=== PATIENT | male | born 1940 | race Caucasian/White ===

== ENCOUNTER → 2016-09-01 | Day surgery (SDC) | payer MEDICARE, BC ==
[2016-09-01 12:29] VITALS: BP 153/73; PULSE 62; RESP 20; TEMP 97.6
--- NOTE | 2016-09-01 12:51 | P.PN ---
Progress Note - Text PROCEDURE: Intrathecal pain pump analysis, programming and reprogramming, and intrathecal pain pump refill. PREOPERATIVE DIAGNOSES: 1. near empty intrathecal pain pump time for refill. 2. opioid tolerance 3. postlaminectomy syndrome POSTOPERATIVE DIAGNOSES: 1. near empty intrathecal pain pump time for refill. 2. opioid tolerance 3. postlaminectomy syndrome ANESTHESIA: None. CONDITION: Stable. INDICATION: This is a 75-year-old patient with a long history of chronic pain secondary to postlaminectomy syndrome. Patient previously had an intrathecal pump placed, which is now close to empty, and patient presents for refill today. Patient denies any side effects of the intrathecal medication, including new weakness, new numbness, excessive drowsiness or sleepiness, nausea/vomiting , weight gain, or night sweats. Patient also denies suicidal ideation, and reports that the current pain medication is helping control the chronic pain and improve the patient's activities of daily living. DESCRIPTION: The intrathecal pain pump was analyzed and showed that the patient currently has reservoir volume of [3.6] mL. The patient is receiving intrathecal Morphine sulfate PF at concentration [5] mg / ml, and bupivacaine PF at concentration [5] mg/ml. Patient receiving daily dose of Morphine Sulfate [0.9] mg/day and bupivacaine [0.9] mg/day. The location of the pump (left buttock) was prepped with chlorhexidine x3. Then , the 22-gauge needle from the [employer] kit was advanced through the pump port. Total of [3.8] ml was removed from the pump, and it was refilled with the new medication total volume of [20] ml of a solution containing morphine sulfate at concentration [5] mg /ml and bupivacaine at concentration [5] mg/ml. The patient will continue with the same daily dose morphine [0.9] mg/day and bupivacaine [0.9] mg/day. The patient is using some oral medications as well, specifically oxyIR 5 mg q6h #90 prn pain orally for breakthrough pain. The patient was given three months' worth of these medications and patient will follow up with the pain clinic in 3 months for refill and further evaluation. We will also obtain a urine drug screen today.
== END ==
LOC: PNWHC3 11:57
PROVIDERS: ATTEND Anesthesiology
DX: Z45.1 Encounter for adjustment and management of infusion pump (principal); M96.1 Postlaminectomy syndrome, not elsewhere classified; Z79.891 Long term (current) use of opiate analgesic
CPT/HCPCS: 62370; 80307; 80364

== ENCOUNTER → 2016-11-24 | Day surgery (SDC) | payer MEDICARE, BC ==
[2016-11-24 12:43] VITALS: BP 129/61; PULSE 49; RESP 18; TEMP 98.3
--- NOTE | 2016-11-24 13:50 | P.PCN ---
Date of Procedure: 11/24/16 Procedure(s) Performed: OPERATION: Intrathecal pain pump analysis, programming and reprogramming, and intrathecal pain pump refill. PREOPERATIVE DIAGNOSES: 1. near empty intrathecal pain pump time for refill. 2. 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 near empty intrathecal pain pump time for refill. 2. 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 CONDITION: Stable. Description of the procedure; Intrathecal pain pump analysed ,it showed patient currently had reservoir volume[ ] mL. The patient is receiving medication morphine sulfate 5 mg/ ml, and bupivacaine concentration 5 mg/ml. Patient receiving daily dose of of morphine 0.90 mg/day and bupivacaine 0.90 mg /day. Pain is well controlled , patient using medication for breakthrough pain Percocet 5/325 every 6-8 hours orally . The location of the pump ( Left Buttuck ) Prepped with chlorhexidine x3 , then using 22-gauge needle [employer] kit advanced through the pump port, Total of [ 5 ] ml removed from the pump, the pump refills with the new medication total volume [ 20 ] ml . The concentration morphine sulfate 5 mg /ml , and the bupivacaine concentration 5 mg/ml. The patient will continue to see the daily dose morphine sulfate 0.90 mg/day and bupivacaine 0.90 mg/day and patient will follow up with the pain clinic in 3 months. [facility] refill for Percocet 5/325 every 6 hours dispense 90 with 2 refills, baclofen 10 mg daily at bedtime dispense 30 with 2 refills
== END ==
LOC: PNWHC3 12:10
PROVIDERS: ATTEND Specialist
DX: Z45.49 Encounter for adjustment and management of other implanted nervous system device (principal); M96.1 Postlaminectomy syndrome, not elsewhere classified; Z79.891 Long term (current) use of opiate analgesic; Z79.899 Other long term (current) drug therapy
CPT/HCPCS: 62370

== ENCOUNTER → 2017-02-17 | Day surgery (SDC) | payer MEDICARE, BC ==
[2017-02-17 13:31] VITALS: BP 118/65; RESP 18
--- NOTE | 2017-02-17 13:31 | P.PN ---
Progress Note - Text PROCEDURE: Intrathecal pain pump analysis, programming and reprogramming, and intrathecal pain pump refill. PREOPERATIVE DIAGNOSES: 1. near empty intrathecal pain pump time for refill. 2. opioid tolerance 3. postlaminectomy syndrome POSTOPERATIVE DIAGNOSES: 1. near empty intrathecal pain pump time for refill. 2. opioid tolerance 3. postlaminectomy syndrome ANESTHESIA: None. CONDITION: Stable. INDICATION: This is a 76-year-old patient with a long history of chronic pain secondary to postlaminectomy syndrome. Patient previously had an intrathecal pump placed, which is now close to empty, and patient presents for refill today. Patient denies any side effects of the intrathecal medication, including new weakness, new numbness, excessive drowsiness or sleepiness, nausea/vomiting , weight gain, or night sweats. Patient also denies suicidal ideation, and reports that the current pain medication is helping control the chronic pain and improve the patient's activities of daily living. DESCRIPTION: The intrathecal pain pump was analyzed and showed that the patient currently has reservoir volume of [4.7] mL. The patient is receiving intrathecal Morphine sulfate PF at concentration [5] mg / ml, and bupivacaine PF at concentration [5] mg/ml. Patient receiving daily dose of Morphine Sulfate [0.9] mg/day and bupivacaine [0.9] mg/day. The location of the pump (left buttock) was prepped with chlorhexidine x3. Then , the 22-gauge needle from the [employer] kit was advanced through the pump port. Total of [3.0] ml was removed from the pump, and it was refilled with the new medication total volume of [20] ml of a solution containing morphine sulfate at concentration [5] mg /ml and bupivacaine at concentration [5] mg/ml. The patient will continue with the same daily dose morphine [0.9] mg/day and bupivacaine [0.9] mg/day. The patient is using some oral medications as well, specifically oxyIR 5 mg q6h #90 prn pain orally for breakthrough pain and baclofen 10 mg qhs for spasm. The patient was given three months' worth of these medications and patient will follow up with the pain clinic in 3 months for refill and further evaluation. UDS appropriate from August 2016.
== END ==
LOC: PNWHC3 12:57
PROVIDERS: ATTEND Anesthesiology
DX: G89.29 Other chronic pain (principal); M96.1 Postlaminectomy syndrome, not elsewhere classified; Z45.1 Encounter for adjustment and management of infusion pump; Z79.891 Long term (current) use of opiate analgesic
CPT/HCPCS: 62370

== ENCOUNTER 2017-04-09 22:02 | Inpatient (IN) | payer MEDICARE, BC ==
[2017-04-09] MEDS ORDERED: SODIUM CHLORIDE 0.9% 1,000 ML IV STA (22:20)
[2017-04-09] MEDS ORDERED: PANTOPRAZOLE 40 MG/10 ML VIAL IVP STA (22:20)
[2017-04-09] MEDS ORDERED: SODIUM CHLORIDE 0.9% 500 ML IV STA (22:20)
--- NOTE | 2017-04-09 22:28 | ED ---
General Adult HPI - General Chief complaint: GI Bleed Stated complaint: Blood Stool Time Seen by Provider: 04/09/17 22:18 Source: patient, RN notes reviewed, old records reviewed Mode of arrival: wheelchair Limitations: no limitations - History of Present Illness Initial comments: THis is a 76 male to the ED with one day of dark tarry stools and weakness. Symptoms with blood last night which are now tarry stools, patient has mild diffuse abdominal pain. Patient has no history of similar GIB, does take motrin but no blood thinners on a regular basis. Patitne has had a history of colonoscopy. - Related Data Home Medications Medication Instructions Recorded Confirmed Aspirin 325 mg PO DAILY 11/22/13 04/09/17 Hydrochlorothiazide [Hydrodiuril] 50 mg PO DAILY 11/22/13 04/09/17 Intrathecal Pain Pump 5 mg INTRATHECA DIRECTED 11/22/13 04/09/17 buPROPion XL [Wellbutrin XL] 300 mg PO DAILY 11/22/13 04/09/17 Ibuprofen [Motrin] 200 mg PO BID 11/25/14 04/09/17 Levothyroxine Sodium [Synthroid] 200 mcg PO DAILY 11/25/14 04/09/17 Metoprolol Tartrate [Lopressor] 50 mg PO DAILY 11/25/14 04/09/17 Docusate [Colace] 100 mg PO DAILY PRN 08/12/15 04/09/17 Atorvastatin [Lipitor] 1 tab PO DAILY 02/17/17 04/09/17 Baclofen [Lioresal] 1 tab PO HS 02/17/17 04/09/17 Citalopram Hydrobromide [CeleXA] 50 mg PO DAILY 02/17/17 04/09/17 Citalopram Hydrobromide [CeleXA] 40 mg PO DAILY 04/09/17 04/09/17 Levothyroxine Sodium [Synthroid] 50 mcg PO DAILY 04/09/17 04/09/17 Previous Rx's Medication Instructions Recorded Baclofen [Lioresal] 10 mg PO HS PRN #30 tab 02/17/17 oxyCODONE HCL [OxyIR] 5 mg PO Q6HR PRN #90 tab 02/17/17 Allergies Allergy/AdvReac Type Severity Reaction Status Date / Time No Known Allergies Allergy Verified 08/03/17 13:10 Review of Systems ROS Statement: Those systems with pertinent positive or pertinent negative responses have been documented in the HPI. ROS Other: All systems not noted in ROS Statement are negative. Past Medical History Past Medical History: Cancer, COPD, GERD/Reflux, Hypertension, Musculoskeletal Disorder, Rheumatoid Arthritis (RA), Thyroid Disorder Additional Past Medical History / Comment(s): HX MIGRAINES. HX OF SKIN CANCER . , CHRONIC BACK PAIN,D.I.S.H.-DEGENERATIVEARTHRITIS, ANKYLOSING SPONDYLITIS. , GETS LIGHTHEADED EASILY-MOVES SLOWLY TO PREVENT LOSS OF BALANCE. History of Any Multi-Drug Resistant Organisms: None Reported Past Surgical History: Appendectomy, Bowel Resection, Joint Replacement, Orthopedic Surgery, Tonsillectomy Additional Past Surgical History / Comment(s): LT KNEE REPL. BACK SURG. X2. INTRATHECAL OPIOID PAIN PUMP TO MANAGE CHRONIC PAIN. Past Anesthesia/Blood Transfusion Reactions: No Reported Reaction Past Psychological History: Anxiety, Depression Smoking Status: Never smoker - Past Family History Father Family Medical History: Cancer, Deep Vein Thrombosis (DVT) Additional Family Medical History / Comment(s): Lung & BONE CA General Exam Limitations: no limitations General appearance: alert, in no apparent distress Head exam: Present: atraumatic, normocephalic, normal inspection Eye exam: Present: normal appearance, PERRL, EOMI. Absent: scleral icterus, conjunctival injection, periorbital swelling ENT exam: Present: normal exam, mucous membranes moist Neck exam: Present: normal inspection. Absent: tenderness, meningismus, lymphadenopathy Respiratory exam: Present: normal lung sounds bilaterally. Absent: respiratory distress, wheezes, rales, rhonchi, stridor Cardiovascular Exam: Present: regular rate, normal rhythm, normal heart sounds. Absent: systolic murmur, diastolic murmur, rubs, gallop, clicks GI/Abdominal exam: Present: soft, normal bowel sounds. Absent: distended, tenderness, guarding, rebound, rigid Extremities exam: Present: normal inspection, full ROM, normal capillary refill. Absent: tenderness, pedal edema, joint swelling, calf tenderness Back exam: Present: normal inspection Neurological exam: Present: alert, oriented X3, CN II-XII intact Psychiatric exam: Present: normal affect, normal mood Skin exam: Present: warm, dry, intact, normal color. Absent: rash Course Vital Signs 04/09/17 04/09/17 22:10 23:17 Temperature 97.5 F L Pulse Rate 77 74 Respiratory 20 18 Rate Blood Pressure 128/75 138/65 O2 Sat by Pulse 98 Oximetry - Reevaluation(s) Reevaluation #1: 04/09/17 23:21 patient with no bloody BM in ED Medical Decision Making - Medical Decision Making 76 male to ED with dark tarry stools, patient not on blood thinners, will admit for GI consult and evaluation - Lab Data Result diagrams: 04/09/17 22:45 Lab Results 04/09/17 04/09/17 04/09/17 Range/Units 22:45 22:45 22:45 WBC 8.6 (3.8-10.6) k/uL RBC 5.26 (4.30-5.90) m/uL Hgb 15.8 (13.0-17.5) gm/dL Hct 47.6 (39.0-53.0) % MCV 90.5 (80.0-100.0) fL MCH 30.0 (25.0-35.0) pg MCHC 33.1 (31.0-37.0) g/dL RDW 15.8 H (11.5-15.5) % Plt Count 191 (150-450) k/uL Neutrophils % 67 % Lymphocytes % 22 % Monocytes % 7 % Eosinophils % 2 % Basophils % 1 % Neutrophils # 5.8 (1.3-7.7) k/uL Lymphocytes # 1.9 (1.0-4.8) k/uL Monocytes # 0.6 (0-1.0) k/uL Eosinophils # 0.1 (0-0.7) k/uL Basophils # 0.0 (0-0.2) k/uL PT 10.8 (9.0-12.0) sec INR 1.1 (<1.2) APTT 22.1 (22.0-30.0) sec Plasma Lactic Acid Js 2.5 H* (0.7-2.0) mmol/L Disposition Clinical Impression: Melena, Gastrointestinal hemorrhage Disposition: ADMITTED IP TO THIS [facility] Condition: Fair Referrals: Remington Mayfield DO [Primary Care Provider] - 1-2 days
[2017-04-09 23:01] LABS: Basophils % (A) 1 %; CH 31.1; CHCM 34.6; Eosinophils # (A) 0.1 k/uL (0-0.7); Eosinophils % (A) 2 %; HCT 47.6 % (39.0-53.0); HDW 3.05; HGB 15.8 gm/dL (13.0-17.5); Luc # (Auto) 0.16; Luc % (Auto) 2; Lymphocytes # (A) 1.9 k/uL (1.0-4.8); Lymphocytes % (A) 22 %; MCHC 33.1 g/dL (31.0-37.0); MCV 90.5 fL (80.0-100.0); Mean Platelet Volume 7.4; Monocytes # (A) 0.6 k/uL (0-1.0); Monocytes % (A) 7 %; Neutrophils # (A) 5.8 k/uL (1.3-7.7); Neutrophils % (A) 67 %; RBC 5.26 m/uL (4.30-5.90); RDW 15.8 % (11.5-15.5); WBC 8.6 k/uL (3.8-10.6); WBC (Perox) 8.47
[2017-04-09 23:11] LABS: INR 1.1 (<1.2); Partial Thromboplastin Time 22.1 sec (22.0-30.0); Prothrombin Time 10.8 sec (9.0-12.0)
[2017-04-09 23:14] LABS: ALT 56 U/L (21-72); AST 52 U/L (17-59); Alkaline Phosphatase 96 U/L (38-126); Anion Gap 14 mmol/L; Blood Urea Nitrogen 20 mg/dL (9-20); Carbon Dioxide 24 mmol/L (22-30); Chloride 98 mmol/L (98-107); Glucose 249 mg/dL (74-99); Magnesium 1.4 mg/dL (1.6-2.3); Non-African American GFR(MDRD) >60 (>60 ml/min/1.73 sqM); Potassium 3.7 mmol/L (3.5-5.1); Sodium 136 mmol/L (137-145); Total Bilirubin 0.5 mg/dL (0.2-1.3); Total Protein 6.9 g/dL (6.3-8.2)
[2017-04-09] MEDS ORDERED: RX INFO: IV CONTRAST WAS GIVEN 1 EACH MISC MISCELLANE PRN (23:22)
[2017-04-09 23:27] LABS: Creatine Kinase 86 U/L (55-170)
[2017-04-09 23:39] LABS: Creatine Kinase MB 1.2 ng/mL (0.0-2.4); Troponin I <0.012 ng/mL (0.000-0.034)
--- NOTE | 2017-04-10 00:44 | CT ---
EXAM: CT Abdomen and Pelvis With Intravenous Contrast CLINICAL HISTORY: Abdominal pain. TECHNIQUE: Axial computed tomography images of the abdomen and pelvis with intravenous contrast. Coronal and sagittal reformatted images were created and reviewed. CTDI is 87.50 mGy and DLP is 3345 mGy-cm. This CT exam was performed using one or more of the following dose reduction techniques: automated exposure control, adjustment of the mA and/or kV according to patient size, and/or use of iterative reconstruction technique. COMPARISON: No prior exams available for comparison. FINDINGS: Limitations: CT scan degraded by motion artifact. Lower thorax: No acute findings. ABDOMEN: Liver: Diffuse fatty infiltration of the liver. Gallbladder and bile ducts: Unremarkable. No calcified stones. No ductal dilation. Pancreas: Unremarkable. Spleen: Unremarkable. No splenomegaly. Adrenals: Unremarkable. No mass. Kidneys and ureters: Small renal hypodensities, some too small to characterize and others most likely cysts. No hydronephrosis. Stomach and bowel: No obstruction. Status post sigmoid colectomy. Appendix: Appendix is not visualized. No secondary findings to suggest appendicitis. PELVIS: Bladder: Unremarkable. Reproductive: Unremarkable as visualized. ABDOMEN and PELVIS: Intraperitoneal space: No free air. No significant fluid collection. Bones/joints: No acute fracture. There is ankylosis of the thoracolumbar spine and SI joints. Soft tissues: Tiny fat-containing umbilical hernia. Gynecomastia. Vasculature: Unremarkable. No abdominal aortic aneurysm. Lymph nodes: Unremarkable. No enlarged lymph nodes. Tubes, lines and devices: Left posterior flank pump device with intrathecal catheter entering the spinal canal at the L1-L2 level. The catheter tip is located at the T9-T10 level. IMPRESSION: 1. No acute findings. 2. Status post sigmoid colectomy. 3. Diffuse fatty infiltration of the liver. 4. Tiny fat-containing umbilical hernia. 5. 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
[2017-04-10] MEDS ORDERED: SODIUM CHLORIDE 0.65% NASAL SPRAY 44 ML BTL NASAL PRN (03:48)
[2017-04-10] MEDS: ONDANSETRON 4 MG/2 ML VIAL IVP PRN ×2 (04:03→09:33)
[2017-04-10 07:18] LABS: Glucose,Whole Blood 205 mg/dL (75-99)
[2017-04-10] MEDS: PANTOPRAZOLE 40 MG/10 ML VIAL IVP SCH ×2 (08:07→20:38)
[2017-04-10] MEDS: INSULIN LISPRO (humaLOG) 300 UNIT/3 ML VIAL SQ SCH ×5 (08:12→20:59)
[2017-04-10 08:29] LABS: Basophils % (A) 1 %; CHCM 33.9; Eosinophils # (A) 0.1 k/uL (0-0.7); Eosinophils % (A) 1 %; HCT 46.4 % (39.0-53.0); HDW 3.01; HGB 14.9 gm/dL (13.0-17.5); Luc # (Auto) 0.26; Luc % (Auto) 3; Lymphocytes # (A) 1.9 k/uL (1.0-4.8); Lymphocytes % (A) 23 %; MCH 29.6 pg (25.0-35.0); MCHC 32.1 g/dL (31.0-37.0); Mean Platelet Volume 7.4; Monocytes # (A) 0.7 k/uL (0-1.0); Monocytes % (A) 9 %; Neutrophils # (A) 5.2 k/uL (1.3-7.7); Neutrophils % (A) 63 %; RBC 5.04 m/uL (4.30-5.90); RDW 15.9 % (11.5-15.5); WBC 8.3 k/uL (3.8-10.6); WBC (Perox) 7.58
[2017-04-10 08:43] LABS: Anion Gap 13 mmol/L; Blood Urea Nitrogen 15 mg/dL (9-20); Calcium 9.6 mg/dL (8.4-10.2); Carbon Dioxide 23 mmol/L (22-30); Chloride 102 mmol/L (98-107); Glucose 203 mg/dL (74-99); Non-African American GFR(MDRD) >60 (>60 ml/min/1.73 sqM); Potassium 3.3 mmol/L (3.5-5.1); Sodium 138 mmol/L (137-145)
[2017-04-10] MEDS: SODIUM CHLORIDE 0.9% 1,000 ML IV SCH ×2 (10:36→17:33)
--- NOTE | 2017-04-10 10:39 | CONS ---
CONSULTATION REQUESTING PHYSICIANS: Dr. Mayfield. REASON FOR CONSULTATION: Acute GI bleed. HISTORY OF PRESENT ILLNESS: The patient is a 76-year-old pleasant white male admitted to the hospital with acute GI bleed. On Tuesday night he had 2 episodes of black tarry stools followed by 2 more episodes of dark-colored stools. He at the same time started having abdominal pain mostly in the left lower quadrant area as well as in the epigastric area that lasted for a few hours. Yesterday morning he had 2 more episodes of dark colored stools, became somewhat dizzy, came to the emergency room and subsequently admitted to the hospital for acute GI bleed. Since being in the hospital since last night he did not have any further episodes of bleeding. He had an episode of nausea, vomiting, but no coffee-grounds emesis. He has been taking NSAIDs recently for chronic back pain. He denies any prior history of peptic ulcer disease. He recalls having a colonoscopy several years ago and according to him was noted to have a large polyp in the sigmoid colon, which was resected and this was more than 10 years ago. He denies any recent colonoscopy since then. In the ER CBC was 15.8 and this morning is 14.9 g/dL. PAST MEDICAL HISTORY: Significant for hypertension, chronic back pain, migraine, GERD, COPD, hypothyroidism, rheumatoid arthritis. PAST SURGICAL HISTORY: Sigmoid resection 12 years ago, appendectomy, tonsillectomy, back surgery, left knee replacement. MEDICATIONS: Medications at home: 1. Aspirin. 2. HydroDIURIL. 3. Intrathecal pain pump. 4. Wellbutrin. 5. Motrin. 6. Synthroid. 7. Lopressor. 8. Colace. 9. Lipitor. 10.Lioresal. 11.Celexa. 12.Synthroid. ALLERGIES: None. SOCIAL HISTORY: No smoking or alcohol use. FAMILY HISTORY: Father has DVT and bone cancer. REVIEW OF SYSTEMS: CARDIOPULMONARY: Denies any chest pain, shortness of breath. GENITOURINARY: Denies any dysuria or hematuria. MUSCULOSKELETAL: Unremarkable. SKIN: Unremarkable. PSYCHIATRIC: Unremarkable. ENT/VISION: Unremarkable. CONSTITUTIONAL: No recent weight loss. No fever, chills or night sweats. EXAM: On physical examination he appears comfortable in no apparent distress. VITAL SIGNS: Stable. Blood pressure is 149/78, pulse rate 94, temperature 98.8. HEENT examination unremarkable. Conjunctivae pink. Sclerae anicteric. Oral cavity no lesions. NECK: No JVD or lymph node enlargement. Chest was clear to auscultation. HEART: Regular rate and rhythm. Abdomen is soft. Bowel sounds are positive. No organomegaly. There was mild tenderness in the left lower quadrant area as well as the epigastric area. EXTREMITIES: No pedal edema. SKIN: No rashes. NEUROLOGIC: Alert and oriented x3. No focal deficits. LABS: Labs done at the time of admission hospital: WBC 8.6, hemoglobin 15.8. Today hemoglobin is 14.9, platelets are normal. Basic metabolic panel is within normal limits. Lactic acid was 2.5. IMPRESSION: The patient presents to the hospital with abdominal pain mostly in the left lower quadrant as well as epigastric area associated with some nausea, vomiting and multiple episodes of black tarry stools for the last 2 days duration. Hemoglobin surprisingly is stable at 14.8 g/dL. He has been taking NSAIDs for chronic back pain in addition to narcotic pain medications. At this time it appears that we are dealing with an upper GI source of bleeding, but possibility of a right colonic lesion cannot be excluded. His last colonoscopy was more than 12 years ago at which time he was diagnosed with a large colon polyp and hence then underwent segmental sigmoid resection. RECOMMENDATIONS: 1. Start him on clear liquid diet. 2. Continue with proton pump inhibitor. 3. We will proceed with an EGD and colonoscopy tomorrow. 4. Discussed with the patient the risks, benefits, and complications and he is agreeable to it. Thank you for this consultation. MMODL / IJN: [id number] /
[2017-04-10] MEDS: ACETAMINOPHEN IV (For NPO) 1,000 MG in EMPTY BAG 1 BAG IVPB SCH ×3 (11:08→23:27)
[2017-04-10 12:19] LABS: Glucose,Whole Blood 271 mg/dL (75-99)
[2017-04-10] MEDS ORDERED: BACLOFEN 10 MG TAB PO PRN (14:32)
[2017-04-10] MEDS ORDERED: ALPRAZolam 0.25 MG TAB PO PRN (14:34)
[2017-04-10] MEDS ORDERED: TEMAZEPAM 15 MG CAP PO PRN (14:34)
[2017-04-10] MEDS ORDERED: INTRATHECAL PAIN PUMP INTRATHECA SCH (14:45)
[2017-04-10] MEDS ORDERED: PEG 3350-NA SULF,BICARB,CL/KCL 4,000 ML BOTTLE PO ONE (16:00)
--- NOTE | 2017-04-10 16:02 | XR ---
EXAMINATION TYPE: XR chest 1V portable DATE OF EXAM: 04/10/2017 COMPARISON: NONE HISTORY: Heart failure. Chest pain. TECHNIQUE: Single frontal view of the chest is obtained. FINDINGS: A single view of the chest shows no heart failure nor confluent pneumonic infiltrate. Ther e is curvilinear density at the right lung base that is probably due to atelectasis. There are chest leads. There is no sign of pleural effusion. There is severe subacromial joint space narrowing at the right shoulder joint. IMPRESSION: No heart failure. There is probably focal atelectasis in the right lower lobe.
[2017-04-10 16:03] LABS: Appearance,Urine Clear (Clear); Bilirubin,Urine Negative (Negative); Glucose,Urine (UA) 1+ (Negative); Ketones,Urine 1+ (Negative); Leukocyte Esterase,Urine Negative (Negative); Nitrite,Urine Negative (Negative); Protein,Urine Negative (Negative); Specific Gravity,Urine 1.019 (1.001-1.035); UA Billing (MACRO vs. MICRO) CHEM; Urobilinogen,Urine <2.0 mg/dL (<2.0)
[2017-04-10 17:31] LABS: Glucose,Whole Blood 202 mg/dL (75-99)
--- NOTE | 2017-04-10 19:03 | HP ---
HISTORY AND PHYSICAL DATE OF SERVICE: 04/10/2017 I am covering for Dr. Mayfield. CHIEF COMPLAINT: GI bleed. HISTORY OF PRESENT ILLNESS: This 76-year-old gentleman with a past medical history of multiple medical problems including COPD, GERD, hypertension, history of rheumatoid arthritis being followed by Dr. Mayfield in the outpatient setting was recently diagnosed to have diabetes. The patient was started on metformin. Subsequently the patient apparently developed multiple episodes of gastrointestinal bleed with fresh maroon-colored blood and subsequently black-colored stools and patient came to [facility] admitted for evaluation and treatment. The lactic acid level was found to be high at 2.7, 3.7. Otherwise an abdominal pelvis CAT scan was also done in the ER which showed no acute findings. There is no history of fever, rigors. No history of headache, loss of consciousness, seizures at this time. PAST MEDICAL HISTORY: History of COPD, GERD, hypertension, rheumatoid arthritis, appendectomy. MEDICATIONS: Medications prior to admission include: 1. Dorzolamide timolol 1 drop b.i.d. 2. Xalatan 1 drop q.h.s. 3. Oxy IR 5 mg b.i.d. 4. Glucophage 500 mg p.o. b.i.d. 6. Multivitamins 1 p.o. daily. 7. Lopressor 50 mg b.i.d. 8. Synthroid 50 mcg p.o. daily and 200 mcg p.o. daily. 9. Intrathecal pain pump 5 mg. 10.Motrin 200 mg p.o. b.i.d. 11.HydroDIURIL 60 mg. 12.Colace 100 mg p.o. daily. 13.Celexa 60 mg daily p.r.n. 14.Lioresal 10 mg q.h.s. p.r.n. 15.Lipitor 10 mg q.h.s. 16.Aspirin 325 mg daily. ALLERGIES: None. FAMILY HISTORY: History of lung cancer, bone cancer and DVT. SOCIAL HISTORY: No history of smoking. No history alcohol intake. REVIEW OF SYSTEMS: ENT: No diminished hearing. No diminished vision. CARDIOVASCULAR: No angina or palpitations. RESPIRATORY: No cough or hemoptysis. : As mentioned earlier. : No dysuria. NERVOUS SYSTEM: No numbness, weakness. ALLERGY/IMMUNOLOGY: No asthma or hayfever. MUSCULOSKELETAL: As mentioned. HEMATOLOGY: No anemia. ENDOCRINE: As mentioned earlier. CONSTITUTIONAL: As mentioned earlier. DERMATOLOGY: Negative RHEUMATOLOGY: Negative. PSYCHOLOGY: As mentioned earlier. EXAMINATION: Alert and oriented x3. Pulse is 82, blood pressure 156/67, respirations 20, temperature 97.7, pulse ox 97% room air. HEENT: Conjunctivae normal. Oral mucosa moist. NECK: No jugular venous distention. No carotid bruit. No thyroid enlargement. CARDIOVASCULAR: S1, S2 muffled. No S3, no S4. RESPIRATORY: Breath sounds diminished in bases. No rhonchi, no crackles. ABDOMEN: Soft. Nontender. No mass palpable. LEGS: No edema. No swelling. NERVOUS SYSTEM: Higher functions as mentioned earlier. Moves all four limbs. No focal motor or sensory deficits. LYMPHATICS: No lymph node of the neck, axillae, or groin. SKIN: No ulcer, rash or bleeding. LABS: Labs at this time shows WBC 8.6, hemoglobin 15.2, sodium 133. Lactic acid noted. ASSESSMENT: 1. GI bleed. Rule out peptic ulcer disease or diverticulosis. 2. Lactic acidosis of undetermined etiology. 3. Newly diagnosed diabetes type 2. 4. Hypokalemia. 5. History of chronic obstructive pulmonary disease. 6. History of gastroesophageal reflux disease. 7. Hypertension. 8. Rheumatoid arthritis. 9. History of chronic back pain and DISH. 10.History of anxiety. RECOMMENDATIONS AND DISCUSSION: In this 76-year-old gentleman who presented with multiple complex medical issues , we will monitor the patient closely. Continue the current medications and symptomatic treatment. Otherwise at this time I recommend to monitor hemoglobin closely. Dr. Bhatti has been consulted for possible endoscopy. Other than that, I would also recommend to hold metformin which could be causing the lactic acidosis but however also recommend UA with micro and as well as chest x-ray also. Clinically there is no evidence of infection or intraabdominal acute pathology at this time. We will continue to monitor. Continue IV fluids. Overall prognosis guarded because of multiple complex medical issues. further recommendations to follow. Discussed with patient who understands and agrees. Dr. Mayfield will follow. MMODL / IJN: [id number] / [facility]
[2017-04-10] MEDS: LATANOPROST 0.005% OPHTH DROPS 2.5 ML BTL BOTH EYES SCH (20:37)
[2017-04-10] MEDS: ATORVASTATIN 10 MG TAB PO SCH (20:38)
[2017-04-10] MEDS: DORZOLAMIDE-TIMOLOL 2-0.5% DROPS 10 ML BTL BOTH EYES SCH (20:38)
[2017-04-10 20:58] LABS: Glucose,Whole Blood 174 mg/dL (75-99)
[2017-04-10 23:57] LABS: Glucose,Whole Blood 114 mg/dL (75-99)
[2017-04-11] MEDS: SODIUM CHLORIDE 0.9% 1,000 ML IV SCH ×3 (02:34→17:34)
[2017-04-11 03:46] LABS: Glucose,Whole Blood 150 mg/dL (75-99)
[2017-04-11] MEDS: ACETAMINOPHEN IV (For NPO) 1,000 MG in EMPTY BAG 1 BAG IVPB SCH (06:37)
[2017-04-11 07:23] LABS: Glucose,Whole Blood 170 mg/dL (75-99)
[2017-04-11] MEDS: INSULIN LISPRO (humaLOG) 300 UNIT/3 ML VIAL SQ SCH ×7 (07:35→22:24)
[2017-04-11] MEDS: DORZOLAMIDE-TIMOLOL 2-0.5% DROPS 10 ML BTL BOTH EYES SCH ×2 (07:36→22:23)
[2017-04-11] MEDS: LEVOTHYROXINE 50 MCG TAB PO SCH (07:36)
[2017-04-11] MEDS: PANTOPRAZOLE 40 MG/10 ML VIAL IVP SCH ×2 (07:36→23:18)
[2017-04-11] MEDS: LEVOTHYROXINE 100 MCG TAB PO SCH (07:36)
[2017-04-11] MEDS: HYDROCHLOROTHIAZIDE 50 MG TAB PO SCH (07:39)
[2017-04-11] MEDS: buPROPion XL 300 MG TAB.ER.24H PO SCH (07:39)
[2017-04-11] MEDS: CITALOPRAM HYDROBROMIDE 20 MG TAB PO SCH (07:39)
[2017-04-11] MEDS: METOPROLOL TARTRATE 50 MG TAB PO SCH (07:39)
[2017-04-11 08:53] LABS: Basophils # (A) 0.1 k/uL (0-0.2); Basophils % (A) 1 %; CHCM 33.8; Eosinophils # (A) 0.3 k/uL (0-0.7); Eosinophils % (A) 4 %; HCT 40.4 % (39.0-53.0); HDW 3.09; HGB 13.1 gm/dL (13.0-17.5); Luc # (Auto) 0.17; Luc % (Auto) 2; Lymphocytes # (A) 1.3 k/uL (1.0-4.8); Lymphocytes % (A) 18 %; MCH 29.9 pg (25.0-35.0); MCHC 32.4 g/dL (31.0-37.0); MCV 92.1 fL (80.0-100.0); Mean Platelet Volume 7.2; Monocytes # (A) 0.6 k/uL (0-1.0); Monocytes % (A) 9 %; Neutrophils # (A) 4.7 k/uL (1.3-7.7); Neutrophils % (A) 66 %; RBC 4.38 m/uL (4.30-5.90); RDW 15.9 % (11.5-15.5); WBC 7.1 k/uL (3.8-10.6); WBC (Perox) 6.73
[2017-04-11 09:16] LABS: Anion Gap 9 mmol/L; Blood Urea Nitrogen 7 mg/dL (9-20); Calcium 8.8 mg/dL (8.4-10.2); Carbon Dioxide 26 mmol/L (22-30); Chloride 105 mmol/L (98-107); Non-African American GFR(MDRD) >60 (>60 ml/min/1.73 sqM); Potassium 3.3 mmol/L (3.5-5.1); Sodium 140 mmol/L (137-145)
[2017-04-11 09:17] LABS: Glucose 165 mg/dL (74-99)
--- NOTE | 2017-04-11 09:34 | P.PN ---
Subjective Principal diagnosis: 76-year-old male who presented to the emergency room on 04/09/2017 with a chief complaint of abdominal pain, weakness, and dark tarry stools. The patient is not on anticoagulation, however the patient has been taking Motrin on a regular basis due to back pain. He also has a history of COPD, GERD, rheumatoid arthritis, and hypertension. He was recently diagnosed with diabetes mellitus and started on metformin per Dr. Mayfield. A computed tomography scan of the abdomen was completed which was negative for any acute findings. It did show diffuse fatty infiltrates of the liver, tiny fat-containing umbilical hernia, and evidence of sigmoid colectomy. A chest x- ray was completed in the emergency room which showed atelectasis of the right lower lobe. His lactic acid was elevated upon admission at 2.5. His metformin was held per Dr. Cohen because of this. The patient is scheduled for EGD and colonoscopy today. He remains nothing by mouth. He completed his prep last night. Lab work from this morning was reviewed. Potassium 3.3 and magnesium 1.4. Will supplement. His lactic acid was 3.6 at midnight. Repeat lactic acid this morning is 1.0. The patient's vital signs remained stable. His temperature this Tuesday was 99.8. His oxygen saturation remains greater than 92% on 2 liters nasal cannula. He denies shortness of breath or chest pain. He denies nausea or vomiting. Objective - Vital Signs Vital signs: Vital Signs Temp 97.5 F L 04/11/17 07:00 Pulse 72 04/11/17 07:00 Resp 16 04/11/17 07:00 BP 126/59 04/11/17 07:00 Pulse Ox 92 L 04/11/17 07:00 Intake & Output 04/10/17 04/11/17 04/11/17 18:59 06:59 18:59 Intake Total 500 Balance 500 Weight 122.47 kg Intake: Oral 500 Other: Voiding Method Bedside Commode Bedside Commode Bedside Commode Urinal Urinal Urinal # Voids 2 1 # Bowel Movements 1 4 - Exam GENERAL: Alert and oriented. Appears in no acute distress. Pleasant and cooperative. RESPIRATORY: Lungs clear bilaterally. No use of accessory muscles. Patient maintaining oxygen saturation greater than 92% on 2L nasal cannula. CARDIOVASCULAR: S1 and S2 noted. No murmurs auscultated. No JVD noted. EXTREMITIES: No edema noted. Palpable pedal pulses +2. ABDOMEN: Obese. Abdomen soft and round. Normal active bowel sounds auscultated 4 quadrants. No pain or tenderness noted upon palpation. - Labs CBC & Chem 7: 04/11/17 08:15 04/11/17 08:15 Labs: Abnormal Lab Results - Last 24 Hours (Table) 04/10/17 04/10/17 04/10/17 Range/Units 12:12 12:17 15:38 RDW (11.5-15.5) % POC Glucose (mg/dL) 271 H (75-99) mg/dL Plasma Lactic Acid Js 3.7 H* (0.7-2.0) mmol/L Urine Glucose (UA) 1+ H (Negative) Urine Ketones 1+ H (Negative) 04/10/17 04/10/17 04/10/17 Range/Units 17:18 20:10 20:41 RDW (11.5-15.5) % POC Glucose (mg/dL) 202 H 174 H (75-99) mg/dL Plasma Lactic Acid Js 3.3 H* (0.7-2.0) mmol/L Urine Glucose (UA) (Negative) Urine Ketones (Negative) 04/10/17 04/11/17 04/11/17 Range/Units 23:54 00:08 03:43 RDW (11.5-15.5) % POC Glucose (mg/dL) 114 H 150 H (75-99) mg/dL Plasma Lactic Acid Js 3.6 H* (0.7-2.0) mmol/L Urine Glucose (UA) (Negative) Urine Ketones (Negative) 04/11/17 04/11/17 Range/Units 07:14 08:15 RDW 15.9 H (11.5-15.5) % POC Glucose (mg/dL) 170 H (75-99) mg/dL Plasma Lactic Acid Js (0.7-2.0) mmol/L Urine Glucose (UA) (Negative) Urine Ketones (Negative) Assessment and Plan Plan: ASSESSMENT: GI bleed, present on admission, possibly due to daily Motrin use. Elevated lactic acid, present on admission, no evidence of sepsis, resolved, 1.0 this morning Diabetes mellitus, type II, recent hemoglobin A1C 10.7% COPD, no evidence of acute exacerbation History of GERD Essential hypertension Hypokalemia Hypomagnesemia, present on admission PLAN: -Patient is scheduled for EGD and colonoscopy today -Maintain NPO until after procedure today, then may start clear liquids -Await further recommendations from GI. Appreciate input. -40meq of potassium chloride IVPB with lidocaine -3 grams of magnesium sulfate -Continue IVF -Monitor labs -GI prophylaxis: Protonix 40mg IV BID -DVT prophylaxis: On hold due to GI bleed -Monitor vital signs and address as appropriate -Continue to monitor capillary blood glucose -Continue humalog sliding scale. -Restart Metformin tomorrow morning The above impression and plan of care have been discussed and directed by signing physician. Rachel Todd, nurse practitioner, acting as scribe for signing physician.
[2017-04-11] MEDS ORDERED: POTASSIUM CHLORIDE 20 MEQ, LIDOCAINE 2% INJ 20 MG in SODIUM CHLORIDE 0.9% 100 ML IVPB SCH (10:00)
[2017-04-11] MEDS: POTASSIUM CHLORIDE 20 MEQ, LIDOCAINE 2% INJ 20 MG in SODIUM CHLORIDE 0.9% 100 ML IVPB SCH ×2 (10:08→12:20)
[2017-04-11] MEDS: MAGNESIUM SULFATE-D5W PMX 1 GM in DEXTROSE/WATER 1 100ML.BAG IVPB SCH ×3 (10:54→13:41)
[2017-04-11 11:02] LABS: Hemoglobin A1C 10.8 % (4.2-6.1)
[2017-04-11 11:22] LABS: Hemoglobin A1C 10.7 % (4.2-6.1)
[2017-04-11 12:22] LABS: Glucose,Whole Blood 204 mg/dL (75-99)
[2017-04-11] MEDS ORDERED: IV FLUID CONTINUATION 200 ML IV ONE (12:48)
[2017-04-11] MEDS ORDERED: MIDAZOLAM 2 MG/2 ML VIAL ONE (12:54)
[2017-04-11] MEDS ORDERED: LIDOCAINE 1% INJ 10MG/ML (20 ML MDV) ONE (12:54)
[2017-04-11] MEDS ORDERED: PROPOFOL 10 MG/ML 20 ML VIAL IV ONE (12:54)
--- NOTE | 2017-04-11 13:24 | P.PCN ---
Date of Procedure: 04/11/17 Procedure(s) Performed: Brief history: Patient is a pleasant 76-year-old white male, was admitted to hospital with acute GI bleed. He had multiple episodes of black tarry stools as well as dark colored stools for the last 2 days' duration. He is hence scheduled for an upper endoscopy as well as colonoscopy as a part of evaluation of Procedure performed: Esophagogastroduodenoscopy with biopsy Colonoscopy with biopsy Preoperative diagnosis: Acute GI bleeding Anesthesia: MAC Procedure: After informed consent was obtained from the patient was brought into the endoscopy unit and IV sedation was administered by anesthesia under continuous monitoring. Initially upper endoscopy was done. The Olympus GF 160 video endoscope was inserted inserted into the mouth and esophagus intubated without any difficulty and was gradually advanced into the stomach and duodenum and carefully examined. The bulb of the duodenum appeared normal. Along the duodenal sweep there was a duodenal structure identified but this did not impede the passage of the scope. No active ulcerations identified. The mucosa in the duodenum appeared friable. The scope was then withdrawn into the stomach adequately insufflated with air and upon careful examination the antrum had gastritis and biopsies were done from this area. The body, cardia and fundus appeared normal. The scope was then withdrawn into the esophagus. The GE junction was located at 40 cm to the incisors. It appeared regular with no erythema erosions or ulcerations. Rest of the esophagus appeared normal. Patient tolerated the procedure well. At this time the patient continued to remain sedation. Initial digital rectal examination was normal. Olympus CF 160 video colonoscope was then inserted into the rectum and gradually advanced to the cecum without any difficulty. Careful examination was performed as the scope was gradually being withdrawn. The prep was fair.. The cecum, ascending colon, appeared normal. There was a 5 mL polyp noted in the transverse colon that was removed by biopsy. The rest of the transverse colon, descending colon, sigmoid colon and rectum appeared normal. Retroflexion was performed in the rectum and no lesions were noted. Patient tolerated the procedure well. Impression: 1. 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 Colonoscopy revealed 5 mm ascending colon polyp status post biopsy and the rest of the colon appeared normal. Recommendations: Findings of this examination were discussed with the patient as well as his family. He was advised to follow with the biopsy results. He will continue with Protonix 40 mg daily and diet will be advanced as tolerated.
[2017-04-11 17:11] LABS: Glucose,Whole Blood 221 mg/dL (75-99)
[2017-04-11 20:58] LABS: Glucose,Whole Blood 138 mg/dL (75-99)
[2017-04-11] MEDS: LATANOPROST 0.005% OPHTH DROPS 2.5 ML BTL BOTH EYES SCH (22:23)
[2017-04-11] MEDS ORDERED: ACETAMINOPHEN TAB 325 MG TAB PO PRN (22:35)
[2017-04-11] MEDS: ATORVASTATIN 10 MG TAB PO SCH (23:17)
[2017-04-12] MEDS: LEVOTHYROXINE 100 MCG TAB PO SCH (06:42)
[2017-04-12] MEDS: LEVOTHYROXINE 50 MCG TAB PO SCH (06:42)
[2017-04-12] MEDS: SODIUM CHLORIDE 0.9% 1,000 ML IV SCH ×2 (06:42→08:12)
[2017-04-12 07:32] LABS: Glucose,Whole Blood 224 mg/dL (75-99)
[2017-04-12] MEDS: INSULIN LISPRO (humaLOG) 300 UNIT/3 ML VIAL SQ SCH ×4 (07:58→13:17)
[2017-04-12] MEDS: buPROPion XL 300 MG TAB.ER.24H PO SCH (07:59)
[2017-04-12] MEDS: CITALOPRAM HYDROBROMIDE 20 MG TAB PO SCH (07:59)
[2017-04-12] MEDS: METOPROLOL TARTRATE 50 MG TAB PO SCH (08:00)
[2017-04-12] MEDS: HYDROCHLOROTHIAZIDE 50 MG TAB PO SCH (08:00)
[2017-04-12] MEDS: PANTOPRAZOLE 40 MG/10 ML VIAL IVP SCH (08:00)
[2017-04-12 08:19] VITALS: RESP 18
[2017-04-12] MEDS: DORZOLAMIDE-TIMOLOL 2-0.5% DROPS 10 ML BTL BOTH EYES SCH (08:28)
--- NOTE | 2017-04-12 08:53 | P.DS ---
Providers Date of admission: 04/10/17 16:12 Expected date of discharge: 04/12/17 Attending physician: Remington Mayfield Consults: 04/09/17 23:19 Consult Physician Routine Consulting Provider: Adam Farfan Consult Reason/Comments: gib Do you want consulting provider notified?: Yes 04/11/17 16:17 Consult Physician Routine Consulting Provider: John Lucero Consult Reason/Comments: change in cardiac rhythm Do you want consulting provider notified?: Yes Primary care physician: Remington Mayfield Hospital Course: 76-year-old male who presented to the emergency room on 04/09/2017 with a chief complaint of abdominal pain, weakness, and dark tarry stools. The patient is not on anticoagulation, however the patient has been taking Motrin on a regular basis due to back pain. He also has a history of COPD, GERD, rheumatoid arthritis, and hypertension. He was recently diagnosed with diabetes mellitus and started on metformin per Dr. Mayfield. A computed tomography scan of the abdomen was completed which was negative for any acute findings. It did show diffuse fatty infiltrates of the liver, tiny fat-containing umbilical hernia, and evidence of sigmoid colectomy. A chest x- ray was completed in the emergency room which showed atelectasis of the right lower lobe. His lactic acid was elevated upon admission at 2.5. His metformin was held per Dr. Cohen because of this, but has since been restarted. The patient underwent EGD and colonoscopy yesterday. 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 Colonoscopy revealed 5mm ascending colon polyp status post biopsy. The rest of the colon appeared normal. His lactic acid was elevated on admission but has since resolved. No signs of infection or sepsis. The patient's vital signs remained stable. He is afebrile. He denies shortness of breath or chest pain. He denies nausea or vomiting. The patients oxygen saturation is 90% this morning on room air. Per the patient, he has oxygen at home that he wears about 75% of the day and he believes it is 3L. The patient is discharged with scripts for 81mg asa coated daily, 40mg protonix daily, and xanax TID PRN for anxiety. The patient was also given a script for a glucometer, testing strips, and lancets to monitor his blood glucose at home. GI bleed, present on admission, possibly due to daily Motrin use, EGD shows stricture of duodenum and gastritis. Elevated lactic acid, present on admission, no evidence of sepsis, resolved Diabetes mellitus, type II, recent hemoglobin A1C 10.7% COPD, no evidence of acute exacerbation History of GERD Essential hypertension Hypokalemia, resolved Hypomagnesemia, present on admission, resolved Patient Condition at Discharge: Stable Plan - Discharge Summary New Discharge Prescriptions: New Acetaminophen Tab [Tylenol] 650 mg PO Q6HR PRN tab PRN Reason: Fever And/ Or Pain ALPRAZolam [Xanax] 0.25 mg PO TID PRN #30 tab PRN Reason: Anxiety Pantoprazole [Protonix] 0 mg PO DAILY #30 tablet. Aspirin [Adult Low Dose Aspirin EC] 81 mg PO DAILY #30 tablet. Continue Hydrochlorothiazide [Hydrodiuril] 50 mg PO DAILY Intrathecal Pain Pump 5 mg INTRATHECA DIRECTED buPROPion XL [Wellbutrin XL] 300 mg PO DAILY Levothyroxine Sodium [Synthroid] 200 mcg PO DAILY Metoprolol Tartrate [Lopressor] 50 mg PO DAILY Docusate [Colace] 100 mg PO DAILY PRN PRN Reason: Constipation Baclofen [Lioresal] 10 mg PO HS PRN #30 tab PRN Reason: Spasms Atorvastatin [Lipitor] 10 mg PO HS Levothyroxine Sodium [Synthroid] 50 mcg PO DAILY Citalopram Hydrobromide [CeleXA] 60 mg PO DAILY metFORMIN HCL [Glucophage] 500 mg PO BID Multivitamins, Thera [Multivitamin (formulary)] 1 tab PO DAILY oxyCODONE HCL [OxyIR] 5 mg PO BID PRN PRN Reason: Pain Latanoprost Ophth [Xalatan 0.005%] 1 drops BOTH EYES HS Dorzolamide-Timolol 2%/0.5% [dorzolamide-Timolol 2%/0.5%] 1 drop BOTH EYES BID Discontinued Aspirin 325 mg PO DAILY Ibuprofen [Motrin] 200 mg PO BID Discharge Medication List Hydrochlorothiazide [Hydrodiuril] 50 mg PO DAILY 11/22/13 [History] Intrathecal Pain Pump 5 mg INTRATHECA DIRECTED 11/22/13 [History] buPROPion XL [Wellbutrin XL] 300 mg PO DAILY 05/08/14 [History] Levothyroxine Sodium [Synthroid] 200 mcg PO DAILY 11/25/14 [History] Metoprolol Tartrate [Lopressor] 50 mg PO DAILY 11/25/14 [History] Docusate [Colace] 100 mg PO DAILY PRN 08/12/15 [History] Atorvastatin [Lipitor] 10 mg PO HS 02/17/17 [History] Baclofen [Lioresal] 10 mg PO HS PRN #30 tab 02/17/17 [Rx] Citalopram Hydrobromide [CeleXA] 60 mg PO DAILY 04/09/17 [History] Levothyroxine Sodium [Synthroid] 50 mcg PO DAILY 04/09/17 [History] Dorzolamide-Timolol 2%/0.5% [dorzolamide-Timolol 2%/0.5%] 1 drop BOTH EYES BID 04/10/17 [History] Latanoprost Ophth [Xalatan 0.005%] 1 drops BOTH EYES HS 04/10/17 [History] Multivitamins, Thera [Multivitamin (formulary)] 1 tab PO DAILY 04/10/17 [History ] metFORMIN HCL [Glucophage] 500 mg PO BID 04/10/17 [History] oxyCODONE HCL [OxyIR] 5 mg PO BID PRN 04/10/17 [History] ALPRAZolam [Xanax] 0.25 mg PO TID PRN #30 tab 04/12/17 [Rx] Acetaminophen Tab [Tylenol] 650 mg PO Q6HR PRN tab 04/12/17 [Rx] Aspirin [Adult Low Dose Aspirin EC] 81 mg PO DAILY #30 tablet. 04/12/17 [Rx] Pantoprazole [Protonix] 0 mg PO DAILY #30 tablet. 04/12/17 [Rx] Follow up Appointment(s)/Referral(s): Remington Mayfield DO [Primary Care Provider] - 1-2 days [facility], [NON-STAFF] - Makayla Bhatti MD [STAFF PHYSICIAN] - 1 Week Patient Instructions/Handouts: Type 2 Diabetes in Adults (DC) Discharge Disposition: HOME SELF-CARE
[2017-04-12] MEDS ORDERED: metFORMIN 500 MG TAB PO SCH (09:00)
--- NOTE | 2017-04-12 10:23 | P.PN ---
Subjective Principal diagnosis: GI bleed Status post EGD colonoscopy yesterday for evaluation of black tarry stools with findings of early duodenal stricture along the sweep with no active ulcerations with mild antral gastritis. Ascending colon polypectomy rest of colon appeared normal. No bleeding. Tolerating advance diet. Denies abdominal pain. Hemoglobin yesterday 13.1. Objective - Vital Signs Vital signs: Vital Signs Temp 98.4 F 04/12/17 07:00 Pulse 62 04/12/17 07:00 Resp 18 04/12/17 07:00 BP 118/60 04/12/17 07:00 Pulse Ox 90 L 04/12/17 07:00 Intake & Output 04/11/17 04/12/17 04/12/17 18:59 06:59 18:59 Intake Total 100 Balance 100 Intake: IV 100 Other: Voiding Method Bedside Commode Bedside Commode Urinal Urinal # Voids 3 2 # Bowel Movements 1 1 - Exam General appearance: The patient is alert, oriented, in no acute distress. HET: Head is normocephalic and atraumatic. Pupils are equal and reactive. Oropharynx is clear without lesions. Neck: Supple without lymphadenopathy. Trachea midline. Heart: S1 S2. Regular rate and rhythm. Lungs: No crackles or wheezes are heard. Abdomen: Soft, nontender, nondistended with bowel sounds. No peritoneal signs. No palpable organomegaly or masses. Extremities: Normal skin color and turgor. No cyanosis, rash, ulceration, clubbing, or edema. Radial and pedal pulses are 2/4 bilaterally. Neurological: No focal deficits. Strength and sensation are grossly intact. - Labs CBC & Chem 7: 04/11/17 08:15 04/11/17 08:15 Labs: Abnormal Lab Results - Last 24 Hours (Table) 04/10/17 04/11/17 04/11/17 Range/Units 02:29 09:07 12:19 POC Glucose (mg/dL) 204 H (75-99) mg/dL Hemoglobin A1c 10.8 H 10.7 H (4.2-6.1) % 04/11/17 04/11/17 04/12/17 Range/Units 17:09 20:43 07:30 POC Glucose (mg/dL) 221 H 138 H 224 H (75-99) mg/dL Hemoglobin A1c (4.2-6.1) % Assessment and Plan (1) GI bleed Status: Acute (2) Stricture of duodenum Status: Acute (3) Melena Status: Acute Plan: 1. Return to office 7-10 days for reevaluation and discussion of biopsies. Continue with Protonix 40 mg on discharge. Assessment and plan a care discussed with Dr. Bhatti
[2017-04-12 10:39] LABS: Basophils % (A) 0 %; CHCM 33.7; Eosinophils # (A) 0.3 k/uL (0-0.7); Eosinophils % (A) 4 %; HCT 38.9 % (39.0-53.0); HDW 3.08; HGB 12.4 gm/dL (13.0-17.5); Luc % (Auto) 3; Lymphocytes % (A) 29 %; MCH 29.5 pg (25.0-35.0); MCHC 31.9 g/dL (31.0-37.0); MCV 92.6 fL (80.0-100.0); Mean Platelet Volume 7.6; Monocytes # (A) 0.6 k/uL (0-1.0); Monocytes % (A) 9 %; Neutrophils # (A) 3.7 k/uL (1.3-7.7); Neutrophils % (A) 54 %; RDW 15.6 % (11.5-15.5); WBC 6.8 k/uL (3.8-10.6); WBC (Perox) 6.85
[2017-04-12 10:51] LABS: Anion Gap 10 mmol/L; Blood Urea Nitrogen 7 mg/dL (9-20); Calcium 8.4 mg/dL (8.4-10.2); Carbon Dioxide 22 mmol/L (22-30); Chloride 104 mmol/L (98-107); Glucose 158 mg/dL (74-99); Magnesium 1.5 mg/dL (1.6-2.3); Non-African American GFR(MDRD) >60 (>60 ml/min/1.73 sqM); Potassium 3.5 mmol/L (3.5-5.1); Sodium 136 mmol/L (137-145)
--- NOTE | 2017-04-12 11:53 | ECHOF ---
Referral Reason:change in cardiac rhythm MEASUREMENTS -------- HEIGHT: 180.3 cm WEIGHT: 122.5 kg BP: 106/65 IVSd: 1.2 cm (0.6 - 1.1) LVIDd: 5.1 cm (3.9 - 5.3) LVPWd: 1.4 cm (0.6 - 1.1) IVSs: 2.3 cm LVIDs: 3.0 cm LVPWs: 2.4 cm Ao Diam: 4.1 cm (2.0 - 3.7) AV Cusp: 2.5 cm (1.5 - 2.6) LA Diam: 4.1 cm (2.7 - 3.8) MV EXCURSION: 37.505 mm (> 18.000) MV EF SLOPE: 179 mm/s (70 - 150) EPSS: 2.1 cm MV E Chava: 1.03 m/s MV DecT: 252 ms MV A Chava: 0.98 m/s MV E/A Ratio: 1.06 AV maxP.40 mmHg AV meanP.85 mmHg AR PHT: 451 ms RAP: 5.00 mmHg RVSP: 15.86 mmHg FINDINGS -------- Sinus rhythm. This was a technically difficult study with suboptimal views. The left ventricular size is normal. There is mild concentric left ventricular hypertrophy. Overall left ventricular systolic function is normal with, an EF between 55 - 60 %. The right ventricle is normal in size and function. The left atrium is normal in size. The right atrium is normal in size. 1.5mg of Definity was utilized for enhancement of images Aortic valve is trileaflet and is mildly thickened. There is mild aortic regurgitation. There is mild aortic stenosis present. Peak/mean gradient across the Aortic Valve is 17.40mmHg / 10.85mmHg. The mitral valve leaflets are mildly thickened. Mild mitral regurgitation is present. Mild tricuspid regurgitation present. The right ventricular systolic pressure, as measured by Doppler, is 15.86mmHg. Pulmonic valve appears structurally normal. The aortic root size is normal. The pericardium is normal. CONCLUSIONS -------- 1. Sinus rhythm. 2. Aortic valve is trileaflet and is mildly thickened. 3. There is mild aortic regurgitation. 4. There is mild aortic stenosis present. 5. Peak/mean gradient across the Aortic Valve is 17.40mmHg / 10.85mmHg. 6. The mitral valve leaflets are mildly thickened. 7. Mild mitral regurgitation is present. 8. Mild tricuspid regurgitation present. 9. The right ventricular systolic pressure, as measured by Doppler, is 15.86mmHg. 10. Pulmonic valve appears structurally normal. 11. The aortic root size is normal. 12. This was a technically difficult study with suboptimal views. 13. The pericardium is normal. 14. The left ventricular size is normal. 15. There is mild concentric left ventricular hypertrophy. 16. Overall left ventricular systolic function is normal with, an EF between 55 - 60 %. 17. The right ventricle is normal in size and function. 18. The left atrium is normal in size. 19. The right atrium is normal in size. 20. 1.5mg of Definity was utilized for enhancement of images BLASTING MACHINE OPERATOR: Kristy Ruvalcaba RDCS
[2017-04-12] MEDS ORDERED: Magnesium Replacement Protocol 1 EACH MISC MISCELLANE PRN ×2 (11:55→11:59)
[2017-04-12] MEDS ORDERED: MULTIVITAMINS, THERA 1 EACH TAB PO SCH (12:00)
[2017-04-12] MEDS ORDERED: MAGNESIUM SULFATE-D5W PMX 1 GM in DEXTROSE/WATER 1 100ML.BAG IVPB SCH (12:00)
[2017-04-12] MEDS: MAGNESIUM SULFATE-D5W PMX 1 GM in DEXTROSE/WATER 1 100ML.BAG IVPB SCH ×2 (12:16→13:17)
[2017-04-12 12:32] LABS: Glucose,Whole Blood 156 mg/dL (75-99)
--- NOTE | 2017-04-12 13:14 | P.CRDCN ---
History of Present Illness History of present illness: Patient interviewed and examined on April 11. Apparently a code was called by the heat treat technician. Apparently the patient was in ventricular fibrillation. When the nurse went to check on him he was lying comfortably in bed watching television. He had no symptoms at that time no dizziness no chest pain no shortness of breath. When I interviewed him he stated that he was completely asymptomatic at that time and subsequently. He was scratching his chest close to the leads just prior to all the excitement Review of the full disclosure on telemetry shows clear artifact that resembles ventricular fibrillation with QRSs marching through. All the leads clearly shows sinus mechanism while the other lesions show artifact that resembles ventricular fibrillation On examination patient had normal heart sounds. Normal breath sounds, normal blood pressure normal heart rates no JVD Impression Patient admitted with GI bleeding On telemetry artifact was misdiagnosed as ventricular fibrillation Suggest Reassurance Past Medical History Past Medical History: Cancer, COPD, GERD/Reflux, Hypertension, Musculoskeletal Disorder, Rheumatoid Arthritis (RA), Thyroid Disorder Additional Past Medical History / Comment(s): HX MIGRAINES. HX OF SKIN CANCER . , CHRONIC BACK PAIN, D.I.S.H.-DEGENERATIVE ARTHRITIS, ANKYLOSING SPONDYLITIS. , GETS LIGHTHEADED EASILY-MOVES SLOWLY TO PREVENT LOSS OF BALANCE. History of Any Multi-Drug Resistant Organisms: None Reported Past Surgical History: Appendectomy, Bowel Resection, Joint Replacement, Orthopedic Surgery, Tonsillectomy Additional Past Surgical History / Comment(s): LT KNEE REPL. BACK SURG. X2. INTRATHECAL OPIOID PAIN PUMP TO MANAGE CHRONIC PAIN. Past Anesthesia/Blood Transfusion Reactions: No Reported Reaction Past Psychological History: Anxiety, Depression Smoking Status: Never smoker Past Alcohol Use History: None Reported Past Drug Use History: None Reported - Past Family History Father Family Medical History: Cancer, Deep Vein Thrombosis (DVT) Additional Family Medical History / Comment(s): Lung & BONE CA Medications and Allergies Home Medications Medication Instructions Recorded Confirmed Type Hydrochlorothiazide [Hydrodiuril] 50 mg PO DAILY 11/22/13 04/10/17 History Intrathecal Pain Pump 5 mg INTRATHECA DIRECTED 11/22/13 04/10/17 History buPROPion XL [Wellbutrin XL] 300 mg PO DAILY 11/22/13 04/10/17 History Levothyroxine Sodium [Synthroid] 200 mcg PO DAILY 11/25/14 04/10/17 History Metoprolol Tartrate [Lopressor] 50 mg PO DAILY 11/25/14 04/10/17 History Docusate [Colace] 100 mg PO DAILY PRN 08/12/15 04/10/17 History Atorvastatin [Lipitor] 10 mg PO HS 02/17/17 04/10/17 History Baclofen [Lioresal] 10 mg PO HS PRN #30 tab 02/17/17 04/10/17 Rx Citalopram Hydrobromide [CeleXA] 60 mg PO DAILY 04/09/17 04/10/17 History Levothyroxine Sodium [Synthroid] 50 mcg PO DAILY 04/09/17 04/10/17 History Dorzolamide-Timolol 2%/0.5% 1 drop BOTH EYES BID 04/10/17 04/10/17 History [dorzolamide-Timolol 2%/0.5%] Latanoprost Ophth [Xalatan 0.005%] 1 drops BOTH EYES HS 04/10/17 04/10/17 History Multivitamins, Thera [Multivitamin 1 tab PO DAILY 04/10/17 04/10/17 History (formulary)] metFORMIN HCL [Glucophage] 500 mg PO BID 04/10/17 04/10/17 History oxyCODONE HCL [OxyIR] 5 mg PO BID PRN 04/10/17 04/10/17 History ALPRAZolam [Xanax] 0.25 mg PO TID PRN #30 tab 04/12/17 Rx Acetaminophen Tab [Tylenol] 650 mg PO Q6HR PRN tab 04/12/17 Rx Aspirin [Adult Low Dose Aspirin EC] 81 mg PO DAILY #30 tablet. 04/12/17 Rx Pantoprazole [Protonix] 0 mg PO DAILY #30 tablet. 04/12/17 Rx Allergies Allergy/AdvReac Type Severity Reaction Status Date / Time No Known Allergies Allergy Verified 04/10/17 07:58 Physical Exam Vitals: Vital Signs Temp Pulse Resp BP Pulse Ox 04/12/17 07:00 98.4 F 62 18 118/60 90 L 04/11/17 23:00 98.7 F 61 14 106/65 92 L 04/11/17 15:50 56 L 18 115/59 04/11/17 14:10 97.1 F L 51 L 18 114/53 91 L Intake and Output 04/11/17 04/12/17 04/12/17 22:59 06:59 14:59 Other: Voiding Method Bedside Commode Urinal # Voids 1 2 # Bowel Movements 1 Results 04/12/17 10:16 04/12/17 10:16 CBC 04/12/17 Range/Units 10:16 WBC 6.8 (3.8-10.6) k/uL RBC 4.20 L (4.30-5.90) m/uL Hgb 12.4 L (13.0-17.5) gm/dL Hct 38.9 L (39.0-53.0) % Plt Count 156 (150-450) k/uL Comprehensive Metabolic Panel 04/12/17 Range/Units 10:16 Sodium 136 L (137-145) mmol/L Potassium 3.5 (3.5-5.1) mmol/L Chloride 104 (98-107) mmol/L Carbon Dioxide 22 (22-30) mmol/L BUN 7 L (9-20) mg/dL Creatinine 0.72 (0.66-1.25) mg/dL Glucose 158 H (74-99) mg/dL Calcium 8.4 (8.4-10.2) mg/dL Current Medications Generic Name Dose Route Start Last Admin Trade Name Freq PRN Reason Stop Dose Admin Acetaminophen 650 mg 04/11/17 22:35 04/11/17 23:17 Tylenol Tab PO 650 mg Q6HR PRN Administration Fever and/ or Pain Alprazolam 0.25 mg 04/10/17 14:34 Xanax PO TID PRN Anxiety Atorvastatin Calcium 10 mg 04/10/17 21:00 04/11/17 23:17 Lipitor PO 10 mg HS DERRELL Administration Baclofen 10 mg 04/10/17 14:32 Lioresal PO HS PRN Spasms Bupropion HCl 300 mg 04/11/17 09:00 04/12/17 07:59 Wellbutrin Xl PO 300 mg DAILY DERRELL Administration Citalopram Hydrobromide 60 mg 04/11/17 09:00 04/12/17 07:59 Celexa PO 60 mg DAILY DERRELL Administration Dorzolamide/Timolol 1 drops 04/10/17 21:00 04/12/17 08:28 Cosopt BOTH EYES 1 drops BID DERRELL Administration Hydrochlorothiazide 50 mg 04/11/17 09:00 04/12/17 08:00 Hydrodiuril PO 50 mg DAILY DERRELL Administration Sodium Chloride 1,000 mls @ 125 mls/hr 04/10/17 09:30 04/12/17 08:12 Saline 0.9% IV 125 mls/hr .Q8H DERRELL Administration Magnesium Sulfate/Dextrose 1 100 mls @ 100 mls/hr 04/12/17 12:00 04/12/17 12: 16 gm/ IV Solution IVPB 04/12/17 13:59 100 mls/hr Q1H DERRELL Administration Insulin Human Lispro 0 unit 04/10/17 07:30 04/12/17 07:58 Humalog SQ 4 unit AC-TID DERRELL Administration Protocol Insulin Human Lispro 5 unit 04/10/17 17:30 04/12/17 07:58 Humalog SQ 5 unit ACHS DERRELL Administration Latanoprost 1 drops 04/10/17 21:00 04/11/17 22:23 Xalatan 0.005% BOTH EYES 1 drops HS DERRELL Administration Levothyroxine Sodium 200 mcg 04/11/17 06:30 04/12/17 06:42 Synthroid PO 200 mcg DAILY@0630 DERRELL Administration Levothyroxine Sodium 50 mcg 04/11/17 06:30 04/12/17 06:42 Synthroid PO 50 mcg DAILY@0630 DERRELL Administration Metformin HCl 500 mg 04/12/17 09:00 04/12/17 08:00 Glucophage PO 500 mg BID DERRELL Administration Metoprolol Tartrate 50 mg 04/11/17 09:00 04/12/17 08:00 Lopressor PO Not Given DAILY [facility] Miscellaneous Information 1 each 04/12/17 11:55 Magnesium Per Protocol MISCELLANE DAILY PRN Per Protocol Protocol Multivitamins 1 each 04/12/17 12:00 04/12/17 12:16 Theragran PO 1 each DAILY@1200 DERRELL Administration Ondansetron HCl 4 mg 04/10/17 03:46 04/10/17 09:33 Zofran IVP 4 mg Q6HR PRN Administration Nausea And Vomiting Oxycodone HCl 5 mg 04/10/17 14:32 Oxyir PO BID PRN Pain Pantoprazole Sodium 40 mg 04/10/17 09:00 04/12/17 08:00 Protonix IVP 40 mg BID DERRELL Administration Sodium Chloride 2 spray 04/10/17 03:48 04/10/17 04:08 Deep Sea NASAL 2 spray QID PRN Administration Dry Nasal Passages Temazepam 15 mg 04/10/17 14:34 Restoril PO HS PRN Insomnia Intake and Output 04/11/17 04/12/17 04/12/17 22:59 06:59 14:59 Other: Voiding Method Bedside Commode Urinal # Voids 1 2 # Bowel Movements 1 04/12/17 10:16 04/12/17 10:16
[2017-04-12 13:55] VITALS: BMI 36.6
[2017-04-12 16:13] VITALS: BP 115/64; PULSE 61; TEMP 98.7
== END 2017-04-12 16:53 | disposition home health service (06) | DRG 378 ==
LOC: EC 22:02 → 4MS4W 23:19 → OBSVTOIN 04-10 16:12 → 4MS4W 04-11 18:14
PROVIDERS: ADMIT Family Medicine; ATTEND Family Medicine
PROC: 0DBK8ZX Excision of Ascending Colon, Via Natural or Artificial Opening Endoscopic, Diagnostic (ICD-10-PCS; 2017-04-11)
PROC: 0DB68ZX Excision of Stomach, Via Natural or Artificial Opening Endoscopic, Diagnostic (ICD-10-PCS; principal; 2017-04-11 07:30)
DX: K29.71 Gastritis, unspecified, with bleeding (principal); E87.2 Acidosis; Z99.81 Dependence on supplemental oxygen; K76.0 Fatty (change of) liver, not elsewhere classified; K31.5 Obstruction of duodenum; J98.11 Atelectasis; J44.9 Chronic obstructive pulmonary disease, unspecified; M06.9 Rheumatoid arthritis, unspecified; E11.9 Type 2 diabetes mellitus without complications; I10 Essential (primary) hypertension; K21.9 Gastro-esophageal reflux disease without esophagitis; E87.6 Hypokalemia; M48.10 Ankylosing hyperostosis [Forestier], site unspecified; F41.9 Anxiety disorder, unspecified; K42.9 Umbilical hernia without obstruction or gangrene; K63.5 Polyp of colon; E83.42 Hypomagnesemia; Z96.652 Presence of left artificial knee joint; M54.9 Dorsalgia, unspecified; M45.9 Ankylosing spondylitis of unspecified sites in spine; F32.9 Major depressive disorder, single episode, unspecified; Z79.84 Long term (current) use of oral hypoglycemic drugs; Z90.89 Acquired absence of other organs; Z79.899 Other long term (current) drug therapy; Z79.82 Long term (current) use of aspirin; Z79.1 Long term (current) use of non-steroidal anti-inflammatories (NSAID); Z80.1 Family history of malignant neoplasm of trachea, bronchus and lung; Z80.8 Family history of malignant neoplasm of other organs or systems; Z83.2 Family history of diseases of the blood and blood-forming organs and certain disorders involving the immune mechanism; Z85.828 Personal history of other malignant neoplasm of skin; Z90.49 Acquired absence of other specified parts of digestive tract; Z79.891 Long term (current) use of opiate analgesic; Z97.8 Presence of other specified devices
CPT/HCPCS: 36415; 43239; 71010; 74177; 80048; 80053; 81003; 82550; 82553; 83036; 83605; 83690; 83735; 84484; 85025; 85610; 85730; 86850; 86900; 86901; 88305; 88342; 93005; 93306; 96361; 96365; 96366; 96374; 96375; 96376; 99285

== ENCOUNTER → 2017-08-17 | Day surgery (SDC) | payer MEDICARE, BC ==
[2017-08-17 12:12] VITALS: PULSE 55; RESP 16; TEMP 98
--- NOTE | 2017-08-17 12:44 | P.PN ---
Progress Note - Text Progress Note Date: 08/17/17 PROCEDURE: Intrathecal pain pump analysis, programming and reprogramming, and intrathecal pain pump refill. PREOPERATIVE DIAGNOSES: 1. near empty intrathecal pain pump time for refill. 2. opioid tolerance 3. postlaminectomy syndrome POSTOPERATIVE DIAGNOSES: 1. near empty intrathecal pain pump time for refill. 2. opioid tolerance 3. postlaminectomy syndrome ANESTHESIA: None. CONDITION: Stable. INDICATION: This is a 76-year-old patient with a long history of chronic pain secondary to postlaminectomy syndrome. Patient previously had an intrathecal pump placed, which is now close to empty, and patient presents for refill today. Patient denies any side effects of the intrathecal medication, including new weakness, new numbness, excessive drowsiness or sleepiness, nausea/vomiting , weight gain, or night sweats. Patient also denies suicidal ideation, and reports that the current pain medication is helping control the chronic pain and improve the patient's activities of daily living. DESCRIPTION: The intrathecal pain pump was analyzed and showed that the patient currently has reservoir volume of [3.6] mL. The patient is receiving intrathecal Morphine sulfate PF at concentration [5] mg / ml and bupivacaine PF at concentration [5] mg/ml. Patient receiving daily dose of Morphine Sulfate [0.9] mg/day and bupivacaine [0.9] mg/day. The location of the pump (left buttock) was prepped with chlorhexidine x3. Then , the 22-gauge needle from the [employer] kit was advanced through the pump port. Total of [3.2] ml was removed from the pump, and it was refilled with the new medication total volume of [20] ml of a solution containing morphine sulfate at concentration [5] mg /ml and bupivacaine at concentration [5] mg/ml. The patient will continue with the same daily dose morphine [0.9] mg/day and bupivacaine [0.9] mg/day, no changes today. The patient is using some oral medications as well, specifically oxyIR 5 mg q6h #90 prn pain orally for breakthrough pain and baclofen 10 mg qhs for spasm. The patient was given three months' worth of these medications and patient will follow up with the pain clinic in 3 months for refill and further evaluation. UDS appropriate from August 2016.
== END ==
LOC: PNWHC3 11:50
PROVIDERS: ATTEND Anesthesiology
DX: G89.29 Other chronic pain (principal); M96.1 Postlaminectomy syndrome, not elsewhere classified; Z79.891 Long term (current) use of opiate analgesic
CPT/HCPCS: 62370

== ENCOUNTER → 2017-11-09 | Day surgery (SDC) | payer MEDICARE, BC ==
[2017-11-09 12:21] VITALS: BP 130/58; PULSE 46; RESP 18
--- NOTE | 2017-11-09 12:37 | P.PN ---
Progress Note - Text Progress Note Date: 11/09/17 PROCEDURE: Intrathecal pain pump analysis, programming and reprogramming, and intrathecal pain pump refill. PREOPERATIVE DIAGNOSES: 1. near empty intrathecal pain pump time for refill. 2. opioid tolerance 3. postlaminectomy syndrome POSTOPERATIVE DIAGNOSES: 1. near empty intrathecal pain pump time for refill. 2. opioid tolerance 3. postlaminectomy syndrome ANESTHESIA: None. CONDITION: Stable. INDICATION: This is a 77-year-old patient with a long history of chronic pain secondary to postlaminectomy syndrome. Patient previously had an intrathecal pump placed, which is now close to empty, and patient presents for refill today. Patient denies any side effects of the intrathecal medication, including new weakness, new numbness, excessive drowsiness or sleepiness, nausea/vomiting , weight gain, or night sweats. Patient also denies suicidal ideation, and reports that the current pain medication is helping control the chronic pain and improve the patient's activities of daily living. DESCRIPTION: The intrathecal pain pump was analyzed and showed that the patient currently has reservoir volume of [4.9] mL. The patient is receiving intrathecal Morphine sulfate PF at concentration [5] mg / ml and bupivacaine PF at concentration [5] mg/ml. Patient receiving daily dose of Morphine Sulfate [0.9] mg/day and bupivacaine [0.9] mg/day. The location of the pump (left buttock) was prepped with chlorhexidine x3. Then , the 22-gauge needle from the [employer] kit was advanced through the pump port. Total of [4.2] ml was removed from the pump, and it was refilled with the new medication total volume of [20] ml of a solution containing morphine sulfate at concentration [5] mg /ml and bupivacaine at concentration [5] mg/ml. The patient will continue with the same daily dose morphine [0.9] mg/day and bupivacaine [0.9] mg/day, no changes today. The patient is using some oral medications as well, specifically oxyIR 5 mg q6h #90 prn pain orally for breakthrough pain and baclofen 10 mg qhs for spasm. The patient was given three months' worth of these medications and patient will follow up with the pain clinic in 3 months for refill and further evaluation. UDS today. Alarm date is 02/16/18. MME/day prescribed: 22.5 (unchanged).
== END | disposition home or self-care (01) ==
LOC: PNWHC3 12:03
PROVIDERS: ATTEND Anesthesiology
DX: Z45.1 Encounter for adjustment and management of infusion pump (principal); M96.1 Postlaminectomy syndrome, not elsewhere classified; G89.29 Other chronic pain
CPT/HCPCS: 62370; 80356

== ENCOUNTER → 2018-02-01 | Day surgery (SDC) | payer MEDICARE, BC ==
[2018-02-01 14:11] VITALS: BP 111/55; PULSE 49; RESP 18
--- NOTE | 2018-02-01 14:40 | P.PCN ---
Date of Procedure: 02/01/18 Procedure(s) Performed: PROCEDURE: Intrathecal pain pump analysis, programming and reprogramming, and intrathecal pain pump refill. PREOPERATIVE DIAGNOSES: 1. near empty intrathecal pain pump time for refill. 2. opioid tolerance 3. postlaminectomy syndrome POSTOPERATIVE DIAGNOSES: 1. near empty intrathecal pain pump time for refill. 2. opioid tolerance 3. postlaminectomy syndrome ANESTHESIA: None. CONDITION: Stable. INDICATION: This is a 77-year-old patient with a long history of chronic pain secondary to postlaminectomy syndrome. Patient previously had an intrathecal pump placed, which is now close to empty, and patient presents for refill today. Patient denies any side effects of the intrathecal medication, including new weakness, new numbness, excessive drowsiness or sleepiness, nausea/vomiting , weight gain, or night sweats. Patient also denies suicidal ideation, and reports that the current pain medication is helping control the chronic pain and improve the patient's activities of daily living. DESCRIPTION: The intrathecal pain pump was analyzed and showed that the patient currently has reservoir volume of [4.9] mL. The patient is receiving intrathecal Morphine sulfate PF at concentration [5] mg / ml and bupivacaine PF at concentration [5] mg/ml. Patient receiving daily dose of Morphine Sulfate [0.9] mg/day and bupivacaine [0.9] mg/day. The location of the pump (left buttock) was prepped with chlorhexidine x3. Then , the 22-gauge needle from the [employer] kit was advanced through the pump port. Total of [4.9] ml was removed from the pump, and it was refilled with the new medication total volume of [20] ml of a solution containing morphine sulfate at concentration [5] mg /ml and bupivacaine at concentration [5] mg/ml. The patient will continue with the same daily dose morphine [0.9] mg/day and bupivacaine [0.9] mg/day, no changes today. The patient is using some oral medications as well, specifically oxyIR 5 mg q6h #90 prn pain orally for breakthrough pain and baclofen 10 mg qhs for spasm. The patient was given three months' worth of these medications and patient will follow up with the pain clinic in 3 months for refill and further evaluation. UDS reviewed and it was appropriate MAPS revied, and it was appropriate .
== END ==
LOC: PNWHC3 12:35
PROVIDERS: ATTEND Specialist
DX: G89.29 Other chronic pain (principal); M96.1 Postlaminectomy syndrome, not elsewhere classified; Z45.1 Encounter for adjustment and management of infusion pump; Z79.891 Long term (current) use of opiate analgesic
CPT/HCPCS: 62370

== ENCOUNTER → 2018-05-03 | Day surgery (SDC) | payer MEDICARE, BC ==
[2018-05-03 12:24] VITALS: BP 109/53; PULSE 47; RESP 18
--- NOTE | 2018-05-03 13:03 | P.PCN ---
Date of Procedure: 05/03/18 Procedure(s) Performed: PROCEDURE: Intrathecal pain pump analysis, programming and reprogramming, and intrathecal pain pump refill. PREOPERATIVE DIAGNOSES: 1. near empty intrathecal pain pump time for refill. 2. opioid tolerance 3. postlaminectomy syndrome POSTOPERATIVE DIAGNOSES: 1. near empty intrathecal pain pump time for refill. 2. opioid tolerance 3. postlaminectomy syndrome ANESTHESIA: None. CONDITION: Stable. INDICATION: This is a 77-year-old patient with a long history of chronic pain secondary to postlaminectomy syndrome. Patient previously had an intrathecal pump placed, which is now close to empty, and patient presents for refill today. Patient denies any side effects of the intrathecal medication, including new weakness, new numbness, excessive drowsiness or sleepiness, nausea/vomiting , weight gain, or night sweats. Patient also denies suicidal ideation, and reports that the current pain medication is helping control the chronic pain and improve the patient's activities of daily living. DESCRIPTION: The intrathecal pain pump was analyzed and showed that the patient currently has reservoir volume of [ 3.6] mL. The patient is receiving intrathecal Morphine sulfate PF at concentration [5] mg / ml and bupivacaine PF at concentration [5] mg/ml. Patient receiving daily dose of Morphine Sulfate [0.9] mg/day and bupivacaine [0.9] mg/day. The location of the pump (left buttock) was prepped with chlorhexidine x3. Then , the 22-gauge needle from the [employer] kit was advanced through the pump port. Total of 3ml was removed from the pump, and it was refilled with the new medication total volume of [20] ml of a solution containing morphine sulfate at concentration [5] mg /ml and bupivacaine at concentration [5] mg/ml. The patient will continue with the same daily dose morphine [0.9] mg/day and bupivacaine [0.9] mg/day, no changes today. The patient is using some oral medications as well, specifically oxyIR 5 mg q6h #90 prn pain orally for breakthrough pain and baclofen 10 mg qhs for spasm. The patient was given three months' worth of these medications and patient will follow up with the pain clinic in 3 months for refill and further evaluation. UDS reviewed and it was appropriate MAPS revied, and it was appropriate .
== END ==
LOC: PNWHC3 11:44
PROVIDERS: ATTEND Specialist
DX: M96.1 Postlaminectomy syndrome, not elsewhere classified (principal); Z45.1 Encounter for adjustment and management of infusion pump; Z79.891 Long term (current) use of opiate analgesic
CPT/HCPCS: 62370

== ENCOUNTER → 2018-08-02 | Day surgery (SDC) | payer MEDICARE, BC ==
[2018-08-02 12:45] VITALS: RESP 16
[2018-08-02 12:46] VITALS: BP 137/70; PULSE 54
--- NOTE | 2018-08-02 13:33 | P.PCN ---
Date of Procedure: 08/02/18 Description of Procedure: Date of Procedure: 08/02/2018 Procedure(s) Performed: PROCEDURE: Intrathecal pain pump analysis, programming and reprogramming, and intrathecal pain pump refill. PREOPERATIVE DIAGNOSES: 1. near empty intrathecal pain pump time for refill. 2. opioid tolerance 3. postlaminectomy syndrome POSTOPERATIVE DIAGNOSES: 1. near empty intrathecal pain pump time for refill. 2. opioid tolerance 3. postlaminectomy syndrome ANESTHESIA: None. CONDITION: Stable. INDICATION: This is a 77-year-old patient with a long history of chronic pain secondary to postlaminectomy syndrome. Patient previously had an intrathecal pump placed, which is now close to empty, and patient presents for refill today. Patient denies any side effects of the intrathecal medication, including new weakness, new numbness, excessive drowsiness or sleepiness, nausea/vomiting , weight gain, or night sweats. Patient also denies suicidal ideation, and reports that the current pain medication is helping control the chronic pain and improve the patient's activities of daily living. DESCRIPTION: The intrathecal pain pump was analyzed and showed that the patient currently has reservoir volume of [ 3.6] mL. The patient is receiving intrathecal Morphine sulfate PF at concentration [5] mg / ml and bupivacaine PF at concentration [5] mg/ml. Patient receiving daily dose of Morphine Sulfate [0.9] mg/day and bupivacaine [0.9] mg/day. The location of the pump (left buttock) was prepped with chlorhexidine x3. Then , the 22-gauge needle from the [employer] kit was advanced through the pump port. Total of 2.5 ml was removed from the pump, and it was refilled with the new medication total volume of [20] ml of a solution containing morphine sulfate at concentration [5] mg /ml and bupivacaine at concentration [5] mg/ml. refill was done by injection of 5 ML's followed by aspiration of 2 ML's. Sit needle was removed no fluid collection was noted around pump. Patient tolerated procedure well The patient will continue with the same daily dose morphine [0.9] mg/day and bupivacaine [0.9] mg/day, no changes today. The patient is using some oral medications as well, specifically oxyIR 5 mg q6h #90 prn pain orally for breakthrough pain and baclofen 10 mg qhs for spasm. The patient was given three months' worth of these medications and patient will follow up with the pain clinic in 3 months for refill and further evaluation. UDS reviewed and it was appropriate MAPS revied, and it was appropriate
== END | disposition home or self-care (01) ==
LOC: PNWHC3 11:56
PROVIDERS: ATTEND Anesthesiology
DX: Z45.1 Encounter for adjustment and management of infusion pump (principal); G89.29 Other chronic pain; M96.1 Postlaminectomy syndrome, not elsewhere classified
CPT/HCPCS: 62370; G0463; 99211

== ENCOUNTER → 2018-11-01 | Day surgery (SDC) | payer MEDICARE, BC ==
[2018-11-01 12:14] VITALS: BP 136/67; PULSE 53; RESP 16; TEMP 98.1
--- NOTE | 2018-11-01 12:40 | P.PCN ---
Date of Procedure: 11/01/18 Description of Procedure: PROCEDURE: Intrathecal pain pump analysis, programming and reprogramming, and intrathecal pain pump refill. PREOPERATIVE DIAGNOSES: 1. near empty intrathecal pain pump 2. opioid tolerance POSTOPERATIVE DIAGNOSES: 1. 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 CONDITION: Stable. DESCRIPTION OF PROCEDURE: Intrathecal pain pump analysed, it showed patient currently had reservoir volume3.7 mL. The patient is receiving medication morphine 5mg/ ml, and bupivacaine concentration 5 mg/ml. Patient receiving daily dose of 0.9005 mg/day and bupivacaine 0.9005 mg/day. Pain is well controlled , patient using medication for breakthrough pain oxycodone 5 mg every 6 when necessary orally . The location of the pump ( Left Buttuck ) Prepped with chlorhexidine x3 , then using 22-gauge needle [employer] kit advanced through the pump port, Total of [ 3.5] ml removed from the pump, the pump refills with the new medication total volume 20 ml . The concentration [5 ] mg /ml, and the bupivacaine concentration 5 mg/ml. The patient will continue to see the same daily dose and no changes were made today. The patient will follow up with the pain clinic in 3 months.
== END ==
LOC: PNWHC3 12:03
PROVIDERS: ATTEND Hospitalist
DX: M96.1 Postlaminectomy syndrome, not elsewhere classified (principal); Z45.1 Encounter for adjustment and management of infusion pump; Z79.891 Long term (current) use of opiate analgesic
CPT/HCPCS: 80307; 62370; G0482

== ENCOUNTER → 2019-01-24 | Day surgery (SDC) | payer MEDICARE, BC ==
[2019-01-24 12:32] VITALS: BP 129/63; PULSE 52; RESP 18; TEMP 98.3
--- NOTE | 2019-01-24 13:04 | P.PCN ---
Date of Procedure: 01/24/19 Procedure(s) Performed: PROCEDURE: Intrathecal pain pump analysis, programming and reprogramming, and intrathecal pain pump refill. PREOPERATIVE DIAGNOSES: 1. near empty intrathecal pain pump 2. opioid tolerance POSTOPERATIVE DIAGNOSES: 1. 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 CONDITION: Stable. DESCRIPTION OF PROCEDURE: Intrathecal pain pump analysed, it showed patient currently had reservoir volume 4.9 mL. The patient is receiving medication morphine 5mg/ ml, and bupivacaine concentration 5 mg/ml. Patient receiving daily dose of 0.9005 mg/day and bupivacaine 0.9005 mg/day. Pain is well controlled , patient using medication for breakthrough pain oxycodone 5 mg every 6 when necessary orally . The location of the pump ( Left Buttock ) Prepped with chlorhexidine x2 , then using 22-gauge needle [employer] kit advanced through the pump port, Total of [ 4.9] ml removed from the pump, the pump refills with the new medication total volume 20 ml . Morphine concentration 5 mg /ml, and the bupivacaine concentration 5 mg/ml. The patient will continue to see the same daily dose and no changes were made today. Patient's IT pump needs to be replaced. This was communicated to Dr. Huff and we will call the patient to schedule.
== END ==
LOC: PNWHC3 11:58
PROVIDERS: ATTEND Anesthesiology
DX: Z45.1 Encounter for adjustment and management of infusion pump (principal)
CPT/HCPCS: 62370

== ENCOUNTER → 2019-02-05 | Outpatient (CLI) | payer MEDICARE, BC ==
[2019-02-05 14:27] VITALS: BP 125/66; PULSE 57; RESP 18; TEMP 97.8
--- NOTE | 2019-02-05 16:10 | P.PCN ---
Date of Procedure: 02/05/19 Procedure(s) Performed: PROCEDURE: Intrathecal pain pump analysis, programming and reprogramming, and intrathecal pain pump refill. PREOPERATIVE DIAGNOSES: 1. near end-of-life intrathecal pain pump 2. opioid tolerance POSTOPERATIVE DIAGNOSES: 1. 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 CONDITION: Stable. DESCRIPTION OF PROCEDURE: Intrathecal pain pump analysed, it showed patient currently had reservoir volume 17 mL. The patient is receiving medication morphine 5mg/ ml, and bupivacaine concentration 5 mg/ml. Patient receiving daily dose of 0.9005 mg/day and bupivacaine 0.9005 mg/day. The pump will reach end-of-life on 02/14/2019. The patient is unable to have the pump replaced before that. Hence we will remove the intrathecal medication, replace it with saline, and turn off the device today. I also provided the patient with prescriptions for fentanyl patch 50 mcg/h #10 with one refill. The location of the pump ( Left Buttock ) Prepped with chlorhexidine x2 , then using 22-gauge needle [employer] kit advanced through the pump port, Total of 17 ml removed from the pump, the pump refills with normal saline total volume 20 ml . The pump was turned off. The patient would like Dr. Huff to do his pump exchange. Patient understands that Dr. Huff will not be able to perform this till mid February, so elected to shut down the pump and switch to a fentanyl patch until pump can be replaced. We will contact the patient to schedule pump exchange.
== END | disposition home or self-care (01) ==
LOC: PNWHC3 13:06
PROVIDERS: ATTEND Anesthesiology
DX: M96.1 Postlaminectomy syndrome, not elsewhere classified (principal); Z97.8 Presence of other specified devices
CPT/HCPCS: 62368

== ENCOUNTER 2019-02-06 22:29 | Observation (INO) | payer MEDICARE, BC ==
--- NOTE | 2019-02-06 22:31 | ED ---
General Adult HPI - General Stated complaint: Nausea Time Seen by Provider: 02/06/19 22:31 - History of Present Illness Initial comments: Sergio is a 78-year-old gentleman with past medical history most significant for chronic pain for which he was previously on very high doses of oral morphine and for the past 7 years has had a morphine pump. Patient presents the emergency department today with concern for acute narcotic withdrawal. Per the patient and son at bedside the patient is scheduled to undergo pump replacement or battery replacement by Dr. Patricia Salazar, because the battery was going to run out of his pump they decided to stop the pump yesterday and the patient was given a fentanyl patch and by mouth oxycodone. Patient reports that since that time he has felt nauseated, decreased appetite, generalized unwell, he reports that he has pain all over his entire body. Son was concerned the patient may be withdrawing, patient reported that the symptoms were intolerable which prompted him to call 911. Patient reports he's not been able to get out of bed due to the pain. - Related Data Home Medications Medication Instructions Recorded Confirmed Hydrochlorothiazide [Hydrodiuril] 50 mg PO DAILY 11/22/13 02/06/19 buPROPion XL [Wellbutrin XL] 300 mg PO DAILY 11/22/13 02/06/19 Metoprolol Tartrate [Lopressor] 50 mg PO DAILY 11/25/14 02/06/19 Docusate [Colace] 100 mg PO DAILY PRN 08/12/15 02/06/19 Atorvastatin [Lipitor] 10 mg PO HS 02/17/17 02/06/19 Citalopram Hydrobromide [CeleXA] 40 mg PO DAILY 04/09/17 02/06/19 Dorzolamide-Timol 2.23%/0.68% 1 drop BOTH EYES BID 04/10/17 02/06/19 [Cosopt] Latanoprost Ophth [Xalatan 0.005%] 1 drops BOTH EYES HS 04/10/17 02/06/19 metFORMIN HCL [Glucophage] 500 mg PO BID 04/10/17 02/06/19 Pantoprazole [Protonix] 40 mg PO HS 05/18/17 02/06/19 Lutein 20 mg PO DAILY 02/06/19 02/06/19 fentaNYL 50MCG/HR PATCH [Duragesic 1 patch TRANSDERM Q72H 02/06/19 02/06/19 50MCG/HR] oxyCODONE HCL [OxyIR] 5 mg PO Q8HR 02/06/19 02/06/19 Previous Rx's Medication Instructions Recorded Acetaminophen Tab [Tylenol] 650 mg PO Q6HR PRN tab 04/12/17 Aspirin [Adult Low Dose Aspirin EC] 81 mg PO DAILY #30 tablet. 04/12/17 Baclofen [Lioresal] 10 mg PO HS PRN 30 Days #30 tab 02/01/18 Allergies Allergy/AdvReac Type Severity Reaction Status Date / Time No Known Allergies Allergy Verified 02/06/19 23:04 Review of Systems ROS Statement: Those systems with pertinent positive or pertinent negative responses have been documented in the HPI. ROS Other: All systems not noted in ROS Statement are negative. Past Medical History Past Medical History: Cancer, COPD, Diabetes Mellitus, GERD/Reflux, Hypertension, Musculoskeletal Disorder, Rheumatoid Arthritis (RA), Thyroid Disorder Additional Past Medical History / Comment(s): HX MIGRAINES. HX OF SKIN CANCER ., CHRONIC BACK PAIN, D.I.S.H.-DEGENERATIVE ARTHRITIS, ANKYLOSING SPONDYLITIS. , GETS LIGHTHEADED EASILY-MOVES SLOWLY TO PREVENT LOSS OF BALANCE. History of Any Multi-Drug Resistant Organisms: None Reported Past Surgical History: Appendectomy, Bowel Resection, Joint Replacement, Orthopedic Surgery, Tonsillectomy Additional Past Surgical History / Comment(s): LT KNEE REPL. BACK SURG. X2. INTRATHECAL OPIOID PAIN PUMP TO MANAGE CHRONIC PAIN. upper teeth pulled Past Anesthesia/Blood Transfusion Reactions: No Reported Reaction Past Psychological History: Anxiety, Depression Smoking Status: Never smoker Past Alcohol Use History: None Reported Past Drug Use History: None Reported - Past Family History Father Family Medical History: Cancer, Deep Vein Thrombosis (DVT) Additional Family Medical History / Comment(s): Lung & BONE CA General Exam - General Exam Comments Initial Comments: Physical Exam GENERAL: Patient is well-developed and well-nourished. Dehydrated HENT: Normocephalic, Atraumatic. EYES: PERRL, EOMI PULMONARY: Unlabored respirations CARDIOVASCULAR: RRR Warm and well perfused extremities ABDOMEN: Soft and nontender with normal bowel sounds. SKIN: Skin is clear with no lesions or rashes and otherwise unremarkable. : Deferred NEUROLOGIC: Patient is alert and oriented x3 MUSCULOSKELETAL: Decreased range of motion secondary to pain, patient is able to move and roll himself into a position of comfort in the bed, there is no obvious injuries or deformities PSYCHIATRIC: Depressed Course Vital Signs 02/06/19 02/07/19 22:38 01:27 Temperature 98.2 F Pulse Rate 78 93 Respiratory 22 20 Rate Blood Pressure 141/81 143/82 O2 Sat by Pulse 97 98 Oximetry Medical Decision Making - Medical Decision Making The patient was seen and evaluated, history is obtained from patient and son at bedside Patient with pain not controlled by Fentanyl patch and PO medications Concern for withdraw but has no objective symptoms of withdraw - no tachycardia, no HTN, no diarrhea, no piloerection Patient received dilaudid and pain was managed for 2h Patient care discussed with his PCP Dr Mayfield who agrees with plan for admission for pain management - Lab Data Result diagrams: 02/06/19 23:15 02/06/19 23:15 Lab Results 02/06/19 02/06/19 02/06/19 Range/Units 23:15 23:15 23:33 WBC 9.8 (3.8-10.6) k/uL RBC 4.92 (4.30-5.90) m/uL Hgb 14.6 (13.0-17.5) gm/dL Hct 42.5 (39.0-53.0) % MCV 86.5 (80.0-100.0) fL MCH 29.7 (25.0-35.0) pg MCHC 34.4 (31.0-37.0) g/dL RDW 15.2 (11.5-15.5) % Plt Count 216 (150-450) k/uL Neutrophils % 85 % Lymphocytes % 8 % Monocytes % 5 % Eosinophils % 0 % Basophils % 0 % Neutrophils # 8.4 H (1.3-7.7) k/uL Lymphocytes # 0.8 L (1.0-4.8) k/uL Monocytes # 0.5 (0-1.0) k/uL Eosinophils # 0.0 (0-0.7) k/uL Basophils # 0.0 (0-0.2) k/uL Sodium 134 L (137-145) mmol/L Potassium 3.2 L (3.5-5.1) mmol/L Chloride 97 L (98-107) mmol/L Carbon Dioxide 22 (22-30) mmol/L Anion Gap 15 mmol/L BUN 14 (9-20) mg/dL Creatinine 0.61 L (0.66-1.25) mg/dL Est GFR (CKD-EPI)AfAm >90 (>60 ml/min/1.73 sqM) Est GFR (CKD-EPI)NonAf >90 (>60 ml/min/1.73 sqM) Glucose 140 H (74-99) mg/dL POC Glucose (mg/dL) 140 H (75-99) mg/dL POC Glu Director Of Assessment ID Law, Edwina, A Calcium 9.7 (8.4-10.2) mg/dL Total Bilirubin 0.5 (0.2-1.3) mg/dL AST 28 (17-59) U/L ALT 15 L (21-72) U/L Alkaline Phosphatase 85 (38-126) U/L Total Protein 7.0 (6.3-8.2) g/dL Albumin 4.4 (3.5-5.0) g/dL Disposition Clinical Impression: Hypokalemia, Chronic pain, Acute narcotic withdrawal Disposition: ADMITTED IP TO THIS [facility] Condition: Stable
[2019-02-06] MEDS ORDERED: HYDROmorphone 1 MG/ML 1 ML SYRINGE IVP STA (23:23)
[2019-02-06 23:36] LABS: Glucose,Whole Blood 140 mg/dL (75-99)
[2019-02-06 23:43] LABS: Basophils % (A) 0 %; Eosinophils % (A) 0 %; HCT 42.5 % (39.0-53.0); HGB 14.6 gm/dL (13.0-17.5); Lymphocytes # (A) 0.8 k/uL (1.0-4.8); Lymphocytes % (A) 8 %; MCH 29.7 pg (25.0-35.0); MCHC 34.4 g/dL (31.0-37.0); MCV 86.5 fL (80.0-100.0); Mean Platelet Volume 6.6; Monocytes # (A) 0.5 k/uL (0-1.0); Monocytes % (A) 5 %; Neutrophils # (A) 8.4 k/uL (1.3-7.7); Neutrophils % (A) 85 %; Platelet Count 216 k/uL (150-450); RBC 4.92 m/uL (4.30-5.90); RDW 15.2 % (11.5-15.5); WBC 9.8 k/uL (3.8-10.6)
[2019-02-06 23:45] LABS: ALT 15 U/L (21-72); AST 28 U/L (17-59); African American GFR (CKD) >90 (>60 ml/min/1.73 sqM); Albumin 4.4 g/dL (3.5-5.0); Alkaline Phosphatase 85 U/L (38-126); Anion Gap 15 mmol/L; Blood Urea Nitrogen 14 mg/dL (9-20); Calcium 9.7 mg/dL (8.4-10.2); Carbon Dioxide 22 mmol/L (22-30); Chloride 97 mmol/L (98-107); Glucose 140 mg/dL (74-99); Potassium 3.2 mmol/L (3.5-5.1); Sodium 134 mmol/L (137-145); Total Bilirubin 0.5 mg/dL (0.2-1.3)
[2019-02-07] MEDS ORDERED: NALOXONE 0.4 MG/ML 1 ML VIAL IV PRN (01:10)
[2019-02-07] MEDS: MORPHINE SULFATE 4 MG/ML SYRINGE IV PRN ×4 (01:26→22:12)
[2019-02-07] MEDS ORDERED: Potassium Replacement Protocol 1 EACH MISC MISCELLANE PRN ×2 (02:12→13:31)
[2019-02-07] MEDS: HYDROmorphone 1 MG/ML 1 ML SYRINGE IVP PRN ×7 (02:38→20:18)
[2019-02-07] MEDS ORDERED: DOCUSATE 100 MG CAP PO PRN (06:00)
[2019-02-07] MEDS ORDERED: BACLOFEN 10 MG TAB PO PRN (06:00)
[2019-02-07] MEDS: POTASSIUM CHLORIDE ER 20 MEQ TAB.ER PO SCH ×4 (06:11→15:09)
[2019-02-07 06:53] LABS: Glucose,Whole Blood 112 mg/dL (75-99)
[2019-02-07] MEDS: CITALOPRAM HYDROBROMIDE 20 MG TAB PO SCH (08:31)
[2019-02-07] MEDS: METOPROLOL TARTRATE 50 MG TAB PO SCH (08:31)
[2019-02-07] MEDS: ASPIRIN 81 MG PO SCH (08:31)
[2019-02-07] MEDS: buPROPion XL 300 MG TAB.ER.24H PO SCH (08:31)
[2019-02-07] MEDS: HYDROCHLOROTHIAZIDE 25 MG TAB PO SCH (09:34)
[2019-02-07 11:49] LABS: Glucose,Whole Blood 106 mg/dL (75-99)
[2019-02-07] MEDS: ONDANSETRON 4 MG/2 ML VIAL IVP PRN (13:46)
--- NOTE | 2019-02-07 13:56 | P.CON ---
Consult Note - . Consult date: 02/07/19 Assessment/Plan:: This is a 78-year-old gentleman who is well known to our pain clinic. 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 The patient's pain has been well controlled with an intrathecal morphine pump which reached its end life and stopped working. The patient came into the ER with increasing lower back pain and withdrawal symptoms from opioids. The patient denies any bowel or bladder dysfunction or any weakness in the lower extremities. By physical exam he is alert oriented 3, he has normal muscle strength in the lower extremities bilaterally.. At this point the patient may need to be treated for his opioid withdrawal by giving IV Dilaudid 1 mg every 2 hours when necessary pain we will also put him back on fentanyl patch 50 mics an hour every 72 hours. He might also benefit from getting clonidine 0.1 mg by mouth twice a day. The patient needs to have his intrathecal morphine pump replaced without changing the tubing connecting the pump to the intrathecal space. Neurosurgery should be consulted to have this procedure done as soon as possible. Due to the patient's lack of social support and into his older age I think he should be admitted overnight until his withdrawal symptoms are treated and hopefully we can have his pump replaced by neurosurgery as soon as possible. I thank you for the consultation
[2019-02-07 16:36] LABS: Glucose,Whole Blood 110 mg/dL (75-99)
[2019-02-07] MEDS: cloNIDine HCL 0.1 MG TAB PO SCH (20:18)
[2019-02-07 20:52] LABS: Glucose,Whole Blood 110 mg/dL (75-99)
[2019-02-07] MEDS ORDERED: PANTOPRAZOLE 40 MG TABLET PO SCH (21:00)
--- NOTE | 2019-02-07 21:37 | P.HPIM ---
History of Present Illness H&P Date: 02/07/19 Sergio is a 78-year-old gentleman with past medical history most significant for chronic pain for which he was previously on very high doses of oral morphine and for the past 7 years has had a morphine pump. Patient presents the emergency department today with concern for acute narcotic withdrawal. Per the patient and son at bedside the patient is scheduled to undergo pump replacement or battery replacement by Dr. Gomez, because the battery was going to run out of his pump they decided to stop the pump yesterday and the patient was given a fentanyl patch and by mouth oxycodone. Patient reports that since that time he has felt nauseated, decreased appetite, generalized unwell, he reports that he has pain all over his entire body. Son was concerned the patient may be withdrawing, patient reported that the symptoms were intolerable which prompted him to call 911. Patient reports he's not been able to get out of bed due to the pain. Review of Systems GENERAL: Patient denies fever. Denies chills. EYES: Denies blurred vision. Denies vision changes. Denies eye pain. EARS, NOSE, MOUTH, & THROAT: Denies headache. Denies sore throat. Denies ear pain. RESPIRATORY: Denies cough. Denies shortness of breath. Denies sputum production. Denies hemoptysis. CARDIOVASCULAR: Denies chest pain or pressure. Denies palpitations. Denies arrhythmias. GASTROINTESTINAL: Denies abdominal pain. Denies diarrhea. Denies constipation. Denies nausea. Denies vomiting. Denies heartburn. Denies blood in the stool. GENITOURINARY: Denies urinary frequency. Denies burning. Denies dysuria. Denies cloudy urine. Denies blood in the urine. 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 INTEGUMENTARY: Denies pruitis. Denies rash. PSYCHIATRIC: Denies suicidal or homicial ideations. ENDOCRINE: Denies weight change. Denies polydipsia. Denies polyuria. HEMATOLOGIC: Denies bleeding disorders. Past Medical History Past Medical History: Cancer, COPD, Diabetes Mellitus, GERD/Reflux, Hypertension, Musculoskeletal Disorder, Rheumatoid Arthritis (RA), Thyroid Disorder Additional Past Medical History / Comment(s): HX MIGRAINES. HX OF SKIN CANCER ., CHRONIC BACK PAIN, D.I.S.H.-DEGENERATIVE ARTHRITIS, ANKYLOSING SPONDYLITIS. , G ETS LIGHTHEADED EASILY-MOVES SLOWLY TO PREVENT LOSS OF BALANCE. History of Any Multi-Drug Resistant Organisms: None Reported Past Surgical History: Appendectomy, Bowel Resection, Joint Replacement, Orthopedic Surgery, Tonsillectomy Additional Past Surgical History / Comment(s): LT KNEE REPL. BACK SURG. X2. INTRATHECAL OPIOID PAIN PUMP TO MANAGE CHRONIC PAIN. upper teeth pulled Past Anesthesia/Blood Transfusion Reactions: No Reported Reaction Past Psychological History: Anxiety, Depression Smoking Status: Never smoker Past Alcohol Use History: None Reported Past Drug Use History: None Reported - Past Family History Father Family Medical History: Cancer, Deep Vein Thrombosis (DVT) Additional Family Medical History / Comment(s): Lung & BONE CA Medications and Allergies Home Medications Medication Instructions Recorded Confirmed Type Hydrochlorothiazide [Hydrodiuril] 50 mg PO DAILY 11/22/13 02/06/19 History buPROPion XL [Wellbutrin XL] 300 mg PO DAILY 11/22/13 02/06/19 History Metoprolol Tartrate [Lopressor] 50 mg PO DAILY 11/25/14 02/06/19 History Docusate [Colace] 100 mg PO DAILY PRN 08/12/15 02/06/19 History Atorvastatin [Lipitor] 10 mg PO HS 02/17/17 02/06/19 History Citalopram Hydrobromide [CeleXA] 40 mg PO DAILY 04/09/17 02/06/19 History Dorzolamide-Timol 2.23%/0.68% 1 drop BOTH EYES BID 04/10/17 02/06/19 History [Cosopt] Latanoprost Ophth [Xalatan 0.005%] 1 drops BOTH EYES HS 04/10/17 02/06/19 History metFORMIN HCL [Glucophage] 500 mg PO BID 04/10/17 02/06/19 History Acetaminophen Tab [Tylenol] 650 mg PO Q6HR PRN tab 04/12/17 02/06/19 Rx Aspirin [Adult Low Dose Aspirin EC] 81 mg PO DAILY #30 tablet. 04/12/17 02/06/19 Rx Pantoprazole [Protonix] 40 mg PO HS 05/18/17 02/06/19 History Baclofen [Lioresal] 10 mg PO HS PRN 30 Days #30 tab 02/01/18 02/06/19 Rx Lutein 20 mg PO DAILY 02/06/19 02/06/19 History fentaNYL 50MCG/HR PATCH [Duragesic 1 patch TRANSDERM Q72H 02/06/19 02/06/19 History 50MCG/HR] oxyCODONE HCL [OxyIR] 5 mg PO Q8HR 02/06/19 02/06/19 History Allergies Allergy/AdvReac Type Severity Reaction Status Date / Time No Known Allergies Allergy Verified 02/06/19 23:04 Physical Exam Osteopathic Statement: *Patient has significant issues noted on an osteopathic structural exam with somatic dysfunctions of his lower extremities and lower back. Vitals: Vital Signs Temp Pulse Pulse Resp BP BP Pulse Ox 02/07/19 20:00 98 02/07/19 16:00 97.5 F L 56 L 18 137/72 96 02/07/19 15:50 98 02/07/19 12:00 79 19 02/07/19 08:06 98.1 F 79 19 191/82 98 02/07/19 08:00 79 19 02/07/19 04:00 98.2 F 86 20 137/83 97 02/07/19 03:00 77 20 162/94 97 02/07/19 02:41 98.0 F 90 16 162/94 95 02/07/19 02:20 95 23 157/77 98 02/07/19 01:27 93 20 143/82 98 02/06/19 22:38 98.2 F 78 22 141/81 97 Intake and Output 02/07/19 02/07/19 02/07/19 06:59 14:59 22:59 Other: Voiding Method Toilet Toilet Urinal # Voids 1 GENERAL: This is a -78 year-old in distress at the time of examination. Pleasant and cooperative. HEENT: Head is atraumatic, normocephalic. Pupils are equal, round, and reactive to light. Sclerae anicteric. Conjunctivae are clear. Mucus membranes of the mouth are moist. Neck is supple. RESPIRATORY: Clear to auscultation. No wheezes, rales, or rhonchi. No use of accessory muscles. Patient maintaining oxygen saturation greater than 92%. No chest wall tenderness is noted on palpation or with deep breathing. CARDIOVASCULAR: Regular rate and rhythm. S1 and S2 noted. No systolic or simms tolic murmur auscultated. No JVD noted. No S3 or S4 noted. GASTROINTESTINAL: No distention noted. Abdomen soft and round. Normal active bowel sounds auscultated x 4 quadrants. No pain or tenderness noted upon palpation. INTEGUMENTARY: No cyanosis. No jaundice. No rashes noted. No cellulitis noted. EXTREMITIES: 2+ peripheral pulses. No evidence of peripheral edema. No calf tenderness noted. NEUROLOGIC: Cranial nerves II-XII intact. PSYCHIATRIC: Awake, alert, and oriented X 3. Appropriate affect. Intact judgement and insight. Results CBC & Chem 7: 02/06/19 23:15 02/07/19 08:05 Labs: Abnormal Lab Results - Last 24 Hours (Table) 02/06/19 02/06/19 02/06/19 Range/Units 23:15 23:15 23:33 Neutrophils # 8.4 H (1.3-7.7) k/uL Lymphocytes # 0.8 L (1.0-4.8) k/uL Sodium 134 L (137-145) mmol/L Potassium 3.2 L (3.5-5.1) mmol/L Chloride 97 L (98-107) mmol/L Creatinine 0.61 L (0.66-1.25) mg/dL Glucose 140 H (74-99) mg/dL POC Glucose (mg/dL) 140 H (75-99) mg/dL Magnesium (1.6-2.3) mg/dL ALT 15 L (21-72) U/L 02/07/19 02/07/19 02/07/19 Range/Units 06:51 08:05 08:05 Neutrophils # (1.3-7.7) k/uL Lymphocytes # (1.0-4.8) k/uL Sodium (137-145) mmol/L Potassium 3.0 L (3.5-5.1) mmol/L Chloride (98-107) mmol/L Creatinine (0.66-1.25) mg/dL Glucose (74-99) mg/dL POC Glucose (mg/dL) 112 H (75-99) mg/dL Magnesium 1.5 L (1.6-2.3) mg/dL ALT (21-72) U/L 02/07/19 02/07/19 02/07/19 Range/Units 11:47 16:35 20:44 Neutrophils # (1.3-7.7) k/uL Lymphocytes # (1.0-4.8) k/uL Sodium (137-145) mmol/L Potassium (3.5-5.1) mmol/L Chloride (98-107) mmol/L Creatinine (0.66-1.25) mg/dL Glucose (74-99) mg/dL POC Glucose (mg/dL) 106 H 110 H 110 H (75-99) mg/dL Magnesium (1.6-2.3) mg/dL ALT (21-72) U/L Thrombosis Risk Factor Assmnt - Choose All That Apply Any of the Below Risk Factors Present?: Yes Each Factor Represents 1 point: Abnormal pulmonary function (COPD), Obesity (BMI >25) Other Risk Factors: Yes Each Risk Factor Represents 3 Points: Age 75 years or older Thrombosis Risk Factor Assessment Total Risk Factor Score: 5 Thrombosis Risk Factor Assessment Level: High Risk Assessment and Plan (1) Acute narcotic withdrawal Current Visit: Yes Status: Acute Code(s): 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 He'll most likely be stabilized and discharged to his regular pain physician for further replacement of the battery of his old pain pump.
[2019-02-08] MEDS: HYDROmorphone 1 MG/ML 1 ML SYRINGE IVP PRN ×3 (00:49→12:04)
[2019-02-08] MEDS: ONDANSETRON 4 MG/2 ML VIAL IVP PRN ×2 (01:30→08:50)
[2019-02-08 06:30] LABS: Glucose,Whole Blood 113 mg/dL (75-99)
[2019-02-08] MEDS: HYDROCHLOROTHIAZIDE 25 MG TAB PO SCH (08:43)
[2019-02-08] MEDS: cloNIDine HCL 0.1 MG TAB PO SCH (08:43)
[2019-02-08] MEDS: CITALOPRAM HYDROBROMIDE 20 MG TAB PO SCH (08:43)
[2019-02-08] MEDS: ASPIRIN 81 MG PO SCH (08:43)
[2019-02-08] MEDS: buPROPion XL 300 MG TAB.ER.24H PO SCH (08:43)
[2019-02-08] MEDS: METOPROLOL TARTRATE 50 MG TAB PO SCH (08:44)
[2019-02-08 12:05] LABS: Glucose,Whole Blood 125 mg/dL (75-99)
[2019-02-08] MEDS ORDERED: oxyCODONE-APAP 10-325MG 1 EACH TAB PO ONE (13:46)
--- NOTE | 2019-02-08 14:59 | P.PN ---
Progress Note - Text Progress Note Date: 02/08/19 Patient seen at bedside today. Patient reports his pain is reasonably controlled with current medication regimen. He is no longer having withdrawal symptoms. He is amenable to being discharged today. We will increase his fentanyl patch dose to 75 g per hour. I have written an additional pre scription for a 25 g per hour patch. He has a refilled a prescription for the 50 g per hour patch. I will also write for oxycodone 10 mg #20 tablets to be taken 1-2 times per day for the next 10 days. This is in addition to his home dose of oxycodone 5 mg 3 times a day, to prevent withdrawal symptoms. We will have a discussion with Dr. Huff about scheduling him for replacement of his intrathecal pump battery. We will contact the patient once this has been scheduled.
[2019-02-08 16:00] VITALS: BP 130/72; PULSE 56; RESP 18; TEMP 97.2
[2019-02-08 17:00] LABS: Glucose,Whole Blood 107 mg/dL (75-99)
--- NOTE | 2019-02-09 07:36 | P.DS ---
Providers Date of admission: 02/07/19 01:10 Expected date of discharge: 02/08/19 Attending physician: Remington Mayfield Consults: Pain management services Primary care physician: Remington Mayfield [facility] Course: Final Diagnoses: (1) Acute narcotic withdrawal Current Visit: Yes Status: Acute Code(s): F11.23 - OPIOID DEPENDENCE WITH WITHDRAWAL SNOMED Code(s): 13398296 (2) Chronic pain Current Visit: Yes Status: Acute Code(s): G89.29 - OTHER CHRONIC PAIN SNOMED Code(s): 03699293 (3) Diabetes mellitus Current Visit: No Status: Acute Code(s): E11.9 - TYPE 2 DIABETES MELLITUS WITHOUT COMPLICATIONS SNOMED Code(s): 36733590 Hospital course:Sergio is a 78-year-old gentleman with past medical history most significant for chronic pain for which he was previously on very high doses of oral morphine and for the past 7 years has had a morphine pump. Patient presents the emergency department today with concern for acute narcotic withdrawal. Per the patient and son at bedside the patient is scheduled to undergo pump replacement or battery replacement by Dr. Gomez, because the battery was going to run out of his pump they decided to stop the pump yesterday and the patient was given a fentanyl patch and by mouth oxycodone. Patient reports that since that time he has felt nauseated, decreased appetite, generalized unwell, he reports that he has pain all over his entire body. Son was concerned the patient may be withdrawing, patient reported that the symptoms were intolerable which prompted him to call 911. Patient reports he's not been able to get out of bed due to the pain. Evaluated by pain management services, ; fentanyl patch dose increased to 75 mg/h with oxycodone 10 mg added in addition to scheduled oxycodone, 1-2 times daily for breakthrough pain. Patient converted over to the pain medication regimen that he would be discharged home. He reports pain much better controlled now. Dr. Richardson returning next week and pain clinic will be scheduling him for replacement of his intrathecal pump battery: Manual prescriptions were given by . Patient is being discharged home in a stable condition with guarded prognosis. GENERAL: Alert and oriented 3, no acute distress RESPIRATORY: Clear to auscultation. No wheezes, rales, or rhonchi. CARDIOVASCULAR: Regular rate and rhythm. S1 and S2 noted. No systolic or diastolic murmur auscultated. No JVD noted. No S3 or S4 noted. GASTROINTESTINAL: No distention noted. Abdomen soft and round. Normal active bowel sounds auscultated x 4 quadrants. No pain or tenderness noted upon palpation. NEUROLOGIC: Cranial nerves II-XII intact. No focal deficits The impression and plan of care has been dictated as directed. : I performed a history and examination of this patient, discussed the same with the dictator. I agree with the dictator's note ,documented as a scribe. Any additional findings or plans will be noted. Time taken: 35 minutes Patient Condition at Discharge: Stable Plan - Discharge Summary New Discharge Prescriptions: Continue Hydrochlorothiazide [Hydrodiuril] 50 mg PO DAILY buPROPion XL [Wellbutrin XL] 300 mg PO DAILY Metoprolol Tartrate [Lopressor] 50 mg PO DAILY Docusate [Colace] 100 mg PO DAILY PRN PRN Reason: Constipation Atorvastatin [Lipitor] 10 mg PO HS Citalopram Hydrobromide [CeleXA] 40 mg PO DAILY metFORMIN HCL [Glucophage] 500 mg PO BID Latanoprost Ophth [Xalatan 0.005%] 1 drops BOTH EYES HS Dorzolamide-Timol 2.23%/0.68% [Cosopt] 1 drop BOTH EYES BID Acetaminophen Tab [Tylenol] 650 mg PO Q6HR PRN tab PRN Reason: Fever And/ Or Pain Aspirin [Adult Low Dose Aspirin EC] 81 mg PO DAILY #30 tablet. Pantoprazole [Protonix] 40 mg PO HS Baclofen [Lioresal] 10 mg PO HS PRN 30 Days #30 tab PRN Reason: Spasms fentaNYL 50MCG/HR PATCH [Duragesic 50MCG/HR] 1 patch TRANSDERM Q72H Lutein 20 mg PO DAILY oxyCODONE HCL [OxyIR] 5 mg PO Q8HR Discharge Medication List Hydrochlorothiazide [Hydrodiuril] 50 mg PO DAILY 11/22/13 [History] buPROPion XL [Wellbutrin XL] 300 mg PO DAILY 11/22/13 [History] Metoprolol Tartrate [Lopressor] 50 mg PO DAILY 11/25/14 [History] Docusate [Colace] 100 mg PO DAILY PRN 08/12/15 [History] Atorvastatin [Lipitor] 10 mg PO HS 02/17/17 [History] Citalopram Hydrobromide [CeleXA] 40 mg PO DAILY 04/09/17 [History] Dorzolamide-Timol 2.23%/0.68% [Cosopt] 1 drop BOTH EYES BID 04/10/17 [History] Latanoprost Ophth [Xalatan 0.005%] 1 drops BOTH EYES HS 04/10/17 [History] metFORMIN HCL [Glucophage] 500 mg PO BID 04/10/17 [History] Acetaminophen Tab [Tylenol] 650 mg PO Q6HR PRN tab 04/12/17 [Rx] Aspirin [Adult Low Dose Aspirin EC] 81 mg PO DAILY #30 tablet. 04/12/17 [Rx] Pantoprazole [Protonix] 40 mg PO HS 05/18/17 [History] Baclofen [Lioresal] 10 mg PO HS PRN 30 Days #30 tab 02/01/18 [Rx] Lutein 20 mg PO DAILY 02/06/19 [History] fentaNYL 50MCG/HR PATCH [Duragesic 50MCG/HR] 1 patch TRANSDERM Q72H 02/06/19 [ History] oxyCODONE HCL [OxyIR] 5 mg PO Q8HR 02/06/19 [History] Follow up Appointment(s)/Referral(s): Remington Mayfield DO [Primary Care Provider] - 1 Week Sera Peres MD [STAFF PHYSICIAN] - 1 Week Activity/Diet/Wound Care/Special Instructions: Per pain management patient was given manual scripts for fentanyl 25 mg patch to use in addition to the 50 mg every 72 hours, also gave prescription for oxycodone 10 mg 1-2 daily prn in addition to oxycodone scheduled. Dr. Peres returning on February 17 and patient will be scheduled for pain pump battery change. Discharge Disposition: HOME SELF-CARE
== END 2019-02-08 18:32 | disposition home or self-care (01) ==
LOC: EC 22:29 → 4MS4W 02-07 01:10 → 1SOBS 02-07 04:27
PROVIDERS: ADMIT Family Medicine; ATTEND Family Medicine
DX: F11.23 Opioid dependence with withdrawal (principal); G89.29 Other chronic pain; M54.5 Low back pain; E11.9 Type 2 diabetes mellitus without complications; T85.695A Other mechanical complication of other nervous system device, implant or graft, initial encounter; I10 Essential (primary) hypertension; J44.9 Chronic obstructive pulmonary disease, unspecified; F32.9 Major depressive disorder, single episode, unspecified; F41.9 Anxiety disorder, unspecified; K21.9 Gastro-esophageal reflux disease without esophagitis; E87.6 Hypokalemia; G43.909 Migraine, unspecified, not intractable, without status migrainosus; M06.9 Rheumatoid arthritis, unspecified; E66.9 Obesity, unspecified; Z68.29 Body mass index [BMI] 29.0-29.9, adult; M48.10 Ankylosing hyperostosis [Forestier], site unspecified; M45.9 Ankylosing spondylitis of unspecified sites in spine; Z79.84 Long term (current) use of oral hypoglycemic drugs; Z79.899 Other long term (current) drug therapy; Z79.82 Long term (current) use of aspirin; Z90.49 Acquired absence of other specified parts of digestive tract; Z85.828 Personal history of other malignant neoplasm of skin; Z83.2 Family history of diseases of the blood and blood-forming organs and certain disorders involving the immune mechanism; Z80.1 Family history of malignant neoplasm of trachea, bronchus and lung; Z80.8 Family history of malignant neoplasm of other organs or systems; Z74.01 Bed confinement status
CPT/HCPCS: 96375 ×2; 96376 ×3; 96374; 99285; 36415; 94760; 94762; 80053; 83735; 84132 ×2; 85025; G0378 ×3; J2270; J2405 ×2; J1170 ×3

== ENCOUNTER 2019-03-06 11:35 | Day surgery (SDC) | payer MEDICARE, BC ==
[~2019-03-06 11:35] MED LIST: DEXAMETHASONE SOD PHOSPHATE 10 MG/ML 1 ML VIAL IV ONE; LACTATED RINGERS 1,000 ML IV SCH; LIDOCAINE 1% 20 ML VIAL (10MG/ML) FOR IV START INTRADERMA PRN; MIDAZOLAM 2 MG/2 ML VIAL IV PRN; ONDANSETRON 4 MG/2 ML VIAL IVP ONE; SCOPOLAMINE 1.5MG/72HR PATCH TRANSDERM ONE
[2019-03-06 11:56] VITALS: TEMP 97.4
[2019-03-06] MEDS ORDERED: LACTATED RINGERS 1,000 ML IV ONE (11:56)
[2019-03-06 12:01] LABS: Glucose,Whole Blood 119 mg/dL (75-99)
[2019-03-06] MEDS ORDERED: LIDOCAINE 1% INJ 10MG/ML (20 ML MDV) ONE (12:40)
[2019-03-06] MEDS ORDERED: PROPOFOL 10 MG/ML 20 ML VIAL IV ONE (12:40)
[2019-03-06] MEDS ORDERED: fentaNYL (PF) 50 MCG/ML 2 ML AMP ONE (12:40)
[2019-03-06] MEDS ORDERED: GLYCOPYRROLATE 0.2 MG/ML 2 ML VIAL ONE (12:40)
[2019-03-06] MEDS ORDERED: NEOSTIGMINE 1 MG/ML 10 ML VIAL ONE (12:40)
[2019-03-06] MEDS ORDERED: ROCURONIUM BROMIDE 10 MG/ML 10 ML VIAL IV ONE (12:40)
--- NOTE | 2019-03-06 12:40 | P.GSHP ---
History of Present Illness H&P Date: 03/06/19 This is a 78 years old male, with a past medical history significant for back surgery syndrome lumbar area and he had acute tolerance, and his currently on intrathecal opioid treatment, patient had intrathecal pain pump placed several years ago , he was getting adequate pain relief from the intrathecal pain medication, currently patient had an end of life of the intrathecal pain pump ,and it is the time for intrathecal pump replacement, and he is here today to have the pump replaced Past Medical History Past Medical History: Cancer, COPD, Diabetes Mellitus, GERD/Reflux, Hypertension, Musculoskeletal Disorder, Rheumatoid Arthritis (RA), Thyroid Disorder Additional Past Medical History / Comment(s): HX MIGRAINES. HX OF SKIN CANCER ., CHRONIC BACK PAIN, D.I.S.H.-DEGENERATIVE ARTHRITIS, ANKYLOSING SPONDYLITIS. , GETS LIGHTHEADED EASILY-MOVES SLOWLY TO PREVENT LOSS OF BALANCE. History of Any Multi-Drug Resistant Organisms: None Reported Past Surgical History: Appendectomy, Bowel Resection, Joint Replacement, Orthopedic Surgery, Tonsillectomy Additional Past Surgical History / Comment(s): LT KNEE REPL. BACK SURG. X2. INTRATHECAL OPIOID PAIN PUMP TO MANAGE CHRONIC PAIN. upper teeth pulled Past Anesthesia/Blood Transfusion Reactions: No Reported Reaction Past Psychological History: Anxiety, Depression Smoking Status: Never smoker Past Alcohol Use History: None Reported Past Drug Use History: None Reported - Past Family History Father Family Medical History: Cancer, Deep Vein Thrombosis (DVT) Additional Family Medical History / Comment(s): Lung & BONE CA Medications and Allergies Home Medications Medication Instructions Recorded Confirmed Type Hydrochlorothiazide [Hydrodiuril] 50 mg PO QAM 11/22/13 03/05/19 History buPROPion XL [Wellbutrin XL] 300 mg PO QAM 11/22/13 03/05/19 History Metoprolol Tartrate [Lopressor] 50 mg PO BID 11/25/14 03/05/19 History Docusate [Colace] 100 mg PO HS 08/12/15 03/05/19 History Atorvastatin [Lipitor] 10 mg PO HS 02/17/17 03/05/19 History Citalopram Hydrobromide [CeleXA] 40 mg PO QAM 04/09/17 03/05/19 History Dorzolamide-Timol 2.23%/0.68% 1 drop BOTH EYES BID 04/10/17 03/05/19 History [Cosopt] Latanoprost Ophth [Xalatan 0.005%] 1 drops BOTH EYES HS 04/10/17 03/05/19 History metFORMIN HCL [Glucophage] 500 mg PO BID 04/10/17 03/05/19 History Acetaminophen Tab [Tylenol] 650 mg PO Q6HR PRN tab 04/12/17 03/05/19 Rx Aspirin [Adult Low Dose Aspirin EC] 81 mg PO DAILY #30 tablet. 04/12/1703/05 Rx Pantoprazole [Protonix] 40 mg PO HS 05/18/17 03/05/19 History Baclofen [Lioresal] 10 mg PO HS PRN 30 Days #30 tab 02/01/18 03/05/19 Rx Lutein 20 mg PO DAILY 02/06/19 03/05/19 History oxyCODONE HCL [OxyIR] 5 mg PO Q8HR 02/06/19 03/05/19 History fentaNYL 75MCG/HR PATCH [Duragesic 1 patch TRANSDERM Q72H 30 Days #10 02/22/19 03/05/19 Rx 75MCG/HR] patch oxyCODONE HCL [oxyCODONE HCL (IR)] 10 mg PO Q8H PRN 30 Days #90 tab 02/22/19 03/05/19 Rx Allergies Allergy/AdvReac Type Severity Reaction Status Date / Time No Known Allergies Allergy Verified 03/05/19 09:33 Surgical - Exam Vital Signs Temp Pulse Resp BP Pulse Ox 97.4 F L 106 H 17 200/102 98 03/06/19 11:55 03/06/19 11:55 03/06/19 11:55 03/06/19 11:55 03/06/19 11:55 Physical Examinations : -Constitutiona : Cooperative , not in acute distress . -HEENT : nech : supple , no Lymphadenopathy , normal thyroid size .. - Respiratory : Chest clear to auscultations Bilaterally , no wheezing , no Rhonchi . - Cardiovascula : regular rate and rhythem , S1 , S2 , no S3 , no S4. - Gastrointestina : abdomen soft no tenderness , bowel sounds , no organomegally . - Genitourinary : Defferred . - neurologic : Cranial nerve II to XII intact , no focal neurological deffecit . -psychatric : alert , oriented X 3 , appropriate affect , intact judgment and insight . -Lymphatic : no Lymphadenopathy . - musculoskeltal : Lumber spine moter stegnth lower extremities ,thigh and legs 4/5 Right side , 4/5 Left side Results - Labs Abnormal Lab Results - Last 24 Hours (Table) 03/06/19 Range/Units 11:58 POC Glucose (mg/dL) 119 H (75-99) mg/dL Assessment and Plan Plan: Assessment and plan=1-failed back surgery syndrome lumbar area. 2-opioid tolerance currently on intrathecal opioid treatment, 3-end of life of intrathecal pain pump time for replacement
[2019-03-06] MEDS ORDERED: ceFAZolin 1,000 MG in SODIUM CHLORIDE 0.9% 1,000 ML IRRIGATION ONE (13:10)
[2019-03-06] MEDS ORDERED: LIDOCAINE 2% INJ 20 MG/ML SQ ONE (13:12)
[2019-03-06] MEDS ORDERED: BUPIVACAIN-EPI 0.25%-1:200,000 30 ML VIAL SQ ONE (13:12)
[2019-03-06 14:24] LABS: Glucose,Whole Blood 132 mg/dL (75-99)
[2019-03-06] MEDS ORDERED: LACTATED RINGERS 1,000 ML IV SCH (14:45)
[2019-03-06 15:09] VITALS: BP 131/69; PULSE 75; RESP 18
--- NOTE | 2019-03-06 20:19 | P.PCN ---
Date of Procedure: 03/06/19 Procedure(s) Performed: Operation= 1-revision/implantation of programmable intrathecal pain pump . (Medtronic ) 2-intrathecal pain pump refill and analysis . Preoperative diagnoses =1-end of life of programmable intrathecal pain pump. 2- opioid Tolerance. 3-failed back surgery syndrome and lumbar area. Postoperative diagnoses= same as preop diagnosis. Condition= stable. Complications=none. Anesthesia= general endotracheal intubation. Estimated blood loss=3-5 ml . Indication and description of the procedure= this is 78 years old male, with a chronic history of severe intractable low back pain patient had, intrathecal pain pump implanted several years ago on time now to replace the pump, patient was started on fentanyl patch 75 g every 72 hours because he developed withdrawal symptoms while he was on intrathecal pain pump, because of end the batteries life, risks and benefits and alternative of the procedure discussed with the patient and he agreed with proceeding, patient taken to the operating room anesthesia induced, and then patient placed in prone position the back and the left buttock area prepped with the DuraPrep 3, and then under sterile technique, local infiltration of the skin and subcutaneous tissue with Marcaine 0.25% with epi, total of 5 ML, then after that incision made , and the location of the pump and then , the old pump removed , and explanted , then free flow of cerebrospinal fluid assured, and to assure that the catheter is patent , and I aspirated 2 mL of clear cerebrospinal fluid , then after that the new intrathecal pain pump (Medtronic ) connected to the catheter , and the pump was filled with the new medication preservative-free morphine sulfate concentration 5 mg per mL , combined with the bupivacaine concentration 5 mg per mL , and after that the pump placed in the pocket , which is located in the left buttock area , that is done after we did antibiotic irrigation to the pocket , and after I assured the and equipment hemostasis , then the incision closed using 2-0 Vicryl for the fascia , and then 3-0 subcuticular closure , then the dressing applied , patient received 2 g of Ancef before the incision was made , and patient would continue to use Levaquin 750 mg daily for 10 days , patient will continue to use oxycodone 5 mg every 6 hours for breakthrough pain , and he will be seen in the clinic in one week . Intrathecal pain pump programming note = the pump filled with the total volume of 20 mL with a combination medication morphine sulfate preservative-free concentration 5 mg per mL and bupivacaine preservative-free concentration 5 mg per mL and patient would continue to use daily dose of morphine , 0.7 mg per day and daily dose of bupivacaine 0.7 mg per day , and patient will continue to use breakthrough medication oxycodone 5 mg when necessary every 6 hours
== END 2019-03-06 15:39 | disposition home or self-care (01) ==
LOC: OR 11:35
PROVIDERS: ATTEND Specialist
DX: Z45.1 Encounter for adjustment and management of infusion pump (principal); M96.1 Postlaminectomy syndrome, not elsewhere classified; J44.9 Chronic obstructive pulmonary disease, unspecified; E11.9 Type 2 diabetes mellitus without complications; F32.9 Major depressive disorder, single episode, unspecified; F41.9 Anxiety disorder, unspecified; K21.9 Gastro-esophageal reflux disease without esophagitis; M19.90 Unspecified osteoarthritis, unspecified site; E07.9 Disorder of thyroid, unspecified; I10 Essential (primary) hypertension; M06.9 Rheumatoid arthritis, unspecified; M45.9 Ankylosing spondylitis of unspecified sites in spine; Z79.82 Long term (current) use of aspirin; Z79.899 Other long term (current) drug therapy; Z79.84 Long term (current) use of oral hypoglycemic drugs; Z79.891 Long term (current) use of opiate analgesic; Z96.652 Presence of left artificial knee joint; Z90.49 Acquired absence of other specified parts of digestive tract; Z85.828 Personal history of other malignant neoplasm of skin; Z80.1 Family history of malignant neoplasm of trachea, bronchus and lung; Z80.8 Family history of malignant neoplasm of other organs or systems
CPT/HCPCS: 62362; J2001 ×2; J1100; J2710; J0690 ×2; J2405; J3010; J2704; C1787

== ENCOUNTER → 2019-03-14 | Outpatient (CLI) | payer MEDICARE, BC ==
[2019-03-14 14:49] VITALS: PULSE 62; RESP 16
[2019-03-14 15:14] VITALS: BP 100/64
--- NOTE | 2019-03-14 18:28 | P.PAINPG ---
Subjective Progress Note Date: 03/14/19 This is a follow-up visit for this 78 years old male with a chronic history of severe low back pain, diagnosed with failed back surgery syndrome, and opioid tolerance , patient had intrathecal pain pump planted last week and is here today for follow-up visit and also for medication refill, patient currently on intrathecal morphine dose 0.7 mg per day and bupivacaine daily dose is 0.7 mg per day, he denies any side effect of the medication he denies any excessive drowsiness or sleepiness and he reported that the current medication helping to control his pain and do activities of daily livings, he uses the oxycodone 10 mg every 6-8 hours when necessary for breakthrough pain. Objective - Vital Signs Vital signs: Vital Signs Temp Pulse 62 03/14/19 15:12 Resp 16 03/14/19 15:12 BP 100/64 03/14/19 15:12 Pulse Ox 97 03/14/19 15:12 Intake & Output 03/13/19 03/14/19 03/14/19 18:59 06:59 18:59 Weight 97.976 kg - Exam Physical Examinations : -Constitutiona : Cooperative , not in acute distress . -HEENT : nech : supple , no Lymphadenopathy , normal thyroid size . eyes : no ptosis , no icterus, no photophobia - neurologic : Cranial nerve II to XII intact , no focal neurological deffecit . -psychatric : alert , oriented X 3 , appropriate affect , intact judgment and insight . -Lymphatic : no Lymphadenopathy . - musculoskeltal : Left buttock incision location of the pump healed appropriately, there is no erythema, and no swelling ,no discharge Assessment and Plan Plan: Assessment AND PLAN= failed back surgery syndrome and lumbar area. Opioid tolerance, patient on intrathecal pain therapy, status post intrathecal pain pump placement, 1 week ago and is here today for medication refill and to check on the incision, patient denies any side effects of the medication and examination showed that there is no infection, and no signs of overdose or underdosing, patient will continue to use oxycodone 5 mg every 8 hours for breakthrough pain, prescription refill for 3 months given, also patient continue on intrathecal medication treatment morphine sulfate preservative free 0.7 mg per day and bupivacaine 0.7 mg per day and he will follow up in the pain clinic in 3 months Time with Patient: Less than 30 PQRS Measure Charge Sheet Measure #130: Documentation of Current Meds in Medical Chart: Patient's medications documented in chart Measure #226: Tobacco Use: Screen & Cessation Intervention: Pt not a tobacco user Measure #111: Pneumonia Vaccination: Pneumococcal vaccine administered or previously received Measure #47: Advance Care Plan: Advance care planning discussed & documented, pt chose/unable to give Measure #412: Opioid Treatment Agreement: Documented signed opioid trtmnt agreemnt min once during opioid trtmnt Measure #408: Opioid Therapy Follow-up Evaluation: Patient had f/u eval minimum every 3 months during opioid therapy Measure #317: Preventitive Care & Scrn High Bld Press & F/U: Normal blood pressure, f/u not required Measure #128: Body Mass Index (BMI) Screening & Follow-up: BMI documented ABOVE normal parameters - f/u documented Measure #131: Pain Assessment & Follow-up: Pain positive & plan documented, Follow-up scheduled Measure #431: Unhealthy Alcohol Use Preventative Care & Scrn: Patient not identified as an unhealthy alcohol user PQRS Narrative: Smoking Status Never smoker Blood Pressure 100/64 Pain Intensity [Generalized] 3 Scale Used Numeric (1 - 10) Hx Alcohol Use (MH) No Home Medications: Ambulatory Orders Hydrochlorothiazide [Hydrodiuril] 50 mg PO QAM 11/22/13 buPROPion XL [Wellbutrin XL] 300 mg PO QAM 11/22/13 Metoprolol Tartrate [Lopressor] 50 mg PO BID 11/25/14 Docusate [Colace] 100 mg PO HS 08/12/15 Atorvastatin [Lipitor] 10 mg PO HS 02/17/17 Citalopram Hydrobromide [CeleXA] 40 mg PO QAM 04/09/17 Dorzolamide-Timol 2.23%/0.68% [Cosopt] 1 drop BOTH EYES BID 04/10/17 Latanoprost Ophth [Xalatan 0.005%] 1 drops BOTH EYES HS 04/10/17 metFORMIN HCL [Glucophage] 500 mg PO BID 04/10/17 Acetaminophen Tab [Tylenol] 650 mg PO Q6HR PRN tab 04/12/17 Aspirin [Adult Low Dose Aspirin EC] 81 mg PO DAILY #30 tablet. 04/12/17 Pantoprazole [Protonix] 40 mg PO HS 05/18/17 Lutein 20 mg PO DAILY 02/06/19 Baclofen [Lioresal] 10 mg PO HS PRN 30 Days #30 tab 03/14/19 oxyCODONE HCL [Oxaydo] 5 mg PO Q8H PRN 30 Days #90 tab 03/14/19 oxyCODONE HCL [Oxaydo] 5 mg PO Q8H PRN 30 Days #90 tab 03/14/19 oxyCODONE HCL [OxyIR] 5 mg PO Q8HR PRN #90 tab 03/14/19 Controlled Substance Measures - Controlled Substance Measures Is patient prescribed a controlled substance at discharge?: Yes When asked, does pt state using other controlled substances?: No If prescribed controlled substance>3 days was MAPS reviewed?: Yes If Rx opioid, was Start Talking consent form obtained?: Yes If opioid is for acute pain is fill amount 7 days or less?: No Was information provided regarding opioid addiction?: Yes
== END | disposition home or self-care (01) ==
LOC: PNWHC3 14:14
PROVIDERS: ATTEND Specialist
DX: G89.29 Other chronic pain (principal); M96.1 Postlaminectomy syndrome, not elsewhere classified; Z97.8 Presence of other specified devices; Z79.84 Long term (current) use of oral hypoglycemic drugs; Z79.82 Long term (current) use of aspirin; Z79.891 Long term (current) use of opiate analgesic; Z79.899 Other long term (current) drug therapy
CPT/HCPCS: 99211

== ENCOUNTER → 2019-06-06 | Day surgery (SDC) | payer MEDICARE, BC ==
[2019-06-06 12:19] VITALS: BP 129/65; PULSE 47; RESP 18
--- NOTE | 2019-06-06 12:45 | P.PCN ---
Date of Procedure: 06/06/19 Procedure(s) Performed: PROCEDURE: Intrathecal pain pump analysis, programming and reprogramming, and intrathecal pain pump refill. PREOPERATIVE DIAGNOSES: 1. near empty intrathecal pain pump 2. opioid tolerance POSTOPERATIVE DIAGNOSES: 1. 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 CONDITION: Stable. DESCRIPTION OF PROCEDURE: Intrathecal pain pump analysed, it showed patient currently had reservoir volume 6.5 mL. The patient is receiving medication morphine 5mg/ ml, and bupivacaine concentration 5 mg/ml. Patient receiving daily dose of 0.6991 mg/day and bupivacaine 0.6991 mg/day. Pain is well controlled , patient using medication for breakthrough pain oxycodone 5 mg every 8 when necessary orally and baclofen 10 mg daily at bedtime when necessary . The location of the pump ( Left Buttock ) Prepped with chlorhexidine x2 , then using 22-gauge needle Meusonic kit advanced through the pump port, Total of [ 6.5] ml removed from the pump, the pump refilled with the new medication total volume 20 ml . Morphine concentration 5 mg /ml, and the bupivacaine concentration 5 mg/ml. The patient will continue to see the same daily dose and no changes were made today.
== END ==
LOC: PNWHC3 11:59
PROVIDERS: ATTEND Anesthesiology
DX: Z45.1 Encounter for adjustment and management of infusion pump (principal); M96.1 Postlaminectomy syndrome, not elsewhere classified; M50.30 Other cervical disc degeneration, unspecified cervical region; M51.34 Other intervertebral disc degeneration, thoracic region
CPT/HCPCS: 62370

== ENCOUNTER 2019-08-05 15:52 | Emergency (ER) | payer MEDICARE, BC ==
[2019-08-05] MEDS ORDERED: ACETAMINOPHEN TAB 500 MG TAB PO STA (16:01)
--- NOTE | 2019-08-05 16:13 | ED ---
General Adult HPI - General Stated complaint: flu symptoms Time Seen by Provider: 08/05/19 15:53 Source: patient Mode of arrival: ambulatory Limitations: no limitations - History of Present Illness Initial comments: Dictation was produced using [employer] dictation software. please excuse any grammatical, word or spelling errors. Chief Complaint: 78-year-old male with past medical history of cancer, COPD, diabetes, hypertension presents with generalized weakness and fever. History of Present Illness: 78-year-old male past medical history of chronic back pain status post lower back pump presents with generalized weakness and fever for the last 24 hours. Patient is a poor historian. He was brought in by EMS. Patient states he lives at home and his cousin checks on him frequently. He was evaluated by his cousin and complained about his symptoms his cousin. EMS was called patient brought to the emergency department. Patient states he's feeling significantly weak. He is so weak to the point where he is having difficulty getting up and walking to the table to eat. States she's been in bed for most of the day. Patient denies any new pain complaints. He does have lower back pain states slightly different than his usual back pain. He reports that his back pain is usually sore. This time it's more severe and radiates across his back.. Denies any cough. He does have mild sore throat. No runny nose. No abdominal pain. No rashes. The ROS documented in this emergency department record has been reviewed and confirmed by me. Those systems with pertinent positive or negative responses have been documented in the HPI. All other systems are other negative and/or noncontributory. PHYSICAL EXAM: General Impression: Alert and oriented x3, not in acute distress HEENT: Normocephalic atraumatic, extra-ocular movements intact, pupils equal and reactive to light bilaterally, mucous in the posterior oropharynx, dry mucous membranes Cardiovascular: Heart regular rate and rhythm, S1&S2 audible, no murmurs, rubs or gallops Chest: Lungs clear to auscultation bilaterally, no rhonchi, no wheeze, no rales Abdomen: Bowel sounds present, abdomen soft, non-tender, non-distended, no organomegaly Musculoskeletal: Pulses present and equal in all extremities, no peripheral edema, no joint swelling, all extremities and joints ranged with no difficulties Motor: no focal deficits noted Neurological: CN II-XII grossly intact, no focal motor or sensory deficits noted Skin: Intact with no visualized rashes, no perineal erythema or induration Psych: Normal affect and mood ED course: 78-year-old male presents with generalized weakness. Vital signs upon arrival shows temperature 101.6, heart rate of 84, respiratory rate of 18, blood pressure 147/85, 98% on room air. Patient is febrile however he has no obvious localizing symptoms. Albeit, patient is a poor historian physical examination is nonrevealing for any obvious source of infection. Sepsis protocol ordered. Patient given 30 mL per KG bolus of normal saline. Patient was unable to give a urine specimen. We did do a straight cath and 900 mL of urine was removed. There is concern of lower spinal infection. He does have a history of diabetes. Laboratory evaluation obtained. Leukocytosis of 10.8 with monocytosis and neutrophilia. Coag panel unremarkable. Metabolic panel shows sodium 128, potassium 3.2. Lactic acidosis of 5.2. Urinalysis shows greater than 182 red b lood cells. A fluids at test negative. Chest x-ray is not acute CT of abdomen and pelvis is nonrevealing. Given the patient has back pain fever and multiple risk factors there is concern of spinal infection. Attempt was made to try to schedule stat MRI here at our facility however those resources are not available to us at the moment. Patient started on broad-spectrum antibiotics. Patient be transferred to [facility]. Discussed patient case with Dr. Greene and [facility] who is willing to accept patients for ER to ER transfer. EKG interpretation: Ventricular rate 44, normal sinus rhythm,. 166, QS 118, QTC 602. No ST or T-wave changes. - Related Data Home Medications Medication Instructions Recorded Confirmed Hydrochlorothiazide [Hydrodiuril] 50 mg PO QAM 11/22/13 06/06/19 buPROPion XL [Wellbutrin XL] 500 mg PO QAM 11/22/13 06/06/19 Metoprolol Tartrate [Lopressor] 50 mg PO BID 11/25/14 06/06/19 Docusate [Colace] 100 mg PO HS 08/12/15 06/06/19 Atorvastatin [Lipitor] 10 mg PO HS 02/17/17 06/06/19 Citalopram Hydrobromide [CeleXA] 40 mg PO QAM 04/09/17 06/06/19 Dorzolamide-Timol 2.23%/0.68% 1 drop BOTH EYES BID 04/10/17 06/06/19 [Cosopt] Latanoprost Ophth [Xalatan 0.005%] 1 drops BOTH EYES HS 04/10/17 06/06/19 metFORMIN HCL [Glucophage] 500 mg PO BID 04/10/17 06/06/19 Pantoprazole [Protonix] 40 mg PO HS 05/18/17 06/06/19 Lutein 20 mg PO DAILY 02/06/19 06/06/19 Acetaminophen/Diphenhydramine 1 tab PO HS PRN 06/01/19 06/06/19 [Tylenol PM 500-25mg] Aspirin/Acetaminophen/Caffeine 1 each PO DAILY PRN 06/01/19 06/06/19 [Excedrin Migraine Caplet] Levothyroxine Sodium [Synthroid] 150 mcg PO DAILY 06/01/19 06/06/19 Dorzolamide 2% [Trusopt 2%] 1 drops BOTH EYES TID 06/06/19 06/06/19 Intrathecal Opioid Pump 5 mg INTRATHECA CONTINUOUS 06/06/19 06/06/19 Latanoprost Ophth [Xalatan 0.005%] 1 drops BOTH EYES HS 06/06/19 06/06/19 Previous Rx's Medication Instructions Recorded Acetaminophen Tab [Tylenol] 650 mg PO Q6HR PRN tab 04/12/17 Baclofen [Lioresal] 10 mg PO HS PRN 30 Days #30 tab 03/14/19 oxyCODONE HCL [Oxaydo] 5 mg PO Q8H PRN 30 Days #90 tab 03/14/19 Allergies Allergy/AdvReac Type Severity Reaction Status Date / Time No Known Allergies Allergy Verified 06/06/19 12:10 Review of Systems ROS Statement: Those systems with pertinent positive or pertinent negative responses have been documented in the HPI. ROS Other: All systems not noted in ROS Statement are negative. Past Medical History Past Medical History: Cancer, COPD, Diabetes Mellitus, GERD/Reflux, Hypertension, Musculoskeletal Disorder, Rheumatoid Arthritis (RA), Thyroid Disorder Additional Past Medical History / Comment(s): HX MIGRAINES. HX OF SKIN CANCER ., CHRONIC BACK PAIN, D.I.S.H.-DEGENERATIVE ARTHRITIS, ANKYLOSING SPONDYLITIS. , GETS LIGHTHEADED EASILY-MOVES SLOWLY TO PREVENT LOSS OF BALANCE. History of Any Multi-Drug Resistant Organisms: None Reported Past Surgical History: Appendectomy, Bowel Resection, Joint Replacement, Ortho pedic Surgery, Tonsillectomy Additional Past Surgical History / Comment(s): LT KNEE REPL. BACK SURG. X2. INTRATHECAL OPIOID PAIN PUMP TO MANAGE CHRONIC PAIN( replaced 03/06/19), upper teeth pulled Past Anesthesia/Blood Transfusion Reactions: No Reported Reaction Past Psychological History: Anxiety, Depression Smoking Status: Never smoker Past Alcohol Use History: None Reported Past Drug Use History: None Reported - Past Family History Father Family Medical History: Cancer, Deep Vein Thrombosis (DVT) Additional Family Medical History / Comment(s): Lung & BONE CA General Exam Limitations: no limitations Course Vital Signs 08/05/19 08/05/19 15:55 16:35 Temperature 101.6 F H Pulse Rate 84 77 Respiratory 18 18 Rate Blood Pressure 147/85 138/77 O2 Sat by Pulse 98 98 Oximetry Medical Decision Making - Lab Data Result diagrams: 08/05/19 16:05 08/05/19 16:05 Lab Results 08/05/19 08/05/19 08/05/19 Range/Units 16:05 16:05 16:05 WBC 10.8 H (3.8-10.6) k/uL RBC 5.18 (4.30-5.90) m/uL Hgb 15.4 (13.0-17.5) gm/dL Hct 44.8 (39.0-53.0) % MCV 86.4 (80.0-100.0) fL MCH 29.7 (25.0-35.0) pg MCHC 34.4 (31.0-37.0) g/dL RDW 13.8 (11.5-15.5) % Plt Count 229 (150-450) k/uL Neutrophils % 79 % Lymphocytes % 7 % Monocytes % 11 % Eosinophils % 1 % Basophils % 1 % Neutrophils # 8.6 H (1.3-7.7) k/uL Lymphocytes # 0.8 L (1.0-4.8) k/uL Monocytes # 1.2 H (0-1.0) k/uL Eosinophils # 0.1 (0-0.7) k/uL Basophils # 0.1 (0-0.2) k/uL PT (9.0-12.0) sec INR (<1.2) APTT (22.0-30.0) sec Sodium 128 L (137-145) mmol/L Potassium 3.2 L (3.5-5.1) mmol/L Chloride 86 L (98-107) mmol/L Carbon Dioxide 25 (22-30) mmol/L Anion Gap 17 mmol/L BUN 18 (9-20) mg/dL Creatinine 0.77 (0.66-1.25) mg/dL Est GFR (CKD-EPI)AfAm >90 (>60 ml/min/1.73 sqM) Est GFR (CKD-EPI)NonAf 87 (>60 ml/min/1.73 sqM) Glucose 140 H (74-99) mg/dL Plasma Lactic Acid Js (0.7-2.0) mmol/L Calcium 9.5 (8.4-10.2) mg/dL Total Bilirubin 0.9 (0.2-1.3) mg/dL AST 62 H (17-59) U/L ALT 31 (4-49) U/L Alkaline Phosphatase 58 (38-126) U/L Total Protein 7.5 (6.3-8.2) g/dL Albumin 4.5 (3.5-5.0) g/dL Urine Color Urine Appearance (Clear) Urine pH (5.0-8.0) Ur Specific [place] (1.001-1.035) Urine Protein (Negative) Urine Glucose (UA) (Negative) Urine Ketones (Negative) Urine Blood (Negative) Urine Nitrite (Negative) Urine Bilirubin (Negative) Urine Urobilinogen (<2.0) mg/dL Ur Leukocyte Esterase (Negative) Urine RBC (0-5) /hpf Urine WBC (0-5) /hpf Hyaline Casts (0-2) /lpf Influenza Type A RNA Not Detected (Not Detectd) Influenza Type B (PCR) Not Detected (Not Detectd) 08/05/19 08/05/19 08/05/19 Range/Units 16:05 16:07 17:10 WBC (3.8-10.6) k/uL RBC (4.30-5.90) m/uL Hgb (13.0-17.5) gm/dL Hct (39.0-53.0) % MCV (80.0-100.0) fL MCH (25.0-35.0) pg MCHC (31.0-37.0) g/dL RDW (11.5-15.5) % Plt Count (150-450) k/uL Neutrophils % % Lymphocytes % % Monocytes % % Eosinophils % % Basophils % % Neutrophils # (1.3-7.7) k/uL Lymphocytes # (1.0-4.8) k/uL Monocytes # (0-1.0) k/uL Eosinophils # (0-0.7) k/uL Basophils # (0-0.2) k/uL PT 10.8 (9.0-12.0) sec INR 1.1 (<1.2) APTT 21.9 L (22.0-30.0) sec Sodium (137-145) mmol/L Potassium (3.5-5.1) mmol/L Chloride (98-107) mmol/L Carbon Dioxide (22-30) mmol/L Anion Gap mmol/L BUN (9-20) mg/dL Creatinine (0.66-1.25) mg/dL Est GFR (CKD-EPI)AfAm (>60 ml/min/1.73 sqM) Est GFR (CKD-EPI)NonAf (>60 ml/min/1.73 sqM) Glucose (74-99) mg/dL Plasma Lactic Acid Js 5.2 H* (0.7-2.0) mmol/L Calcium (8.4-10.2) mg/dL Total Bilirubin (0.2-1.3) mg/dL AST (17-59) U/L ALT (4-49) U/L Alkaline Phosphatase (38-126) U/L Total Protein (6.3-8.2) g/dL Albumin (3.5-5.0) g/dL Urine Color Yellow Urine Appearance Clear (Clear) Urine pH 7.0 (5.0-8.0) Ur Specific [place] 1.012 (1.001-1.035) Urine Protein Trace H (Negative) Urine Glucose (UA) Negative (Negative) Urine Ketones 1+ H (Negative) Urine Blood Moderate H (Negative) Urine Nitrite Negative (Negative) Urine Bilirubin Negative (Negative) Urine Urobilinogen <2.0 (<2.0) mg/dL Ur Leukocyte Esterase Negative (Negative) Urine RBC >182 H (0-5) /hpf Urine WBC 4 (0-5) /hpf Hyaline Casts 9 H (0-2) /lpf Influenza Type A RNA (Not Detectd) Influenza Type B (PCR) (Not Detectd) Disposition Clinical Impression: Sepsis, Back pain Disposition: OTHER INSTITUTION NOT DEFINED Condition: Critical Referrals: Remington Mayfield DO [Primary Care Provider] - 1-2 days Time of Disposition: 18:08 - Out of Hospital Transfer - Req. Specs Out of Hospital Transfer - Requested Specifics: Other [facility] ([facility])
[2019-08-05] MEDS ORDERED: SODIUM CHLORIDE 0.9% 1,000 ML IV STA (16:14)
[2019-08-05] MEDS ORDERED: SODIUM CHLORIDE 0.9% 2,381.37 ML IV STA (16:15)
[2019-08-05] MEDS ORDERED: SODIUM CHLORIDE 0.9% 500 ML 500 ML IV SCH (16:15)
[2019-08-05 16:33] LABS: INR 1.1 (<1.2); Prothrombin Time 10.8 sec (9.0-12.0)
[2019-08-05 16:35] LABS: AST 62 U/L (17-59); African American GFR (CKD) >90 (>60 ml/min/1.73 sqM); Albumin 4.5 g/dL (3.5-5.0); Alkaline Phosphatase 58 U/L (38-126); Anion Gap 17 mmol/L; Blood Urea Nitrogen 18 mg/dL (9-20); Calcium 9.5 mg/dL (8.4-10.2); Carbon Dioxide 25 mmol/L (22-30); Chloride 86 mmol/L (98-107); Glucose 140 mg/dL (74-99); Non-African American GFR(CKD) 87 (>60 ml/min/1.73 sqM); Sodium 128 mmol/L (137-145); Total Bilirubin 0.9 mg/dL (0.2-1.3); Total Protein 7.5 g/dL (6.3-8.2)
[2019-08-05] MEDS ORDERED: CEFEPIME 2 GM in SODIUM CHLORIDE 0.9% 100 ML IVPB STA (16:36)
[2019-08-05 16:37] LABS: Basophils # (A) 0.1 k/uL (0-0.2); Basophils % (A) 1 %; Eosinophils # (A) 0.1 k/uL (0-0.7); Eosinophils % (A) 1 %; HCT 44.8 % (39.0-53.0); HGB 15.4 gm/dL (13.0-17.5); Lymphocytes # (A) 0.8 k/uL (1.0-4.8); Lymphocytes % (A) 7 %; MCH 29.7 pg (25.0-35.0); MCHC 34.4 g/dL (31.0-37.0); MCV 86.4 fL (80.0-100.0); Mean Platelet Volume 7.6; Monocytes # (A) 1.2 k/uL (0-1.0); Monocytes % (A) 11 %; Neutrophils # (A) 8.6 k/uL (1.3-7.7); Neutrophils % (A) 79 %; Platelet Count 229 k/uL (150-450); RBC 5.18 m/uL (4.30-5.90); RDW 13.8 % (11.5-15.5); WBC 10.8 k/uL (3.8-10.6)
[2019-08-05 16:41] LABS: ALT 31 U/L (4-49); Potassium 3.2 mmol/L (3.5-5.1)
[2019-08-05 16:43] LABS: Partial Thromboplastin Time 21.9 sec (22.0-30.0)
[2019-08-05] MEDS ORDERED: POTASSIUM CHLORIDE 20 MEQ in WATER FOR INJECTION 1 100ML.BAG IVPB STA (16:50)
--- NOTE | 2019-08-05 16:56 | XR ---
EXAMINATION TYPE: XR chest 2V DATE OF EXAM: 08/05/2019 COMPARISON: 04/10/2017 HISTORY: Shortness of breath TECHNIQUE: Frontal and lateral views of the chest are obtained. FINDINGS: Scattered senescent parenchymal changes noted. Hyperinflation compatible with COPD. No evidence for infiltrate. No evidence for atelectasis. Heart size is stable. Mediastinal structures are stable and grossly unremarkable. No evidence for hilar prominence. Degenerative changes dorsal spine. IMPRESSION: 1. No evidence for acute pulmonary disease.
[2019-08-05] MEDS ORDERED: VANCOMYCIN IV PER PHARMACY 1 EACH MISC MISCELLANE PRN (17:09)
[2019-08-05 17:28] LABS: Appearance,Urine Clear (Clear); Bilirubin,Urine Negative (Negative); Blood,Urine Moderate (Negative); Color,Urine Yellow; Glucose,Urine (UA) Negative (Negative); Hyaline Casts,Urine 9 /lpf (0-2); Ketones,Urine 1+ (Negative); Leukocyte Esterase,Urine Negative (Negative); Nitrite,Urine Negative (Negative); Protein,Urine Trace (Negative); RBC,Urine >182 /hpf (0-5); Specific Gravity,Urine 1.012 (1.001-1.035); Urobilinogen,Urine <2.0 mg/dL (<2.0); WBC,Urine 4 /hpf (0-5)
--- NOTE | 2019-08-05 17:59 | CT ---
EXAMINATION TYPE: CT abdomen pelvis w con DATE OF EXAM: 08/05/2019 COMPARISON: 04/09/2017 HISTORY: fever, body aches CT DLP: 2343.9 mGycm Automated exposure control for dose reduction was used. TECHNIQUE: Helical acquisition of images was performed from the lung bases through the pelvis. CONTRAST: Performed without Oral Contrast and with IV Contrast, patient injected with 100 mL of Isovu e 300. FINDINGS: LIMITATIONS: There is prominent patient motion artifact limiting visualization. In addition, the spinal stimulator and orthopedic hardware provides metallic beam hardening artifact over the lower lumbar spine. LUNG BASES: No acute findings. Prominent left and right coronary calcifications noted. LIVER/GB: No significant abnormality is appreciated. PANCREAS: No significant abnormality is seen. SPLEEN: No significant abnormality is seen. ADRENALS: No significant abnormality is seen. KIDNEYS: No significant abnormality is seen. PERITONEAL CAVITY: No pneumoperitoneum, and no peritoneal fluid. RETROPERITONEAL ADENOPATHY: None visualized REPRODUCTIVE ORGANS: No significant abnormality is seen URINARY BLADDER: No significant abnormality is seen. PELVIC ADENOPATHY: None visualized. OSSEOUS STRUCTURES: No significant abnormality is seen. With regard to the spine, the motion and gopi m hardening artifact limits visualization but no definite acute spinal pathology. BOWEL: No significant abnormality is seen. OTHER: No acute vascular abnormality. IMPRESSION: NO DEFINITE ACUTE PROCESS.
[2019-08-05] MEDS ORDERED: VANCOMYCIN 1,500 MG in SODIUM CHLORIDE 0.9% 250 ML IVPB ONE (18:00)
[2019-08-05 18:29] VITALS: BP 130/59; PULSE 78; RESP 17; TEMP 100
[2019-08-06] MEDS ORDERED: VANCOMYCIN 1,500 MG in SODIUM CHLORIDE 0.9% 250 ML IVPB SCH (06:00)
== END 2019-08-05 19:02 | disposition other institution (70) ==
LOC: EC 15:52
DX: A41.9 Sepsis, unspecified organism (principal); M54.5 Low back pain; D72.829 Elevated white blood cell count, unspecified; D72.821 Monocytosis (symptomatic); D71 Functional disorders of polymorphonuclear neutrophils; E11.9 Type 2 diabetes mellitus without complications; K21.9 Gastro-esophageal reflux disease without esophagitis; I10 Essential (primary) hypertension; E07.9 Disorder of thyroid, unspecified; F41.9 Anxiety disorder, unspecified; F32.9 Major depressive disorder, single episode, unspecified; M06.9 Rheumatoid arthritis, unspecified; Z85.828 Personal history of other malignant neoplasm of skin; Z96.652 Presence of left artificial knee joint; Z98.890 Other specified postprocedural states; Z79.84 Long term (current) use of oral hypoglycemic drugs; Z79.890 Hormone replacement therapy; Z79.891 Long term (current) use of opiate analgesic; Z79.899 Other long term (current) drug therapy
CPT/HCPCS: 36415; 93005; 80053; 83605; 85025; 85610; 85730; 81001; 87040; 87502; 71046; 74177; 99285; 51701; 96365 ×2; 96367; 96361 ×2; J3370; J3480; J0692; Q9967

== ENCOUNTER → 2019-08-15 | Outpatient (CLI) | payer MEDICARE, BC ==
[2019-08-15 12:18] LABS: African American GFR (CKD) >90 (>60 ml/min/1.73 sqM); Blood Urea Nitrogen 13 mg/dL (9-20); Non-African American GFR(CKD) >90 (>60 ml/min/1.73 sqM)
--- NOTE | 2019-08-15 16:39 | CT ---
EXAMINATION TYPE: CT abdomen pelvis w con DATE OF EXAM: 08/15/2019 COMPARISON: 08/05/2019 04/09/2017 HISTORY: 78-year-old male Follow up prostate cancer. TECHNIQUE: Contiguous axial scanning of the abdomen and pelvis following administration of 100 ml Omn ipaque 300 IV contrast. Delayed images through the kidneys and coronal/sagittal reconstructions perf ormed. CT DLP: 1924.5 mGycm Automated exposure control for dose reduction was used. FINDINGS: Heart upper limits of normal in size without pericardial effusion. Three-vessel coronary artery calci fications are present. Mild dependent atelectasis. Moderate bilateral gynecomastia. Calcified granuloma right middle lobe. Numerous additional scattered pulmonary nodules within the rig ht lower lobe measuring up to 4 mm not included in the [id number] on the patient's prior 2017 exam . A few 3 mm pulmonary nodules also present in the visualized left base. Allowing for artifacts from the patient's arms down by his side, no focal liver lesion is seen. No bi liary ductal dilatation. Portal venous system is patent. Gallbladder, adrenal glands, spleen, and mildly atrophic pancreas show no gross abnormal body. Few scattered subcentimeter cortical hypodensities in both kidneys too small for accurate CT characte rization, likely cysts. An exophytic hypodensity measuring 8 mm from the medial aspect of the upper p ole right kidney was present back in 2017 compatible with a cyst. Cysts also noted in the upper pole left kidney measuring up to 1.7 cm, present back in 2017. No dilated small bowel, free fluid, or free air. Tiny fatty umbilical hernia. Moderate stool burden. Staple line at the mid to distal sigmoid from prior colonic resection and rean astomosis. No mesenteric or retroperitoneal lymphadenopathy. Bladder is prominently distended up to 13.6 cm craniocaudal. Prostate gland measures 4.7 cm wide (4.4 cm wide on 04/08/2017). No abnormal fluid collection pelvis or pelvic lymphadenopathy. Bones: A soft tissue nodule within the subcutaneous adipose of the right posterolateral buttock regio n is new from 08/05/2019 suggesting some type of inflammatory change or subcutaneous injection. Genera tor device along the left posterior gluteal region. Extensive fusion changes along the spine and bridging across the SI joints, suspected ankylosing spon dylitis. Degenerative changes at the hips. No suspicious sclerotic lesion is seen. Lead from a spinal stimulator array terminates at the lower thoracic spine level. IMPRESSION: 1. THE PROSTATE GLAND MAY BE MINIMALLY LARGER MEASURING 4.7 CM WIDE VERSUS 4.4 CM WIDE ON 04/08/2017. CLINICALLY CORRELATE. 2. MULTIPLE LOWER LUNG PULMONARY NODULES MEASURING UP TO 4 MM. THESE WERE NOT INCLUDED IN THE FIELD-O F-VIEW ON THE 04/09/2017 PRIOR . DEDICATED CONTRAST ENHANCED CT OF THE CHEST RECOMMENDED TO SURVEY THE ENTIRE LUNGS AND DETERMINE SUBSEQUENT FOLLOW-UP. 3. OTHERWISE, NO SUSPICIOUS LYMPHADENOPATHY OR EVIDENCE FOR METASTATIC DISEASE. 4. PROMINENT DISTENTION OF THE URINARY BLADDER. CORRELATE TO ENSURE THAT THIS REPRESENTS VOLUNTARY RE TENTION. 5. ANKYLOSING SPONDYLITIS.
--- NOTE | 2019-08-15 21:13 | NM ---
EXAMINATION TYPE: NM bone scan whole body DATE OF EXAM: 08/15/2019 COMPARISON: Whole body bone scan December 25, 2009. CT abdomen pelvis August 15, 2019 HISTORY: Follow for bone pain with history of prostate cancer and osteoarthritis per patient. History of prior back surgery. Delayed whole-body scanning was performed following the injection of 24.6 mCi Tc 99m MDP. Images acq uired 3 hours post injection. Whole body images in anterior and posterior projection along with addit ional multiple projections of the head neck and thorax. FINDINGS: Moderately distended bladder is noted on current study. Lucency from left knee prosthesis is present. Mild uptake bilateral knee joints felt to reflect products of degenerative change. Increased uptake in level of paranasal sinuses redemonstrated correlate for underlying paranasal sinu s disease. Persistent uptake left sternoclavicular joint similar to prior favoring products of osteoarthritis. N o new suspicious radiotracer uptake to suggest osseous metastatic disease to the bone. IMPRESSION: As above.
== END | disposition home or self-care (01) ==
LOC: RADNMMAIN 11:15
PROVIDERS: ATTEND Urology
DX: C61 Malignant neoplasm of prostate (principal); N32.89 Other specified disorders of bladder; R93.7 Abnormal findings on diagnostic imaging of other parts of musculoskeletal system; Z96.652 Presence of left artificial knee joint
CPT/HCPCS: 82565; 84520; 74177; 36415; 78306; A9503; Q9967

== ENCOUNTER → 2019-08-20 | Day surgery (SDC) | payer MEDICARE, BC ==
[2019-08-20 14:14] VITALS: BP 110/66; PULSE 54; RESP 18
--- NOTE | 2019-08-21 13:50 | P.PCN ---
Date of Procedure: 08/20/19 Procedure(s) Performed: PROCEDURE: Intrathecal pain pump analysis, programming and reprogramming, and intrathecal pain pump refill. PREOPERATIVE DIAGNOSES: 1. near empty intrathecal pain pump time for refill. 2. opioid tolerance 3. postlaminectomy syndrome POSTOPERATIVE DIAGNOSES: 1. near empty intrathecal pain pump time for refill. 2. opioid tolerance 3. postlaminectomy syndrome ANESTHESIA: None. CONDITION: Stable. INDICATION: This is a 78-year-old patient with a long history of chronic pain secondary to postlaminectomy syndrome. Patient previously had an intrathecal pump placed, which is now near empty, and patient presents for refill today. Patient denies any side effects of the intrathecal medication, including new weakness, new numbness, excessive drowsiness or sleepiness, nausea/vomiting, weight gain, or night sweats. Patient also denies suicidal ideation, and reports that the current pain medication is helping control the chronic pain and improve the patient's activities of daily living. DESCRIPTION: The intrathecal pain pump was analyzed and showed that the patient currently has reservoir volume of [ 9.5] mL. The patient is receiving intrathecal Morphine sulfate PF at concentration [5] mg/ ml and bupivacaine PF at concentration [5] mg/ml. Patient receiving daily dose of Morphine Sulfate [0.69] mg/day and bupivacaine [0.69] mg/day. The location of the pump (left buttock) was prepped with chlorhexidine x3. Then, the 22-gauge needle from the [employer] kit was advanced through the pump port. Total of 9ml was removed from the pump, and it was refilled with the new medication total volume of [20] ml of a solution containing morphine sulfate at concentration [5] mg /ml and bupivacaine at concentration [5] mg/ml. The patient will continue with the same daily dose morphine [0.69] mg/day and bupivacaine [0.69] mg/day, no changes today. The patient is using some oral medications as well, specifically oxyIR 5 mg q6h #90 prn pain orally for breakthrough pain and baclofen 10 mg qhs for spasm. The patient was given three months' worth of these medications and patient will follow up with the pain clinic in 3 months for refill and further evaluation. MAPS revied, and it was appropriate Patient denies any side effects of the medication and he reported that he use the pain medication for breakthrough pain he denies any side effect of the medication, he denies any Since of drowsiness or sleepiness. .
== END ==
LOC: PNWHC3 13:18
PROVIDERS: ATTEND Specialist
DX: Z45.1 Encounter for adjustment and management of infusion pump (principal); G89.29 Other chronic pain; M96.1 Postlaminectomy syndrome, not elsewhere classified
CPT/HCPCS: 62370

== ENCOUNTER → 2019-11-13 | Day surgery (SDC) | payer MEDICARE, BC ==
[2019-11-13 10:53] VITALS: BP 153/76; PULSE 50; RESP 20; TEMP 98
--- NOTE | 2019-11-13 17:57 | P.PCN ---
Date of Procedure: 11/13/19 Procedure(s) Performed: PROCEDURE: Intrathecal pain pump analysis, programming and reprogramming, and intrathecal pain pump refill. PREOPERATIVE DIAGNOSES: 1. near empty intrathecal pain pump time for refill. 2. opioid tolerance 3. postlaminectomy syndrome POSTOPERATIVE DIAGNOSES: 1. near empty intrathecal pain pump time for refill. 2. opioid tolerance 3. postlaminectomy syndrome ANESTHESIA: None. CONDITION: Stable. INDICATION: This is a 79 year-old patient with a long history of chronic pain secondary to postlaminectomy syndrome. Patient previously had an intrathecal pump placed, which is now near empty, and patient presents for refill today. Patient denies any side effects of the intrathecal medication, including new weakness, new numbness, excessive drowsiness or sleepiness, nausea/vomiting, weight gain, or night sweats. Patient also denies suicidal ideation, and reports that the current pain medication is helping control the chronic pain and improve the patient's activities of daily living. DESCRIPTION: The intrathecal pain pump was analyzed and showed that the patient currently has reservoir volume of [ 8.2] mL. The patient is receiving intrathecal Morphine sulfate PF at concentration [5] mg/ ml and bupivacaine PF at concentration [5] mg/ml. Patient receiving daily dose of Morphine Sulfate [0.69] mg/day and bupivacaine [0.69] mg/day. The location of the pump (left buttock) was prepped with chlorhexidine x3. Then, the 22-gauge needle from the [employer] kit was advanced through the pump port. Total of 7.5 ml was removed from the pump, and it was refilled with the new medication total volume of [20] ml of a solution containing morphine sulfate at concentration [5] mg /ml and bupivacaine at concentration [5] mg/ml. The patient will continue with the same daily dose morphine [0.69] mg/day and bupivacaine [0.69] mg/day, no changes today. The patient is using some oral medications as well, specifically oxyIR 5 mg q6h #90 prn pain orally for breakthrough pain and baclofen 10 mg qhs for spasm. The patient was given three months' worth of these medications and patient will follow up with the pain clinic in 3 months for refill and further evaluation. MAPS revied, and it was appropriate Patient denies any side effects of the medication and he reported that he use the pain medication for breakthrough pain he denies any side effect of the medication, he denies any Since of drowsiness or sleepiness. - PQRS measures = - Patient's medications are documented in the chart. -Tobacco use is negative and counseling.Given. -Patient's has received pneumococcal vaccine. -Advanced care planning discussed, patient not eligible. -Opiate contract signed. -Pain positive and follow-up visit/procedure is scheduled. -Patient's blood pressure measured [153/76 ] , and documented in the record ,and patient will follow up with the primary care. -Patient's weight was measured and body mass index [31% ] above the, and patient instructed to follow-up with the primary care physician. -Patient was not identified as an unhealthy alcohol user
== END ==
LOC: PNWHC3 08:51
PROVIDERS: ATTEND Specialist
DX: Z45.1 Encounter for adjustment and management of infusion pump (principal); G89.29 Other chronic pain; M96.1 Postlaminectomy syndrome, not elsewhere classified; Z79.891 Long term (current) use of opiate analgesic; Z79.899 Other long term (current) drug therapy
CPT/HCPCS: 62370

== ENCOUNTER → 2020-01-30 | Day surgery (SDC) | payer MEDICARE, BC ==
[2020-01-30 12:27] VITALS: RESP 18
[2020-01-30 12:28] VITALS: BP 137/78; PULSE 60
--- NOTE | 2020-01-30 12:53 | P.PCN ---
Date of Procedure: 01/30/20 Procedure(s) Performed: PROCEDURE: Intrathecal pain pump analysis, programming and reprogramming, and intrathecal pain pump refill. PREOPERATIVE DIAGNOSES: 1. near empty intrathecal pain pump time for refill. 2. opioid tolerance 3. postlaminectomy syndrome POSTOPERATIVE DIAGNOSES: 1. near empty intrathecal pain pump time for refill. 2. opioid tolerance 3. postlaminectomy syndrome ANESTHESIA: None. CONDITION: Stable. INDICATION: This is a 79 year-old patient with a long history of chronic pain secondary to postlaminectomy syndrome. Patient previously had an intrathecal pump placed, which is now near empty, and patient presents for refill today. Patient denies any side effects of the intrathecal medication, including new weakness, new numbness, excessive drowsiness or sleepiness, nausea/vomiting, weight gain, or night sweats. Patient also denies suicidal ideation, and reports that the current pain medication is helping control the chronic pain and improve the patient's activities of daily living. DESCRIPTION: The intrathecal pain pump was analyzed and showed that the patient currently has reservoir volume of [ 9.1] mL. The patient is receiving intrathecal Morphine sulfate PF at concentration [5] mg/ ml and bupivacaine PF at concentration [5] mg/ml. Patient receiving daily dose of Morphine Sulfate [0.69] mg/day and bupivacaine [0.69] mg/day. The location of the pump (left buttock) was prepped with chlorhexidine x3. Then, the 22-gauge needle from the [employer] kit was advanced through the pump port. Total of 8 ml was removed from the pump, and it was refilled with the new medication total volume of [20] ml of a solution containing morphine sulfate at concentration [5] mg /ml and bupivacaine at concentration [5] mg/ml. The patient will continue with the same daily dose morphine [0.69] mg/day and bupivacaine [0.69] mg/day, no changes today. The patient is using some oral medications as well, specifically oxyIR 5 mg q6h #90 prn pain orally for breakthrough pain and baclofen 10 mg qhs for spasm. The patient was given three months' worth of these medications and patient will follow up with the pain clinic in 3 months for refill and further evaluation. MAPS revied, and it was appropriate Patient denies any side effects of the medication and he reported that he use the pain medication for breakthrough pain he denies any side effect of the medication, he denies any Since of drowsiness or sleepiness. - PQRS measures = - Patient's medications are documented in the chart. -Tobacco use is negative . -Patient's , not received pneumococcal vaccine. -Advanced care planning discussed, patient not eligible. -Opiate contract signed. -Pain positive and follow-up visit/procedure is scheduled. -Patient's blood pressure measured [137/78 ] , and documented in the record ,and patient will follow up with the primary care. -Patient's weight was measured and body mass index [31.2 % ] above the, and patient instructed to follow-up with the primary care physician. -Patient was not identified as an unhealthy alcohol user
== END ==
LOC: PNWHC3 11:51
PROVIDERS: ATTEND Specialist
DX: Z45.1 Encounter for adjustment and management of infusion pump (principal); G89.29 Other chronic pain; M96.1 Postlaminectomy syndrome, not elsewhere classified; Z79.891 Long term (current) use of opiate analgesic
CPT/HCPCS: 80307; 62370; G0482

== ENCOUNTER → 2020-04-23 | Day surgery (SDC) | payer MEDICARE, BC ==
[2020-04-23 12:21] VITALS: BP 146/86; PULSE 74; RESP 18; TEMP 97.7
--- NOTE | 2020-04-23 12:41 | P.PCN ---
Date of Procedure: 04/23/20 Procedure(s) Performed: PROCEDURE: Intrathecal pain pump analysis, programming and reprogramming, and intrathecal pain pump refill. PREOPERATIVE DIAGNOSES: 1. near empty intrathecal pain pump time for refill. 2. opioid tolerance 3. postlaminectomy syndrome POSTOPERATIVE DIAGNOSES: 1. near empty intrathecal pain pump time for refill. 2. opioid tolerance 3. postlaminectomy syndrome ANESTHESIA: None. CONDITION: Stable. INDICATION: This is a 79 year-old patient with a long history of chronic pain secondary to postlaminectomy syndrome. Patient previously had an intrathecal pump placed, which is now near empty, and patient presents for refill today. Patient denies any side effects of the intrathecal medication, including new weakness, new numbness, excessive drowsiness or sleepiness, nausea/vomiting, weight gain, or night sweats. Patient also denies suicidal ideation, and reports that the current pain medication is helping control the chronic pain and improve the patient's activities of daily living. DESCRIPTION: The intrathecal pain pump was analyzed and showed that the patient currently has reservoir volume of [ 8.3] mL. The patient is receiving intrathecal Morphine sulfate PF at concentration [5] mg/ ml and bupivacaine PF at concentration [5] mg/ml. Patient receiving daily dose of Morphine Sulfate [0.69] mg/day and bupivacaine [0.69] mg/day. The location of the pump (left buttock) was prepped with chlorhexidine x3. Then, the 22-gauge needle from the [employer] kit was advanced through the pump port. Total of 7 ml was removed from the pump, and it was refilled with the new medication total volume of [20] ml of a solution containing morphine sulfate at concentration [5] mg /ml and bupivacaine at concentration [5] mg/ml. The patient will continue with the same daily dose morphine [0.69] mg/day and bupivacaine [0.69] mg/day, no changes today. The patient is using some oral medications as well, specifically oxyIR 5 mg q6h #90 prn pain orally for breakthrough pain and baclofen 10 mg qhs for spasm. The patient was given three months' worth of these medications and patient will follow up with the pain clinic in 3 months for refill and further evaluation. MAPS revied, and it was appropriate Patient denies any side effects of the medication and he reported that he use the pain medication for breakthrough pain he denies any side effect of the medication, he denies any Since of drowsiness or sleepiness. - PQRS measures = - Patient's medications are documented in the chart. -Tobacco use is negative . -Patient's , not received pneumococcal vaccine. -Advanced care planning discussed, patient not eligible. -Opiate contract signed. -Pain positive and follow-up visit/procedure is scheduled. -Patient's blood pressure measured [146/86] , and documented in the record ,and patient will follow up with the primary care. -Patient's weight was measured and body mass index [31.2 % ] above the, and patient instructed to follow-up with the primary care physician. -Patient was not identified as an unhealthy alcohol user
== END ==
LOC: PNWHC3 12:06
PROVIDERS: ATTEND Specialist
DX: Z45.1 Encounter for adjustment and management of infusion pump (principal); M96.1 Postlaminectomy syndrome, not elsewhere classified; Z79.891 Long term (current) use of opiate analgesic
CPT/HCPCS: 62370

== ENCOUNTER → 2020-07-16 | Day surgery (SDC) | payer MEDICARE, BC ==
[~2020-07-16] MED LIST changes: +BUPIVACAINE MC ONE; -DEXAMETHASONE SOD PHOSPHATE 10 MG/ML 1 ML VIAL IV ONE; -LACTATED RINGERS 1,000 ML IV SCH; -LIDOCAINE 1% 20 ML VIAL (10MG/ML) FOR IV START INTRADERMA PRN; -MIDAZOLAM 2 MG/2 ML VIAL IV PRN; +MORPHINE FOR ANAZAO - PER 10 MG MISCELLANE ONE; -ONDANSETRON 4 MG/2 ML VIAL IVP ONE; -SCOPOLAMINE 1.5MG/72HR PATCH TRANSDERM ONE
[2020-07-16 13:00] VITALS: BP 164/83; PULSE 54; RESP 18; TEMP 98.8
--- NOTE | 2020-07-16 13:23 | P.PCN ---
Date of Procedure: 07/16/20 Procedure(s) Performed: PROCEDURE: Intrathecal pain pump analysis, programming and reprogramming, and intrathecal pain pump refill. PREOPERATIVE DIAGNOSES: 1. near empty intrathecal pain pump time for refill. 2. opioid tolerance 3. postlaminectomy syndrome POSTOPERATIVE DIAGNOSES: 1. near empty intrathecal pain pump time for refill. 2. opioid tolerance 3. postlaminectomy syndrome ANESTHESIA: None. CONDITION: Stable. INDICATION: This is a 79 year-old patient with a long history of chronic pain secondary to postlaminectomy syndrome. Patient previously had an intrathecal pump placed, which is now near empty, and patient presents for refill today. Patient denies any side effects of the intrathecal medication, including new weakness, new numbness, excessive drowsiness or sleepiness, nausea/vomiting, weight gain, or night sweats. Patient also denies suicidal ideation, and reports that the current pain medication is helping control the chronic pain and improve the patient's activities of daily living. DESCRIPTION: The intrathecal pain pump was analyzed and showed that the patient currently has reservoir volume of [ 8.3] mL. The patient is receiving intrathecal Morphine sulfate PF at concentration [5] mg/ ml and bupivacaine PF at concentration [5] mg/ml. Patient receiving daily dose of Morphine Sulfate [0.69] mg/day and bupivacaine [0.69] mg/day. The location of the pump (left buttock) was prepped with chlorhexidine x3. Then, the 22-gauge needle from the [employer] kit was advanced through the pump port. Total of 7 ml was removed from the pump, and it was refilled with the new medication total volume of [20] ml of a solution containing morphine sulfate at concentration [5] mg /ml and bupivacaine at concentration [5] mg/ml. The patient will continue with the same daily dose morphine [0.69] mg/day and bupivacaine [0.69] mg/day, no changes today. The patient is using some oral medications as well, specifically oxyIR 5 mg q6h #90 prn pain orally for breakthrough pain and baclofen 10 mg qhs for spasm. The patient was given three months' worth of these medications and patient will follow up with the pain clinic in 3 months for refill and further evaluation. MAPS revied, and it was appropriate Patient denies any side effects of the medication and he reported that he use the pain medication for breakthrough pain he denies any side effect of the medication, he denies any Since of drowsiness or sleepiness. - PQRS measures = - Patient's medications are documented in the chart. -Tobacco use is negative . -Patient's , received pneumococcal vaccine. -Advanced care planning discussed, patient not eligible. -Opiate contract signed. -Pain positive and follow-up visit/procedure is scheduled. -Patient's blood pressure measured [164/83] , and documented in the record ,and patient will follow up with the primary care. -Patient's weight was measured and body mass index [31.2 % ] above the, and patient instructed to follow-up with the primary care physician. -Patient was not identified as an unhealthy alcohol user
== END ==
LOC: PNWHC3 12:33
PROVIDERS: ATTEND Specialist
DX: Z45.49 Encounter for adjustment and management of other implanted nervous system device (principal); M96.1 Postlaminectomy syndrome, not elsewhere classified
CPT/HCPCS: 80307; 62370; G0482

== ENCOUNTER → 2020-10-14 | Day surgery (SDC) | payer MEDICARE, BC ==
[2020-10-14 12:09] VITALS: BP 177/79; PULSE 58; RESP 16; TEMP 97.6
--- NOTE | 2020-10-14 14:43 | P.PCN ---
Date of Procedure: 10/14/20 Anesthesia: none Surgeon: Louis Ramírez Pathology: none sent Condition: stable Description of Procedure: rocedure: Intrathecal pain pump analysis, programming and reprogramming, intrat hecal pain pump refill. PREOPERATIVE DIAGNOSES: 1. near empty intrathecal pain pump . 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 failed back surgery syndrome lumbar area ANESTHESIA: None. CONDITION: Stable. Description of the procedure; The intrathecal opioid pump was analyzed and showed a current reservoir residual volume of 18.5 mls, however only 5.5 pills were withdrawn from the reservoir. I think there is tenderness reading by the machine . Skin was prepped with ChloraPrep and draped in a sterile manner. I used 22- gauge needle found in the [employer] intrathecal access to go through the central pump port. 5.5 mls were withdrawn. Then the new medication was injected incrementally with frequent aspiration to ensure delivery of the new medication inside the pump reservoir. The new medication was infused inside the pump reservoir through a filter provided the [employer] kit. The new medication concentration is: Morphine 5 mg per mL and bupivacaine 5 mg per mL The pump then was reprogrammed for a new reservoir volume of 20 mls and the rate of morphine 0.6991 mg/d, 0.6991 bupivacaine mg/d. The patient tolerated the procedure well. The patient denies any new neurologic symptoms in the lower extremities. Oral opioids: Oxycodone 5 mg 3 times a day
== END ==
LOC: PNWHC3 10-08 11:54
PROVIDERS: ATTEND Anesthesiology
DX: Z45.1 Encounter for adjustment and management of infusion pump (principal); Z79.891 Long term (current) use of opiate analgesic; M96.1 Postlaminectomy syndrome, not elsewhere classified
CPT/HCPCS: 62370

== ENCOUNTER 2020-11-21 07:22 | Day surgery (SDC) | payer MEDICARE, BC ==
[2020-11-19 17:44] VITALS: BMI 31.8
[~2020-11-21 07:22] MED LIST changes: -BUPIVACAINE MC ONE; +LACTATED RINGERS 1,000 ML IV SCH; -MORPHINE FOR ANAZAO - PER 10 MG MISCELLANE ONE
[2020-11-21] MEDS ORDERED: LACTATED RINGERS 1,000 ML IV ONE ×2 (07:48)
[2020-11-21 07:51] LABS: Glucose,Whole Blood 133 mg/dL (75-99)
[2020-11-21 07:56] VITALS: TEMP 97.8
[2020-11-21] MEDS ORDERED: PROPOFOL 10 MG/ML 20 ML VIAL IV ONE (08:50)
[2020-11-21] MEDS ORDERED: LIDOCAINE 1% INJ 10MG/ML (20 ML MDV) ONE (08:50)
--- NOTE | 2020-11-21 09:14 | P.PCN ---
Date of Procedure: 11/21/20 Procedure(s) Performed: BRIEF HISTORY: Patient is a 80-year-old pleasant white female scheduled for an elective colonoscopy as a part of evaluation of intermittent rectal bleeding for the last few weeks duration. History of prostate cancer for which he underwent radiation therapy in the past. PROCEDURE PERFORMED: Colonoscopy with snare polypectomy and argon plasma coagulation. PREOPERATIVE DIAGNOSIS: And intermittent rectal bleeding. IV sedation per Anesthesia. PROCEDURE: After informed consent was obtained, the patient, was brought into the endoscopy unit. IV sedation was administered by Anesthesia under continuous monitoring. Digital rectal examination was normal. Initially the Olympus CF-160 flexible video colonoscope was then inserted in the rectum, gradually advanced into the cecum without any difficulty. Careful examination was performed as the scope was gradually being withdrawn. Ileocecal valve and the appendiceal orifice were visualized and appeared normal. Prep was excellent. Mucosa of the cecum, ascending colon, a normal. The transverse colon there was a 5 mm polyp removed by snare polypectomy. Rest of the transverse colon, descending colon, appeared normal. There was evidence of sigmoid resection with anastomosis located at 85 cm from the anal was there appeared normal. In the distal rectum there were multiple telangiectasias oozing identified consistent with radiation proctitis and argon plasma coag ablation was performed with good hemostasis. Retroflexion was performed in the rectum and no lesions were seen. The patient tolerated the procedure well. 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 He was advised to be a high-fiber diet and take fiber supplements a regular basis. He'll follow with the biopsy results. He will follow up in office if he has recurrent bleeding.
[2020-11-21 09:17] VITALS: RESP 16
[2020-11-21 09:24] LABS: Glucose,Whole Blood 123 mg/dL (75-99)
[2020-11-21 09:44] VITALS: BP 163/71; PULSE 72
== END 2020-11-21 10:00 | disposition home or self-care (01) ==
LOC: ORWHC2ENDO 07:22
PROVIDERS: ATTEND Internal Medicine Gastroenterology
DX: D12.3 Benign neoplasm of transverse colon (principal); K62.7 Radiation proctitis; Z85.46 Personal history of malignant neoplasm of prostate; Z98.0 Intestinal bypass and anastomosis status; I10 Essential (primary) hypertension; E78.5 Hyperlipidemia, unspecified; Z99.81 Dependence on supplemental oxygen; E11.9 Type 2 diabetes mellitus without complications; E07.9 Disorder of thyroid, unspecified; F32.9 Major depressive disorder, single episode, unspecified; K21.9 Gastro-esophageal reflux disease without esophagitis; Z90.89 Acquired absence of other organs; Z96.652 Presence of left artificial knee joint; Z97.2 Presence of dental prosthetic device (complete) (partial); Z79.84 Long term (current) use of oral hypoglycemic drugs; Z79.82 Long term (current) use of aspirin; Z79.890 Hormone replacement therapy; Z79.899 Other long term (current) drug therapy; Z79.891 Long term (current) use of opiate analgesic
CPT/HCPCS: 88305; 45385; 45388; J2001; J2704

== ENCOUNTER → 2020-12-31 | Day surgery (SDC) | payer MEDICARE, BC ==
[~2020-12-31] MED LIST changes: +BUPIVACAINE MC ONE; +BUPIVACAINE UP TO 8 MG/ML, 31-60 ML SYRINGE MC ONE; -LACTATED RINGERS 1,000 ML IV SCH; +MORPHINE FOR ANAZAO - PER 10 MG MISCELLANE ONE
[2020-12-31 12:15] VITALS: BP 180/71; PULSE 53; RESP 18; TEMP 98.1
--- NOTE | 2020-12-31 12:30 | P.PCN ---
Date of Procedure: 12/31/20 Procedure(s) Performed: PROCEDURE: Intrathecal pain pump analysis, programming and reprogramming, and intrathecal pain pump refill. PREOPERATIVE DIAGNOSES: 1. near empty intrathecal pain pump time for refill. 2. opioid tolerance 3. postlaminectomy syndrome POSTOPERATIVE DIAGNOSES: 1. near empty intrathecal pain pump time for refill. 2. opioid tolerance 3. postlaminectomy syndrome ANESTHESIA: None. CONDITION: Stable. INDICATION: This is a 79 year-old patient with a long history of chronic pain secondary to postlaminectomy syndrome. Patient previously had an intrathecal pump placed, which is now near empty, and patient presents for refill today. Patient denies any side effects of the intrathecal medication, including new weakness, new numbness, excessive drowsiness or sleepiness, nausea/vomiting, weight gain, or night sweats. Patient also denies suicidal ideation, and reports that the current pain medication is helping control the chronic pain and improve the patient's activities of daily living. DESCRIPTION: The intrathecal pain pump was analyzed and showed that the patient currently has reservoir volume of [ 9.1] mL. The patient is receiving intrathecal Morphine sulfate PF at concentration [5] mg/ ml and bupivacaine PF at concentration [5] mg/ml. Patient receiving daily dose of Morphine Sulfate [0.69] mg/day and bupivacaine [0.69] mg/day. The location of the pump (left buttock) was prepped with chlorhexidine x3. Then, the 22-gauge needle from the [employer] kit was advanced through the pump port. Total of 9 ml was removed from the pump, and it was refilled with the new medication total volume of [20] ml of a solution containing morphine sulfate at concentration [5] mg /ml and bupivacaine at concentration [5] mg/ml. The patient will continue with the same daily dose morphine [0.69] mg/day and bupivacaine [0.69] mg/day, no changes today. The patient is using some oral medications as well, specifically oxyIR 5 mg q6h #90 prn pain orally for breakthrough pain and baclofen 10 mg qhs for spasm. The patient was given three months' worth of these medications and patient will follow up with the pain clinic in 3 months for refill and further evaluation. MAPS revied, and it was appropriate urine drug screen ordered today Patient denies any side effects of the medication and he reported that he use the pain medication for breakthrough pain he denies any side effect of the medication, he denies any Since of drowsiness or sleepiness. - PQRS measures = - Patient's medications are documented in the chart. -Tobacco use is negative . -Patient's , received pneumococcal vaccine. -Advanced care planning discussed, patient not eligible. -Opiate contract signed. -Pain positive and follow-up visit/procedure is scheduled. -Patient's blood pressure measured [180/71] , and documented in the record ,and patient will follow up with the primary care. -Patient's weight was measured and body mass index [31.9 % ] above the, and patient instructed to follow-up with the primary care physician. -Patient was not identified as an unhealthy alcohol user
== END ==
LOC: PNWHC3 11:54
PROVIDERS: ATTEND Specialist
DX: Z45.1 Encounter for adjustment and management of infusion pump (principal); M96.1 Postlaminectomy syndrome, not elsewhere classified; Z79.891 Long term (current) use of opiate analgesic
CPT/HCPCS: 80307; 62370; G0482; J2274

== ENCOUNTER 2021-02-02 10:31 | Inpatient (IN) | payer MEDICARE, BC ==
[2021-02-02] MEDS ORDERED: SODIUM CHLORIDE 0.9% 1,000 ML IV STA (10:47)
[2021-02-02] MEDS ORDERED: ONDANSETRON 4 MG/2 ML VIAL IVP STA (10:47)
--- NOTE | 2021-02-02 10:53 | ED ---
Weakness HPI - General Chief complaint: Weakness Stated complaint: weakness Time Seen by Provider: 02/02/21 10:39 Source: patient, EMS Mode of arrival: EMS Limitations: no limitations - History of Present Illness Initial comments: 80-year-old male presents to the emergency room with a chief complaint of weakness and diarrhea. States he has been experiencing diarrhea over the last several days but has been worse since last night. States it is not completely watery but has been constant and not been able to control it. He denies any associated hematochezia. States it is foul-smelling worsen usual. He does report some nausea but denies any vomiting. Reports some diffuse abdominal pain across the abdomen. He does report history of prostate cancer so he does have occasional obstructive urinary symptoms but states that is typical for him. He denies any fevers or chills. States he is quite thirsty and has not been able to tolerate much by mouth. Denies any associative chest pain shortness of breath. History of oxygen-dependent COPD. - Related Data Home Medications Medication Instructions Recorded Confirmed hydroCHLOROthiazide [Hydrodiuril] 50 mg PO QAM 11/22/13 12/31/20 Metoprolol Tartrate [Lopressor] 50 mg PO BID 11/25/14 12/31/20 Docusate [Colace] 100 mg PO BID PRN 08/12/15 12/31/20 Atorvastatin [Lipitor] 10 mg PO HS 02/17/17 12/31/20 Citalopram Hydrobromide [CeleXA] 40 mg PO QAM 04/09/17 12/31/20 Dorzolamide-Timol 2.23%/0.68% 1 drop BOTH EYES BID 04/10/17 12/31/20 [Cosopt] metFORMIN HCL [Glucophage] 500 mg PO BID 04/10/17 12/31/20 Lutein 20 mg PO DAILY 02/06/19 12/31/20 Intrathecal Opioid Pump 1 dose INTRATHECA CONTINUOUS 06/06/19 12/31/20 Latanoprost Ophth [Xalatan 0.005%] 1 drops BOTH EYES HS 06/06/19 12/31/20 buPROPion HCL [Wellbutrin XL] 300 mg PO DAILY 11/12/19 12/31/20 Levothyroxine Sodium [Synthroid] 175 mcg PO DAILY 07/14/20 12/31/20 Acetaminophen [Tylenol] 325 mg PO Q6HR 12/26/20 12/31/20 Previous Rx's Medication Instructions Recorded Baclofen [Lioresal] 10 mg PO HS #30 tab 12/31/20 oxyCODONE HCL [Oxaydo] 5 mg PO Q8H PRN 30 Days #90 tab 12/31/20 oxyCODONE HCL [Oxaydo] 5 mg PO Q8H PRN 30 Days #90 tab 12/31/20 oxyCODONE HCL [Oxaydo] 5 mg PO Q8H PRN 30 Days #90 tab 12/31/20 Allergies Allergy/AdvReac Type Severity Reaction Status Date / Time No Known Allergies Allergy Verified 02/02/21 10:41 Review of Systems ROS Statement: Those systems with pertinent positive or pertinent negative responses have been documented in the HPI. ROS Other: All systems not noted in ROS Statement are negative. Past Medical History Past Medical History: Cancer, Diabetes Mellitus, GERD/Reflux, Hypertension, Musculoskeletal Disorder, Osteoarthritis (OA), Rheumatoid Arthritis (RA), Thyroid Disorder Additional Past Medical History / Comment(s): HX MIGRAINES. HX OF SKIN CANCER ., CHRONIC BACK PAIN, D.I.S.H.-DEGENERATIVE ARTHRITIS, ANKYLOSING SPONDYLITIS. , GETS LIGHTHEADED EASILY-MOVES SLOWLY TO PREVENT LOSS OF BALANCE., prostate cancer - RADIATION [place] AT 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 BACK SURG. X2. INTRATHECAL OPIOID PAIN PUMP ( replaced 03/06/19), upper teeth pulled, [employer] BX Past Anesthesia/Blood Transfusion Reactions: No Reported Reaction Past Psychological History: Anxiety, Depression Smoking Status: Never smoker - Past Family History Father Family Medical History: Cancer, Deep Vein Thrombosis (DVT) Additional Family Medical History / Comment(s): Lung & BONE CA General Exam Limitations: no limitations General appearance: alert, in no apparent distress Head exam: Present: atraumatic, normocephalic, normal inspection Eye exam: Present: normal appearance, PERRL, EOMI Pupils: Present: normal accommodation ENT exam: Present: normal exam, normal oropharynx, mucous membranes dry, TM's normal bilaterally, normal external ear exam Neck exam: Present: normal inspection, full ROM. Absent: tenderness, lymphadenopathy Respiratory exam: Present: normal lung sounds bilaterally. Absent: respiratory distress, wheezes Cardiovascular Exam: Present: regular rate, normal rhythm, normal heart sounds. Absent: systolic murmur GI/Abdominal exam: Present: soft, tenderness (Mild, diffuse abdominal tenderness across the abdomen). Absent: distended, guarding, rebound, rigid Extremities exam: Present: normal inspection, full ROM, normal capillary refill. Absent: tenderness Back exam: Present: normal inspection, full ROM. Absent: tenderness, CVA tenderness (R), CVA tenderness (L), muscle spasm, vertebral tenderness Neurological exam: Present: alert, oriented X3, normal gait Psychiatric exam: Present: normal affect, normal mood Skin exam: Present: warm, dry, intact, normal color Course Vital Signs 02/02/21 02/02/21 10:33 11:20 Temperature 98.6 F Pulse Rate 69 67 Respiratory 20 18 Rate Blood Pressure 141/76 135/69 O2 Sat by Pulse 98 99 Oximetry EKG Findings - EKG Comments: EKG Findings:: Inverted T waves in V1 through V4. Sinus rhythm. Ventricular rate 68, MT 176, QRS 114, GGT 476. Medical Decision Making - Medical Decision Making 80-year-old male presents to the emergency room with a chief complaint of weakness and diarrhea. On physical examination, patient is clinically dry with dry mucous members. Mild leukocytosis of 12.2 K. hypokalemia of 2.9 likely secondary to the diarrhea. Patient was given oral and IV potassium. Magnesium within normal limits. EKG showed T-wave inversions in V1 through V4, similar to most recent EKG. Patient did have an elevated troponin of 0.496 so the patient was immediately started on aspirin and low intensity heparin based on the recommendation by Dr. Mijares. Patient did not complain of any chest pain or shortness of breath at any point while in the ED. CT abdomen and pelvis also showed no significant acute changes. Patient did test positive for C. diff. He will be started on Flagyl. I spoke with GISELL Ramos from cardiology regarding the case. Also spoke to Dr. Mayfield who will admit patient for further medical management. - Lab Data Result diagrams: 02/02/21 10:59 02/02/21 10:59 Lab Results 02/02/21 02/02/21 02/02/21 Range/Units 10:59 10:59 10:59 WBC 12.4 H (3.8-10.6) k/uL RBC 4.56 (4.30-5.90) m/uL Hgb 12.6 L (13.0-17.5) gm/dL Hct 38.6 L (39.0-53.0) % MCV 84.6 (80.0-100.0) fL MCH 27.6 (25.0-35.0) pg MCHC 32.6 (31.0-37.0) g/dL RDW 15.4 (11.5-15.5) % Plt Count 240 (150-450) k/uL MPV 6.5 Neutrophils % 85 % Lymphocytes % 5 % Monocytes % 7 % Eosinophils % 0 % Basophils % 0 % Neutrophils # 10.5 H (1.3-7.7) k/uL Lymphocytes # 0.6 L (1.0-4.8) k/uL Monocytes # 0.8 (0-1.0) k/uL Eosinophils # 0.1 (0-0.7) k/uL Basophils # 0.0 (0-0.2) k/uL PT 12.2 H (9.0-12.0) sec INR 1.2 H (<1.2) APTT 21.6 L (22.0-30.0) sec Sodium 136 L (137-145) mmol/L Potassium 2.9 L (3.5-5.1) mmol/L Chloride 99 (98-107) mmol/L Carbon Dioxide 25 (22-30) mmol/L Anion Gap 12 mmol/L BUN 11 (9-20) mg/dL Creatinine 0.50 L (0.66-1.25) mg/dL Est GFR (CKD-EPI)AfAm >90 (>60 ml/min/1.73 sqM) Est GFR (CKD-EPI)NonAf >90 (>60 ml/min/1.73 sqM) Glucose 158 H (74-99) mg/dL Plasma Lactic Acid Js (0.7-2.0) mmol/L Calcium 9.4 (8.4-10.2) mg/dL Magnesium 1.7 (1.6-2.3) mg/dL Total Bilirubin 0.4 (0.2-1.3) mg/dL AST 27 (17-59) U/L ALT 14 (4-49) U/L Alkaline Phosphatase 73 (38-126) U/L Troponin I (0.000-0.034) ng/mL Total Protein 6.6 (6.3-8.2) g/dL Albumin 3.9 (3.5-5.0) g/dL C. difficile (EIA) Intrp (Negative) 02/02/21 02/02/21 02/02/21 Range/Units 10:59 10:59 10:59 WBC (3.8-10.6) k/uL RBC (4.30-5.90) m/uL Hgb (13.0-17.5) gm/dL Hct (39.0-53.0) % MCV (80.0-100.0) fL MCH (25.0-35.0) pg MCHC (31.0-37.0) g/dL RDW (11.5-15.5) % Plt Count (150-450) k/uL MPV Neutrophils % % Lymphocytes % % Monocytes % % Eosinophils % % Basophils % % Neutrophils # (1.3-7.7) k/uL Lymphocytes # (1.0-4.8) k/uL Monocytes # (0-1.0) k/uL Eosinophils # (0-0.7) k/uL Basophils # (0-0.2) k/uL PT (9.0-12.0) sec INR (<1.2) APTT (22.0-30.0) sec Sodium (137-145) mmol/L Potassium (3.5-5.1) mmol/L Chloride (98-107) mmol/L Carbon Dioxide (22-30) mmol/L Anion Gap mmol/L BUN (9-20) mg/dL Creatinine (0.66-1.25) mg/dL Est GFR (CKD-EPI)AfAm (>60 ml/min/1.73 sqM) Est GFR (CKD-EPI)NonAf (>60 ml/min/1.73 sqM) Glucose (74-99) mg/dL Plasma Lactic Acid Js 1.8 (0.7-2.0) mmol/L Calcium (8.4-10.2) mg/dL Magnesium (1.6-2.3) mg/dL Total Bilirubin (0.2-1.3) mg/dL AST (17-59) U/L ALT (4-49) U/L Alkaline Phosphatase (38-126) U/L Troponin I 0.496 H* (0.000-0.034) ng/mL Total Protein (6.3-8.2) g/dL Albumin (3.5-5.0) g/dL C. difficile (EIA) Intrp Positive A (Negative) Disposition Clinical Impression: C. difficile colitis, Diarrhea, Hypokalemia, Elevated troponin Disposition: ADMITTED IP TO THIS HOSP Condition: Fair Is patient prescribed a controlled substance at d/c from ED?: No Referrals: Remington Mayfield DO [Primary Care Provider] - 1-2 days Time of Disposition: 15:38
[2021-02-02 11:14] LABS: Basophils % (A) 0 %; Eosinophils # (A) 0.1 k/uL (0-0.7); Eosinophils % (A) 0 %; HCT 38.6 % (39.0-53.0); HGB 12.6 gm/dL (13.0-17.5); Lymphocytes # (A) 0.6 k/uL (1.0-4.8); Lymphocytes % (A) 5 %; MCH 27.6 pg (25.0-35.0); MCHC 32.6 g/dL (31.0-37.0); MCV 84.6 fL (80.0-100.0); Mean Platelet Volume 6.5; Monocytes # (A) 0.8 k/uL (0-1.0); Monocytes % (A) 7 %; Neutrophils # (A) 10.5 k/uL (1.3-7.7); Neutrophils % (A) 85 %; Platelet Count 240 k/uL (150-450); RBC 4.56 m/uL (4.30-5.90); RDW 15.4 % (11.5-15.5); WBC 12.4 k/uL (3.8-10.6)
[2021-02-02 11:22] LABS: INR 1.2 (<1.2); Prothrombin Time 12.2 sec (9.0-12.0)
--- NOTE | 2021-02-02 11:25 | XR ---
EXAMINATION TYPE: XR chest 2V DATE OF EXAM: 02/02/2021 COMPARISON: 08/05/2019 INDICATION: Weakness TECHNIQUE: Frontal and lateral views of the chest are obtained. FINDINGS: The heart size is normal. The pulmonary vasculature is normal. The lungs are clear. Advanced degenerative changes are at the right shoulder. Chronic rotator cuff t ear may be present. IMPRESSION: 1. No acute pulmonary process.
[2021-02-02 11:33] LABS: ALT 14 U/L (4-49); AST 27 U/L (17-59); African American GFR (CKD) >90 (>60 ml/min/1.73 sqM); Albumin 3.9 g/dL (3.5-5.0); Alkaline Phosphatase 73 U/L (38-126); Anion Gap 12 mmol/L; Blood Urea Nitrogen 11 mg/dL (9-20); Calcium 9.4 mg/dL (8.4-10.2); Carbon Dioxide 25 mmol/L (22-30); Chloride 99 mmol/L (98-107); Glucose 158 mg/dL (74-99); Magnesium 1.7 mg/dL (1.6-2.3); Non-African American GFR(CKD) >90 (>60 ml/min/1.73 sqM); Potassium 2.9 mmol/L (3.5-5.1); Sodium 136 mmol/L (137-145); Total Bilirubin 0.4 mg/dL (0.2-1.3); Total Protein 6.6 g/dL (6.3-8.2)
[2021-02-02 11:45] LABS: Partial Thromboplastin Time 21.6 sec (22.0-30.0)
[2021-02-02] MEDS ORDERED: POTASSIUM CHLORIDE ER 20 MEQ TAB.ER PO STA (11:59)
[2021-02-02] MEDS ORDERED: POTASSIUM CHLORIDE 20 MEQ in WATER FOR INJECTION 1 100ML.BAG IVPB STA (11:59)
[2021-02-02] MEDS ORDERED: HEPARIN SODIUM 1,000 UN/ML (10ML VL) IV PRN (12:31)
[2021-02-02] MEDS ORDERED: ASPIRIN 81 MG PO STA (12:31)
[2021-02-02] MEDS ORDERED: HEPARIN SODIUM 1,000 UN/ML (10ML VL) IV ONE (12:31)
[2021-02-02] MEDS: HEPARIN SOD,PORK IN 0.45% NACL 25,000 UNIT in 0.45% NACL 1 250ML.BAG IV SCH (13:56)
--- NOTE | 2021-02-02 14:03 | CT ---
EXAMINATION TYPE: CT abdomen pelvis w con DATE OF EXAM: 02/02/2021 COMPARISON: 08/15/2019 INDICATION: Diarrhea DLP: 2447.3 mGycm, Automated exposure control for dose reduction was used. CONTRAST: 100 mL of Isovue 300. Study performed without Oral Contrast TECHNIQUE: Axial images were obtained from above the diaphragm to the pubic rami in the axial plane a t 5 mm thick sections. Reconstructed images are reviewed on the computer in the coronal plane. FINDINGS: Limited CT sections are obtained the lung bases. The lung bases are clear. CT ABDOMEN: Liver: Mild fatty infiltration within the liver. Spleen: Normal Pancreas: Normal Adrenal glands: The adrenal glands are normal. Gallbladder: Normal Kidneys: No masses are evident. No hydronephrosis is present. There is a 2.3 cm cyst superior pole left kidney measuring 2 Hounsfield units. Delayed images were obtained through the kidneys, which re main unremarkable. Aorta: Vascular calcification is within the aorta. Inferior vena cava: Normal. CT PELVIS: Loops of bowel within the abdomen and pelvis are normal. The study lacks oral contrast limiting b owel evaluation. Appendix: Normal as visualized. Urinary bladder: Normal. Genitourinary structures: Prostate appears normal. Osseous structures: No suspicious lytic or sclerotic lesions. May be some fusion of the sacroiliac kasie ints. Consider ankylosing spondylitis. Lumbar spine surgical fusion is evident IMPRESSIONS: 1. Mild fatty infiltration of the liver. 2. Simple appearing superior pole left renal cyst. 3. Ankylosing spondylitis
[2021-02-02] MEDS ORDERED: metroNIDAZOLE-NS PMX 500 MG in SALINE 1 100ML.BAG IVPB STA (14:27)
--- NOTE | 2021-02-02 15:10 | P.CRDCN ---
History of Present Illness Consult date: 02/02/21 History of present illness: HISTORY OF PRESENT ILLNESS: This is a 80 year old male with a past medical history significant for COPD, home oxygen, hypertension, hyperlipidemia, hypothyroidism, and osteoarthritis. Patient does not follow with a credit cashier. We have been asked to see the patient in consultation for elevated troponin. Patient examined at the bedside. Patient gives history of 1 month of diarrhea. He states over the last 2 days that diarrhea has gotten so bad he has been unable to control it which prompted him to come to the emergency room. The patient was found to be positive for C. diff. It is noted the patient has leukocytosis with a WBC of 12. He also was hypokalemic with a potassium of 2.9. The patient currently denies chest pain or pressure. He denies shortness of breath at rest. He does report shortness of b reath with exertion which is chronic for him. He states he does wear oxygen at home. He reports generalized pain secondary to his osteoarthritis but denies chest discomfort. Patient states he has been a lifetime nonsmoker. He reports having a stress test approximately 30 years ago which he states was negative. EKG reveals sinus mechanism with diffuse T-wave inversions, similar to previous EKG in 2019 Chest xray no acute pulmonary process CT abdomen and pelvis: Mild fatty infiltration of the liver. Simple-appearing superior hole left renal cyst. Ankylosing spondylitis. Laboratory data: WBC 12.4. Hemoglobin 12.6. Platelet count 240. Sodium 136. Potassium 2.9. BUN 11. Creatinine 0.5. Lactic acid 1.8. Magnesium 1.7. Troponin 0.496. Current home cardiac medications include Lipitor 10 mg daily, hydrochlorothiazide 50 mg every morning, and metoprolol tartrate 50 mg twice a day Most recent echocardiogram obtained in 2017 revealed ejection fraction 55-60%. Mild mitral regurgitation. Mild tricuspid regurgitation. Mild aortic stenosis. Mild aortic regurgitation. REVIEW OF SYSTEMS: At the time of my exam: CONSTITUTIONAL: Denies fever or chills. HEENT: Denies blurred vision, vision changes, or eye pain. Denies hemoptysis CARDIOVASCULAR: Denies chest pain. Denies orthopnea. Denies PND. Denies palpitations RESPIRATORY: Denies shortness of breath. GASTROINTESTINAL: Denies abdominal pain. Denies nausea or vomiting. Reports diarrhea. HEMATOLOGIC: Denies bleeding disorders. GENITOURINARY: Denies any blood in urine. SKIN: Denies pruitis. Denies rash. PHYSICAL EXAM: VITAL SIGNS: Reviewed. GENERAL: Well-developed in no acute distress. HEENT: Head is normocephalic. Pupils are equal, round. Sclerae anicteric. Mucous membranes of the mouth are moist. Neck supple. No JVD or thyromegaly LUNGS: Respirations even and unlabored. Lungs essentially clear to auscultation bilaterally. HEART: Regular rate and rhythm. S1 and S2 heard. ABDOMEN: Soft. Nondistended. Nontender. EXTREMITIES: Normal range of motion. No clubbing or cyanosis. Peripheral pulses intact. No lower extremity edema. Patient does have small scabs to bilateral lower extremities. NEUROLOGIC: Awake and alert. Oriented x 3. ASSESSMENT: Diarrhea 1 month Acute clostridium difficile Abnormal troponin, likely secondary to acute infectious process, no evidence of ACS Hypokalemia Hypertension Hyperlipidemia COPD with home oxygen use Hypothyroidism Osteoarthritis PLAN: Obtain 2D echo to assess cardiac structure and function Resume metoprolol and Lipitor Hold hydrochlorothiazide secondary to diarrhea Continue IV heparin Trend troponins Replace potassium Further recommendations pending patient course Nurse practitioner note has been reviewed by physician. Signing provider agrees with the documented findings, assessment, and plan of care. Past Medical History Past Medical History: Cancer, Diabetes Mellitus, GERD/Reflux, Hypertension, Musculoskeletal Disorder, Osteoarthritis (OA), Rheumatoid Arthritis (RA), Thyroid Disorder Additional Past Medical History / Comment(s): HX MIGRAINES. HX OF SKIN CANCER ., CHRONIC BACK PAIN, D.I.S.H.-DEGENERATIVE ARTHRITIS, ANKYLOSING SPONDYLITIS. 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 BACK SURG. X2. INTRATHECAL OPIOID PAIN PUMP ( replaced 03/06/19), upper teeth pulled, PROSTATE BX Past Anesthesia/Blood Transfusion Reactions: No Reported Reaction Past Psychological History: Anxiety, Depression Smoking Status: Never smoker - Past Family History Father Family Medical History: Cancer, Deep Vein Thrombosis (DVT) Additional Family Medical History / Comment(s): Lung & BONE CA Medications and Allergies Home Medications Medication Instructions Recorded Confirmed Type hydroCHLOROthiazide [Hydrodiuril] 50 mg PO QAM 11/22/13 12/31/20 History Metoprolol Tartrate [Lopressor] 50 mg PO BID 11/25/14 12/31/20 History Docusate [Colace] 100 mg PO BID PRN 08/12/15 12/31/20 History Atorvastatin [Lipitor] 10 mg PO HS 02/17/17 12/31/20 History Citalopram Hydrobromide [CeleXA] 40 mg PO QAM 04/09/17 12/31/20 History Dorzolamide-Timol 2.23%/0.68% 1 drop BOTH EYES BID 04/10/17 12/31/20 History [Cosopt] metFORMIN HCL [Glucophage] 500 mg PO BID 04/10/17 12/31/20 History Lutein 20 mg PO DAILY 02/06/19 12/31/20 History Intrathecal Opioid Pump 1 dose INTRATHECA CONTINUOUS 06/06/19 12/31/20 History Latanoprost Ophth [Xalatan 0.005%] 1 drops BOTH EYES HS 06/06/19 12/31/20 History buPROPion HCL [Wellbutrin XL] 300 mg PO DAILY 11/12/19 12/31/20 History Levothyroxine Sodium [Synthroid] 175 mcg PO DAILY 07/14/20 12/31/20 History Acetaminophen [Tylenol] 325 mg PO Q6HR 12/26/20 12/31/20 History Baclofen [Lioresal] 10 mg PO HS #30 tab 12/31/20 Rx oxyCODONE HCL [Oxaydo] 5 mg PO Q8H PRN 30 Days #90 tab 12/31/20 Rx oxyCODONE HCL [Oxaydo] 5 mg PO Q8H PRN 30 Days #90 tab 12/31/20 Rx oxyCODONE HCL [Oxaydo] 5 mg PO Q8H PRN 30 Days #90 tab 12/31/20 Rx Allergies Allergy/AdvReac Type Severity Reaction Status Date / Time No Known Allergies Allergy Verified 02/02/21 10:41 Physical Exam Vitals: Vital Signs Temp Pulse Resp BP Pulse Ox 02/02/21 11:20 67 18 135/69 99 02/02/21 10:33 98.6 F 69 20 141/76 98 Intake and Output 02/01/21 02/02/21 02/02/21 22:59 06:59 14:59 Other: Weight 91.626 kg Results 02/02/21 10:59 02/02/21 10:59 Cardiac Enzymes 02/02/21 02/02/21 Range/Units 10:59 10:59 AST 27 (17-59) U/L Troponin I 0.496 H* (0.000-0.034) ng/mL Coagulation 02/02/21 Range/Units 10:59 PT 12.2 H (9.0-12.0) sec APTT 21.6 L (22.0-30.0) sec CBC 02/02/21 Range/Units 10:59 WBC 12.4 H (3.8-10.6) k/uL RBC 4.56 (4.30-5.90) m/uL Hgb 12.6 L (13.0-17.5) gm/dL Hct 38.6 L (39.0-53.0) % Plt Count 240 (150-450) k/uL Comprehensive Metabolic Panel 02/02/21 Range/Units 10:59 Sodium 136 L (137-145) mmol/L Potassium 2.9 L (3.5-5.1) mmol/L Chloride 99 (98-107) mmol/L Carbon Dioxide 25 (22-30) mmol/L BUN 11 (9-20) mg/dL Creatinine 0.50 L (0.66-1.25) mg/dL Glucose 158 H (74-99) mg/dL Calcium 9.4 (8.4-10.2) mg/dL AST 27 (17-59) U/L ALT 14 (4-49) U/L Alkaline Phosphatase 73 (38-126) U/L Total Protein 6.6 (6.3-8.2) g/dL Albumin 3.9 (3.5-5.0) g/dL Current Medications Generic Name Dose Route Start Last Admin Trade Name Freq PRN Reason Stop Dose Admin Heparin Sodium (Porcine) 0 unit 02/02/21 12:31 Heparin Sodium 1,000 Un/Ml (10ml Vl) IV PER PROTOCOL PRN Low PTT Protocol Heparin Sodium/Sodium Chloride 250 mls @ 9.996 mls/hr 02/02/21 12:45 02/02/21 13:56 25,000 unit/ Sodium Chloride IV 10.91 units/kg/hr .Q24H DERRELL 9.996 mls/hr Administration Protocol 10.91 UNITS/KG/HR Metronidazole 500 mg/ IV 100 mls @ 100 mls/hr 02/02/21 14:27 Solution IVPB 02/02/21 15:26 ONCE STA Intake and Output 02/01/21 02/02/21 02/02/21 22:59 06:59 14:59 Other: Weight 91.626 kg Patient Weight 02/03/21 06:59 Weight 91.626 kg 02/02/21 10:59 02/02/21 10:59
[2021-02-02] MEDS: ATORVASTATIN 10 MG TAB PO SCH ×2 (20:51→20:52)
[2021-02-02] MEDS: METOPROLOL TARTRATE 50 MG TAB PO SCH (20:51)
[2021-02-02] MEDS ORDERED: HEPARIN SODIUM 1,000 UN/ML (10ML VL) MISCELLANE ONE (22:26)
[2021-02-03 04:20] LABS: Basophils % (A) 0 %; Eosinophils # (A) 0.1 k/uL (0-0.7); Eosinophils % (A) 1 %; HGB 11.7 gm/dL (13.0-17.5); Lymphocytes # (A) 0.6 k/uL (1.0-4.8); Lymphocytes % (A) 5 %; MCH 28.1 pg (25.0-35.0); MCHC 32.5 g/dL (31.0-37.0); MCV 86.4 fL (80.0-100.0); Mean Platelet Volume 7.4; Monocytes # (A) 1.1 k/uL (0-1.0); Monocytes % (A) 9 %; Neutrophils # (A) 10.2 k/uL (1.3-7.7); Neutrophils % (A) 83 %; Platelet Count 233 k/uL (150-450); RBC 4.17 m/uL (4.30-5.90); WBC 12.3 k/uL (3.8-10.6)
[2021-02-03 04:36] LABS: INR 1.4 (<1.2); Prothrombin Time 14.6 sec (9.0-12.0)
[2021-02-03 04:43] LABS: African American GFR (CKD) >90 (>60 ml/min/1.73 sqM); Anion Gap 10 mmol/L; Blood Urea Nitrogen 11 mg/dL (9-20); Calcium 8.7 mg/dL (8.4-10.2); Carbon Dioxide 24 mmol/L (22-30); Chloride 98 mmol/L (98-107); Glucose 126 mg/dL (74-99); Magnesium 1.6 mg/dL (1.6-2.3); Non-African American GFR(CKD) >90 (>60 ml/min/1.73 sqM); Potassium 3.1 mmol/L (3.5-5.1); Sodium 132 mmol/L (137-145)
[2021-02-03 04:57] LABS: Amorphous Sediment,Urine Rare /hpf; Appearance,Urine Clear (Clear); Bilirubin,Urine Negative (Negative); Blood,Urine Negative (Negative); Color,Urine Yellow; Glucose,Urine (UA) Negative (Negative); Hyaline Casts,Urine 4 /lpf (0-2); Ketones,Urine 3+ (Negative); Leukocyte Esterase,Urine Negative (Negative); Mucus,Urine Rare /hpf; Nitrite,Urine Negative (Negative); Protein,Urine 1+ (Negative); RBC,Urine 5 /hpf (0-5); Specific Gravity,Urine 1.038 (1.001-1.035); Squamous Epithelial Cell,Urine 1 /hpf (0-4); Urobilinogen,Urine <2.0 mg/dL (<2.0); WBC,Urine 3 /hpf (0-5)
[2021-02-03] MEDS: LEVOTHYROXINE 88 MCG TAB PO SCH (06:14)
[2021-02-03] MEDS: HEPARIN SOD,PORK IN 0.45% NACL 25,000 UNIT in 0.45% NACL 1 250ML.BAG IV SCH (07:53)
[2021-02-03] MEDS: CITALOPRAM HYDROBROMIDE 20 MG TAB PO SCH (09:37)
[2021-02-03] MEDS: METOPROLOL TARTRATE 50 MG TAB PO SCH ×2 (09:37→22:27)
[2021-02-03] MEDS: DORZOLAMIDE-TIMOLOL 2.23%/0.68 10ML BTL BOTH EYES SCH ×3 (09:38→22:28)
[2021-02-03] MEDS: buPROPion XL 300 MG TAB.ER.24H PO SCH (09:38)
[2021-02-03] MEDS: metroNIDAZOLE-NS PMX 500 MG in SALINE 1 100ML.BAG IVPB SCH ×3 (09:38→23:26)
[2021-02-03] MEDS: metFORMIN 500 MG TAB PO SCH (10:10)
[2021-02-03] MEDS ORDERED: Magnesium Replacement Protocol 1 EACH MISC MISCELLANE PRN (10:31)
[2021-02-03] MEDS ORDERED: Potassium Replacement Protocol 1 EACH MISC MISCELLANE PRN (10:31)
--- NOTE | 2021-02-03 11:06 | P.PN ---
Subjective Progress Note Date: 02/03/21 HISTORY OF PRESENT ILLNESS: This is a 80 year old male with a past medical history significant for COPD, home oxygen, hypertension, hyperlipidemia, hypothyroidism, and osteoarthritis. Patient does not follow with a attendance officer. We have been asked to see the patient in consultation for elevated troponin. Patient examined at the bedside. Patient gives history of 1 month of diarrhea. He states over the last 2 days that diarrhea has gotten so bad he has been unable to control it which prompted him to come to the emergency room. The patient was found to be positive for C. diff. It is noted the patient has leukocytosis with a WBC of 12. He also was hypokalemic with a potassium of 2.9. The patient currently denies chest pain or pressure. He denies shortness of breath at rest. He does report shortness of breath with exertion which is chronic for him. He states he does wear oxygen at home. He reports generalized pain secondary to his osteoarthritis but denies chest discomfort. Patient states he has been a lifetime nonsmoker. He reports having a stress test approximately 30 years ago which he states was negative. EKG reveals sinus mechanism with diffuse T-wave inversions, similar to previous EKG in 2019 Chest xray no acute pulmonary process CT abdomen and pelvis: Mild fatty infiltration of the liver. Simple-appearing superior hole left renal cyst. Ankylosing spondylitis. Laboratory data: WBC 12.4. Hemoglobin 12.6. Platelet count 240. Sodium 136. Potassium 2.9. BUN 11. Creatinine 0.5. Lactic acid 1.8. Magnesium 1.7. Troponin 0.496. Current home cardiac medications include Lipitor 10 mg daily, hydrochlorothiazide 50 mg every morning, and metoprolol tartrate 50 mg twice a day Most recent echocardiogram obtained in 2017 revealed ejection fraction 55-60%. Mild mitral regurgitation. Mild tricuspid regurgitation. Mild aortic stenosis. Mild aortic regurgitation. 02/03/2021 Patient examined this morning at the bedside. Patient denies chest pain or pressure. He denies shortness of breath. He continues to have diarrhea. Troponin 0.496. 0.489. 0.478. PHYSICAL EXAM: VITAL SIGNS: Reviewed. GENERAL: Well-developed in no acute distress. HEENT: Head is normocephalic. Pupils are equal, round. Sclerae anicteric. Mucous membranes of the mouth are moist. Neck supple. No JVD or thyromegaly LUNGS: Respirations even and unlabored. Lungs essentially clear to auscultation bilaterally. HEART: Regular rate and rhythm. S1 and S2 heard. ABDOMEN: Soft. Nondistended. Nontender. EXTREMITIES: Normal range of motion. No clubbing or cyanosis. Peripheral pulses intact. No lower extremity edema. Patient does have small scabs to bilateral lower extremities. NEUROLOGIC: Awake and alert. Oriented x 3. ASSESSMENT: Diarrhea 1 month Acute clostridium difficile Abnormal troponin, likely secondary to acute infectious process, no evidence of ACS Hypokalemia Hypertension Hyperlipidemia COPD with home oxygen use Hypothyroidism Osteoarthritis PLAN: 2-D echo ordered. Await results Continue metoprolol and Lipitor Hold hydrochlorothiazide secondary to diarrhea Discontinue IV heparin Replace potassium Further recommendations pending patient course Nurse practitioner note has been reviewed by physician. Signing provider agrees with the documented findings, assessment, and plan of care. Objective - Vital Signs Vital signs: Vital Signs Temp 97.6 F 02/03/21 08:00 Pulse 60 02/03/21 08:00 Resp 16 02/03/21 08:00 BP 130/63 02/03/21 08:00 Pulse Ox 99 02/03/21 08:00 Intake & Output 02/02/21 02/03/21 02/03/21 18:59 06:59 18:59 Intake Total 164.518 47.136 Output Total 577346 Balance -839512.482 47.136 Weight 91.626 kg 111.5 kg Intake: Intake, IV Titration 164.518 47.136 Amount Heparin Sod,Pork in 0.45% 164.518 47.136 NaCl 25,000 unit In 0.45 % NaCl 1 250ml.bag @ 10. 91 UNITS/KG/HR 9.996 mls/ hr IV .Q24H [facility] Rx#: [id number] Oral 0 Output: Urine 600 Straight 600 Post Void Residual 302316 Other: Voiding Method Diaper Diaper # Voids 0 - Labs CBC & Chem 7: 02/03/21 04:02 02/03/21 04:02 Labs: Abnormal Lab Results - Last 24 Hours (Table) 02/02/21 02/02/21 02/02/21 Range/Units 10:59 10:59 10:59 WBC 12.4 H (3.8-10.6) k/uL RBC (4.30-5.90) m/uL Hgb 12.6 L (13.0-17.5) gm/dL Hct 38.6 L (39.0-53.0) % Neutrophils # 10.5 H (1.3-7.7) k/uL Lymphocytes # 0.6 L (1.0-4.8) k/uL Monocytes # (0-1.0) k/uL PT 12.2 H (9.0-12.0) sec INR 1.2 H (<1.2) APTT 21.6 L (22.0-30.0) sec Sodium 136 L (137-145) mmol/L Potassium 2.9 L (3.5-5.1) mmol/L Creatinine 0.50 L (0.66-1.25) mg/dL Glucose 158 H (74-99) mg/dL Troponin I (0.000-0.034) ng/mL Ur Specific [place] (1.001-1.035) Urine Protein (Negative) Urine Ketones (Negative) Amorphous Sediment (None) /hpf Hyaline Casts (0-2) /lpf Urine Mucus (None) /hpf C. difficile (EIA) Intrp (Negative) 02/02/21 02/02/21 02/02/21 Range/Units 10:59 10:59 16:39 WBC (3.8-10.6) k/uL RBC (4.30-5.90) m/uL Hgb (13.0-17.5) gm/dL Hct (39.0-53.0) % Neutrophils # (1.3-7.7) k/uL Lymphocytes # (1.0-4.8) k/uL Monocytes # (0-1.0) k/uL PT (9.0-12.0) sec INR (<1.2) APTT (22.0-30.0) sec Sodium (137-145) mmol/L Potassium (3.5-5.1) mmol/L Creatinine (0.66-1.25) mg/dL Glucose (74-99) mg/dL Troponin I 0.496 H* 0.489 H* (0.000-0.034) ng/mL Ur Specific [place] (1.001-1.035) Urine Protein (Negative) Urine Ketones (Negative) Amorphous Sediment (None) /hpf Hyaline Casts (0-2) /lpf Urine Mucus (None) /hpf C. difficile (EIA) Intrp Positive A (Negative) 02/02/21 02/02/21 02/03/21 Range/Units 18:33 21:00 04:02 WBC 12.3 H (3.8-10.6) k/uL RBC 4.17 L (4.30-5.90) m/uL Hgb 11.7 L (13.0-17.5) gm/dL Hct 36.0 L (39.0-53.0) % Neutrophils # 10.2 H (1.3-7.7) k/uL Lymphocytes # 0.6 L (1.0-4.8) k/uL Monocytes # 1.1 H (0-1.0) k/uL PT (9.0-12.0) sec INR (<1.2) APTT 19.9 L (22.0-30.0) sec Sodium (137-145) mmol/L Potassium (3.5-5.1) mmol/L Creatinine (0.66-1.25) mg/dL Glucose (74-99) mg/dL Troponin I 0.478 H* (0.000-0.034) ng/mL Ur Specific [place] (1.001-1.035) Urine Protein (Negative) Urine Ketones (Negative) Amorphous Sediment (None) /hpf Hyaline Casts (0-2) /lpf Urine Mucus (None) /hpf C. difficile (EIA) Intrp (Negative) 02/03/21 02/03/21 02/03/21 Range/Units 04:02 04:02 04:42 WBC (3.8-10.6) k/uL RBC (4.30-5.90) m/uL Hgb (13.0-17.5) gm/dL Hct (39.0-53.0) % Neutrophils # (1.3-7.7) k/uL Lymphocytes # (1.0-4.8) k/uL Monocytes # (0-1.0) k/uL PT 14.6 H (9.0-12.0) sec INR 1.4 H (<1.2) APTT 43.0 H (22.0-30.0) sec Sodium 132 L (137-145) mmol/L Potassium 3.1 L (3.5-5.1) mmol/L Creatinine 0.51 L (0.66-1.25) mg/dL Glucose 126 H (74-99) mg/dL Troponin I (0.000-0.034) ng/mL Ur Specific [place] 1.038 H (1.001-1.035) Urine Protein 1+ H (Negative) Urine Ketones 3+ H (Negative) Amorphous Sediment Rare H (None) /hpf Hyaline Casts 4 H (0-2) /lpf Urine Mucus Rare H (None) /hpf C. difficile (EIA) Intrp (Negative)
[2021-02-03] MEDS ORDERED: VANCOMYCIN ORAL SOLUTION 250 MG/5 ML BOTTLE PO SCH (12:00)
[2021-02-03] MEDS: PANTOPRAZOLE 40 MG/10 ML VIAL IVP SCH (12:37)
[2021-02-03] MEDS: ASPIRIN 81 MG PO SCH (12:37)
[2021-02-03] MEDS: VANCOMYCIN 125 MG CAPSULE PO SCH ×3 (13:17→23:26)
[2021-02-03] MEDS: POTASSIUM CHLORIDE ER 20 MEQ TAB.ER PO SCH ×2 (13:40→16:10)
--- NOTE | 2021-02-03 14:59 | P.CONS ---
History of Present Illness - Reason for Consult Consult date: 02/03/21 C. diff, Diarrhea - Chief Complaint Dairrhea - History of Present Illness The pleasant 80-year-old white male presented to the emergency department with complaints of weakness and diarrhea. He has a past medical history including prostate cancer, COPD oxygen dependent, hypertension, hyperlipidemia, hypothyroidism, osteoarthritis, and previous sigmoid colectomy 12-15 years ago for which he states he had multiple colon polyps. The patient states he's been having significant amounts of diarrhea over the past several days. He states he has had diarrhea off and on for the last month. However Tuesday night he started having significant amounts greater than 10 times per day. He denies any blood in his stool or rectal bleeding. Denies any abdominal pain, states he has had some dry heaves. The patient recently underwent a colonoscopy on 11/21/[address] Bhatti for rectal bleeding. The patient has a history of prostate cancer with radiation treatment, states he had 26 treatments last one was 1-1/2 years ago. 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 Patient underwent C. diff testing and was found to be positive. Patient states he has been on recent antibiotics for dental work. His last dental work was 2 weeks ago. On admission he had an elevated troponin and was started on a heparin drip, cardiology following. On admission he was noted to have leukocytosis and hypokalemia. Admitting labs WBC 12.4, hemoglobin 12.6, hematocrit 38, platelet count 240,000, potassium 2.9, total bilirubin 0.4, alkaline phosphatase 73, AST 27, ALT 14. He states today he is not had any nausea or vomiting, diarrhea is improving somewhat. Patient has a fecal managem ent system in place with 400 mL of loose Lipram stool. CT of the abdomen and pelvis showed mild fatty infiltration of the liver, simple appearing superior pole left renal cyst, ankylosing spondylitis. Review of Systems REVIEW OF SYSTEMS: CARDIOPULMONARY: No chest pain or shortness of breath. Gastrointestinal: No abdominal pain. Dry heaves. No hematemesis, coffee- ground emesis. No rectal bleeding, or melena. Diarrhea for last 2-3 days duration. GENITOURINARY: No dysuria or hematuria. MUSCULOSKELETAL: Reports normal range of motion., Joint pain. SKIN: No rashes. No jaundice. ENDOCRINE: No chills, fevers. No excessive weight gain or loss. No polydipsia or polyuria. PSYCHIATRIC: Unremarkable. NEUROLOGY: No change in mental status. Denies dizziness, headache. ENT: Vision unremarkable. CONSTITUTIONAL: No recent weight loss. No fever, chills, night sweats. Past Medical History Past Medical History: Cancer, Diabetes Mellitus, GERD/Reflux, Hypertension, Musculoskeletal Disorder, Osteoarthritis (OA), Rheumatoid Arthritis (RA), Thyroid Disorder Additional Past Medical History / Comment(s): HX MIGRAINES. HX OF SKIN CANCER ., CHRONIC BACK PAIN, D.I.S.H.-DEGENERATIVE ARTHRITIS, ANKYLOSING SPONDYLITIS. 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 BACK SURG. X2. INTRATHECAL OPIOID PAIN PUMP ( replaced 03/06/19), upper teeth pulled, PROSTATE BX Past Anesthesia/Blood Transfusion Reactions: No Reported Reaction Past Psychological History: Anxiety, Depression Smoking Status: Never smoker Past Alcohol Use History: None Reported Past Drug Use History: None Reported - Past Family History Father Family Medical History: Cancer, Deep Vein Thrombosis (DVT) Additional Family Medical History / Comment(s): Lung & BONE CA Medications and Allergies Home Medications Medication Instructions Recorded Confirmed Type hydroCHLOROthiazide [Hydrodiuril] 50 mg PO DAILY 11/22/13 02/02/21 History Metoprolol Tartrate [Lopressor] 50 mg PO BID 11/25/14 02/02/21 History Atorvastatin [Lipitor] 10 mg PO HS 02/17/17 02/02/21 History Citalopram Hydrobromide [CeleXA] 40 mg PO DAILY 04/09/17 02/02/21 History Dorzolamide-Timol 2.23%/0.68% 1 drop BOTH EYES TID 04/10/17 02/02/21 History [Cosopt] metFORMIN HCL [Glucophage] 500 mg PO DAILY 04/10/17 02/02/21 History Latanoprost Ophth [Xalatan 0.005%] 1 drops BOTH EYES HS 06/06/19 02/02/21 History buPROPion HCL [Wellbutrin XL] 300 mg PO DAILY 11/12/19 02/02/21 History Levothyroxine Sodium [Synthroid] 175 mcg PO DAILY 07/14/20 02/02/21 History Baclofen [Lioresal] 10 mg PO HS #30 tab 12/31/20 02/02/21 Rx oxyCODONE HCL [Oxaydo] 5 mg PO Q8H PRN 30 Days #90 tab 12/31/20 02/02/21 Rx Acetaminophen Tab [Tylenol Tab] 500 mg PO Q6HR PRN 02/02/21 02/02/21 History L.acidoph,Paracasei, B.lactis 1 cap PO DAILY 02/02/21 02/02/21 History [Probiotic] Allergies Allergy/AdvReac Type Severity Reaction Status Date / Time No Known Allergies Allergy Verified 02/02/21 16:05 Physical Exam Vitals: Vital Signs Temp Pulse Pulse Resp BP BP Pulse Ox 02/03/21 08:00 97.6 F 60 16 130/63 99 02/03/21 04:30 61 19 127/63 97 02/03/21 00:15 98.3 F 64 17 145/67 98 02/02/21 22:44 62 18 131/73 98 02/02/21 20:21 68 18 135/78 98 Intake and Output 02/02/21 02/03/21 02/03/21 22:59 06:59 14:59 Intake Total 83.8 80.718 47.136 Output Total 669597 Balance 83.8 -144442.282 47.136 Intake: Intake, IV Titration 83.8 80.718 47.136 Amount Heparin Sod,Pork in 0.45% 83.8 80.718 47.136 NaCl 25,000 unit In 0.45 % NaCl 1 250ml.bag @ 10. 91 UNITS/KG/HR 9.996 mls/ hr IV .Q24H [facility] Rx#: [id number] Oral 0 Output: Urine 600 Straight 600 Post Void Residual [id number] Other: Voiding Method Diaper Diaper # Voids 0 Weight 91.626 kg 111.5 kg General appearance: The patient is alert, oriented, appears in no acute distre ss. HET: Head is normocephalic and atraumatic. Conjunctiva pink. Sclera anicteric. Neck: Supple without lymphadenopathy. Trachea midline. Heart: S1 S2. Regular rate and rhythm. Lungs: Clear to auscultation. Abdomen: Soft, nontender, nondistended with bowel sounds. No guarding or rigidity. Skin: No rashes. No jaundice. Extremities: Normal skin color and turgor. No pedal edema. Neurological: No focal deficits. Alert and oriented 3.. Results CBC & Chem 7: 02/03/21 04:02 02/03/21 04:02 Labs: Abnormal Lab Results - Last 24 Hours (Table) 02/02/21 02/02/21 02/02/21 Range/Units 10:59 10:59 16:39 WBC (3.8-10.6) k/uL RBC (4.30-5.90) m/uL Hgb (13.0-17.5) gm/dL Hct (39.0-53.0) % Neutrophils # (1.3-7.7) k/uL Lymphocytes # (1.0-4.8) k/uL Monocytes # (0-1.0) k/uL PT (9.0-12.0) sec INR (<1.2) APTT (22.0-30.0) sec Sodium (137-145) mmol/L Potassium (3.5-5.1) mmol/L Creatinine (0.66-1.25) mg/dL Glucose (74-99) mg/dL Troponin I 0.496 H* 0.489 H* (0.000-0.034) ng/mL Ur Specific [place] (1.001-1.035) Urine Protein (Negative) Urine Ketones (Negative) Amorphous Sediment (None) /hpf Hyaline Casts (0-2) /lpf Urine Mucus (None) /hpf C. difficile (EIA) Intrp Positive A (Negative) 02/02/21 02/02/21 02/03/21 Range/Units 18:33 21:00 04:02 WBC 12.3 H (3.8-10.6) k/uL RBC 4.17 L (4.30-5.90) m/uL Hgb 11.7 L (13.0-17.5) gm/dL Hct 36.0 L (39.0-53.0) % Neutrophils # 10.2 H (1.3-7.7) k/uL Lymphocytes # 0.6 L (1.0-4.8) k/uL Monocytes # 1.1 H (0-1.0) k/uL PT (9.0-12.0) sec INR (<1.2) APTT 19.9 L (22.0-30.0) sec Sodium (137-145) mmol/L Potassium (3.5-5.1) mmol/L Creatinine (0.66-1.25) mg/dL Glucose (74-99) mg/dL Troponin I 0.478 H* (0.000-0.034) ng/mL Ur Specific [place] (1.001-1.035) Urine Protein (Negative) Urine Ketones (Negative) Amorphous Sediment (None) /hpf Hyaline Casts (0-2) /lpf Urine Mucus (None) /hpf C. difficile (EIA) Intrp (Negative) 02/03/21 02/03/21 02/03/21 Range/Units 04:02 04:02 04:42 WBC (3.8-10.6) k/uL RBC (4.30-5.90) m/uL Hgb (13.0-17.5) gm/dL Hct (39.0-53.0) % Neutrophils # (1.3-7.7) k/uL Lymphocytes # (1.0-4.8) k/uL Monocytes # (0-1.0) k/uL PT 14.6 H (9.0-12.0) sec INR 1.4 H (<1.2) APTT 43.0 H (22.0-30.0) sec Sodium 132 L (137-145) mmol/L Potassium 3.1 L (3.5-5.1) mmol/L Creatinine 0.51 L (0.66-1.25) mg/dL Glucose 126 H (74-99) mg/dL Troponin I (0.000-0.034) ng/mL Ur Specific [place] 1.038 H (1.001-1.035) Urine Protein 1+ H (Negative) Urine Ketones 3+ H (Negative) Amorphous Sediment Rare H (None) /hpf Hyaline Casts 4 H (0-2) /lpf Urine Mucus Rare H (None) /hpf C. difficile (EIA) Intrp (Negative) Comments: CT abdomen and pelvis: Mild fatty infiltration of the liver, simple appearing superior pole left renal cyst, ankylosing spondylitis Assessment and Plan (1) C. difficile colitis Narrative/Plan: 20-year-old male patient who presented to the emergency department with complaints of weakness and significant diarrhea. Patient's been having diarrhea off and on for the last month starting Tuesday he had significant amounts of loose stool, uncontrollable, greater than 10 per day. He had dry heaves yesterday, denies abdominal pain. He has had recent dental work and was on antibiotics, last procedure was 2 weeks ago. Stool was tested for C. diff and was found to be positive. He has been started on vancomycin and Flagyl. He recently underwent a colonoscopy on 11/21/2020 for rectal bleeding, findings included radiation proctitis with low seen and treated with argon plasma, transv erse colon polyp, and evidence of sigmoid colectomy with anastomosis. Patient states he underwent a sigmoid colectomy 12-15 years ago for multiple polyps. He has denied any current rectal bleeding or blood in his stool. Due to the amount of diarrhea he has been having, a fecal management system was placed. He had 400 mL's stool, light brown in color with no evidence of blood. On admission he was noted to have leukocytosis and hypokalemia for which he has been treated. Current Visit: Yes Status: Acute Code(s): A04.72 - ENTEROCOLITIS D/T CLOSTRIDIUM DIFFICILE, NOT SPCF RECUR SNOMED Code(s): 107051238 (2) Diarrhea Current Visit: Yes Status: Acute Code(s): R19.7 - DIARRHEA, UNSPECIFIED SNOMED Code(s): 03848615 (3) Elevated troponin Current Visit: Yes Status: Acute Code(s): R77.8 - OTHER SPECIFIED ABNORMALITIES OF PLASMA PROTEINS SNOMED Code(s): 836629079 Plan: 1. Pured diet (patient has no teeth) 2. Continue vancomycin and Flagyl 3. Continue Questran, avoid antidiarrheals 4. Repeat CBC daily 5. No plans on endoscopic evaluation 6. Will add probiotic 7. Continue medical management per primary medicine team and cardiology Thank you for this consultation, we will continue to follow Dr. Knott I agree with the dictator's note, documented as a scribe by Yvonne Olivier.
--- NOTE | 2021-02-03 14:59 | P.HPIM ---
History of Present Illness H&P Date: 02/03/21 This is an 80-year-old gentleman with past medical history of diabetes mellitus, gastroesophageal reflux disease, hypothyroidism, prostate cancer with radiation treatment, recent colonoscopy, COPD, chronic respiratory failure and multiple other medical issues presented to the ER with complaints of ongoing, uncontrollable watery diarrhea times weeks with worsening weakness, abdominal pain. Denies chest pain, palpitations or increasing shortness of breath. Tested positive for C. difficile colitis . Flagyl initiated.Afebrile, WBC 12.3. Hemoglobin 11.7, platelets 233, INR 1.4, sodium 132, potassium 2.9 on admission, up to 3.1 post supplementation, renal function stable, blood sugars 126, UA negative for acute UTI, specific gravity 1.038, 3+ ketones, 1+ protein. Maintaining O2 sats in the high 90s on 2 L nasal cannula. Chest x-ray reporting no acute pulmonary process. CT of abdomen and pelvis reporting mild fatty infiltration of the liver, simple-appearing superior pole left renal cysts, ankylosing spondylitis. EKG reported normal sinus rhythm, ST- T wave abnormalities, inferior and anterior lateral, right axis deviation. Troponin 0.496, 0.489, 0.478. Maintained on heparin drip. Review of Systems ROS Statement: Those systems with pertinent positive or pertinent negative responses have been documented in the HPI. ROS Other: All systems not noted in ROS Statement are negative. Past Medical History Past Medical History: Cancer, Diabetes Mellitus, GERD/Reflux, Hypertension, Musculoskeletal Disorder, Osteoarthritis (OA), Rheumatoid Arthritis (RA), Thyroid Disorder Additional Past Medical History / Comment(s): HX MIGRAINES. HX OF SKIN CANCER ., CHRONIC BACK PAIN, D.I.S.H.-DEGENERATIVE ARTHRITIS, ANKYLOSING SPONDYLITIS. 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 BACK SURG. X2. INTRATHECAL OPIOID PAIN PUMP ( replaced 03/06/19), upper teeth pulled, PROSTATE BX Past Anesthesia/Blood Transfusion Reactions: No Reported Reaction Past Psychological History: Anxiety, Depression Smoking Status: Never smoker Past Alcohol Use History: None Reported Past Drug Use History: None Reported - Past Family History Father Family Medical History: Cancer, Deep Vein Thrombosis (DVT) Additional Family Medical History / Comment(s): Lung & BONE CA Medications and Allergies Home Medications Medication Instructions Recorded Confirmed Type hydroCHLOROthiazide [Hydrodiuril] 50 mg PO DAILY 11/22/13 02/02/21 History Metoprolol Tartrate [Lopressor] 50 mg PO BID 11/25/14 02/02/21 History Atorvastatin [Lipitor] 10 mg PO HS 02/17/17 02/02/21 History Citalopram Hydrobromide [CeleXA] 40 mg PO DAILY 04/09/17 02/02/21 History Dorzolamide-Timol 2.23%/0.68% 1 drop BOTH EYES TID 04/10/17 02/02/21 History [Cosopt] metFORMIN HCL [Glucophage] 500 mg PO DAILY 04/10/17 02/02/21 History Latanoprost Ophth [Xalatan 0.005%] 1 drops BOTH EYES HS 06/06/19 02/02/21 History buPROPion HCL [Wellbutrin XL] 300 mg PO DAILY 11/12/19 02/02/21 History Levothyroxine Sodium [Synthroid] 175 mcg PO DAILY 07/14/20 02/02/21 History Baclofen [Lioresal] 10 mg PO HS #30 tab 12/31/20 02/02/21 Rx oxyCODONE HCL [Oxaydo] 5 mg PO Q8H PRN 30 Days #90 tab 12/31/20 02/02/21 Rx Acetaminophen Tab [Tylenol Tab] 500 mg PO Q6HR PRN 02/02/21 02/02/21 History L.acidoph,Paracasei, B.lactis 1 cap PO DAILY 02/02/21 02/02/21 History [Probiotic] Allergies Allergy/AdvReac Type Severity Reaction Status Date / Time No Known Allergies Allergy Verified 02/02/21 16:05 Physical Exam Vitals: Vital Signs Temp Pulse Pulse Resp BP BP Pulse Ox 02/03/21 08:00 97.6 F 60 16 130/63 99 02/03/21 04:30 61 19 127/63 97 02/03/21 00:15 98.3 F 64 17 145/67 98 02/02/21 22:44 62 18 131/73 98 02/02/21 20:21 68 18 135/78 98 02/02/21 11:20 67 18 135/69 99 Intake and Output 02/02/21 02/03/21 02/03/21 22:59 06:59 14:59 Intake Total 83.8 80.718 47.136 Output Total 544681 Balance 83.8 -407468.282 47.136 Intake: Intake, IV Titration 83.8 80.718 47.136 Amount Heparin Sod,Pork in 0.45% 83.8 80.718 47.136 NaCl 25,000 unit In 0.45 % NaCl 1 250ml.bag @ 10. 91 UNITS/KG/HR 9.996 mls/ hr IV .Q24H DERRELL Rx#: [id number] Oral 0 Output: Urine 600 Straight 600 Post Void Residual [id number] Other: Voiding Method Diaper Diaper # Voids 0 Weight 91.626 kg 111.5 kg GENERAL: This is an 80 year-old in distress at the time of examination. Pleasant and cooperative.[place]. HEENT: Head is atraumatic, normocephalic. Pupils are equal, round, and reactive to light. Sclerae anicteric. Conjunctivae are clear. Mucus membranes of the mouth are moist. Neck is supple. RESPIRATORY: Clear to auscultation. No wheezes, rales, or rhonchi. No use of accessory muscles. Patient maintaining oxygen saturation greater than 92%. No chest wall tenderness is noted on palpation or with deep breathing. CARDIOVASCULAR: Regular rate and rhythm. S1 and S2 noted. No systolic or diastolic murmur auscultated. No JVD noted. No S3 or S4 noted. GASTROINTESTINAL: No distention noted. Abdomen soft and round. Normal active bowel sounds auscultated x 4 quadrants. No pain or tenderness noted upon palpation.FMS present with light brown diarrhea. INTEGUMENTARY: No cyanosis. No jaundice. No rashes noted. Coccyx reddened, blanchable. EXTREMITIES: 2+ peripheral pulses. No evidence of peripheral edema. No calf tenderness noted. NEUROLOGIC: Cranial nerves II-XII intact. PSYCHIATRIC: Awake, alert, and oriented X 3. Appropriate affect. Intact judgement and insight. Results CBC & Chem 7: 02/03/21 04:02 02/03/21 04:02 Labs: Abnormal Lab Results - Last 24 Hours (Table) 02/02/21 02/02/21 02/02/21 Range/Units 10:59 10:59 10:59 WBC 12.4 H (3.8-10.6) k/uL RBC (4.30-5.90) m/uL Hgb 12.6 L (13.0-17.5) gm/dL Hct 38.6 L (39.0-53.0) % Neutrophils # 10.5 H (1.3-7.7) k/uL Lymphocytes # 0.6 L (1.0-4.8) k/uL Monocytes # (0-1.0) k/uL PT 12.2 H (9.0-12.0) sec INR 1.2 H (<1.2) APTT 21.6 L (22.0-30.0) sec Sodium 136 L (137-145) mmol/L Potassium 2.9 L (3.5-5.1) mmol/L Creatinine 0.50 L (0.66-1.25) mg/dL Glucose 158 H (74-99) mg/dL Troponin I (0.000-0.034) ng/mL Ur Specific [place] (1.001-1.035) Urine Protein (Negative) Urine Ketones (Negative) Amorphous Sediment (None) /hpf Hyaline Casts (0-2) /lpf Urine Mucus (None) /hpf C. difficile (EIA) Intrp (Negative) 02/02/21 02/02/21 02/02/21 Range/Units 10:59 10:59 16:39 WBC (3.8-10.6) k/uL RBC (4.30-5.90) m/uL Hgb (13.0-17.5) gm/dL Hct (39.0-53.0) % Neutrophils # (1.3-7.7) k/uL Lymphocytes # (1.0-4.8) k/uL Monocytes # (0-1.0) k/uL PT (9.0-12.0) sec INR (<1.2) APTT (22.0-30.0) sec Sodium (137-145) mmol/L Potassium (3.5-5.1) mmol/L Creatinine (0.66-1.25) mg/dL Glucose (74-99) mg/dL Troponin I 0.496 H* 0.489 H* (0.000-0.034) ng/mL Ur Specific [place] (1.001-1.035) Urine Protein (Negative) Urine Ketones (Negative) Amorphous Sediment (None) /hpf Hyaline Casts (0-2) /lpf Urine Mucus (None) /hpf C. difficile (EIA) Intrp Positive A (Negative) 02/02/21 02/02/21 02/03/21 Range/Units 18:33 21:00 04:02 WBC 12.3 H (3.8-10.6) k/uL RBC 4.17 L (4.30-5.90) m/uL Hgb 11.7 L (13.0-17.5) gm/dL Hct 36.0 L (39.0-53.0) % Neutrophils # 10.2 H (1.3-7.7) k/uL Lymphocytes # 0.6 L (1.0-4.8) k/uL Monocytes # 1.1 H (0-1.0) k/uL PT (9.0-12.0) sec INR (<1.2) APTT 19.9 L (22.0-30.0) sec Sodium (137-145) mmol/L Potassium (3.5-5.1) mmol/L Creatinine (0.66-1.25) mg/dL Glucose (74-99) mg/dL Troponin I 0.478 H* (0.000-0.034) ng/mL Ur Specific [place] (1.001-1.035) Urine Protein (Negative) Urine Ketones (Negative) Amorphous Sediment (None) /hpf Hyaline Casts (0-2) /lpf Urine Mucus (None) /hpf C. difficile (EIA) Intrp (Negative) 02/03/21 02/03/21 02/03/21 Range/Units 04:02 04:02 04:42 WBC (3.8-10.6) k/uL RBC (4.30-5.90) m/uL Hgb (13.0-17.5) gm/dL Hct (39.0-53.0) % Neutrophils # (1.3-7.7) k/uL Lymphocytes # (1.0-4.8) k/uL Monocytes # (0-1.0) k/uL PT 14.6 H (9.0-12.0) sec INR 1.4 H (<1.2) APTT 43.0 H (22.0-30.0) sec Sodium 132 L (137-145) mmol/L Potassium 3.1 L (3.5-5.1) mmol/L Creatinine 0.51 L (0.66-1.25) mg/dL Glucose 126 H (74-99) mg/dL Troponin I (0.000-0.034) ng/mL Ur Specific [place] 1.038 H (1.001-1.035) Urine Protein 1+ H (Negative) Urine Ketones 3+ H (Negative) Amorphous Sediment Rare H (None) /hpf Hyaline Casts 4 H (0-2) /lpf Urine Mucus Rare H (None) /hpf C. difficile (EIA) Intrp (Negative) Thrombosis Risk Factor Assmnt - Choose All That Apply Any of the Below Risk Factors Present?: Yes Each Factor Represents 1 point: Abnormal pulmonary function (COPD), Obesity (BMI >25) Other Risk Factors: Yes Each Risk Factor Represents 3 Points: Age 75 years or older Other congenital or acquired thrombophilia - If yes, enter type in comment: No Thrombosis Risk Factor Assessment Total Risk Factor Score: 5 Thrombosis Risk Factor Assessment Level: High Risk Assessment and Plan Assessment: Acute C. difficile colitis, no prior history of, recently completed dental procedures and finished antibiotic treatment. 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 Hypothyroidism Gastroesophageal reflux disease Diabetes mellitus Hypertension Anxiety Depression Chronic pain OA RA History of Prostate cancer with radiation treatment Plan: Continue on current medication regime ,monitoring and symptomatic treat ment. Continue replacing potassium and magnesium as per replacement protocol as previously ordered. Repeat potassium levels later this afternoon. Maintain Flagyl, oral vancomycin and Questran added to med regimen. Heparin drip discontinued as per cardiology. PPI added for GI prophylaxis. Turn every 2 hours, apply barrier Cream as ordered. The impression and plan of care has been dictated as directed. : I performed a history and examination of this patient, discussed the same with the dictator. I agree with the dictator's note ,documented as a scribe. Any additional findings or plans will be noted.
[2021-02-03] MEDS: CHOLESTYRAMINE (WITH SUGAR) 4 GM PACKET PO SCH ×3 (16:10→22:27)
[2021-02-03] MEDS: ATORVASTATIN 10 MG TAB PO SCH (22:26)
[2021-02-03] MEDS: BACLOFEN 10 MG TAB PO SCH (22:27)
[2021-02-03] MEDS: LATANOPROST 0.005% OPHTH DROPS 2.5 ML BTL BOTH EYES SCH (22:28)
[2021-02-04] MEDS: VANCOMYCIN 125 MG CAPSULE PO SCH ×4 (06:15→23:57)
[2021-02-04] MEDS: LEVOTHYROXINE 88 MCG TAB PO SCH (06:16)
[2021-02-04 06:36] LABS: Glucose,Whole Blood 114 mg/dL (75-99)
[2021-02-04 07:16] LABS: ALT 16 U/L (4-49); AST 42 U/L (17-59); African American GFR (CKD) >90 (>60 ml/min/1.73 sqM); Albumin 2.9 g/dL (3.5-5.0); Alkaline Phosphatase 61 U/L (38-126); Anion Gap 7 mmol/L; Blood Urea Nitrogen 9 mg/dL (9-20); Calcium 8.3 mg/dL (8.4-10.2); Carbon Dioxide 23 mmol/L (22-30); Chloride 100 mmol/L (98-107); Glucose 108 mg/dL (74-99); Magnesium 1.7 mg/dL (1.6-2.3); Non-African American GFR(CKD) >90 (>60 ml/min/1.73 sqM); Potassium 3.1 mmol/L (3.5-5.1); Sodium 130 mmol/L (137-145); Total Bilirubin 0.3 mg/dL (0.2-1.3); Total Protein 5.4 g/dL (6.3-8.2)
[2021-02-04 07:34] LABS: Basophils % (A) 0 %; Eosinophils # (A) 0.4 k/uL (0-0.7); Eosinophils % (A) 4 %; HCT 35.1 % (39.0-53.0); HGB 11.5 gm/dL (13.0-17.5); Lymphocytes # (A) 0.5 k/uL (1.0-4.8); Lymphocytes % (A) 5 %; MCH 28.6 pg (25.0-35.0); MCHC 32.7 g/dL (31.0-37.0); MCV 87.3 fL (80.0-100.0); Mean Platelet Volume 7.1; Monocytes # (A) 0.8 k/uL (0-1.0); Monocytes % (A) 9 %; Neutrophils # (A) 7.7 k/uL (1.3-7.7); Neutrophils % (A) 80 %; Platelet Count 212 k/uL (150-450); RBC 4.03 m/uL (4.30-5.90); WBC 9.7 k/uL (3.8-10.6)
[2021-02-04] MEDS: metroNIDAZOLE-NS PMX 500 MG in SALINE 1 100ML.BAG IVPB SCH ×3 (08:47→23:57)
[2021-02-04] MEDS: ASPIRIN 81 MG PO SCH (08:48)
[2021-02-04] MEDS: LACTOBACILLUS ACIDOPH & BULGAR 1 EACH PACKET PO SCH (08:48)
[2021-02-04] MEDS: CHOLESTYRAMINE (WITH SUGAR) 4 GM PACKET PO SCH ×3 (08:48→19:58)
[2021-02-04] MEDS: buPROPion XL 300 MG TAB.ER.24H PO SCH (08:48)
[2021-02-04] MEDS: CITALOPRAM HYDROBROMIDE 20 MG TAB PO SCH (08:49)
[2021-02-04] MEDS: METOPROLOL TARTRATE 50 MG TAB PO SCH ×2 (08:49→19:59)
[2021-02-04] MEDS: metFORMIN 500 MG TAB PO SCH (08:52)
[2021-02-04] MEDS: DORZOLAMIDE-TIMOLOL 2.23%/0.68 10ML BTL BOTH EYES SCH ×3 (08:52→19:59)
[2021-02-04] MEDS: PANTOPRAZOLE 40 MG/10 ML VIAL IVP SCH (08:52)
[2021-02-04 11:43] LABS: Glucose,Whole Blood 121 mg/dL (75-99)
--- NOTE | 2021-02-04 12:35 | ECHOF ---
Referral Reason:LV function MEASUREMENTS -------- HEIGHT: 152.4 cm WEIGHT: 129.3 kg BP: IVSd: 1.4 cm (0.6 - 1.1) LVIDd: 5.1 cm (3.9 - 5.3) LVPWd: 1.9 cm (0.6 - 1.1) IVSs: 1.8 cm LVIDs: 4.0 cm LVPWs: 1.2 cm Ao Diam: 2.8 cm (2.0 - 3.7) AV maxP.55 mmHg AV meanP.86 mmHg FINDINGS -------- Sinus rhythm. This was a techncally difficult study with suboptimal views, , Lumason utilized for enhancement of im ages. The left ventricular size is normal. There is mild concentric left ventricular hypertrophy. Overa ll left ventricular systolic function is low-normal with, an EF between 50 - 55 %. 5.0mg OF Lumason UTLIZED: 2 OR MORE WALL SEGMENTS NOT VISUALIZED. The aortic valve was not well visualized. There is mild aortic stenosis present. Peak/mean gradie nt across the Aortic Valve is 16.55mmHg / 8.86mmHg. The mitral valve was not well visualized. The tricuspid valve was not well visualized. Unable to estimate RVSP due to inadequate TR jet spect ral doppler profile. The pulmonic valve was not well visualized. There is no pericardial effusion. CONCLUSIONS -------- 1. This was a techncally difficult study with suboptimal views, , Lumason utilized for enhancement of images. 2. The left ventricular size is normal. 3. There is mild concentric left ventricular hypertrophy. 4. Overall left ventricular systolic function is low-normal with, an EF between 50 - 55 %. 5. 5.0mg OF Lumason UTLIZED: 2 OR MORE WALL SEGMENTS NOT VISUALIZED. 6. The aortic valve was not well visualized. 7. There is mild aortic stenosis present. 8. Peak/mean gradient across the Aortic Valve is 16.55mmHg / 8.86mmHg. 9. The mitral valve was not well visualized. 10. The tricuspid valve was not well visualized. 11. Unable to estimate RVSP due to inadequate TR jet spectral doppler profile. 12. The pulmonic valve was not well visualized. 13. There is no pericardial effusion. GLOBAL ACCOUNT MANAGER: Nafisa Alberto RDCS
[2021-02-04] MEDS: POTASSIUM CHLORIDE ER 20 MEQ TAB.ER PO SCH ×4 (13:00→21:26)
--- NOTE | 2021-02-04 14:33 | P.PN ---
Subjective This is a 80 year old male with a past medical history significant for COPD, home oxygen, hypertension, hyperlipidemia, hypothyroidism, and osteoarthritis. 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 We have been asked to see the patient in consultation for elevated troponin. Patient gives history of 1 month of diarrhea. He states over the last 2 days that diarrhea has gotten so bad he has been unable to control it which prompted him to come to the emergency room. The patient was found to be positive for C. diff. EKG reveals sinus mechanism with diffuse T-wave inversions, similar to previous EKG in 2019. Most recent echocardiogram obtained in 2017 revealed ejection fraction 55-60%. Mild mitral regurgitation. Mild tricuspid regurgitation. Mild aortic stenosis. Mild aortic regurgitation. Troponin 0.496. 0.489. 0.478. 02/04/2021 Patient examined this morning at the bedside. Patient denies chest pain or p ressure. He denies shortness of breath. He continues to have diarrhea. blood pressure 142/75 heart rate 68 afebrile, maintaining oxygen saturations denies symptoms on 2 L nasal cannula. Laboratory data review WBC 9.7, hemoglobin 11.5, platelets 212, sodium 1:30, potassium 3.1, magnesium 1.7, serum creatinine 0.4 PHYSICAL EXAM: VITAL SIGNS: Reviewed. GENERAL: Well-developed in no acute distress. HEENT: Head is normocephalic. Pupils are equal, round. Sclerae anicteric. Mucous membranes of the mouth are moist. Neck supple. No JVD or thyromegaly LUNGS: Respirations even and unlabored. Lungs essentially clear to auscultation bilaterally. HEART: Regular rate and rhythm. S1 and S2 heard. ABDOMEN: Soft. Nondistended. Nontender. EXTREMITIES: Normal range of motion. No clubbing or cyanosis. Peripheral pulses intact. No lower extremity edema. Patient does have small scabs to bilateral lower extremities. NEUROLOGIC: Awake and alert. Oriented x 3. ASSESSMENT: Diarrhea 1 month Acute clostridium difficile Abnormal troponin, likely secondary to acute infectious process, no evidence of ACS Hypokalemia Hypertension Hyperlipidemia COPD with home oxygen use Hypothyroidism Osteoarthritis PLAN: 2-D echo ordered. will await results Replace potassium Continue metoprolol and Lipitor Hold hydrochlorothiazide secondary to diarrhea Further recommendations pending patient course Nurse practitioner note has been reviewed by physician. Signing provider agrees with the documented findings, assessment, and plan of care. Objective - Vital Signs Vital signs: Vital Signs Temp 97.5 F L 02/04/21 03:00 Pulse 60 02/04/21 03:00 Resp 18 02/04/21 08:00 BP 142/75 02/04/21 03:00 Pulse Ox 97 02/04/21 03:00 Intake & Output 02/03/21 02/04/21 02/04/21 18:59 06:59 18:59 Intake Total 256.305 360 Output Total 150 Balance 256.305 -150 360 Weight 129.5 kg Intake: Intake, IV Titration 136.305 Amount Heparin Sod,Pork in 0.45% 136.305 NaCl 25,000 unit In 0.45 % NaCl 1 250ml.bag @ 10. 91 UNITS/KG/HR 9.996 mls/ hr IV .Q24H [facility] Rx#: [id number] Oral 120 360 Output: Urine 150 Other: Voiding Method Diaper Diaper Urinal Diaper Incontinent # Voids 1 1 - Labs CBC & Chem 7: 02/04/21 06:39 02/04/21 06:00 Labs: Abnormal Lab Results - Last 24 Hours (Table) 02/03/21 02/04/21 02/04/21 Range/Units 15:53 06:00 06:33 RBC (4.30-5.90) m/uL Hgb (13.0-17.5) gm/dL Hct (39.0-53.0) % Lymphocytes # (1.0-4.8) k/uL Sodium 130 L (137-145) mmol/L Potassium 3.0 L 3.1 L (3.5-5.1) mmol/L Creatinine 0.45 L (0.66-1.25) mg/dL Glucose 108 H (74-99) mg/dL POC Glucose (mg/dL) 114 H (75-99) mg/dL Calcium 8.3 L (8.4-10.2) mg/dL Total Protein 5.4 L (6.3-8.2) g/dL Albumin 2.9 L (3.5-5.0) g/dL 02/04/21 02/04/21 Range/Units 06:39 11:32 RBC 4.03 L (4.30-5.90) m/uL Hgb 11.5 L (13.0-17.5) gm/dL Hct 35.1 L (39.0-53.0) % Lymphocytes # 0.5 L (1.0-4.8) k/uL Sodium (137-145) mmol/L Potassium (3.5-5.1) mmol/L Creatinine (0.66-1.25) mg/dL Glucose (74-99) mg/dL POC Glucose (mg/dL) 121 H (75-99) mg/dL Calcium (8.4-10.2) mg/dL Total Protein (6.3-8.2) g/dL Albumin (3.5-5.0) g/dL
--- NOTE | 2021-02-04 15:10 | P.PN ---
Subjective Progress Note Date: 02/04/21 Principal diagnosis: Diarrhea, C. Difficile colitis Patient is seen and examined lying in bed. States he has a fair appetite today. Denies any abdominal pain, nausea, or vomiting. States diarrhea seems to be improving some. He remains on IV Flagyl and oral vancomycin. There is no blood in his stool, no black stool. Has fecal management system in place. Objective - Vital Signs Vital signs: Vital Signs Temp 97.5 F L 02/04/21 03:00 Pulse 60 02/04/21 03:00 Resp 18 02/04/21 08:00 BP 142/75 02/04/21 03:00 Pulse Ox 97 02/04/21 03:00 Intake & Output 02/03/21 02/04/21 02/04/21 18:59 06:59 18:59 Intake Total 256.305 360 Output Total 150 Balance 256.305 -150 360 Weight 129.5 kg Intake: Intake, IV Titration 136.305 Amount Heparin Sod,Pork in 0.45% 136.305 NaCl 25,000 unit In 0.45 % NaCl 1 250ml.bag @ 10. 91 UNITS/KG/HR 9.996 mls/ hr IV .Q24H [facility] Rx#: [id number] Oral 120 360 Output: Urine 150 Other: Voiding Method Diaper Diaper Urinal Diaper Incontinent # Voids 1 1 - Exam General appearance: The patient is alert, oriented, appears in no acute distress. HET: Head is normocephalic and atraumatic. Conjunctiva pink. Sclera anicteric. Neck: Supple without lymphadenopathy. Abdomen: Soft, nontender, nondistended with bowel sounds. No guarding or rigidity. Extremities: Normal skin color and turgor. No pedal edema Skin: No rashes, no jaundice Neurological: No focal deficits. Alert and oriented 3. - Labs CBC & Chem 7: 02/04/21 06:39 02/04/21 06:00 Labs: Abnormal Lab Results - Last 24 Hours (Table) 02/03/21 02/03/21 02/04/21 Range/Units 11:18 15:53 06:00 RBC (4.30-5.90) m/uL Hgb (13.0-17.5) gm/dL Hct (39.0-53.0) % Lymphocytes # (1.0-4.8) k/uL APTT 50.4 H (22.0-30.0) sec Sodium 130 L (137-145) mmol/L Potassium 3.0 L 3.1 L (3.5-5.1) mmol/L Creatinine 0.45 L (0.66-1.25) mg/dL Glucose 108 H (74-99) mg/dL POC Glucose (mg/dL) (75-99) mg/dL Calcium 8.3 L (8.4-10.2) mg/dL Total Protein 5.4 L (6.3-8.2) g/dL Albumin 2.9 L (3.5-5.0) g/dL 02/04/21 02/04/21 Range/Units 06:33 06:39 RBC 4.03 L (4.30-5.90) m/uL Hgb 11.5 L (13.0-17.5) gm/dL Hct 35.1 L (39.0-53.0) % Lymphocytes # 0.5 L (1.0-4.8) k/uL APTT (22.0-30.0) sec Sodium (137-145) mmol/L Potassium (3.5-5.1) mmol/L Creatinine (0.66-1.25) mg/dL Glucose (74-99) mg/dL POC Glucose (mg/dL) 114 H (75-99) mg/dL Calcium (8.4-10.2) mg/dL Total Protein (6.3-8.2) g/dL Albumin (3.5-5.0) g/dL Assessment and Plan (1) C. difficile colitis Narrative/Plan: 20-year-old male patient who presented to the emergency department with co mplaints of weakness and significant diarrhea. Patient's been having diarrhea off and on for the last month starting Tuesday he had significant amounts of loose stool, uncontrollable, greater than 10 per day. He had dry heaves yesterday, denies abdominal pain. He has had recent dental work and was on antibiotics, last procedure was 2 weeks ago. Stool was tested for C. diff and was found to be positive. He has been started on vancomycin and Flagyl. He recently underwent a colonoscopy on 11/21/2020 for rectal bleeding, findings included radiation proctitis with low seen and treated with argon plasma, transverse colon polyp, and evidence of sigmoid colectomy with anastomosis. Patient states he underwent a sigmoid colectomy 12-15 years ago for multiple polyps. He has denied any current rectal bleeding or blood in his stool. Due to the amount of diarrhea he has been having, a fecal management system was placed. He had 400 mL's stool, light brown in color with no evidence of blood. On admission he was noted to have leukocytosis and hypokalemia for which he has been treated. Current Visit: Yes Status: Acute Code(s): A04.72 - ENTEROCOLITIS D/T CLOSTRIDIUM DIFFICILE, NOT SPCF RECUR SNOMED Code(s): 272608104 (2) Diarrhea Current Visit: Yes Status: Acute Code(s): R19.7 - DIARRHEA, UNSPECIFIED SNOMED Code(s): 25030531 (3) Elevated troponin Current Visit: Yes Status: Acute Code(s): R77.8 - OTHER SPECIFIED ABNORMALITIES OF PLASMA PROTEINS SNOMED Code(s): 182198407 Plan: 1. Pured diet (patient has no teeth) 2. Continue vancomycin and Flagyl 3. Continue Questran, avoid antidiarrheals 4. No plans on endoscopic evaluation 5. Will add probiotic 6. Continue medical management per primary medicine team and cardiology Thank you for this consultation, we will continue to follow Dr. Knott I agree with the dictator's note, documented as a scribe by Yvonne Olivier.
--- NOTE | 2021-02-04 16:29 | P.PN ---
Subjective Progress Note Date: 02/04/21 This is an 80-year-old gentleman with past medical history of diabetes mellitus, gastroesophageal reflux disease, hypothyroidism, prostate cancer with radiation treatment, recent colonoscopy, COPD, chronic respiratory failure and multiple other medical issues presented to the ER with complaints of ongoing, uncontrollable watery diarrhea times weeks with worsening weakness, abdominal pain. Denies chest pain, palpitations or increasing shortness of breath. Tested positive for C. difficile colitis . Flagyl initiated.Afebrile, WBC 12.3. Hemoglobin 11.7, platelets 233, INR 1.4, sodium 132, potassium 2.9 on admission, up to 3.1 post supplementation, renal function stable, blood sugars 126, UA negative for acute UTI, specific gravity 1.038, 3+ ketones, 1+ protein. Maintaining O2 sats in the high 90s on 2 L nasal cannula. Chest x-ray reporting no acute pulmonary process. CT of abdomen and pelvis reporting mild fatty infiltration of the liver, simple-appearing superior pole left renal cysts, ankylosing spondylitis. EKG reported normal sinus rhythm, ST- T wave abnormalities, inferior and anterior lateral, right axis deviation. Troponin 0.496, 0.489, 0.478. Maintained on heparin drip. 02/04/2021 good diet intake with no nausea or vomiting. Maintained on oral vancomycin, IV Flagyl and Questran with improvement in diarrhea. potassium 3.1, magnesium 1.7. Afebrile, normal WBC. Denies chest pain, palpitations or increased shortness of breath.Echo pending. Objective - Vital Signs Vital signs: Vital Signs Temp 97.5 F L 02/04/21 03:00 Pulse 60 02/04/21 03:00 Resp 18 02/04/21 08:00 BP 142/75 02/04/21 03:00 Pulse Ox 97 02/04/21 03:00 Intake & Output 02/03/21 02/04/21 02/04/21 18:59 06:59 18:59 Intake Total 256.305 540 Output Total 150 Balance 256.305 -150 540 Weight 129.5 kg Intake: Intake, IV Titration 136.305 Amount Heparin Sod,Pork in 0.45% 136.305 NaCl 25,000 unit In 0.45 % NaCl 1 250ml.bag @ 10. 91 UNITS/KG/HR 9.996 mls/ hr IV .Q24H [facility] Rx#: [id number] Oral 120 540 Output: Urine 150 Other: Voiding Method Diaper Diaper Diaper Incontinent # Voids 1 1 - Exam GENERAL: Alert and oriented 3, sitting up in bed, no acute distress ,[place]. HEENT: Head is atraumatic, normocephalic. Pupils are equal, round, and reactive to light. Sclerae anicteric. Conjunctivae are clear. Without teeth.Mucus membranes of the mouth are moist. Neck is supple. RESPIRATORY: Clear to auscultation. No wheezes, rales, or rhonchi. No use of ac cessory muscles. Patient maintaining oxygen saturation greater than 92%. No chest wall tenderness is noted on palpation or with deep breathing. CARDIOVASCULAR: Regular rate and rhythm. S1 and S2 noted. No systolic or diastolic murmur auscultated. No JVD noted. No S3 or S4 noted. GASTROINTESTINAL: No distention noted. Abdomen soft and round. Normal active bowel sounds auscultated x 4 quadrants. No pain or tenderness noted upon palpation.FMS present with light brown diarrhea. INTEGUMENTARY: No cyanosis. No jaundice. No rashes noted. Coccyx reddened, blanchable. EXTREMITIES: 2+ peripheral pulses. No evidence of peripheral edema. No calf tenderness noted. NEUROLOGIC: Cranial nerves II-XII intact. - Labs CBC & Chem 7: 02/04/21 06:39 02/04/21 06:00 Labs: Abnormal Lab Results - Last 24 Hours (Table) 02/03/21 02/04/21 02/04/21 Range/Units 15:53 06:00 06:33 RBC (4.30-5.90) m/uL Hgb (13.0-17.5) gm/dL Hct (39.0-53.0) % Lymphocytes # (1.0-4.8) k/uL Sodium 130 L (137-145) mmol/L Potassium 3.0 L 3.1 L (3.5-5.1) mmol/L Creatinine 0.45 L (0.66-1.25) mg/dL Glucose 108 H (74-99) mg/dL POC Glucose (mg/dL) 114 H (75-99) mg/dL Calcium 8.3 L (8.4-10.2) mg/dL Total Protein 5.4 L (6.3-8.2) g/dL Albumin 2.9 L (3.5-5.0) g/dL 02/04/21 02/04/21 Range/Units 06:39 11:32 RBC 4.03 L (4.30-5.90) m/uL Hgb 11.5 L (13.0-17.5) gm/dL Hct 35.1 L (39.0-53.0) % Lymphocytes # 0.5 L (1.0-4.8) k/uL Sodium (137-145) mmol/L Potassium (3.5-5.1) mmol/L Creatinine (0.66-1.25) mg/dL Glucose (74-99) mg/dL POC Glucose (mg/dL) 121 H (75-99) mg/dL Calcium (8.4-10.2) mg/dL Total Protein (6.3-8.2) g/dL Albumin (3.5-5.0) g/dL Assessment and Plan Assessment: Acute C. difficile colitis, no prior history of, recently completed dental procedures and finished antibiotic treatment. 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 Hypothyroidism Gastroesophageal reflux disease Diabetes mellitus Hypertension Anxiety Depression Chronic pain OA RA History of Prostate cancer with radiation treatment Plan: Continue on current medication regime ,monitoring and symptomatic treatment. Replace potassium and magnesium as per replacement protocol as previously ordered. Repeat potassium level later this afternoon. Continue on Flagyl, oral vancomycin,Questran, Lactinex and PPI. The impression and plan of care has been dictated as directed. : I performed a history and examination of this patient, discussed the same with the dictator. I agree with the dictator's note ,documented as a scribe. Any additional findings or plans will be noted.
[2021-02-04] MEDS: ATORVASTATIN 10 MG TAB PO SCH (19:59)
[2021-02-04] MEDS: LATANOPROST 0.005% OPHTH DROPS 2.5 ML BTL BOTH EYES SCH (19:59)
[2021-02-04] MEDS: BACLOFEN 10 MG TAB PO SCH (19:59)
[2021-02-04 20:17] LABS: Glucose,Whole Blood 118 mg/dL (75-99)
[2021-02-05] MEDS: VANCOMYCIN 125 MG CAPSULE PO SCH ×3 (06:35→18:25)
[2021-02-05] MEDS: LEVOTHYROXINE 88 MCG TAB PO SCH (06:35)
[2021-02-05 06:39] LABS: Glucose,Whole Blood 127 mg/dL (75-99)
[2021-02-05] MEDS: PANTOPRAZOLE 40 MG/10 ML VIAL IVP SCH (10:14)
[2021-02-05] MEDS: ASPIRIN 81 MG PO SCH (10:14)
[2021-02-05] MEDS: LACTOBACILLUS ACIDOPH & BULGAR 1 EACH PACKET PO SCH (10:14)
[2021-02-05] MEDS: CITALOPRAM HYDROBROMIDE 20 MG TAB PO SCH (10:15)
[2021-02-05] MEDS: METOPROLOL TARTRATE 50 MG TAB PO SCH ×2 (10:15→21:26)
[2021-02-05] MEDS: metFORMIN 500 MG TAB PO SCH (10:15)
[2021-02-05] MEDS: metroNIDAZOLE-NS PMX 500 MG in SALINE 1 100ML.BAG IVPB SCH (10:21)
[2021-02-05] MEDS: buPROPion XL 300 MG TAB.ER.24H PO SCH (10:22)
[2021-02-05] MEDS: DORZOLAMIDE-TIMOLOL 2.23%/0.68 10ML BTL BOTH EYES SCH ×3 (10:22→21:28)
[2021-02-05 10:38] LABS: African American GFR (CKD) >90 (>60 ml/min/1.73 sqM); Anion Gap 6 mmol/L; Blood Urea Nitrogen 8 mg/dL (9-20); Calcium 8.5 mg/dL (8.4-10.2); Carbon Dioxide 25 mmol/L (22-30); Chloride 104 mmol/L (98-107); Glucose 120 mg/dL (74-99); Non-African American GFR(CKD) >90 (>60 ml/min/1.73 sqM); Sodium 135 mmol/L (137-145)
--- NOTE | 2021-02-05 10:50 | P.PN ---
Subjective Progress Note Date: 02/05/21 Principal diagnosis: Diarrhea, C. Difficile colitis Patient is seen and examined lying in bed. Physical therapy has been working with him. He has had a decrease in the amount of stool he is having, he has a fecal management system in place with light brown stool, no blood noted. He denies any nausea or vomiting. He states he has some mild abdominal discomfort, but he has an appetite and is eating well. Objective - Vital Signs Vital signs: Vital Signs Temp 97.5 F L 02/05/21 04:00 Pulse 52 L 02/05/21 04:00 Resp 18 02/05/21 04:00 BP 136/65 02/05/21 04:00 Pulse Ox 97 02/05/21 04:00 Intake & Output 02/04/21 02/05/21 02/05/21 18:59 06:59 18:59 Intake Total 820 Balance 820 Intake: Oral 820 Other: Voiding Method Diaper Diaper Incontinent Incontinent # Voids 1 - Exam General appearance: The patient is alert, oriented, appears in no acute distress. HET: Head is normocephalic and atraumatic. Conjunctiva pink. Sclera anicteric. Neck: Supple without lymphadenopathy. Abdomen: Soft, nontender, nondistended with bowel sounds. No guarding or rigidity. Fecal management system in place. Extremities: Normal skin color and turgor. No pedal edema Skin: No rashes, no jaundice Neurological: No focal deficits. Alert and oriented 3. - Labs CBC & Chem 7: 02/04/21 06:39 02/05/21 08:51 Labs: Abnormal Lab Results - Last 24 Hours (Table) 02/04/21 02/04/21 02/04/21 Range/Units 11:32 16:44 20:06 Sodium (137-145) mmol/L Potassium 3.2 L (3.5-5.1) mmol/L BUN (9-20) mg/dL Creatinine (0.66-1.25) mg/dL Glucose (74-99) mg/dL POC Glucose (mg/dL) 121 H 118 H (75-99) mg/dL 02/05/21 02/05/21 Range/Units 06:38 08:51 Sodium 135 L (137-145) mmol/L Potassium (3.5-5.1) mmol/L BUN 8 L (9-20) mg/dL Creatinine 0.42 L (0.66-1.25) mg/dL Glucose 120 H (74-99) mg/dL POC Glucose (mg/dL) 127 H (75-99) mg/dL Assessment and Plan (1) C. difficile colitis Narrative/Plan: 20-year-old male patient who presented to the emergency department with complaints of weakness and significant diarrhea. Patient's been having diarrhea off and on for the last month starting Tuesday he had significant amounts of loose stool, uncontrollable, greater than 10 per day. He had dry heaves yesterday, denies abdominal pain. He has had recent dental work and was on antibiotics, last procedure was 2 weeks ago. Stool was tested for C. diff and was found to be positive. He has been started on vancomycin and Flagyl. He recently underwent a colonoscopy on 11/21/2020 for rectal bleeding, findings included radiation proctitis with low seen and treated with argon plasma, transverse colon polyp, and evidence of sigmoid colectomy with anastomosis. Patient states he underwent a sigmoid colectomy 12-15 years ago for multiple polyps. He has denied any current rectal bleeding or blood in his stool. Due to the amount of diarrhea he has been having, a fecal management system was placed. He had 400 mL's stool, light brown in color with no evidence of blood. On admission he was noted to have leukocytosis and hypokalemia for which he has been treated. Current Visit: Yes Status: Acute Code(s): A04.72 - ENTEROCOLITIS D/T CLOSTRIDIUM DIFFICILE, NOT SPCF RECUR SNOMED Code(s): 658076786 (2) Diarrhea Current Visit: Yes Status: Acute Code(s): R19.7 - DIARRHEA, UNSPECIFIED SNOMED Code(s): 64799449 (3) Elevated troponin Current Visit: Yes Status: Acute Code(s): R77.8 - OTHER SPECIFIED ABNORMALITIES OF PLASMA PROTEINS SNOMED Code(s): 634590502 Plan: 1. Pured diet (patient has no teeth) 2. Continue vancomycin and Flagyl 3. Continue Questran, avoid antidiarrheals 4. No plans on endoscopic evaluation 5. Will add probiotic 6. Continue medical management per primary medicine team and cardiology Thank you for this consultation, patient may be discharged home when deemed medically stable. We will sign off at this time. Dr. Knott I agree with the dictator's note, documented as a scribe by Yvonne Olivier.
[2021-02-05 11:45] LABS: Glucose,Whole Blood 174 mg/dL (75-99)
[2021-02-05] MEDS: CHOLESTYRAMINE (WITH SUGAR) 4 GM PACKET PO SCH ×3 (12:28→21:27)
--- NOTE | 2021-02-05 13:23 | P.PN ---
Subjective Progress Note Date: 02/05/21 This is an 80-year-old gentleman with past medical history of diabetes mellitus, gastroesophageal reflux disease, hypothyroidism, prostate cancer with radiation treatment, recent colonoscopy, COPD, chronic respiratory failure and multiple other medical issues presented to the ER with complaints of ongoing, uncontrollable watery diarrhea times weeks with worsening weakness, abdominal pain. Denies chest pain, palpitations or increasing shortness of breath. Tested positive for C. difficile colitis . Flagyl initiated.Afebrile, WBC 12.3. Hemoglobin 11.7, platelets 233, INR 1.4, sodium 132, potassium 2.9 on admission, up to 3.1 post supplementation, renal function stable, blood sugars 126, UA negative for acute UTI, specific gravity 1.038, 3+ ketones, 1+ protein. Maintaining O2 sats in the high 90s on 2 L nasal cannula. Chest x-ray reporting no acute pulmonary process. CT of abdomen and pelvis reporting mild fatty infiltration of the liver, simple-appearing superior pole left renal cysts, ankylosing spondylitis. EKG reported normal sinus rhythm, ST- T wave abnormalities, inferior and anterior lateral, right axis deviation. Troponin 0.496, 0.489, 0.478. Maintained on heparin drip. 02/04/2021 good diet intake with no nausea or vomiting. Maintained on oral vancomycin, IV Flagyl and Questran with improvement in diarrhea. potassium 3.1, magnesium 1.7. Afebrile, normal WBC. Denies chest pain, palpitations or increased shortness of breath.Echo pending. 02/05/2021 Continues on oral vancomycin, IV Flagyl and Questran. FMS remains in place, reports increased diarrhea though appears to have decreased. Remains light brown in color. Complains of mid abdominal discomfort. Good diet intake, denies nausea vomiting. Afebrile, labs pending. Objective - Vital Signs Vital signs: Vital Signs Temp 97.5 F L 02/05/21 04:00 Pulse 52 L 02/05/21 04:00 Resp 18 02/05/21 04:00 BP 136/65 02/05/21 04:00 Pulse Ox 97 02/05/21 04:00 Intake & Output 02/04/21 02/05/21 02/05/21 18:59 06:59 18:59 Intake Total 820 Balance 820 Intake: Oral 820 Other: Voiding Method Diaper Diaper Incontinent Incontinent # Voids 1 - Exam GENERAL: Alert and oriented 3,[place], sitting up in bed, no acute distress. HEENT: Head is atraumatic, normocephalic. Pupils are equal, round, and reactive to light. Sclerae anicteric. Conjunctivae are clear. Without teeth.oral mucosa moist. Neck is supple. RESPIRATORY: Clear to auscultation. No wheezes, rales, or rhonchi. No use of accessory muscles. Patient maintaining oxygen saturation greater than 92%. No chest wall tenderness is noted on palpation or with deep breathing. CARDIOVASCULAR: Regular rate and rhythm. S1 and S2 noted. No systolic or diastolic murmur auscultated. No JVD noted. No S3 or S4 noted. GASTROINTESTINAL: No distention noted. Abdomen soft and round. Normal active bowel sounds auscultated x 4 quadrants. No pain or tenderness noted upon palpation.FMS present with light brown diarrhea. INTEGUMENTARY:No rashes noted. Coccyx reddened, blanchable. EXTREMITIES: 2+ peripheral pulses. No evidence of peripheral edema. No calf tenderness noted. NEUROLOGIC: Cranial nerves II-XII intact. - Labs CBC & Chem 7: 02/04/21 06:39 02/05/21 08:51 Labs: Abnormal Lab Results - Last 24 Hours (Table) 02/04/21 02/04/21 02/04/21 Range/Units 11:32 16:44 20:06 Potassium 3.2 L (3.5-5.1) mmol/L POC Glucose (mg/dL) 121 H 118 H (75-99) mg/dL 02/05/21 Range/Units 06:38 Potassium (3.5-5.1) mmol/L POC Glucose (mg/dL) 127 H (75-99) mg/dL Assessment and Plan Assessment: Acute C. difficile colitis, no prior history of, recently completed dental procedures and finished antibiotic treatment. Reports diarrhea times weeks. 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 Hypothyroidism Gastroesophageal reflux disease Diabetes mellitus Hypertension Anxiety Depression Chronic pain OA RA History of Prostate cancer with radiation treatment Plan: Continue on current medication regime ,monitoring and symptomatic t reatment.Maintain Flagyl, oral vancomycin,Questran, Lactinex and PPI. Labs pending. PT to reevaluate. Discharge planning in progress for tomorrow to possibly [facility]. The impression and plan of care has been dictated as directed. : I performed a history and examination of this patient, discussed the same with the dictator. I agree with the dictator's note ,documented as a scribe. Any additional findings or plans will be noted.
--- NOTE | 2021-02-05 14:18 | P.PN ---
Subjective This is a 80 year old male with a past medical history significant for COPD, home oxygen, hypertension, hyperlipidemia, hypothyroidism, and osteoarthritis. Patient does not follow with a veterinary dentist. We have been asked to see the patient in consultation for elevated troponin. Patient gives history of 1 month of diarrhea. He states over the last 2 days that diarrhea has gotten so bad he has been unable to control it which prompted him to come to the emergency room. The patient was found to be positive for C. diff. EKG reveals sinus mechanism with diffuse T-wave inversions, similar to previous EKG in 2019. Most recent echocardiogram obtained in 2016 revealed ejection fraction 55-60%. Mild mitral regurgitation. Mild tricuspid regurgitation. Mild aortic stenosis. Mild aortic regurgitation. Troponin 0.496. 0.489. 0.478. 02/05/2021 Patient examined this morning at the bedside. Patient denies chest pain or p ressure. He denies shortness of breath. He continues to have diarrhea but it is improved. Echocardiogram revealed EF 50-55%, mild aortic stenosis peak/mean gradient of 60 mmHg/8 mmHg. Blood pressure 136/65, heart rate 52, afebrile, maintaining oxygen saturations on 2 L nasal cannula T reviewed sodium 135, potassium 4.0, BUN 8, serum creatinine 0.4 PHYSICAL EXAM: VITAL SIGNS: Reviewed. GENERAL: Well-developed in no acute distress. HEENT: Head is normocephalicNeck supple. No JVD LUNGS: Respirations even and unlabored. Lungs essentially clear to auscultation bilaterally. HEART: Regular rate and rhythm. S1 and S2 heard. ABDOMEN: Soft. Nondistended. Nontender. EXTREMITIES: Normal range of motion. No clubbing or cyanosis. Peripheral pulses intact. No lower extremity edema. Patient does have small scabs to bilateral lower extremities. NEUROLOGIC: Awake and alert. Oriented x 3. ASSESSMENT: Diarrhea 1 month Acute clostridium difficile Abnormal troponin, likely secondary to acute infectious process, no evidence of ACS Hypokalemia- improving Hypertension Hyperlipidemia COPD with home oxygen use Hypothyroidism Osteoarthritis PLAN: 2-D echo reviewed Continue metoprolol and Lipitor Hold hydrochlorothiazide secondary to diarrhea, until more improvement From cardiology perspective, we will follow the patient as needed. Please reconsult if any questions or concerns Nurse practitioner note has been reviewed by physician. Signing provider agrees with the documented findings, assessment, and plan of care. Objective - Vital Signs Vital signs: Vital Signs Temp 97.5 F L 02/05/21 04:00 Pulse 52 L 02/05/21 04:00 Resp 18 02/05/21 04:00 BP 136/65 02/05/21 04:00 Pulse Ox 97 02/05/21 04:00 Intake & Output 02/04/21 02/05/21 02/05/21 18:59 06:59 18:59 Intake Total 820 240 Balance 820 240 Intake: Oral 820 240 Other: Voiding Method Diaper Diaper Incontinent Incontinent # Voids 1 - Labs CBC & Chem 7: 02/04/21 06:39 02/05/21 08:51 Labs: Abnormal Lab Results - Last 24 Hours (Table) 02/04/21 02/04/21 02/05/21 Range/Units 16:44 20:06 06:38 Sodium (137-145) mmol/L Potassium 3.2 L (3.5-5.1) mmol/L BUN (9-20) mg/dL Creatinine (0.66-1.25) mg/dL Glucose (74-99) mg/dL POC Glucose (mg/dL) 118 H 127 H (75-99) mg/dL 02/05/21 02/05/21 Range/Units 08:51 11:40 Sodium 135 L (137-145) mmol/L Potassium (3.5-5.1) mmol/L BUN 8 L (9-20) mg/dL Creatinine 0.42 L (0.66-1.25) mg/dL Glucose 120 H (74-99) mg/dL POC Glucose (mg/dL) 174 H (75-99) mg/dL
[2021-02-05 16:56] LABS: Glucose,Whole Blood 117 mg/dL (75-99)
[2021-02-05] MEDS: metroNIDAZOLE 500 MG TAB PO SCH (18:25)
[2021-02-05 20:11] LABS: Glucose,Whole Blood 123 mg/dL (75-99)
[2021-02-05] MEDS: ATORVASTATIN 10 MG TAB PO SCH (21:26)
[2021-02-05] MEDS: BACLOFEN 10 MG TAB PO SCH (21:26)
[2021-02-05] MEDS: LATANOPROST 0.005% OPHTH DROPS 2.5 ML BTL BOTH EYES SCH (21:26)
[2021-02-05] MEDS ORDERED: MAG HYDROX/AL HYDROX/SIMETH 30 ML CUP PO PRN (21:47)
[2021-02-06] MEDS: VANCOMYCIN 125 MG CAPSULE PO SCH ×5 (00:30→23:45)
[2021-02-06] MEDS: metroNIDAZOLE 500 MG TAB PO SCH ×3 (03:34→17:26)
[2021-02-06 06:04] LABS: Glucose,Whole Blood 114 mg/dL (75-99)
[2021-02-06] MEDS: LEVOTHYROXINE 88 MCG TAB PO SCH (06:08)
[2021-02-06] MEDS: PANTOPRAZOLE 40 MG TABLET PO SCH (06:09)
[2021-02-06] MEDS: ASPIRIN 81 MG PO SCH (08:39)
[2021-02-06] MEDS: CITALOPRAM HYDROBROMIDE 20 MG TAB PO SCH (08:39)
[2021-02-06] MEDS: LACTOBACILLUS ACIDOPH & BULGAR 1 EACH PACKET PO SCH (08:39)
[2021-02-06] MEDS: METOPROLOL TARTRATE 50 MG TAB PO SCH ×2 (08:39→21:22)
[2021-02-06] MEDS: CHOLESTYRAMINE (WITH SUGAR) 4 GM PACKET PO SCH ×3 (08:39→23:41)
[2021-02-06] MEDS: metFORMIN 500 MG TAB PO SCH (08:40)
[2021-02-06] MEDS: DORZOLAMIDE-TIMOLOL 2.23%/0.68 10ML BTL BOTH EYES SCH ×3 (08:40→21:23)
[2021-02-06] MEDS: buPROPion XL 300 MG TAB.ER.24H PO SCH (08:40)
[2021-02-06 11:57] LABS: Glucose,Whole Blood 144 mg/dL (75-99)
--- NOTE | 2021-02-06 12:59 | P.PN ---
Subjective This is a pleasant 80 years old male with past medical history of diabetes mellitus, hypertension, osteoarthritis, rheumatoid arthritis, hypothyroidism, ankylosing spondylitis. Also has history of anxiety and depression. His patient of Dr. Mayfield. He came to the hospital on 02/02 for diarrhea on and off for the last month associated with generalized weakness. Patient is a known case of chronic hypoxic respiratory failure and a 3 L oxygen via nasal cannula. Also he is on morphine pump for chronic back pain. Patient has rectal tube still loose stool. He had some mild right umbilical abdominal pain this morning which is resolved now. As you vomiting and he tolerated soft diet because he has no denture. No chest pain but he has bilateral leg pain. Animation Artist has been consulted for troponin leak, and the recommended no ACS and to continue with conservative management Patient is awake and alert, he complained from mild. Umbilical pain which is resolved today. Patient still has rectal tube was still loose stool in it. WBC was normal on at 9.7K, BMP was unremarkable and glucose control. Liver enzymes elevated. CT of the abdomen and pelvis with contrast: Mild fatty liver. Loops of bowel within the abdomen and pelvis are normal. C. diff this was positive on 02/02. Objective - Vital Signs Vital signs: Vital Signs Temp 98.2 F 02/06/21 12:25 Pulse 50 L 02/06/21 12:25 Resp 16 02/06/21 12:25 BP 145/62 02/06/21 12:25 Pulse Ox 96 02/06/21 12:25 Intake & Output 02/05/21 02/06/21 02/06/21 18:59 06:59 18:59 Intake Total 850 118 Balance 850 118 Weight 131 kg Intake: Oral 850 118 Other: Voiding Method Diaper Diaper Diaper Incontinent Incontinent Incontinent # Voids 2 - Exam GENERAL: The patient is alert and oriented x3, not in any acute distress. Well developed, well nourished. HEENT: Pupils are round and equally reacting to light. EOMI. No scleral icterus. No conjunctival pallor. Normocephalic, atraumatic. No pharyngeal erythema. No thyromegaly. CARDIOVASCULAR: S1 and S2 present. No murmurs, rubs, or gallops. PULMONARY: Chest is clear to auscultation, no wheezing or crackles. -ABDOMEN: Soft, nontender, nondistended, normoactive bowel sounds. No palpable organomegaly. Rectal tube is in place with list MUSCULOSKELETAL: No joint swelling or deformity. EXTREMITIES: No cyanosis, clubbing, or pedal edema. NEUROLOGICAL: Gross neurological examination did not reveal any focal deficits. SKIN: No rashes. no petechiae. - Labs CBC & Chem 7: 02/04/21 06:39 02/05/21 08:51 Labs: Abnormal Lab Results - Last 24 Hours (Table) 02/05/21 02/05/21 02/06/21 Range/Units 16:53 20:09 06:03 POC Glucose (mg/dL) 117 H 123 H 114 H (75-99) mg/dL 02/06/21 Range/Units 11:50 POC Glucose (mg/dL) 144 H (75-99) mg/dL Assessment and Plan Assessment: Acute C. diff colitis generalized weakness and deconditioning due to his infection Troponin leak secondary to infection. Animation Artist on the case recommended conservative management. Bilateral leg pain Chronic hypoxic respiratory failure Chronic back pain on morphine pump Diabetes mellitus Hypertension History of osteoarthritis History of rheumatoid arthritis hypothyroidism Plan: This is a pleasant 80 years old male with C. diff colitis. Patient has rectal tube and still diarrhea. Continue with oral vancomycin and IV Flagyl. GI and cardiology team on the case. Check KUB We will add subcutaneous heparin for DVT prophylaxis first dose now and check ultrasound of the pectoral of DVT Labs and medication were reviewed.. Continue same treatment. Continue with symptomatic treatment. Resume home medication. Monitor lytes and vitals. DVT and GI prophylaxis. Further recommendationsas per clinical course of the pat ient DVT prophylaxis: Subcutaneous heparin GI Prophylaxis: Pepcid PT/OT: Pending Prognosis is guarded
--- NOTE | 2021-02-06 13:41 | XR ---
KUB HISTORY: Pain Frontal KUB submitted on [address] 02/02/2021 Postop changes are noted to the lumbar spine. There is a generator in the left gluteal region, cathet er is coursing towards the midline. There is no evident bowel obstruction or pneumoperitoneum. Sacroi liac joints show ankylosis. There are changes of ankylosing spondylitis the spine. No evident bowel o bstruction or pneumoperitoneum. Some probable vascular calcifications noted incidentally. IMPRESSION: Ankylosing spondylitis. Postprocedural changes.
--- NOTE | 2021-02-06 15:40 | US ---
EXAMINATION TYPE: US venous doppler duplex LE DATE OF EXAM: 02/06/2021 12:58 PM COMPARISON: NONE CLINICAL HISTORY: Rule out DVT. Bilateral calf cramping; patient has C difficile SIDE PERFORMED: Bilateral TECHNIQUE: The lower extremity deep venous system is examined utilizing real time linear array sonog wong with graded compression, doppler sonography and color-flow sonography. VESSELS IMAGED: Common Femoral Vein Deep Femoral Vein Greater Saphenous Vein * Femoral Vein Popliteal Vein Small Saphenous Vein * Proximal Calf Veins (* superficial vessels) Right Leg: Negative for DVT Left Leg: Negative for DVT Grayscale, color doppler, spectral doppler imaging performed of the deep veins of the lower extremiti es. There is normal flow, compressibility, vascular waveforms. IMPRESSION: No sonographic evidence for deep vein thrombosis of the bilateral lower extremities.
[2021-02-06] MEDS: HEPARIN SODIUM,PORCINE/PF 5,000 UNIT/0.5 ML SYRINGE SQ SCH ×2 (16:13→21:22)
[2021-02-06 16:57] LABS: Glucose,Whole Blood 118 mg/dL (75-99)
[2021-02-06 17:09] LABS: Glucose,Whole Blood 106 mg/dL (75-99)
[2021-02-06 20:49] LABS: Glucose,Whole Blood 149 mg/dL (75-99)
[2021-02-06] MEDS: LATANOPROST 0.005% OPHTH DROPS 2.5 ML BTL BOTH EYES SCH (21:22)
[2021-02-06] MEDS: BACLOFEN 10 MG TAB PO SCH (21:22)
[2021-02-06] MEDS: ATORVASTATIN 10 MG TAB PO SCH (21:22)
[2021-02-06] MEDS: metroNIDAZOLE-NS PMX 500 MG in SALINE 1 100ML.BAG IVPB SCH (23:43)
[2021-02-07] MEDS: VANCOMYCIN 125 MG CAPSULE PO SCH ×3 (06:12→17:06)
[2021-02-07 06:55] LABS: Glucose,Whole Blood 163 mg/dL (75-99)
[2021-02-07] MEDS: CITALOPRAM HYDROBROMIDE 20 MG TAB PO SCH (09:07)
[2021-02-07] MEDS: ASPIRIN 81 MG PO SCH (09:07)
[2021-02-07] MEDS: metroNIDAZOLE-NS PMX 500 MG in SALINE 1 100ML.BAG IVPB SCH ×2 (09:08→17:06)
[2021-02-07] MEDS: LEVOTHYROXINE 88 MCG TAB PO SCH (09:08)
[2021-02-07] MEDS: buPROPion XL 300 MG TAB.ER.24H PO SCH (09:08)
[2021-02-07] MEDS: METOPROLOL TARTRATE 50 MG TAB PO SCH ×2 (09:08→22:18)
[2021-02-07] MEDS: LACTOBACILLUS ACIDOPH & BULGAR 1 EACH PACKET PO SCH (09:08)
[2021-02-07] MEDS: metFORMIN 500 MG TAB PO SCH (09:08)
[2021-02-07] MEDS: DORZOLAMIDE-TIMOLOL 2.23%/0.68 10ML BTL BOTH EYES SCH ×2 (09:08→17:07)
[2021-02-07] MEDS: HEPARIN SODIUM,PORCINE/PF 5,000 UNIT/0.5 ML SYRINGE SQ SCH ×2 (09:08→22:18)
[2021-02-07] MEDS: PANTOPRAZOLE 40 MG TABLET PO SCH (09:08)
[2021-02-07 09:16] LABS: African American GFR (CKD) 109.3 (60.0-200.0); Albumin 3.2 g/dL (3.80-4.90); Albumin/Globulin Ratio 1.6 (1.60-3.17); Anion Gap 8.8 mmol/L (4.00-12.00); Calcium 8.3 mg/dL (8.7-10.3); Carbon Dioxide 25.2 mmol/L (21.6-31.8); Magnesium 1.5 mg/dL (1.5-2.4); Non-African American GFR(CKD) 94.3 (60.0-200.0); Potassium 4.1 mmol/L (3.5-5.5); Total Bilirubin 0.2 mg/dL (0.3-1.2); Total Protein 5.2 g/dL (6.2-8.2)
[2021-02-07 09:21] LABS: Basophils # (A) 0.04 X 10*3/uL (0.00-0.10); Basophils % (A) 0.5 %; Eosinophils # (A) 0.44 X 10*3/uL (0.04-0.35); Eosinophils % (A) 5.5 %; Lymphocytes # (A) 1.22 X 10*3/uL (0.90-5.00); Lymphocytes % (A) 15.3 %; MCH 27.2 pg (27.0-32.0); MCHC 32.4 g/dL (32.0-37.0); Mean Platelet Volume 9.5 fL (9.5-12.2); Monocytes # (A) 1.33 X 10*3/uL (0.20-1.00); Monocytes % (A) 16.7 %; Neutrophils # (A) 4.71 X 10*3/uL (1.80-7.70); Neutrophils % (A) 59.2 %; Platelet Count 260 X 10*3/uL (140-440); RBC 4.05 X 10*6/uL (4.40-5.60); RDW 15.2 % (11.5-14.5); WBC 7.96 X 10*3/uL (4.50-10.00)
[2021-02-07 11:20] VITALS: BMI 40.4
[2021-02-07 11:30] LABS: Glucose,Whole Blood 115 mg/dL (75-99)
[2021-02-07] MEDS ORDERED: MAGNESIUM SULFATE-D5W PMX 1 GM in DEXTROSE/WATER 1 100ML.BAG IVPB ONE (13:52)
--- NOTE | 2021-02-07 13:54 | P.PN ---
Subjective This is a pleasant 80 years old male with past medical history of diabetes mellitus, hypertension, osteoarthritis, rheumatoid arthritis, hypothyroidism, ankylosing spondylitis. Also has history of anxiety and depression. His patient of Dr. Mayfield. He came to the hospital on 02/02 for diarrhea on and off for the last month associated with generalized weakness. Patient is a known case of chronic hypoxic respiratory failure and a 3 L oxygen via nasal cannula. Also he is on morphine pump for chronic back pain. Patient has rectal tube still loose stool. He had some mild right umbilical abdominal pain this morning which is resolved now. As you vomiting and he tolerated soft diet because he has no denture. No chest pain but he has bilateral leg pain. Monitor Car Operator has been consulted for troponin leak, and the recommended no ACS and to continue with conservative management Patient is awake and alert, he complained from mild. Umbilical pain which is resolved today. Patient still has rectal tube was still loose stool in it. WBC was normal on at 9.7K, BMP was unremarkable and glucose control. Liver enzymes elevated. CT of the abdomen and pelvis with contrast: Mild fatty liver. Loops of bowel within the abdomen and pelvis are normal. C. diff this was positive on 02/02. 02/07/2021 Patient is awake and alert, no abdominal pain. Hemodynamically stable. Labs are stable. His rectal tube came off yesterday, but difficult his bowel movement as he is incontinent for his stool, however his stools to lose her patient and bedside nurse. Today he kept on IV Flagyl and decrease his oral vancomycin 250 mg 4 times a day. We will keep monitor the patient Objective - Vital Signs Vital signs: Vital Signs Temp 98.1 F 02/07/21 09:05 Pulse 50 L 02/07/21 09:05 Resp 18 02/07/21 09:05 BP 135/72 02/07/21 09:05 Pulse Ox 95 02/07/21 09:05 Intake & Output 02/06/21 02/07/21 02/07/21 18:59 06:59 18:59 Intake Total 358 Output Total 800 2200 Balance -442 -2200 Weight 128 kg 128 kg Intake: Oral 358 Output: Urine 500 1600 Stool 300 600 Other: Voiding Method Diaper Diaper Diaper Incontinent Incontinent Incontinent External Catheter External Catheter External Catheter - Exam GENERAL: The patient is alert and oriented x3, not in any acute distress. Well developed, well nourished. HEENT: Pupils are round and equally reacting to light. EOMI. No scleral icterus. No conjunctival pallor. Normocephalic, atraumatic. No pharyngeal erythema. No thyromegaly. CARDIOVASCULAR: S1 and S2 present. No murmurs, rubs, or gallops. PULMONARY: Chest is clear to auscultation, no wheezing or crackles. -ABDOMEN: Soft, nontender, nondistended, normoactive bowel sounds. No palpable organomegaly. Rectal tube is in place with list MUSCULOSKELETAL: No joint swelling or deformity. EXTREMITIES: No cyanosis, clubbing, or pedal edema. NEUROLOGICAL: Gross neurological examination did not reveal any focal deficits. SKIN: No rashes. no petechiae. - Labs CBC & Chem 7: 02/07/21 05:50 02/07/21 05:50 Labs: Abnormal Lab Results - Last 24 Hours (Table) 02/06/21 02/06/21 02/06/21 Range/Units 16:51 17:07 20:45 RBC (4.40-5.60) X 10*6/uL Hgb (13.0-17.0) g/dL Hct (39.6-50.0) % RDW (11.5-14.5) % Immature Gran # (0.00-0.04) X 10*3/uL Monocytes # (0.20-1.00) X 10*3/uL Eosinophils # (0.04-0.35) X 10*3/uL Glucose (70-110) mg/dL POC Glucose (mg/dL) 118 H 106 H 149 H (75-99) mg/dL Calcium (8.7-10.3) mg/dL Total Bilirubin (0.3-1.2) mg/dL Total Protein (6.2-8.2) g/dL Albumin (3.80-4.90) g/dL 02/07/21 02/07/21 02/07/21 Range/Units 05:50 05:50 06:53 RBC 4.05 L (4.40-5.60) X 10*6/uL Hgb 11.0 L (13.0-17.0) g/dL Hct 34.0 L (39.6-50.0) % RDW 15.2 H (11.5-14.5) % Immature Gran # 0.22 H (0.00-0.04) X 10*3/uL Monocytes # 1.33 H (0.20-1.00) X 10*3/uL Eosinophils # 0.44 H (0.04-0.35) X 10*3/uL Glucose 143 H (70-110) mg/dL POC Glucose (mg/dL) 163 H (75-99) mg/dL Calcium 8.3 L (8.7-10.3) mg/dL Total Bilirubin 0.2 L (0.3-1.2) mg/dL Total Protein 5.2 L (6.2-8.2) g/dL Albumin 3.20 L (3.80-4.90) g/dL 02/07/21 Range/Units 11:15 RBC (4.40-5.60) X 10*6/uL Hgb (13.0-17.0) g/dL Hct (39.6-50.0) % RDW (11.5-14.5) % Immature Gran # (0.00-0.04) X 10*3/uL Monocytes # (0.20-1.00) X 10*3/uL Eosinophils # (0.04-0.35) X 10*3/uL Glucose (70-110) mg/dL POC Glucose (mg/dL) 115 H (75-99) mg/dL Calcium (8.7-10.3) mg/dL Total Bilirubin (0.3-1.2) mg/dL Total Protein (6.2-8.2) g/dL Albumin (3.80-4.90) g/dL Assessment and Plan Assessment: Acute C. diff colitis generalized weakness and deconditioning due to his infection Troponin leak secondary to infection. Monitor Car Operator on the case recommended cons ervative management. Bilateral leg pain Chronic hypoxic respiratory failure Chronic back pain on morphine pump Diabetes mellitus Hypertension History of osteoarthritis History of rheumatoid arthritis hypothyroidism Plan: This is a pleasant 80 years old male with C. diff colitis. Patient has rectal tube and still diarrhea. Continue with oral vancomycin and IV Flagyl. GI and cardiology team on the case. We will add subcutaneous heparin for DVT prophylaxis first dose now and check ultrasound of the pectoral of DVT Labs and medication were reviewed.. Continue same treatment. Continue with symptomatic treatment. Resume home medication. Monitor lytes and vitals. DVT and GI prophylaxis. Further recommendationsas per clinical course of the patient DVT prophylaxis: Subcutaneous heparin GI Prophylaxis: Pepcid PT/OT: Pending Prognosis is guarded
[2021-02-07 16:45] LABS: Glucose,Whole Blood 117 mg/dL (75-99)
[2021-02-07] MEDS: CHOLESTYRAMINE (WITH SUGAR) 4 GM PACKET PO SCH ×2 (17:10→17:11)
[2021-02-07 21:30] LABS: Glucose,Whole Blood 140 mg/dL (75-99)
[2021-02-07] MEDS: LATANOPROST 0.005% OPHTH DROPS 2.5 ML BTL BOTH EYES SCH (22:18)
[2021-02-07] MEDS: ATORVASTATIN 10 MG TAB PO SCH (22:18)
[2021-02-07] MEDS: BACLOFEN 10 MG TAB PO SCH (22:18)
[2021-02-08] MEDS: VANCOMYCIN 125 MG CAPSULE PO SCH ×5 (00:09→23:59)
[2021-02-08] MEDS: metroNIDAZOLE-NS PMX 500 MG in SALINE 1 100ML.BAG IVPB SCH ×4 (00:10→23:59)
[2021-02-08] MEDS: DORZOLAMIDE-TIMOLOL 2.23%/0.68 10ML BTL BOTH EYES SCH ×3 (00:24→16:30)
[2021-02-08] MEDS: CHOLESTYRAMINE (WITH SUGAR) 4 GM PACKET PO SCH ×3 (01:47→13:44)
[2021-02-08] MEDS: LEVOTHYROXINE 88 MCG TAB PO SCH (06:35)
[2021-02-08 06:56] LABS: Glucose,Whole Blood 123 mg/dL (75-99)
[2021-02-08] MEDS: LACTOBACILLUS ACIDOPH & BULGAR 1 EACH PACKET PO SCH (08:25)
[2021-02-08] MEDS: PANTOPRAZOLE 40 MG TABLET PO SCH (08:25)
[2021-02-08] MEDS: HEPARIN SODIUM,PORCINE/PF 5,000 UNIT/0.5 ML SYRINGE SQ SCH ×2 (08:25→22:22)
[2021-02-08] MEDS: CITALOPRAM HYDROBROMIDE 20 MG TAB PO SCH (08:25)
[2021-02-08] MEDS: metFORMIN 500 MG TAB PO SCH (08:25)
[2021-02-08] MEDS: ASPIRIN 81 MG PO SCH (08:25)
[2021-02-08] MEDS: buPROPion XL 300 MG TAB.ER.24H PO SCH (08:25)
[2021-02-08] MEDS: METOPROLOL TARTRATE 50 MG TAB PO SCH ×2 (08:26→22:22)
--- NOTE | 2021-02-08 11:28 | P.PN ---
Subjective This is a pleasant 80 years old male with past medical history of diabetes mellitus, hypertension, osteoarthritis, rheumatoid arthritis, hypothyroidism, ankylosing spondylitis. Also has history of anxiety and depression. His patient of Dr. Mayfield. He came to the hospital on 02/02 for diarrhea on and off for the last month associated with generalized weakness. Patient is a known case of chronic hypoxic respiratory failure and a 3 L oxygen via nasal cannula. Also he is on morphine pump for chronic back pain. Patient has rectal tube still loose stool. He had some mild right umbilical abdominal pain this morning which is resolved now. As you vomiting and he tolerated soft diet because he has no denture. No chest pain but he has bilateral leg pain. Recording Studio Setup Worker has been consulted for troponin leak, and the recommended no ACS and to continue with conservative management Patient is awake and alert, he complained from mild. Umbilical pain which is resolved today. Patient still has rectal tube was still loose stool in it. WBC was normal on at 9.7K, BMP was unremarkable and glucose control. Liver enzymes elevated. CT of the abdomen and pelvis with contrast: Mild fatty liver. Loops of bowel within the abdomen and pelvis are normal. C. diff this was positive on 02/02. 02/07/2021 Patient is awake and alert, no abdominal pain. Hemodynamically stable. Labs are stable. His rectal tube came off yesterday, but difficult his bowel movement as he is incontinent for his stool, however his stools to lose her patient and bedside nurse. Today he kept on IV Flagyl and decrease his oral vancomycin 250 mg 4 times a day. We will keep monitor the patient 02/08/2021 Patient is feeling better today, his stool becoming more formed but not completely normal, he had 3-4 bowel movements yesterday. No abdominal pain and he tolerates diet. He wants to go home soon, possibly in 24 hours because he says he can handle his bowel movement now. He is hemodynamically stable. He remains on IV Flagyl and oral vancomycin [address] Mayfield resume the care of the patient tomorrow Objective - Vital Signs Vital signs: Vital Signs Temp 97.6 F 02/08/21 08:22 Pulse 48 L 02/08/21 08:22 Resp 14 02/08/21 08:22 BP 151/68 02/08/21 08:22 Pulse Ox 93 L 02/08/21 08:22 Intake & Output 02/07/21 02/08/21 02/08/21 18:59 06:59 18:59 Output Total 1200 1800 Balance -1200 -1800 Weight 128 kg Output: Urine 1200 1800 Other: Voiding Method Diaper Diaper Incontinent Incontinent External Catheter External Catheter # Bowel Movements 1 1 1 - Exam GENERAL: The patient is alert and oriented x3, not in any acute distress. Well developed, well nourished. HEENT: Pupils are round and equally reacting to light. EOMI. No scleral icterus. No conjunctival pallor. Normocephalic, atraumatic. No pharyngeal erythema. No thyromegaly. CARDIOVASCULAR: S1 and S2 present. No murmurs, rubs, or gallops. PULMONARY: Chest is clear to auscultation, no wheezing or crackles. -ABDOMEN: Soft, nontender, nondistended, normoactive bowel sounds. No palpable organomegaly. Rectal tube is in place with list MUSCULOSKELETAL: No joint swelling or deformity. EXTREMITIES: No cyanosis, clubbing, or pedal edema. NEUROLOGICAL: Gross neurological examination did not reveal any focal deficits. SKIN: No rashes. no petechiae. - Labs CBC & Chem 7: 02/07/21 05:50 02/07/21 05:50 Labs: Abnormal Lab Results - Last 24 Hours (Table) 02/07/21 02/07/21 02/07/21 Range/Units 11:15 16:42 21:28 POC Glucose (mg/dL) 115 H 117 H 140 H (75-99) mg/dL 02/08/21 Range/Units 06:55 POC Glucose (mg/dL) 123 H (75-99) mg/dL Assessment and Plan Assessment: Acute C. diff colitis generalized weakness and deconditioning due to his infection Troponin leak secondary to infection. Recording Studio Setup Worker on the case recommended conservative management. Bilateral leg pain Chronic hypoxic respiratory failure Chronic back pain on morphine pump Diabetes mellitus Hypertension History of osteoarthritis History of rheumatoid arthritis hypothyroidism Plan: This is a pleasant 80 years old male with C. diff colitis. There is improvement. Continue with oral vancomycin and IV Flagyl. GI and cardiology team on the case. We will add subcutaneous heparin for DVT prophylaxis Labs and medication were reviewed.. Continue same treatment. Continue with symptomatic treatment. Resume home medication. Monitor lytes and vitals. DVT and GI prophylaxis. Further recommendationsas per clinical course of the patient DVT prophylaxis: Subcutaneous heparin GI Prophylaxis: Pepcid PT/OT: Recommend subacute treat. custodial maintenance worker consult Prognosis is guarded
[2021-02-08 11:30] LABS: Glucose,Whole Blood 124 mg/dL (75-99)
[2021-02-08 12:53] LABS: Basophils % (A) 0 %; Eosinophils # (A) 0.4 k/uL (0-0.7); Eosinophils % (A) 5 %; HCT 35.3 % (39.0-53.0); HGB 11.5 gm/dL (13.0-17.5); Lymphocytes # (A) 1.1 k/uL (1.0-4.8); Lymphocytes % (A) 15 %; MCHC 32.6 g/dL (31.0-37.0); MCV 85.8 fL (80.0-100.0); Mean Platelet Volume 6.9; Monocytes # (A) 0.6 k/uL (0-1.0); Monocytes % (A) 9 %; Neutrophils # (A) 4.9 k/uL (1.3-7.7); Neutrophils % (A) 68 %; Platelet Count 297 k/uL (150-450); RBC 4.12 m/uL (4.30-5.90); RDW 15.8 % (11.5-15.5); WBC 7.2 k/uL (3.8-10.6)
[2021-02-08 13:01] LABS: African American GFR (CKD) >90 (>60 ml/min/1.73 sqM); Anion Gap 6 mmol/L; Blood Urea Nitrogen 8 mg/dL (9-20); Calcium 8.6 mg/dL (8.4-10.2); Carbon Dioxide 28 mmol/L (22-30); Chloride 101 mmol/L (98-107); Glucose 91 mg/dL (74-99); Magnesium 1.6 mg/dL (1.6-2.3); Non-African American GFR(CKD) >90 (>60 ml/min/1.73 sqM); Potassium 4.1 mmol/L (3.5-5.1); Sodium 135 mmol/L (137-145)
[2021-02-08 16:45] LABS: Glucose,Whole Blood 109 mg/dL (75-99)
[2021-02-08 20:52] LABS: Glucose,Whole Blood 122 mg/dL (75-99)
[2021-02-08] MEDS: BACLOFEN 10 MG TAB PO SCH (22:22)
[2021-02-08] MEDS: LATANOPROST 0.005% OPHTH DROPS 2.5 ML BTL BOTH EYES SCH (22:23)
[2021-02-08] MEDS: ATORVASTATIN 10 MG TAB PO SCH (22:23)
[2021-02-09] MEDS: DORZOLAMIDE-TIMOLOL 2.23%/0.68 10ML BTL BOTH EYES SCH ×4 (00:01→22:09)
[2021-02-09] MEDS: CHOLESTYRAMINE (WITH SUGAR) 4 GM PACKET PO SCH ×4 (01:09→22:08)
[2021-02-09] MEDS: LEVOTHYROXINE 88 MCG TAB PO SCH (06:19)
[2021-02-09] MEDS: VANCOMYCIN 125 MG CAPSULE PO SCH ×4 (06:19→22:08)
[2021-02-09 07:54] LABS: Glucose,Whole Blood 103 mg/dL (75-99)
[2021-02-09] MEDS: metFORMIN 500 MG TAB PO SCH (08:07)
[2021-02-09] MEDS: HEPARIN SODIUM,PORCINE/PF 5,000 UNIT/0.5 ML SYRINGE SQ SCH ×2 (08:07→22:10)
[2021-02-09] MEDS: buPROPion XL 300 MG TAB.ER.24H PO SCH (08:07)
[2021-02-09] MEDS: LACTOBACILLUS ACIDOPH & BULGAR 1 EACH PACKET PO SCH (08:07)
[2021-02-09] MEDS: PANTOPRAZOLE 40 MG TABLET PO SCH (08:07)
[2021-02-09] MEDS: ASPIRIN 81 MG PO SCH (08:07)
[2021-02-09] MEDS: CITALOPRAM HYDROBROMIDE 20 MG TAB PO SCH (08:07)
[2021-02-09] MEDS: metroNIDAZOLE-NS PMX 500 MG in SALINE 1 100ML.BAG IVPB SCH ×2 (08:07→17:03)
[2021-02-09] MEDS: METOPROLOL TARTRATE 50 MG TAB PO SCH ×2 (08:07→22:09)
[2021-02-09] MEDS ORDERED: NON FORMULARY DRUG (L.Acidoph,Paracasei, B.Lactis [Probiotic] 1 EACH Capsule) PO SCH (11:30)
[2021-02-09 11:47] LABS: Glucose,Whole Blood 122 mg/dL (75-99)
[2021-02-09] MEDS: TAMSULOSIN 0.4 MG CAP.ER.24H PO SCH (12:16)
[2021-02-09 16:47] LABS: Glucose,Whole Blood 105 mg/dL (75-99)
[2021-02-09] MEDS: ATORVASTATIN 10 MG TAB PO SCH (22:09)
[2021-02-09] MEDS: BACLOFEN 10 MG TAB PO SCH (22:09)
[2021-02-09] MEDS: metroNIDAZOLE 500 MG TAB PO SCH (22:09)
[2021-02-09] MEDS: LATANOPROST 0.005% OPHTH DROPS 2.5 ML BTL BOTH EYES SCH (22:10)
[2021-02-10] MEDS: VANCOMYCIN 125 MG CAPSULE PO SCH ×2 (06:02→07:40)
[2021-02-10] MEDS: LEVOTHYROXINE 88 MCG TAB PO SCH (06:02)
[2021-02-10 07:05] LABS: Glucose,Whole Blood 119 mg/dL (75-99)
[2021-02-10] MEDS: HEPARIN SODIUM,PORCINE/PF 5,000 UNIT/0.5 ML SYRINGE SQ SCH (07:39)
[2021-02-10] MEDS: ASPIRIN 81 MG PO SCH (07:40)
[2021-02-10] MEDS: CITALOPRAM HYDROBROMIDE 20 MG TAB PO SCH (07:40)
[2021-02-10] MEDS: CHOLESTYRAMINE (WITH SUGAR) 4 GM PACKET PO SCH (07:40)
[2021-02-10] MEDS: buPROPion XL 300 MG TAB.ER.24H PO SCH (07:40)
[2021-02-10] MEDS: METOPROLOL TARTRATE 50 MG TAB PO SCH (07:42)
[2021-02-10] MEDS: metroNIDAZOLE 500 MG TAB PO SCH (07:43)
[2021-02-10] MEDS: PANTOPRAZOLE 40 MG TABLET PO SCH (07:43)
[2021-02-10] MEDS: TAMSULOSIN 0.4 MG CAP.ER.24H PO SCH (07:43)
[2021-02-10] MEDS: metFORMIN 500 MG TAB PO SCH (07:43)
[2021-02-10] MEDS: LACTOBACILLUS ACIDOPH & BULGAR 1 EACH PACKET PO SCH (07:43)
[2021-02-10] MEDS: DORZOLAMIDE-TIMOLOL 2.23%/0.68 10ML BTL BOTH EYES SCH (07:55)
--- NOTE | 2021-02-10 10:52 | P.DS ---
Providers Date of admission: 02/02/21 15:44 Expected date of discharge: 02/09/21 Attending physician: Remington Mayfield Consults: 02/03/21 07:47 Consult Physician Routine Consulting Provider: Melo Alan Consult Reason/Comments: per dr. Mayfield; elevated troponins Do you want consulting provider notified?: Yes Primary care physician: Remington Mayfield [facility] Course: Final Diagnoses Acute C. difficile colitis, no prior history of, recently completed dental procedures and finished antibiotic treatment. Reports diarrhea times weeks. 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 Hypothyroidism Gastroesophageal reflux disease Diabetes mellitus Hypertension Anxiety Depression Chronic pain OA RA History of Prostate cancer with radiation treatment Hospital course:This is an 80-year-old gentleman with past medical history of d iabetes mellitus, gastroesophageal reflux disease, hypothyroidism, prostate cancer with radiation treatment, recent colonoscopy, COPD, chronic respiratory failure and multiple other medical issues presented to the ER with complaints of ongoing, uncontrollable watery diarrhea times weeks with worsening weakness, abdominal pain. Denies chest pain, palpitations or increasing shortness of breath. Tested positive for C. difficile colitis . Flagyl initiated.Afebrile, WBC 12.3. Hemoglobin 11.7, platelets 233, INR 1.4, sodium 132, potassium 2.9 on admission, up to 3.1 post supplementation, renal function stable, blood sugars 126, UA negative for acute UTI, specific gravity 1.038, 3+ ketones, 1+ protein. Maintaining O2 sats in the high 90s on 2 L nasal cannula. Chest x-ray reporting no acute pulmonary process. CT of abdomen and pelvis reporting mild fatty infiltration of the liver, simple-appearing superior pole left renal cysts, ankylosing spondylitis. EKG reported normal sinus rhythm, ST- T wave abnormalities, inferior and anterior lateral, right axis deviation. Troponin 0.496, 0.489, 0.478. Maintained on heparin drip. 02/04/2021 good diet intake with no nausea or vomiting. Maintained on oral vancomycin, IV Flagyl and Questran with improvement in diarrhea. potassium 3.1, magnesium 1.7. Afebrile, normal WBC. Denies chest pain, palpitations or increased shortness of breath.Echo pending. 02/05/2021 Continues on oral vancomycin, IV Flagyl and Questran. FMS remains in place, reports increased diarrhea though appears to have decreased. Remains light brown in color. Complains of mid abdominal discomfort. Good diet intake, denies nausea vomiting. Afebrile, labs pending. Maintained on oral vancomycin, IV Flagyl and Questran.Significant clinical improvement. Diarrhea resolved, stools were formed. Urinary retention, Flomax ordered, requiring Bob catheter placement with outpatient follow up with urology within 1 week. Declining ASHLEY, declining home care. Patient will be discharged home in stable condition with guarded prognosis. - Exam GENERAL: alert and oriented x3, no acute distress. HEENT: Pupils are round and equally reacting to light. EOMI. No scleral icterus. No conjunctival pallor. Normocephalic, atraumatic. CARDIOVASCULAR: S1 and S2 present. No murmurs, rubs, or gallops. PULMONARY: Chest is clear to auscultation, no wheezing or crackles. ABDOMEN: Soft, nontender, nondistended, normoactive bowel sounds. No palpable organomegaly EXTREMITIES: No cyanosis, clubbing, or pedal edema. NEUROLOGICAL: Gross neurological examination did not reveal any focal deficits. SKIN: No rashes. Warm and dry. The impression and plan of care has been dictated as directed. : I performed a history and examination of this patient, discussed the same with the dictator. I agree with the dictator's note ,documented as a scribe. Any additional findings or plans will be noted. Patient Condition at Discharge: Stable Plan - Discharge Summary Discharge Rx Participant: No New Discharge Prescriptions: New Mag Hydrox/Al Hydrox/Simeth [Maalox] 30 ml PO Q4HR PRN ml PRN Reason: Gi Upset Pantoprazole [Protonix] 40 mg PO AC-BRKFST tablet. metroNIDAZOLE [Flagyl] 500 mg PO Q8HR 5 Days #15 tab Vancomycin Oral Solution 250 mg PO Q6HR 5 Days #100 ml Tamsulosin [Flomax] 0.4 mg PO PC-BRKFST #30 cap.er.24h Aspirin 81 mg PO DAILY chew Cholestyramine (with Sugar) [Questran Packet] 4 gm PO TID@1000,1500,2200 packet Continue hydroCHLOROthiazide [Hydrodiuril] 50 mg PO DAILY Metoprolol Tartrate [Lopressor] 50 mg PO BID Atorvastatin [Lipitor] 10 mg PO HS Citalopram Hydrobromide [CeleXA] 40 mg PO DAILY metFORMIN HCL [Glucophage] 500 mg PO DAILY Dorzolamide-Timol 2.23%/0.68% [Cosopt] 1 drop BOTH EYES TID Latanoprost Ophth [Xalatan 0.005%] 1 drops BOTH EYES HS buPROPion HCL [Wellbutrin XL] 300 mg PO DAILY Levothyroxine Sodium [Synthroid] 175 mcg PO DAILY Baclofen [Lioresal] 10 mg PO HS #30 tab L.acidoph,Paracasei, B.lactis [Probiotic] 1 cap PO DAILY oxyCODONE HCL [Oxaydo] 5 mg PO Q8H PRN #9 tab PRN Reason: Pain Acetaminophen Tab [Tylenol] 500 mg PO Q6HR PRN PRN Reason: Migraine Headache Discharge Medication List hydroCHLOROthiazide [Hydrodiuril] 50 mg PO DAILY 11/22/13 [History] Metoprolol Tartrate [Lopressor] 50 mg PO BID 11/25/14 [History] Atorvastatin [Lipitor] 10 mg PO HS 02/17/17 [History] Citalopram Hydrobromide [CeleXA] 40 mg PO DAILY 04/09/17 [History] Dorzolamide-Timol 2.23%/0.68% [Cosopt] 1 drop BOTH EYES TID 04/10/17 [History] metFORMIN HCL [Glucophage] 500 mg PO DAILY 04/10/17 [History] Latanoprost Ophth [Xalatan 0.005%] 1 drops BOTH EYES HS 06/06/19 [History] buPROPion HCL [Wellbutrin XL] 300 mg PO DAILY 11/12/19 [History] Levothyroxine Sodium [Synthroid] 175 mcg PO DAILY 07/14/20 [History] Baclofen [Lioresal] 10 mg PO HS #30 tab 12/31/20 [Rx] Acetaminophen Tab [Tylenol] 500 mg PO Q6HR PRN 02/02/21 [History] L.acidoph,Paracasei, B.lactis [Probiotic] 1 cap PO DAILY 02/02/21 [History] Tamsulosin [Flomax] 0.4 mg PO PC-BRKFST #30 cap.er.24h 02/09/21 [Rx] Vancomycin Oral Solution 250 mg PO Q6HR 5 Days #100 ml 02/09/21 [Rx] metroNIDAZOLE [Flagyl] 500 mg PO Q8HR 5 Days #15 tab 02/09/21 [Rx] Aspirin 81 mg PO DAILY chew 02/10/21 [Rx] Cholestyramine (with Sugar) [Questran Packet] 4 gm PO TID@1000,1500,2200 packet 02/10/21 [Rx] Mag Hydrox/Al Hydrox/Simeth [Maalox] 30 ml PO Q4HR PRN ml 02/10/21 [Rx] Pantoprazole [Protonix] 40 mg PO AC-BRKFST tablet. 02/10/21 [Rx] oxyCODONE HCL [Oxaydo] 5 mg PO Q8H PRN #9 tab 02/10/21 [Rx] Follow up Appointment(s)/Referral(s): Raul Cummings MD [STAFF PHYSICIAN] - 02/17/21 9:00 am Remington Mayfield DO [Primary Care Provider] - 02/12/21 2:00 pm Patient Instructions/Handouts: Bob Catheter Placement and Care (DC), C Diff (Clostridium Difficile) Infection (DC) Activity/Diet/Wound Care/Special Instructions: declining HC replace Bob catheter, follow-up with urology outpatient Discharge Disposition: HOME WITH HOME HEALTH SERVICES
[2021-02-10 11:35] LABS: Glucose,Whole Blood 132 mg/dL (75-99)
[2021-02-10 14:40] VITALS: BP 130/72; PULSE 50; RESP 17; TEMP 98.1
== END 2021-02-10 15:15 | DRG 372 ==
LOC: EC 10:31 → 3SCARD 15:44 → UNDODISIN 02-04 12:50 → 4SSUR 02-06 17:01
PROVIDERS: ADMIT Family Medicine; ATTEND Family Medicine
DX: A04.72 Enterocolitis due to Clostridium difficile, not specified as recurrent (principal); J96.11 Chronic respiratory failure with hypoxia; K76.0 Fatty (change of) liver, not elsewhere classified; M06.9 Rheumatoid arthritis, unspecified; J44.9 Chronic obstructive pulmonary disease, unspecified; E11.9 Type 2 diabetes mellitus without complications; M45.9 Ankylosing spondylitis of unspecified sites in spine; I35.0 Nonrheumatic aortic (valve) stenosis; E86.0 Dehydration; K62.7 Radiation proctitis; R33.9 Retention of urine, unspecified; R77.8 Other specified abnormalities of plasma proteins; E87.6 Hypokalemia; E78.5 Hyperlipidemia, unspecified; E03.9 Hypothyroidism, unspecified; K21.9 Gastro-esophageal reflux disease without esophagitis; I10 Essential (primary) hypertension; N28.1 Cyst of kidney, acquired; F32.9 Major depressive disorder, single episode, unspecified; F41.9 Anxiety disorder, unspecified; G89.29 Other chronic pain; M79.604 Pain in right leg; M79.605 Pain in left leg; M19.90 Unspecified osteoarthritis, unspecified site; Z99.81 Dependence on supplemental oxygen; Z79.890 Hormone replacement therapy; Z79.84 Long term (current) use of oral hypoglycemic drugs; Z79.899 Other long term (current) drug therapy; Z86.010 Personal history of colon polyps; Z85.46 Personal history of malignant neoplasm of prostate; Z86.73 Personal history of transient ischemic attack (TIA), and cerebral infarction without residual deficits; Z85.828 Personal history of other malignant neoplasm of skin; Z90.49 Acquired absence of other specified parts of digestive tract; Z96.652 Presence of left artificial knee joint; Z86.69 Personal history of other diseases of the nervous system and sense organs; Z87.19 Personal history of other diseases of the digestive system; Z98.890 Other specified postprocedural states; Y84.2 Radiological procedure and radiotherapy as the cause of abnormal reaction of the patient, or of later complication, without mention of misadventure at the time of the procedure
CPT/HCPCS: 36415; 71046; 74018; 74177; 80048; 80053; 81001; 83605; 83735; 84132; 84484; 85025; 85610; 85730; 87324; 93005; 93306; 93970; 96365; 96366; 96367; 96375; 99285

== ENCOUNTER → 2021-03-25 | Day surgery (SDC) | payer MEDICARE, BC ==
[~2021-03-25] MED LIST changes: -BUPIVACAINE UP TO 8 MG/ML, 31-60 ML SYRINGE MC ONE
[2021-03-25 12:11] VITALS: BP 141/69; PULSE 51; RESP 18; TEMP 98.2
--- NOTE | 2021-03-25 12:35 | P.PCN ---
Date of Procedure: 03/25/21 Procedure(s) Performed: PROCEDURE: Intrathecal pain pump analysis, programming and reprogramming, and intrathecal pain pump refill. PREOPERATIVE DIAGNOSES: 1. near empty intrathecal pain pump time for refill. 2. opioid tolerance 3. postlaminectomy syndrome POSTOPERATIVE DIAGNOSES: 1. near empty intrathecal pain pump time for refill. 2. opioid tolerance 3. postlaminectomy syndrome ANESTHESIA: None. CONDITION: Stable. INDICATION: This is a 79 year-old patient with a long history of chronic pain secondary to postlaminectomy syndrome. Patient previously had an intrathecal pump placed, which is now near empty, and patient presents for refill today. Patient denies any side effects of the intrathecal medication, including new weakness, new numbness, excessive drowsiness or sleepiness, nausea/vomiting, weight gain, or night sweats. Patient also denies suicidal ideation, and reports that the current pain medication is helping control the chronic pain and improve the patient's activities of daily living. DESCRIPTION: The intrathecal pain pump was analyzed and showed that the patient currently has reservoir volume of [ 8.3] mL. The patient is receiving intrathecal Morphine sulfate PF at concentration [5] mg/ ml and bupivacaine PF at concentration [5] mg/ml. Patient receiving daily dose of Morphine Sulfate [0.69] mg/day and bupivacaine [0.69] mg/day. The location of the pump (left buttock) was prepped with chlorhexidine x3. Then, the 22-gauge needle from the [employer] kit was advanced through the pump port. Total of 7 was removed from the pump, and it was refilled with the new medication total volume of [20] ml of a solution containing morphine sulfate at concentration [5] mg /ml and bupivacaine at concentration [5] mg/ml. The patient will continue with the same daily dose morphine [0.69] mg/day and bupivacaine [0.69] mg/day, no changes today. The patient is using some oral medications as well, specifically oxyIR 5 mg q6h #90 prn pain orally for breakthrough pain and baclofen 10 mg qhs for spasm. The patient was given three months' worth of these medications and patient will follow up with the pain clinic in 3 months for refill and further evaluation. MAPS revied, and it was appropriate urine drug screen reviewed Patient denies any side effects of the medication and he reported that he use the pain medication for breakthrough pain he denies any side effect of the medication, he denies any Since of drowsiness or sleepiness. - PQRS measures = - Patient's medications are documented in the chart. -Tobacco use is negative . -Patient's , received pneumococcal vaccine. -Advanced care planning discussed, patient not eligible. -Opiate contract signed. -Pain positive and follow-up visit/procedure is scheduled. -Patient's blood pressure measured [180/71] , and documented in the record ,and patient will follow up with the primary care. -Patient's weight was measured and body mass index [31.9 % ] above the, and patient instructed to follow-up with the primary care physician. -Patient was not identified as an unhealthy alcohol user
== END ==
LOC: PNWHC3 12:00
PROVIDERS: ATTEND Specialist
DX: Z45.1 Encounter for adjustment and management of infusion pump (principal); M96.1 Postlaminectomy syndrome, not elsewhere classified; Y83.8 Other surgical procedures as the cause of abnormal reaction of the patient, or of later complication, without mention of misadventure at the time of the procedure; G89.29 Other chronic pain; Z79.891 Long term (current) use of opiate analgesic
CPT/HCPCS: 62370; J2274

== ENCOUNTER → 2021-06-17 | Day surgery (SDC) | payer MEDICARE, BC ==
[2021-06-17 13:02] VITALS: BP 135/63; PULSE 65; RESP 18; TEMP 97.4
--- NOTE | 2021-06-17 19:17 | P.PCN ---
Date of Procedure: 06/17/21 Procedure(s) Performed: PROCEDURE: Intrathecal pain pump analysis, programming and reprogramming, and intrathecal pain pump refill. PREOPERATIVE DIAGNOSES: 1. near empty intrathecal pain pump time for refill. 2. opioid tolerance 3. postlaminectomy syndrome POSTOPERATIVE DIAGNOSES: 1. near empty intrathecal pain pump time for refill. 2. opioid tolerance 3. postlaminectomy syndrome ANESTHESIA: None. CONDITION: Stable. INDICATION: This is a 79 year-old patient with a long history of chronic pain secondary to postlaminectomy syndrome. Patient previously had an intrathecal pump placed, which is now near empty, and patient presents for refill today. Patient denies any side effects of the intrathecal medication, including new weakness, new numbness, excessive drowsiness or sleepiness, nausea/vomiting, weight gain, or night sweats. Patient also denies suicidal ideation, and reports that the current pain medication is helping control the chronic pain and improve the patient's activities of daily living. DESCRIPTION: The intrathecal pain pump was analyzed and showed that the patient currently has reservoir volume of [ 8.3] mL. The patient is receiving intrathecal Morphine sulfate PF at concentration [5] mg/ ml and bupivacaine PF at concentration [5] mg/ml. Patient receiving daily dose of Morphine Sulfate [0.69] mg/day and bupivacaine [0.69] mg/day. The location of the pump (left buttock) was prepped with chlorhexidine x3. Then, the 22-gauge needle from the [employer] kit was advanced through the pump port. Total of 8was removed from the pump, and it was refilled with the new medication total volume of [20] ml of a solution containing morphine sulfate at concentration [5] mg /ml and bupivacaine at concentration [5] mg/ml. The patient will continue with the same daily dose morphine [0.69] mg/day and bupivacaine [0.69] mg/day, no changes today. The patient is using some oral medications as well, specifically oxyIR 5 mg q6h #90 prn pain orally for breakthrough pain and baclofen 10 mg qhs for spasm. The patient was given three months' worth of these medications and patient will follow up with the pain clinic in 3 months for refill and further evaluation. MAPS revied, and it was appropriate urine drug screen reviewed Patient denies any side effects of the medication and he reported that he use the pain medication for breakthrough pain he denies any side effect of the medication, he denies any Since of drowsiness or sleepiness. - PQRS measures = - Patient's medications are documented in the chart. -Tobacco use is negative . -Patient's , received pneumococcal vaccine. -Advanced care planning discussed, patient not eligible. -Opiate contract signed. -Pain positive and follow-up visit/procedure is scheduled. -Patient's blood pressure measured [135/63] , and documented in the record ,and patient will follow up with the primary care. -Patient's weight was measured and body mass index [31.9 % ] above the, and patient instructed to follow-up with the primary care physician. -Patient was not identified as an unhealthy alcohol user
== END ==
LOC: PNWHC3 12:12
PROVIDERS: ATTEND Specialist
DX: Z45.1 Encounter for adjustment and management of infusion pump (principal); M96.1 Postlaminectomy syndrome, not elsewhere classified; Y83.8 Other surgical procedures as the cause of abnormal reaction of the patient, or of later complication, without mention of misadventure at the time of the procedure; Z79.891 Long term (current) use of opiate analgesic
CPT/HCPCS: 62370; J2274

== ENCOUNTER → 2021-09-03 | Day surgery (SDC) | payer MEDICARE, BC ==
[2021-09-02 09:18] VITALS: BMI 33.9
[2021-09-03 12:42] VITALS: BP 125/61; PULSE 77; RESP 16; TEMP 98.2
--- NOTE | 2021-09-03 13:36 | P.PCN ---
Date of Procedure: 09/03/21 Procedure(s) Performed: PROCEDURE: Intrathecal pain pump analysis, programming and reprogramming, and intrathecal pain pump refill. PREOPERATIVE DIAGNOSES: 1. near empty intrathecal pain pump time for refill. 2. opioid tolerance 3. postlaminectomy syndrome POSTOPERATIVE DIAGNOSES: 1. near empty intrathecal pain pump time for refill. 2. opioid tolerance 3. postlaminectomy syndrome ANESTHESIA: None. CONDITION: Stable. INDICATION: This is a 79 year-old patient with a long history of chronic pain secondary to postlaminectomy syndrome. Patient previously had an intrathecal pump placed, which is now near empty, and patient presents for refill today. Patient denies any side effects of the intrathecal medication, including new weakness, new numbness, excessive drowsiness or sleepiness, nausea/vomiting, weight gain, or night sweats. Patient also denies suicidal ideation, and reports that the current pain medication is helping control the chronic pain and improve the patient's activities of daily living. DESCRIPTION: The intrathecal pain pump was analyzed and showed that the patient currently has reservoir volume of [9.1] mL. The patient is receiving intrathecal Morphine sulfate PF at concentration [5] mg/ ml and bupivacaine PF at concentration [5] mg/ml. Patient receiving daily dose of Morphine Sulfate [0.69] mg/day and bupivacaine [0.69] mg/day. The location of the pump (left buttock) was prepped with chlorhexidine x3. Then, the 22-gauge needle from the [employer] kit was advanced through the pump port. Total of 8.5 was removed from the pump, and it was refilled with the new medication total volume of [20] ml of a solution containing morphine sulfate at concentration [5] mg /ml and bupivacaine at concentration [5] mg/ml. The patient will continue with the same daily dose morphine [0.69] mg/day and bupivacaine [0.69] mg/day, no changes today. The patient is using some oral medications as well, specifically oxyIR 5 mg q6h #90 prn pain orally for breakthrough pain and baclofen 10 mg qhs for spasm. The patient was given three months' worth of these medications and patient will follow up with the pain clinic in 3 months for refill and further evaluation. MAPS revied, and it was appropriate urine drug screen reviewed Patient denies any side effects of the medication and he reported that he use the pain medication for breakthrough pain he denies any side effect of the medication, he denies any Since of drowsiness or sleepiness. Remington Mayfield
== END ==
LOC: ORPAIN 12:10
PROVIDERS: ATTEND Specialist
DX: Z45.1 Encounter for adjustment and management of infusion pump (principal); M96.1 Postlaminectomy syndrome, not elsewhere classified; Z79.891 Long term (current) use of opiate analgesic
CPT/HCPCS: 62370; J2274; G0463; 99211

== ENCOUNTER → 2021-12-03 | Day surgery (SDC) | payer MEDICARE, BC ==
[2021-12-03 13:08] VITALS: BP 141/65; PULSE 53; RESP 20; TEMP 97.5
--- NOTE | 2021-12-03 13:32 | P.PCN ---
Date of Procedure: 12/03/21 Procedure(s) Performed: PROCEDURE: Intrathecal pain pump analysis, programming and reprogramming, and intrathecal pain pump refill. PREOPERATIVE DIAGNOSES: 1. near empty intrathecal pain pump time for refill. 2. opioid tolerance 3. postlaminectomy syndrome POSTOPERATIVE DIAGNOSES: 1. near empty intrathecal pain pump time for refill. 2. opioid tolerance 3. postlaminectomy syndrome ANESTHESIA: None. CONDITION: Stable. INDICATION: This is a 81 year-old patient with a long history of chronic pain secondary to postlaminectomy syndrome. Patient previously had an intrathecal pump placed, which is now near empty, and patient presents for refill today. Patient denies any side effects of the intrathecal medication, including new weakness, new numbness, excessive drowsiness or sleepiness, nausea/vomiting, weight gain, or night sweats. Patient also denies suicidal ideation, and reports that the current pain medication is helping control the chronic pain and improve the patient's activities of daily living. DESCRIPTION: The intrathecal pain pump was analyzed and showed that the patient currently has reservoir volume of [7.3] mL. The patient is receiving intrathecal Morphine sulfate PF at concentration [5] mg/ ml and bupivacaine PF at concentration [5] mg/ml. Patient receiving daily dose of Morphine Sulfate [0.69] mg/day and bupivacaine [0.69] mg/day. The location of the pump (left buttock) was prepped with chlorhexidine x3. Then, the 22-gauge needle from the [employer] kit was advanced through the pump port. Total of 6.5 was removed from the pump, and it was refilled with the new medication total volume of [20] ml of a solution containing morphine sulfate at concentration [5] mg /ml and bupivacaine at concentration [5] mg/ml. The patient will continue with the same daily dose morphine [0.69] mg/day and bupivacaine [0.69] mg/day, no changes today. The patient is using some oral medications as well, specifically oxyIR 5 mg q6h #90 prn pain orally for breakthrough pain and baclofen 10 mg qhs for spasm. The patient was given three months' worth of these medications and patient will follow up with the pain clinic in 3 months for refill and further evaluation. MAPS revied, and it was appropriate, urine drug screen ordered today and will check the results urine drug screen reviewed Patient denies any side effects of the medication and he reported that he use the pain medication for breakthrough pain he denies any side effect of the medication, he denies any Since of drowsiness or sleepiness.
== END ==
LOC: ORPAIN 12:42
PROVIDERS: ATTEND Specialist
DX: Z45.1 Encounter for adjustment and management of infusion pump (principal); M96.1 Postlaminectomy syndrome, not elsewhere classified; Z79.891 Long term (current) use of opiate analgesic
CPT/HCPCS: 80307; 62370; G0482; J2274

== ENCOUNTER → 2022-03-02 | Day surgery (SDC) | payer MEDICARE, BC ==
[2022-02-23 12:26] VITALS: BMI 32.5
[2022-03-02 10:41] VITALS: BP 134/66; PULSE 53; RESP 16; TEMP 97.3
[2022-03-02 10:44] LABS: Glucose,Whole Blood 126 mg/dL (70-110)
--- NOTE | 2022-03-02 11:29 | P.PCN ---
Date of Procedure: 03/02/22 Procedure(s) Performed: PROCEDURE: Intrathecal pain pump analysis, programming and reprogramming, and intrathecal pain pump refill. PREOPERATIVE DIAGNOSES: 1. near empty intrathecal pain pump time for refill. 2. opioid tolerance 3. postlaminectomy syndrome POSTOPERATIVE DIAGNOSES: 1. near empty intrathecal pain pump time for refill. 2. opioid tolerance 3. postlaminectomy syndrome ANESTHESIA: None. CONDITION: Stable. INDICATION: This is a 81 year-old patient with a long history of chronic pain secondary to postlaminectomy syndrome. Patient previously had an intrathecal pump placed, which is now near empty, and patient presents for refill today. Patient denies any side effects of the intrathecal medication, including new weakness, new numbness, excessive drowsiness or sleepiness, nausea/vomiting, weight gain, or night sweats. Patient also denies suicidal ideation, and reports that the current pain medication is helping control the chronic pain and improve the patient's activities of daily living. DESCRIPTION: The intrathecal pain pump was analyzed and showed that the patient currently has reservoir volume of [7.6] mL. The patient is receiving intrathecal Morphine sulfate PF at concentration [5] mg/ ml and bupivacaine PF at concentration [5] mg/ml. Patient receiving daily dose of Morphine Sulfate [0.69] mg/day and bupivacaine [0.69] mg/day. The location of the pump (left buttock) was prepped with chlorhexidine x3. Then, the 22-gauge needle from the [employer] kit was advanced through the pump port. Total of 7 ml was removed from the pump, and it was refilled with the new medication total volume of [20] ml of a solution containing morphine sulfate at concentration [5] mg /ml and bupivacaine at concentration [5] mg/ml. The patient will continue with the same daily dose morphine [0.69] mg/day and bupivacaine [0.69] mg/day, no changes today. The patient is using some oral medications as well, specifically oxyIR 5 mg q6h #90 prn pain orally for breakthrough pain and baclofen 10 mg qhs for spasm. The patient was given three months' worth of these medications and patient will follow up with the pain clinic in 3 months for refill and further evaluation. MAPS revied, and it was appropriate, urine drug screen checked today ,and it was appropriate. Patient denies any side effects of the medication and he reported that he use the pain medication for breakthrough pain he denies any side effect of the medication, he denies any Since of drowsiness or sleepiness.
== END ==
LOC: ORPAIN 10:18
PROVIDERS: ATTEND Specialist
DX: Z45.1 Encounter for adjustment and management of infusion pump (principal); M96.1 Postlaminectomy syndrome, not elsewhere classified; Z79.891 Long term (current) use of opiate analgesic; G89.29 Other chronic pain; Z79.899 Other long term (current) drug therapy; Z79.84 Long term (current) use of oral hypoglycemic drugs; Z79.890 Hormone replacement therapy; Z80.1 Family history of malignant neoplasm of trachea, bronchus and lung; Z80.8 Family history of malignant neoplasm of other organs or systems; Z82.49 Family history of ischemic heart disease and other diseases of the circulatory system
CPT/HCPCS: 62370; J2274

== ENCOUNTER → 2022-05-25 | Day surgery (SDC) | payer MEDICARE, BC ==
[2022-05-20 12:03] VITALS: BMI 32.5
[~2022-05-25] MED LIST changes: +LACTATED RINGERS 1,000 ML IV SCH
[2022-05-25 12:06] VITALS: BP 128/67; PULSE 68; RESP 15; TEMP 98.1
[2022-05-25 12:09] LABS: Glucose,Whole Blood 131 mg/dL (70-110)
--- NOTE | 2022-05-25 14:37 | P.PCN ---
Date of Procedure: 05/25/22 Description of Procedure: Preoperative diagnosis: Lumbar post laminectomy, and chronic pain syndrome Status post intrathecal pump for chronic pain management near emptying intrathecal pain pump Postoperative diagnosis: Lumbar post laminectomy, and chronic pain syndrome Status post intrathecal pump for chronic pain management near emptying intrathecal pain pump PROCEDURES: 1. Intrathecal pump analysis. 2. Intrathecal pump reprogramming. 3. Intrathecal pump refill ANESTHESIA: None. EBL: None. COMPLICATIONS: None. IV FLUIDS: None. PROCEDURE INDICATION: Patient is well known to pain clinic for management of intrathecal pump for chronic pain management. Patient denied any side effects with the medications. Rated his pain is 4-6 out of 10 in severity. On examination lower extremity muscle strength normal, no clonus. Patient came here for pump refill. PROCEDURE DESCRIPTION: The patient was seen and identified in the preoperative area. Risks, benefits, complications, and alternatives were discussed with the patient. The patient agreed to proceed with the procedure. Intrathecal pump was analyzed and displayed the following information: Type: SynchroMed Type II B Medication: Morphine 5 mg /ml infusion at 0.6991 mg/day Bupivacaine 5 MG per mL infusion at 0.6991 MG per day Pump Volume: 40 ml [place] Volume: 8.3 ml PTM: Disabled At this time, the area of the intrathecal pump was exposed, prepped with ChloraPrep x2 , and draped in the usual sterile fashion. After which, the Cubby template was used to identify the area of the skin overlying the refill port. After which, a 22-gauge Singh needle attached to an extension tubing, which was clamped, attached to a syringe and inserted through the skin into the refill port. At that point,8 mL of clear fluid was aspirated. The tubing was reclamped. This was discarded. A new medication was then identified from pharmacy, . This was then attached to a filter, which was primed and subsequently injected into the pump in increments with intermittent aspiration to ensure placement into the intrathecal pump. At this point, the pump was reprogrammed. The dose was adjusted: none Type: SynchroMed Type II B Medication: Medication: Morphine 5 mg /ml infusion at 0.6991 mg/day Bupivacaine 5 MG per mL infusion at 0.6991 MG per day Pump Volume: 40 ml [place] Volume: 40 ml Lo [place] Alarm Date: 12 weeks PTM: Disabled The patient tolerated the procedure well and was sent home from the discharge ar ea once meeting discharge criteria. Plan: The patient will follow up for further management and pump refills. Medications given : oxycodone 5 mg by mouth every 8 hours to every 12 hours as needed dispense 90 with 2 refills Baclofen 10 mg by mouth daily at bedtime dispense 30 with 2 refills . counseled regarding intrathecal pain medication, oral narcotic medication as well as baclofen interactions side effects including respiratory depression and he clearly understood.
== END ==
LOC: ORPAIN 10:50
DX: G89.4 Chronic pain syndrome (principal); M19.90 Unspecified osteoarthritis, unspecified site; M51.36 Other intervertebral disc degeneration, lumbar region; I10 Essential (primary) hypertension; F41.9 Anxiety disorder, unspecified; F32.A Depression, unspecified; E03.9 Hypothyroidism, unspecified; Z86.73 Personal history of transient ischemic attack (TIA), and cerebral infarction without residual deficits; Z98.890 Other specified postprocedural states; Z98.49 Cataract extraction status, unspecified eye; Z79.899 Other long term (current) drug therapy
CPT/HCPCS: 62370; J2274

== ENCOUNTER → 2022-11-09 | Day surgery (SDC) | payer MEDICARE, BC ==
[~2022-11-09] MED LIST changes: -LACTATED RINGERS 1,000 ML IV SCH
[2022-11-09 10:39] VITALS: BP 155/84; PULSE 74; RESP 15; TEMP 97.2
[2022-11-09 10:42] LABS: Glucose,Whole Blood 133 mg/dL (70-110)
--- NOTE | 2022-11-09 11:18 | P.PCN ---
Date of Procedure: 11/09/22 Procedure(s) Performed: PROCEDURE: Intrathecal pain pump analysis, programming and reprogramming, and intrathecal pain pump refill. PREOPERATIVE DIAGNOSES: 1. near empty intrathecal pain pump time for refill. 2. opioid tolerance 3. postlaminectomy syndrome POSTOPERATIVE DIAGNOSES: 1. near empty intrathecal pain pump time for refill. 2. opioid tolerance 3. postlaminectomy syndrome ANESTHESIA: None. CONDITION: Stable. INDICATION: This is a 81 year-old patient with a long history of chronic pain secondary to postlaminectomy syndrome. Patient previously had an intrathecal pump placed, which is now near empty, and patient presents for refill today. Patient denies any side effects of the intrathecal medication, including new weakness, new numbness, excessive drowsiness or sleepiness, nausea/vomiting, weight gain, or night sweats. Patient also denies suicidal ideation, and reports that the current pain medication is helping control the chronic pain and improve the patient's activities of daily living. DESCRIPTION: The intrathecal pain pump was analyzed and showed that the patient currently has reservoir volume of [8.3 ] mL. The patient is receiving intrathecal Morphine sulfate PF at concentration [5] mg/ ml and bupivacaine PF at concentration [5] mg/ml. Patient receiving daily dose of Morphine Sulfate [0.69] mg/day and bupivacaine [0.69] mg/day. The location of the pump (left buttock) was prepped with chlorhexidine x3. Then, the 22-gauge needle from the [employer] kit was advanced through the pump port. Total of 7.5 ml was removed from the pump, and it was refilled with the new medication total volume of [20] ml of a solution containing morphine sulfate at concentration [5] mg /ml and bupivacaine at concentration [5] mg/ml. The patient will continue with the same daily dose morphine [0.69] mg/day and bupivacaine [0.69] mg/day, no changes today. The patient is using some oral medications as well, specifically oxyIR 5 mg q6h #90 with 2 refills prn pain orally for breakthrough pain and baclofen 10 mg qhs for spasm. Dispense 30 with 2 refills The patient was given three months' worth of these medications and patient will follow up with the pain clinic in 3 months for refill and further evaluation. MAPS revied, and it was appropriate. Patient denies any side effects of the medication and he reported that he use the pain medication for breakthrough pain he denies any side effect of the medication, he denies any Since of drowsiness or sleepiness.
== END ==
LOC: ORPAIN 10:05
PROVIDERS: ATTEND Specialist
DX: M96.1 Postlaminectomy syndrome, not elsewhere classified (principal); G89.29 Other chronic pain
CPT/HCPCS: 62370

== ENCOUNTER → 2023-04-26 | Day surgery (SDC) | payer MEDICARE, BC ==
[~2023-04-26] MED LIST changes: +LACTATED RINGERS 1,000 ML IV SCH
[2023-04-26 10:24] LABS: Glucose,Whole Blood 113 mg/dL (70-110)
[2023-04-26 10:35] VITALS: BP 141/81; PULSE 78; RESP 16; TEMP 97.8
--- NOTE | 2023-04-26 11:07 | P.PCN ---
Date of Procedure: 04/26/23 Description of Procedure: Preoperative diagnosis: Lumbar post laminectomy, and chronic pain syndrome Status post intrathecal pump for chronic pain management Postoperative diagnosis: Lumbar post laminectomy, and chronic pain syndrome Status post intrathecal pump for chronic pain management PROCEDURES: 1. Intrathecal pump analysis. 2. Intrathecal pump reprogramming. 3. Intrathecal pump refill ANESTHESIA: None. EBL: None. COMPLICATIONS: None. IV FLUIDS: None. PROCEDURE INDICATION: Patient is well known to pain clinic for management of intrathecal pump for chronic pain management. Patient denied any side effects with the medications. Rated his pain is 6 out of 10 in severity. On examination lower extremity muscle strength normal, no clonus. Patient came here for pump refill. PROCEDURE DESCRIPTION: The patient was seen and identified in the preoperative area. Risks, benefits, complications, and alternatives were discussed with the patient. The patient agreed to proceed with the procedure. Intrathecal pump was analyzed and displayed the following information: Type: SynchroMed Type II B Medication: Morphine 5 mg /ml infusion at 0.6991 mg/day Bupivacaine 5 MG per mL infusion at 0.6991MG per day Pump Volume: 20 ml [place] Volume: 8.3 ml PTM: Disabled At this time, the area of the intrathecal pump was exposed, prepped with ChloraPrep x2 , and draped in the usual sterile fashion. After which, the [employer] template was used to identify the area of the skin overlying the refill port. After which, a 22-gauge Singh needle attached to an extension tubing, which was clamped, attached to a syringe and inserted through the skin into the refill port. At that point, 8 mL of clear fluid was aspirated. The tubing was reclamped. This was discarded. A new medication was then identified from pharmacy, . This was then attached to a filter, which was primed and subsequently injected into the pump in increments with intermittent aspiration to ensure placement into the intrathecal pump. At this point, the pump was reprogrammed. The dose was adjusted: none Type: SynchroMed Type II B Medication: : Morphine 5 mg /ml infusion at 0.6991 mg/day Bupivacaine 5 MG per mL infusion at 0.6991MG per day Pump Volume: 20 ml [place] Volume: 20 ml Lo [place] Alarm Date: 12 weeks PTM: Disabled The patient tolerated the procedure well and was sent home from the discharge area once meeting discharge criteria. Plan: The patient will follow up for further management and pump refills.
== END ==
LOC: ORPAIN 10:01
DX: Z51.81 Encounter for therapeutic drug level monitoring (principal); G89.4 Chronic pain syndrome; M96.1 Postlaminectomy syndrome, not elsewhere classified; I10 Essential (primary) hypertension; E11.9 Type 2 diabetes mellitus without complications; M19.90 Unspecified osteoarthritis, unspecified site; M06.9 Rheumatoid arthritis, unspecified; Z79.84 Long term (current) use of oral hypoglycemic drugs; Z79.899 Other long term (current) drug therapy; Z79.82 Long term (current) use of aspirin
CPT/HCPCS: 62370

== ENCOUNTER → 2023-07-19 | Day surgery (SDC) | payer MEDICARE, BC ==
[~2023-07-19] MED LIST changes: -LACTATED RINGERS 1,000 ML IV SCH
[2023-07-19 10:32] LABS: Glucose,Whole Blood 125 mg/dL (70-110)
[2023-07-19 10:38] VITALS: BP 149/71; PULSE 96; RESP 16; TEMP 98.3
--- NOTE | 2023-07-19 12:29 | P.PCN ---
Description of Procedure: OPERATION: Intrathecal pain pump analysis, programming and reprogramming, and intrathecal pain pump refill. PREOPERATIVE DIAGNOSES: 1. near empty intrathecal pain pump time for refill. 2. 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 ANESTHESIA: None. CONDITION: Stable. Description of the procedure; Intrathecal pain pump analysed ,it showed patient currently had reservoir volume[8.3 ] mL. The patient is receiving medication morphine sulfate5.0 mg/ ml, and bupivacaine concentration 5.0 mg/ml. Patient receiving daily dose of morphine sulfate 0.6991 mg/day and bupivacaine 0.6991 mg/day. Pain is well controlled , patient using medication for breakthrough pain orally . The location of the pump ( Left Buttuck ) Prepped with chlorhexidine x3 , then using 22-gauge needle [employer] kit advanced through the pump port, Total of 7 ml removed from the pump, expected volume 8.3 ml , the pump refilled with the new medication total volume 20 ml . The concentration of morphine sulfate [5.0 ] mg /ml , and the bupivacaine concentration [5.0 ] mg/ml. The patient will continue to see the daily dose morphine sulfate [0.6991 ] mg/day and bupivacaine [0.6991 ] mg/day and patient will follow up with the pain clinic in 3 months. Prescription refill for was given to the patient
== END ==
LOC: ORPAIN 10:04
PROVIDERS: ATTEND Pain Medicine Interventional Pain Medicine
DX: Z45.1 Encounter for adjustment and management of infusion pump (principal); M96.1 Postlaminectomy syndrome, not elsewhere classified; F11.20 Opioid dependence, uncomplicated
CPT/HCPCS: 62370; J2274

== ENCOUNTER 2023-09-14 09:39 | Day surgery (SDC) | payer MEDICARE, BC ==
--- NOTE | 2023-09-13 16:57 | P.GSHP ---
History of Present Illness H&P Date: 09/13/23 82 yo male with prostate cancer treated with ebrt years past has developed bladder neck obstruction with difficulty with voiding and incomplete blader emptying[pvr [id number]] He comes for a bipolar turp . The risks,complicstions and alternatives have been discussed. - Constitutional Constitutional: Denies chills, Denies fever - EENT Eyes: denies blurred vision, denies pain Ears, nose, mouth and throat: Denies headache, Denies sore throat - Cardiovascular Cardiovascular: Denies chest pain, Denies shortness of breath - Respiratory Respiratory: Denies cough, Denies 7 - Gastrointestinal Gastrointestinal: Denies abdominal pain, Denies diarrhea, Denies nausea, Denies vomiting - Genitourinary (Female) Genitourinary: Denies dysuria, Denies hematuria - Genitourinary (Male) Genitourinary: Denies dysuria, Denies hematuria - Musculoskeletal Musculoskeletal: Denies myalgias - Integumentary Integumentary: Denies pruritus, Denies rash - Neurological Neurological: Denies numbness, Denies weakness - Psychiatric Psychiatric: Denies anxiety, Denies depression - Endocrine Endocrine: Denies fatigue, Denies weight change Past Medical History Past Medical History: Cancer, Diabetes Mellitus, GERD/Reflux, Hearing Disorder / Deafness, Hypertension, Musculoskeletal Disorder, Osteoarthritis (OA), Rheumatoid Arthritis (RA), Thyroid Disorder Additional Past Medical History / Comment(s): HX MIGRAINES. HX OF SKIN CANCER. CHRONIC BACK PAIN, D.I.S.H.-DEGENERATIVE ARTHRITIS, ANKYLOSING SPONDYLITIS. GETS LIGHTHEADED EASILY-MOVES SLOWLY TO PREVENT LOSS OF BALANCE. Hx prostate [id number], had RADIATION TREATMENTS AT [address] Urinary incontinence. O2 PRN. Rectal bleeding 8 years ago. 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 Hard of hearing- has hearing enhancer device, intrathecal pain pump-located lt buttocks- Morphine sulfate 0.6991ml/day w-Bupivacaine 0.6991ml/day. History of Any Multi-Drug Resistant Organisms: None Reported Past Surgical History: Appendectomy, Back Surgery, Bowel Resection, Joint Replacement, Orthopedic Surgery, Tonsillectomy Additional Past Surgical History / Comment(s): Left knee replacement, back surgery X2, INTRATHECAL OPIOID PAIN PUMP placed and replaced, upper teeth pulled, prostate biopsy, bilateral cataract surgery. Past Anesthesia/Blood Transfusion Reactions: No Reported Reaction Past Psychological History: Anxiety, Depression Additional Psychological History / Comment(s): Lives alone, cousin, Maverick assists him. Smoking Status: Never smoker Past Alcohol Use History: None Reported Past Drug Use History: None Reported - Past Family History Father Family Medical History: Cancer, Deep Vein Thrombosis (DVT) Additional Family Medical History / Comment(s): Lung and bone cancer. Medications and Allergies Home Medications Medication Instructions Recorded Confirmed Type hydroCHLOROthiazide [Hydrodiuril] 50 mg PO QAM 11/22/13 09/13/23 History Atorvastatin [Lipitor] 10 mg PO HS 02/17/17 09/13/23 History Citalopram Hydrobromide [CeleXA] 40 mg PO QAM 04/09/17 09/13/23 History metFORMIN HCL [Glucophage] 500 mg PO AC-SUPPER 04/10/17 09/13/23 History Levothyroxine Sodium [Synthroid] 150 mcg PO QAM 07/14/20 09/13/23 History Tamsulosin [Flomax] 0.4 mg PO QAM 06/16/21 09/13/23 History metFORMIN HCL [Glucophage] 500 mg PO PC-BRKFST PRN 05/20/22 09/13/23 History Aspirin 81 mg PO HS 08/12/22 09/13/23 History Zolpidem [Ambien] 5 mg PO HS PRN 11/04/22 09/13/23 History Baclofen [Lioresal] 10 mg PO HS 30 Days #30 tab 07/19/23 09/13/23 Rx oxyCODONE HCL [Oxaydo] 5 mg PO Q8H PRN 30 Days #90 tab 07/19/23 09/13/23 Rx Acetaminophen/Caffeine [Excedrin 2 each PO TID 08/17/23 09/13/23 History Tension Headache] Morphine Pump 1 dose INTRATHECA CONTINUOUS 08/18/23 09/13/23 History Bupropion (Unk) 300 mg PO DAILY 09/13/23 09/13/23 History Metoprolol Tartrate 25 mg PO DAILY 09/13/23 09/13/23 History Vit D3 (Unk) 1 tab PO DAILY 09/13/23 History Allergies Allergy/AdvReac Type Severity Reaction Status Date / Time No Known Allergies Allergy Verified 09/13/23 10:30 Surgical - Exam - General well developed, well nourished, no distress - Eyes normal ocular movement, no icteric - ENT no hearing loss, no congestion - Neck no masses, trachea midline - Respiratory normal respiratory effort, clear to auscultation - Abdomen Abdomen: soft, non tender, no guarding, no rigid, no rebound - Integumentary no rash, no abnormal pigmentation - Neurologic no disoriented, no combative - Psychiatric oriented to time, oriented to person, oriented to place, speech is normal, memory intact Assessment and Plan Assessment: Impression: bladder neck obstruction with prostate cancer treated with ebrt' Multiple medical illnesses. Plan: bipolar turp
[~2023-09-14 09:39] MED LIST changes: +AMPICILLIN 1,000 MG in SODIUM CHLORIDE 0.9% 50 ML IVPB PRN; -BUPIVACAINE MC ONE; +HYDROmorphone 0.5 MG/0.5 ML SYRINGE IVP PRN; -MORPHINE FOR ANAZAO - PER 10 MG MISCELLANE ONE
[2023-09-14] MEDS: LACTATED RINGERS 1,000 ML IV SCH (10:35)
[2023-09-14] MEDS: ONDANSETRON 4 MG/2 ML VIAL ONE (10:40)
[2023-09-14] MEDS: DEXAMETHASONE SOD PHOSPHATE 4 MG/ML 1 ML VIAL IVP ONE (10:40)
[2023-09-14 10:44] LABS: Glucose,Whole Blood 119 mg/dL (70-110)
[2023-09-14] MEDS ORDERED: ROCURONIUM 10 MG/ML (5 ML VIAL) IV ONE (11:15)
[2023-09-14] MEDS ORDERED: NEOSTIGMINE 1 MG/ML 10 ML VIAL ONE (11:15)
[2023-09-14] MEDS ORDERED: PROPOFOL 10 MG/ML 20 ML VIAL IV ONE (11:15)
[2023-09-14] MEDS ORDERED: LIDOCAINE 1% INJ 10MG/ML (20 ML MDV) ONE (11:15)
[2023-09-14] MEDS ORDERED: ePHEDrine 50 MG/ML 1 ML VIAL ONE (11:15)
[2023-09-14] MEDS ORDERED: GLYCOPYRROLATE 0.2 MG/ML 2 ML VIAL ONE (11:15)
[2023-09-14] MEDS ORDERED: fentaNYL (PF) 50 MCG/ML 2 ML AMP ONE (11:15)
[2023-09-14] MEDS: GENTAMICIN 140 MG in SODIUM CHLORIDE 0.9% 100 ML IVPB PRN (11:20)
[2023-09-14] MEDS ORDERED: metFORMIN 500 MG TAB PO PRN (12:15)
[2023-09-14] MEDS ORDERED: ACETAMINOPHEN TAB 325 MG TAB PO PRN (12:16)
[2023-09-14] MEDS ORDERED: MAG HYDROX/AL HYDROX/SIMETH 30 ML CUP PO PRN (12:16)
--- NOTE | 2023-09-14 12:22 | P.OP ---
Date of Procedure: 09/14/23 Preoperative Diagnosis: Prostate cancer, bladder neck obstruction Postoperative Diagnosis: Same Procedure(s) Performed: Bipolar. TURP with plasma button Anesthesia: LUCIANA Surgeon: Al Chambers Estimated Blood Loss (ml): 0 Pathology: none sent Condition: stable Disposition: PACU Indications for Procedure: Patient is 82. He has had radiation therapy for prostate cancer. It was incomplete bladder emptying and difficulty with infections he comes for a bipolar TURP Description of Procedure: Patient brought to the operating suite. Given general anesthesia. Placed in lithotomy position with a sterile prep and drape. Urethra is dilated to 30- [place] with [place] sounds. Under direct vision the 25-Nigerian sheath and direct vision obturator was introduced in urethra is normal prosthetic urethra shows somewhat scarred but obstructing bladder neck and prostate lateral lobe. Bladder wall shows chronic inflammation. I will do plasma button to open up the prosthetic channel. With the plasma button a vaporized tissue first beginning at the bladder neck at 9:00 margin to 6:00 and 3:00 margin to 6:00 and then do an anterior tissue. I then vaporized the left lateral lobe right lateral lobe and then redundant floor tissue. At the end of the procedure I secured to the verumontanum the bladder neck is wide open. I removed the resectoscope and coud the bladder with a very strong stream. An 18-Nigerian Bob catheter 5 mL balloon easily passes into the bladder with clear urine return. The patient is awake and returned recovery in good condition. Blood loss is minimal. He will be placed in the hospital overnight as he can care for himself with the catheter home.
[2023-09-14 13:38] LABS: Glucose,Whole Blood 175 mg/dL (70-110)
[2023-09-14] MEDS: SODIUM CHLORIDE 0.45% 1,000 ML IV SCH (14:18)
[2023-09-14] MEDS: AMOXICILLIN 500 MG CAP PO SCH (17:10)
[2023-09-14] MEDS: metFORMIN 500 MG TAB PO SCH (17:10)
[2023-09-14] MEDS: DOCUSATE 100 MG CAP PO SCH (21:44)
[2023-09-14] MEDS: ATORVASTATIN 10 MG TAB PO SCH (21:44)
[2023-09-14] MEDS: BACLOFEN 10 MG TAB PO SCH (21:44)
[2023-09-15] MEDS: MORPHINE PUMP MISCELLANE SCH (00:09)
[2023-09-15] MEDS: LEVOTHYROXINE 75 MCG TAB PO SCH (06:06)
--- NOTE | 2023-09-15 08:01 | P.PN ---
Subjective Progress Note Date: 09/15/23 Postop day #1 from a transurethral resection of his prostate for urine retention. Vital signs are stable. The urine has some old blood. There is some small clots. He feels relatively well. I do not believe this patient can care for the catheter in his home situation thus I'll observe him until tomorrow and assuming urine clears will pull the catheter. The patient concurs with this. Objective - Vital Signs Vital signs: Vital Signs Temp 97.4 F L 09/15/23 07:50 Pulse 75 09/15/23 07:50 Resp 57 H 09/15/23 07:50 BP 144/75 09/15/23 07:50 Pulse Ox 98 09/15/23 07:50 FiO2 Intake & Output 09/14/23 09/15/23 09/15/23 18:59 06:59 18:59 Intake Total 1053.5 900 Output Total 930 700 Balance 123.5 200 Weight 108.862 kg Intake: IV 1053.5 Intake, IV Titration 900 Amount Sodium Chloride 0.45% 1, 900 000 ml @ 75 mls/hr IV . [id number] [facility] Rx#:[id number] Output: Urine 925 700 Estimated Blood Loss 5 Other: Voiding Method Indwelling Catheter - Labs Labs: Abnormal Lab Results - Last 24 Hours (Table) 09/14/23 09/14/23 Range/Units 10:35 13:27 POC Glucose (mg/dL) 119 H 175 H (70-110) mg/dL
[2023-09-15] MEDS: METOPROLOL TARTRATE 25 MG TAB PO SCH (08:23)
[2023-09-15] MEDS: buPROPion XL 300 MG TAB.ER.24H PO SCH (08:23)
[2023-09-15] MEDS: CITALOPRAM HYDROBROMIDE 20 MG TAB PO SCH (08:23)
[2023-09-15] MEDS: GABAPENTIN 300 MG CAP PO SCH (15:14)
--- NOTE | 2023-09-16 07:50 | P.DS ---
Providers Attending physician: Al Chambers Primary care physician: [facility] Course: The patient is 82. He underwent a transurethral resection of prostate for bladder neck obstruction due to radiation therapy for his prostate cancer. He was kept in the hospital postoperatively because he cannot care for the catheter home himself. He has done well. His vital signs are stable. The urine is clearing. The catheter will be removed this morning. If he voids without difficulty he'll be discharged home. He'll follow-up in the office in 2 weeks. Postoperative instructions were given. Patient Condition at Discharge: Good Plan - Discharge Summary Discharge Rx Participant: No New Discharge Prescriptions: No Action hydroCHLOROthiazide [Hydrodiuril] 50 mg PO QAM Atorvastatin [Lipitor] 10 mg PO HS Citalopram Hydrobromide [CeleXA] 40 mg PO QAM metFORMIN HCL [Glucophage] 500 mg PO AC-SUPPER Levothyroxine Sodium [Synthroid] 150 mcg PO QAM metFORMIN HCL [Glucophage] 500 mg PO PC-BRKFST PRN PRN Reason: Blood sugar >140 Aspirin 81 mg PO HS Baclofen [Lioresal] 10 mg PO HS 30 Days #30 tab Acetaminophen/Caffeine [Excedrin Tension Headache] 2 each PO TID Bupropion (Unk) 300 mg PO DAILY Tamsulosin [Flomax] 0.4 mg PO QAM oxyCODONE HCL [Oxaydo] 5 mg PO Q8H PRN 30 Days #90 tab PRN Reason: Pain Morphine Pump 1 dose INTRATHECA CONTINUOUS Metoprolol Tartrate 25 mg PO DAILY Vit D3 (Unk) 1 tab PO DAILY Gabapentin [Neurontin] 300 mg PO TID Discharge Medication List hydroCHLOROthiazide [Hydrodiuril] 50 mg PO QAM 11/22/13 [History] Atorvastatin [Lipitor] 10 mg PO HS 02/17/17 [History] Citalopram Hydrobromide [CeleXA] 40 mg PO QAM 04/09/17 [History] metFORMIN HCL [Glucophage] 500 mg PO AC-SUPPER 04/10/17 [History] Levothyroxine Sodium [Synthroid] 150 mcg PO QAM 07/14/20 [History] Tamsulosin [Flomax] 0.4 mg PO QAM 06/16/21 [History] metFORMIN HCL [Glucophage] 500 mg PO PC-BRKFST PRN 05/20/22 [History] Aspirin 81 mg PO HS 08/12/22 [History] Baclofen [Lioresal] 10 mg PO HS 30 Days #30 tab 07/19/23 [Rx] oxyCODONE HCL [Oxaydo] 5 mg PO Q8H PRN 30 Days #90 tab 07/19/23 [Rx] Acetaminophen/Caffeine [Excedrin Tension Headache] 2 each PO TID 08/17/23 [History] Morphine Pump 1 dose INTRATHECA CONTINUOUS 08/18/23 [History] Bupropion (Unk) 300 mg PO DAILY 09/13/23 [History] Metoprolol Tartrate 25 mg PO DAILY 09/13/23 [History] Vit D3 (Unk) 1 tab PO DAILY 09/13/23 [History] Gabapentin [Neurontin] 300 mg PO TID 09/15/23 [History] Follow up Appointment(s)/Referral(s): Al Chambers MD [STAFF PHYSICIAN] - 2 Weeks Discharge Disposition: HOME SELF-CARE
--- NOTE | 2023-09-17 10:59 | P.PN ---
Subjective Progress Note Date: 09/17/23 The patient is status post TURP. He has prostate cancer and status post radiation therapy. He is voiding but incompletely. The urine is still bloody so therefore we held his discharge. Objective - Vital Signs Vital signs: Vital Signs Temp 98.2 F 09/17/23 06:56 Pulse 60 09/17/23 06:56 Resp 16 09/17/23 06:56 BP 128/72 09/17/23 06:56 Pulse Ox 97 09/17/23 06:56 FiO2 Intake & Output 09/16/23 09/17/23 09/17/23 18:59 06:59 18:59 Intake Total 500 Output Total 1030 600 450 Balance -530 -600 -450 Intake: Oral 500 Output: Urine 955 600 450 Uretheral (Bob) 420 Post Void Residual 75 Stool 0 Other: Voiding Method Indwelling Catheter Urinal # Voids 1 Assessment and Plan Assessment: Impression: Status post TURP for prostate cancer, radiation therapy retention. Recommendations: Since the patient lives alone in the urine is still bloody we will observe for another 24 hours. Hopefully it'll clear and we can send him home tomorrow.
[2023-09-18 02:44] VITALS: TEMP 98.4
[2023-09-18 09:02] VITALS: BP 118/70; PULSE 62; RESP 19
--- NOTE | 2023-09-18 09:17 | P.PN ---
Progress Note - Text Progress Note Date: 09/18/23 The patient's discharge was held 48 hours well and we observed his urination. It is improving. The residuals are decreasing (189). He feels good. He'll be discharged home today. Regular diet limited activity. He'll be given a prescription of amoxicillin. A follow-up in the office next week.
== END 2023-09-18 14:03 | disposition home or self-care (01) ==
LOC: OR 09:39 → 4SSUR 12:16 → OR 09-18 14:03
PROVIDERS: ATTEND Urology
DX: C61 Malignant neoplasm of prostate (principal); N32.0 Bladder-neck obstruction; E11.9 Type 2 diabetes mellitus without complications; K21.9 Gastro-esophageal reflux disease without esophagitis; I10 Essential (primary) hypertension; Z90.89 Acquired absence of other organs; Z90.49 Acquired absence of other specified parts of digestive tract; Z79.84 Long term (current) use of oral hypoglycemic drugs; Z79.890 Hormone replacement therapy; Z79.82 Long term (current) use of aspirin; Z79.899 Other long term (current) drug therapy
CPT/HCPCS: 52601; J1100; J2405; J1580

== ENCOUNTER → 2023-10-11 | Day surgery (SDC) | payer MEDICARE, BC ==
[~2023-10-11] MED LIST changes: -AMPICILLIN 1,000 MG in SODIUM CHLORIDE 0.9% 50 ML IVPB PRN; +BUPIVACAINE MC ONE; -HYDROmorphone 0.5 MG/0.5 ML SYRINGE IVP PRN; +MORPHINE FOR ANAZAO - PER 10 MG MISCELLANE ONE
[2023-10-11 10:26] LABS: Glucose,Whole Blood 163 mg/dL (70-110)
[2023-10-11 10:37] VITALS: BP 117/68; PULSE 98; RESP 16; TEMP 98.7
--- NOTE | 2023-10-11 10:57 | P.PCN ---
Date of Procedure: 10/11/23 Operative Findings: PROCEDURE: Intrathecal pain pump analysis, programming and reprogramming, and intrathecal pain pump refill. PREOPERATIVE DIAGNOSES: 1. near empty intrathecal pain pump 2. opioid tolerance POSTOPERATIVE DIAGNOSES: 1. 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 CONDITION: Stable. DESCRIPTION OF PROCEDURE: Intrathecal pain pump analysed, it showed patient currently had reservoir volume 8.3 mL. The patient is receiving medication 5 mg/ ml, and bupivacaine concentration 5 mg/ml. Patient receiving daily dose of 0.699 mg/day and bupivacaine 0.699 mg/day. Pain is well controlled , patient using medication for breakthrough pain oxycodone 5 mg orally . The location of the pump (Left Buttuck ) Prepped with chlorhexidine x3 , then using 22-gauge needle en-Gauge kit advanced through the pump port, Total of 8 ml removed from the pump, the pump refills with the new medication total volume 20 ml . The concentration 5 mg /ml, and the bupivacaine concentration 5 mg/ml. The patient will continue to see the daily dose 0.699 mg/day and bupivacaine 0.699 mg/day and patient will follow up with the pain clinic in 3 months. Medications will be refilled tomorrow by Kimberlee in the pain clinic.
== END ==
LOC: ORPAIN 10:03
PROVIDERS: ATTEND Hospitalist
DX: Z51.81 Encounter for therapeutic drug level monitoring (principal); M96.1 Postlaminectomy syndrome, not elsewhere classified; G89.29 Other chronic pain; E11.9 Type 2 diabetes mellitus without complications
CPT/HCPCS: 62370; J2274

== ENCOUNTER 2023-11-21 10:04 | Emergency (ER) | payer MEDICARE, BC ==
--- NOTE | 2023-11-21 11:00 | ED ---
Male Urogenital HPI - General Chief complaint: Urogenital Stated complaint: Cath Issues Time Seen by Provider: 11/21/23 10:13 Source: patient, RN notes reviewed Mode of arrival: ambulatory Limitations: no limitations - History of Present Illness Initial comments: This is an 83-year-old male who presents to the emergency department requesting help with his catheter. Patient has problems with incontinence and states that he was sent a box of catheter supplies in the mail, but does not know how to use them. He is currently waiting to follow-up with urology. Denies any pain, states that he just wants help with using and putting together the catheter. - Related Data Home Medications Medication Instructions Recorded Confirmed hydroCHLOROthiazide [Hydrodiuril] 50 mg PO QAM 11/22/13 10/07/23 Atorvastatin [Lipitor] 10 mg PO HS 02/17/17 10/07/23 Citalopram Hydrobromide [CeleXA] 40 mg PO QAM 04/09/17 10/07/23 metFORMIN HCL [Glucophage] 500 mg PO AC-SUPPER 04/10/17 10/07/23 Levothyroxine Sodium [Synthroid] 150 mcg PO QAM 07/14/20 10/07/23 Tamsulosin [Flomax] 0.4 mg PO QAM 06/16/21 10/07/23 metFORMIN HCL [Glucophage] 500 mg PO AC-BRKFST PRN 05/20/22 10/07/23 Aspirin 81 mg PO HS 08/12/22 10/07/23 Morphine Pump 1 dose INTRATHECA CONTINUOUS 08/18/23 10/07/23 Bupropion (Unk) 300 mg PO DAILY 09/13/23 10/07/23 Metoprolol Tartrate 25 mg PO DAILY 09/13/23 10/07/23 Vit D3 (Unk) 1 tab PO DAILY 09/13/23 10/07/23 Gabapentin [Neurontin] 300 mg PO TID 09/15/23 10/07/23 Acetaminophen/Caffeine [Excedrin 2 tab PO TID 10/07/23 10/07/23 Tension Headache] Previous Rx's Medication Instructions Recorded Baclofen [Lioresal] 10 mg PO HS 30 Days #30 tab 07/19/23 oxyCODONE HCL [Oxaydo] 5 mg PO Q8H PRN 30 Days #90 tab 07/19/23 oxyCODONE HCL/ACETAMINOPHEN 1 each PO Q8H PRN 30 Days #90 tab 10/11/23 [Oxycodone-Acetaminophen 5-325] oxyCODONE HCL [Oxaydo] 5 mg PO TID PRN 30 Days #90 tab 10/12/23 Allergies Allergy/AdvReac Type Severity Reaction Status Date / Time No Known Allergies Allergy Verified 11/21/23 10:10 Review of Systems ROS Statement: Those systems with pertinent positive or pertinent negative responses have been documented in the HPI. ROS Other: All systems not noted in ROS Statement are negative. Past Medical History Past Medical History: Cancer, Diabetes Mellitus, GERD/Reflux, Hearing Disorder / Deafness, Hypertension, Musculoskeletal Disorder, Osteoarthritis (OA), Rheumatoid Arthritis (RA), Thyroid Disorder Additional Past Medical History / Comment(s): HX MIGRAINES. HX OF SKIN CANCER. CHRONIC BACK PAIN, D.I.S.H.-DEGENERATIVE ARTHRITIS, ANKYLOSING SPONDYLITIS. GETS LIGHTHEADED EASILY-MOVES SLOWLY TO PREVENT LOSS OF BALANCE. Hx prostate [id number], had RADIATION TREATMENTS AT [address] Urinary incontinence. O2 PRN. Rectal bleeding 8 years ago. 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 Hard of hearing- has hearing enhancer device, intrathecal pain pump-located lt buttocks- Morphine sulfate 0.6991ml/day w-Bupivacaine 0.6991ml/day. History of Any Multi-Drug Resistant Organisms: None Reported Past Surgical History: Appendectomy, Back Surgery, Bowel Resection, Joint Replacement, Orthopedic Surgery, Tonsillectomy Additional Past Surgical History / Comment(s): Left knee replacement, back surgery X2, INTRATHECAL OPIOID PAIN PUMP placed and replaced, upper teeth pulled, prostate biopsy, bilateral cataract surgery. Past Anesthesia/Blood Transfusion Reactions: No Reported Reaction Past Psychological History: Anxiety, Depression Smoking Status: Never smoker Past Alcohol Use History: None Reported Past Drug Use History: None Reported - Past Family History Father Family Medical History: Cancer, Deep Vein Thrombosis (DVT) Additional Family Medical History / Comment(s): Lung and bone cancer. General Exam Limitations: no limitations General appearance: alert, in no apparent distress Head exam: Present: atraumatic, normocephalic, normal inspection Respiratory exam: Present: normal lung sounds bilaterally. Absent: respiratory distress, wheezes, rales, rhonchi, stridor Cardiovascular Exam: Present: regular rate, normal rhythm, normal heart sounds. Absent: systolic murmur, diastolic murmur, rubs, gallop, clicks GI/Abdominal exam: Present: soft, normal bowel sounds. Absent: distended, tenderness, guarding, rebound, rigid Neurological exam: Present: alert, oriented X3, CN II-XII intact Psychiatric exam: Present: normal affect, normal mood Skin exam: Present: warm, dry, intact, normal color. Absent: rash Course Vital Signs 11/21/23 11/21/23 10:07 12:04 Temperature 98 F 98.4 F Pulse Rate 110 H 98 Respiratory 22 18 Rate Blood Pressure 162/82 140/76 O2 Sat by Pulse 99 99 Oximetry Medical Decision Making - Medical Decision Making This is an 83 year old male who presents to the emergency department requesting help with a catheter. Was pt. sent in by a medical professional or institution? @ -No Did you speak to anyone other than the patient for history? @ -[EMS, parent, family, police, friend?] Did you review nursing and triage notes? @ -Yes, and I agree, it is accurate with regards to the patient's symptoms. Were old charts reviewed? @ -No Differential Diagnosis? @ -Differential Incontinence: Prostate problems, neurological issue, UTI, this is not meant to be an all- inclusive list. EKG interpreted by me (3pts min.)? @ -Not obtained X-rays interpreted by me (1pt min.)? @ -Not obtained CT interpreted by me (1pt min.)? @ -Not obtained U/S interpreted by me (1pt. min.)? @ -Not obtained What testing was considered but not performed? (CT, X-rays, U/S, labs)? Why? @ -None What meds were considered but not given? Why? @ -None Did you discuss the management of the patient with other professionals? @ -No Did you reconcile home meds? @ -No Was smoking cessation discussed for >3mins.? @ -No Was critical care preformed (if so, how long)? @ -No Were there social determinants of health that impacted care today? How? (Homelessness, low income, unemployed, alcoholism, drug addiction, transportation, low edu. Level, literacy, decrease access to med. care, penitentiary, rehab)? @ -No Was there de-escalation of care discussed even if they declined? (Discuss DNR or withdrawal of care, Hospice)? @ -No What co-morbidities impacted this encounter? (DM, HTN, Smoking, COPD, CAD, Cancer, CVA, Hep., AIDS, mental health diagnosis, sleep apnea, morbid obesity)? @ -None Was patient admitted / discharged? @ -Discharged. Nursing staff reviewed the box of catheter supplies that the patient brought with him and this was a condom catheter. Patient is suffering from incontinence, which is bothering him from a social aspect and he wears a lot of padding and puts towels in his bottoms to prevent urine from soaking through. He does not have any pain or urinary retention associated with this. The condom catheter was not able to fit the patient per nursing staff. There is also no indication for a Bob catheter, and patient states that he does not want this regardless. We recommended something like Depends adult diapers to help with the incontinence and follow-up with urology. Undiagnosed new problem with uncertain prognosis? @ -None Drug Therapy requiring intensive monitoring for toxicity (Heparin, Nitro, Insulin, Cardizem)? @ -None Were any procedures done? @ -None Diagnosis/symptom? @ -Urinary incontinence Acute, or Chronic, or Acute on Chronic? @ -Chronic Uncomplicated (without systemic symptoms) or Complicated (systemic symptoms)? @ -Uncomplicated Side effects of treatment? @ -None Exacerbation, Progression, or Severe Exacerbation] @ -Stable Poses a threat to life or bodily function? @ -No Return precautions reviewed in depth, the patient is instructed to return to the emergency department with any new, worsening, or concerning symptoms. Patient verbalized understanding. This case was discussed in detail with the attending ED physician, Dr. Mcmullen. Presentation, findings, and treatment plan discussed in detail as well. Disposition Clinical Impression: Urinary incontinence Disposition: HOME SELF-CARE Instructions (If sedation given, give patient instructions): Urinary Incontinence (ED) Additional Instructions: Return to the emergency department with any new, worsening, or concerning symptoms. Consider wearing depends for the urinary retention. Follow up with urology. Is patient prescribed a controlled substance at d/c from ED?: No Referrals: Remington Mayfield DO [Primary Care Provider] - 1-2 days Time of Disposition: 12:02
[2023-11-21 12:07] VITALS: BP 140/76; PULSE 98; RESP 18; TEMP 98.4
== END 2023-11-21 12:09 | disposition home or self-care (01) ==
LOC: EC 10:04
DX: R32 Unspecified urinary incontinence (principal)
CPT/HCPCS: 99282

== ENCOUNTER → 2024-01-03 | Day surgery (SDC) | payer MEDICARE, BC ==
[2024-01-03 10:40] VITALS: BP 130/75; PULSE 88; RESP 16; TEMP 98.6
[2024-01-03 10:43] LABS: Glucose,Whole Blood 128 mg/dL (70-110)
--- NOTE | 2024-01-03 11:07 | P.PCN ---
Date of Procedure: 01/03/24 Procedure(s) Performed: PROCEDURE: Intrathecal pain pump analysis, programming and reprogramming, and intrathecal pain pump refill. PREOPERATIVE DIAGNOSES: 1. near empty intrathecal pain pump time for refill. 2. opioid tolerance 3. postlaminectomy syndrome POSTOPERATIVE DIAGNOSES: 1. near empty intrathecal pain pump time for refill. 2. opioid tolerance 3. postlaminectomy syndrome ANESTHESIA: None. CONDITION: Stable. INDICATION: This is a 82 year-old patient with a long history of chronic pain secondary to postlaminectomy syndrome. Patient previously had an intrathecal pump placed, which is now near empty, and patient presents for refill today. Patient denies any side effects of the intrathecal medication, including new weakness, new numbness, excessive drowsiness or sleepiness, nausea/vomiting, weight gain, or night sweats. Patient also denies suicidal ideation, and reports that the current pain medication is helping control the chronic pain and improve the patient's activities of daily living. DESCRIPTION: The intrathecal pain pump was analyzed and showed that the patient currently has reservoir volume of [8.3 ] mL. The patient is receiving intrathecal Morphine sulfate PF at concentration [5] mg/ ml and bupivacaine PF at concentration [5] mg/ml. Patient receiving daily dose of Morphine Sulfate [0.69] mg/day and bupivacaine [0.69] mg/day. The location of the pump (left buttock) was prepped with chlorhexidine x3. Then, the 22-gauge needle from the [employer] kit was advanced through the pump port. Total of 9 ml was removed from the pump, and it was refilled with the new medication total volume of [20] ml of a solution containing morphine sulfate at concentration [5] mg /ml and bupivacaine at concentration [5] mg/ml. The patient will continue with the same daily dose morphine [0.69] mg/day and bupivacaine [0.69] mg/day, no changes today. The patient is using some oral medications as well, specifically oxyIR 5 mg q6h #90 with 2 refills prn pain orally for breakthrough pain and baclofen 10 mg qhs for spasm. Dispense 30 with 2 refills The patient was given three months' worth of these medications and patient will follow up with the pain clinic in 3 months for refile. Patient denies any side effects of the medication and he reported that he use the pain medication for breakthrough pain he denies any side effect of the medication, he denies any Since of drowsiness or sleepiness.
== END ==
LOC: ORPAIN 10:23
PROVIDERS: ATTEND Specialist
DX: Z51.81 Encounter for therapeutic drug level monitoring (principal); M96.1 Postlaminectomy syndrome, not elsewhere classified; G89.4 Chronic pain syndrome
CPT/HCPCS: 62370; J2274; 62367

== ENCOUNTER 2024-03-11 18:02 | Inpatient (IN) | payer MEDICARE, BC ==
--- NOTE | 2024-03-11 20:01 | ED ---
Weakness HPI - General Chief complaint: Weakness Stated complaint: Weakness Time Seen by Provider: 03/11/24 18:40 Source: patient, RN notes reviewed Mode of arrival: EMS Limitations: no limitations - History of Present Illness Initial comments: 83-year-old male presenting via EMS for altered mental status. PD was called for wellness check as there was no communication from patient for a few hours as patient lives at home. Upon evaluation, patient is lethargic and difficult to arouse. Patient was recently admitted to [facility] for UTI. Patient was then sent to [facility] and discharged 3 days ago. Cousin is present upon his examination who is patient's power of certified pharmacist assistant, he states he believes patient may not have been taking his outpatient antibiotics. Denies any other notable symptoms. - Related Data Home Medications Medication Instructions Recorded Confirmed hydroCHLOROthiazide [Hydrodiuril] 50 mg PO QAM 11/22/13 12/30/23 Atorvastatin [Lipitor] 10 mg PO HS 02/17/17 12/30/23 Citalopram Hydrobromide [CeleXA] 40 mg PO QAM 04/09/17 12/30/23 metFORMIN HCL [Glucophage] 500 mg PO AC-SUPPER 04/10/17 12/30/23 Levothyroxine Sodium [Synthroid] 150 mcg PO QAM 07/14/20 12/30/23 Tamsulosin [Flomax] 0.4 mg PO QAM 06/16/21 12/30/23 metFORMIN HCL [Glucophage] 500 mg PO AC-BRKFST PRN 05/20/22 12/30/23 Aspirin 81 mg PO HS 08/12/22 01/03/24 Morphine Pump 1 dose INTRATHECA CONTINUOUS 08/18/23 12/30/23 Bupropion (Unk) 300 mg PO DAILY 09/13/23 12/30/23 Metoprolol Tartrate 25 mg PO DAILY 09/13/23 12/30/23 Vit D3 (Unk) 1 tab PO DAILY 09/13/23 12/30/23 Gabapentin [Neurontin] 300 mg PO TID 09/15/23 12/30/23 Acetaminophen/Caffeine [Excedrin 2 tab PO TID 10/07/23 12/30/23 Tension Headache] Previous Rx's Medication Instructions Recorded oxyCODONE HCL [Oxaydo] 5 mg PO TID PRN 30 Days #90 tab 03/27/24 Baclofen [Lioresal] 10 mg PO HS 30 Days #30 tab 01/03/24 oxyCODONE HCL [oxyCODONE HCL (IR)] 5 mg PO TID PRN 30 Days #90 cap 01/04/24 oxyCODONE HCL [oxyCODONE HCL (IR)] 5 mg PO TID PRN 30 Days #90 cap 01/04/24 oxyCODONE HCL [oxyCODONE HCL (IR)] 5 mg PO TID PRN 30 Days #90 cap 01/04/24 Allergies Allergy/AdvReac Type Severity Reaction Status Date / Time No Known Allergies Allergy Verified 03/11/24 18:07 Review of Systems ROS Statement: Those systems with pertinent positive or pertinent negative responses have been documented in the HPI. ROS Other: All systems not noted in ROS Statement are negative. Past Medical History Past Medical History: Cancer, Diabetes Mellitus, GERD/Reflux, Hearing Disorder / Deafness, Hypertension, Musculoskeletal Disorder, Osteoarthritis (OA), Rheumatoid Arthritis (RA), Thyroid Disorder Additional Past Medical History / Comment(s): HX MIGRAINES. HX OF SKIN CANCER. CHRONIC BACK PAIN, D.I.S.H.-DEGENERATIVE ARTHRITIS, ANKYLOSING SPONDYLITIS. GETS LIGHTHEADED EASILY-MOVES SLOWLY TO PREVENT LOSS OF BALANCE. Hx prostate [id number], had RADIATION TREATMENTS AT [address] Urinary incontinence. O2 PRN. Rectal bleeding 8 years ago. 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 Hard of hearing- has hearing enhancer device, intrathecal pain pump-located lt buttocks- Morphine sulfate 0.6991ml/day w-Bupivacaine 0.6991ml/day. History of Any Multi-Drug Resistant Organisms: None Reported Past Surgical History: Appendectomy, Back Surgery, Bowel Resection, Joint Replacement, Orthopedic Surgery, Tonsillectomy Additional Past Surgical History / Comment(s): Left knee replacement, back surgery X2, INTRATHECAL OPIOID PAIN PUMP placed and replaced, upper teeth pulled, prostate biopsy, bilateral cataract surgery. Past Anesthesia/Blood Transfusion Reactions: No Reported Reaction Past Psychological History: Anxiety, Depression Smoking Status: Never smoker - Past Family History Father Family Medical History: Cancer, Deep Vein Thrombosis (DVT) Additional Family Medical History / Comment(s): Lung and bone cancer. General Exam Limitations: altered mental status (Patient opens eyes to verbal commands. Will begin to answer questions, then falls asleep before completing answer. GCS 12) General appearance: in no apparent distress, lethargic Head exam: Present: atraumatic, normocephalic, normal inspection Eye exam: Present: normal appearance, PERRL. Absent: scleral icterus, conjunctival injection, periorbital swelling ENT exam: Present: normal exam, mucous membranes moist Respiratory exam: Present: normal lung sounds bilaterally. Absent: respiratory distress, wheezes, rales, rhonchi, stridor Cardiovascular Exam: Present: regular rate, normal rhythm, normal heart sounds. Absent: systolic murmur, diastolic murmur, rubs, gallop, clicks GI/Abdominal exam: Present: soft, normal bowel sounds. Absent: distended, tenderness, guarding, rebound, rigid Neurological exam: Present: altered Skin exam: Present: warm, dry, intact, normal color. Absent: rash Course Vital Signs 03/11/24 18:03 Temperature 99.2 F Pulse Rate 82 Respiratory 20 Rate Blood Pressure 118/61 O2 Sat by Pulse 94 L Oximetry EKG Findings - EKG Results: EKG: interpreted by ERMD (EKG reveals normal sinus rhythm with no ST changes. Ventricular rate 74 bpm, MT interval 160, QRS duration 118, QT/QTc 421/456) Medical Decision Making - Medical Decision Making Was pt. sent in by a medical professional or institution (, GISELL, MANAGER OF SOFTWARE DEVELOPMENT, urgent care, hospital, or intermediate...) When possible be specific @ -No Did you speak to anyone other than the patient for history (EMS, parent, family, police, friend...)? What history was obtained from this source @ -Patient's cousin who is power of certified pharmacist assistant provided history Did you review nursing and triage notes (agree or disagree)? Why? @ -I reviewed and agree with nursing and triage notes Were old charts reviewed (outside hosp., previous admission, EMS record, old EKG, old radiological studies, urgent care reports/EKG's, intermediate records)? Report findings @ -No old charts were reviewed Differential Diagnosis (chest pain, altered mental status, abdominal pain women, abdominal pain men, vaginal bleeding, weakness, fever, dyspnea, syncope, headache, dizziness, GI bleed, back pain, seizure, CVA, palpatations, mental health, musculoskeletal)? @ -Differential Altered Mental Status: Hypoglycemia, DKA, hypercapnia, ETOH, overdose, CO poisoning, trauma, myxedema coma, HTN encephalopathy, infection, encephalitis, psychosis, intercranial hemorrhage, hepatic encephalopathy, meningitis, CVA, this is not meant to be an all-inclusive list EKG interpreted by me (3pts min.). @ -As above X-rays interpreted by me (1pt min.). @ -Chest x-ray reveals patchy posterior basilar atelectasis versus infiltrate CT interpreted by me (1pt min.). @ -CT head reveals no acute process U/S interpreted by me (1pt. min.). @ -None done What testing was considered but not performed or refused? (CT, X-rays, U/S, labs)? Why? @ -None What meds were considered but not given or refused? Why? @ -None Did you discuss the management of the patient with other professionals (professionals i.e. , PA, MANAGER OF SOFTWARE DEVELOPMENT, lab, RT, psych nurse, social worker assistant, reverse unit operator fisherman, teacher, commissioned fire officer, foster care case manager)? Give summary @ -I spoke with Dr. Mendoza from [facility] who accepts admission at this time Was smoking cessation discussed for >3mins.? @ -No Was critical care preformed (if so, how long)? @ -No Were there social determinants of health that impacted care today? How? (Homelessness, low income, unemployed, alcoholism, drug addiction, transportation, low edu. Level, literacy, decrease access to med. care, fpc, rehab)? @ -No Was there de-escalation of care discussed even if they declined (Discuss DNR or withdrawal of care, Hospice)? DNR status @ -No What co-morbidities impacted this encounter? (DM, HTN, Smoking, COPD, CAD, Cancer, CVA, ARF, Chemo, Hep., AIDS, mental health diagnosis, sleep apnea, morbid obesity)? @ -None Was patient admitted / discharged? Hospital course, mention meds given and route, prescriptions, significant lab abnormalities, going to OR and other pertinent info. @ -Patient was admitted. Patient was seen and evaluated for altered mental status. No reportable symptoms. Patient was recently admitted for UTI. Vital signs within normal limits. Upon examination, GCS 12, patient will open his eyes in response to verbal commands and attempt to answer questions. Lab work including CBC, CMP, lactic acid, troponin unremarkable. Chest x-ray reveals patchy posterior basilar atelectasis versus infiltrate. CT head revealed no acute intracranial process. Urine unremarkable. I spoke with Dr. Mendoza who accepts admission at this time for likely pneumonia. Case was discussed with my ED attending Dr. Duenas. Undiagnosed new problem with uncertain prognosis? @ -No Drug Therapy requiring intensive monitoring for toxicity (Heparin, Nitro, Insuli n, Cardizem)? @ -No Were any procedures done? @ -No Diagnosis/symptom? @ -Pneumonia, altered mental status Acute, or Chronic, or Acute on Chronic? @ -Acute Uncomplicated (without systemic symptoms) or Complicated (systemic symptoms)? @ -Complicated Side effects of treatment? @ -No Exacerbation, Progression, or Severe Exacerbation? @ -No Poses a threat to life or bodily function? How? (Chest pain, USA, MS, pneumonia, PE, COPD, DKA, ARF, appy, cholecystitis, CVA, Diverticulitis, Homicidal, Suicida l, threat to staff... and all critical care pts) @ -Yes - Lab Data Result diagrams: 03/11/24 19:50 03/11/24 19:50 Lab Results 03/11/24 03/11/24 03/11/24 Range/Units 19:50 19:50 19:50 WBC 11.5 H (3.8-10.6) k/uL RBC 3.59 L (4.30-5.90) m/uL Hgb 10.1 L (13.0-17.5) gm/dL Hct 31.7 L (39.0-53.0) % MCV 88.3 (80.0-100.0) fL MCH 28.1 (25.0-35.0) pg MCHC 31.9 (31.0-37.0) g/dL RDW 15.9 H (11.5-15.5) % Plt Count 242 (150-450) k/uL MPV 7.4 Neutrophils % 92 % Lymphocytes % 1 % Monocytes % 5 % Eosinophils % 0 % Basophils % 1 % Neutrophils # 10.6 H (1.3-7.7) k/uL Lymphocytes # 0.1 L (1.0-4.8) k/uL Monocytes # 0.6 (0-1.0) k/uL Eosinophils # 0.1 (0-0.7) k/uL Basophils # 0.1 (0-0.2) k/uL Hypochromasia Moderate PT 11.0 (10.0-12.5) sec INR 1.0 (<1.2) APTT 24.5 (22.0-30.0) sec Sodium 138 (137-145) mmol/L Potassium 3.8 (3.5-5.1) mmol/L Chloride 100 (98-107) mmol/L Carbon Dioxide 30 (22-30) mmol/L Anion Gap 8 mmol/L BUN 17 (9-20) mg/dL Creatinine 1.40 H (0.66-1.25) mg/dL Est GFR (CKD-EPI)AfAm 53 (>60 ml/min/1.73 sqM) Est GFR (CKD-EPI)NonAf 46 (>60 ml/min/1.73 sqM) Glucose 170 H (74-99) mg/dL Plasma Lactic Acid Js (0.7-2.0) mmol/L Calcium 8.9 (8.4-10.2) mg/dL Total Bilirubin 0.5 (0.2-1.3) mg/dL AST 28 (17-59) U/L ALT 15 (4-49) U/L Alkaline Phosphatase 62 (38-126) U/L Troponin I (0.000-0.034) ng/mL Total Protein 6.1 L (6.3-8.2) g/dL Albumin 3.3 L (3.5-5.0) g/dL Urine Color Urine Appearance (Clear) Urine pH (5.0-8.0) Ur Specific [place] (1.001-1.035) Urine Protein (Negative) Urine Glucose (UA) (Negative) Urine Ketones (Negative) Urine Blood (Negative) Urine Nitrite (Negative) Urine Bilirubin (Negative) Urine Urobilinogen (<2.0) mg/dL Ur Leukocyte Esterase (Negative) Urine RBC (0-5) /hpf Urine WBC (0-5) /hpf Triple Phos Crystals (None) /hpf Amorphous Sediment (None) /hpf Urine Bacteria (None) /hpf Urine Yeast (Budding) (None) /hpf 03/11/24 03/11/24 03/11/24 Range/Units 19:50 19:50 20:24 WBC (3.8-10.6) k/uL RBC (4.30-5.90) m/uL Hgb (13.0-17.5) gm/dL Hct (39.0-53.0) % MCV (80.0-100.0) fL MCH (25.0-35.0) pg MCHC (31.0-37.0) g/dL RDW (11.5-15.5) % Plt Count (150-450) k/uL MPV Neutrophils % % Lymphocytes % % Monocytes % % Eosinophils % % Basophils % % Neutrophils # (1.3-7.7) k/uL Lymphocytes # (1.0-4.8) k/uL Monocytes # (0-1.0) k/uL Eosinophils # (0-0.7) k/uL Basophils # (0-0.2) k/uL Hypochromasia PT (10.0-12.5) sec INR (<1.2) APTT (22.0-30.0) sec Sodium (137-145) mmol/L Potassium (3.5-5.1) mmol/L Chloride (98-107) mmol/L Carbon Dioxide (22-30) mmol/L Anion Gap mmol/L BUN (9-20) mg/dL Creatinine (0.66-1.25) mg/dL Est GFR (CKD-EPI)AfAm (>60 ml/min/1.73 sqM) Est GFR (CKD-EPI)NonAf (>60 ml/min/1.73 sqM) Glucose (74-99) mg/dL Plasma Lactic Acid Js 1.8 (0.7-2.0) mmol/L Calcium (8.4-10.2) mg/dL Total Bilirubin (0.2-1.3) mg/dL AST (17-59) U/L ALT (4-49) U/L Alkaline Phosphatase (38-126) U/L Troponin I <0.012 (0.000-0.034) ng/mL Total Protein (6.3-8.2) g/dL Albumin (3.5-5.0) g/dL Urine Color Colorless Urine Appearance Clear (Clear) Urine pH 7.5 (5.0-8.0) Ur Specific [place] 1.013 (1.001-1.035) Urine Protein Trace H (Negative) Urine Glucose (UA) Negative (Negative) Urine Ketones Negative (Negative) Urine Blood Negative (Negative) Urine Nitrite Negative (Negative) Urine Bilirubin Negative (Negative) Urine Urobilinogen <2.0 (<2.0) mg/dL Ur Leukocyte Esterase Trace H (Negative) Urine RBC 3 (0-5) /hpf Urine WBC 1 (0-5) /hpf Triple Phos Crystals Rare H (None) /hpf Amorphous Sediment Rare H (None) /hpf Urine Bacteria Rare H (None) /hpf Urine Yeast (Budding) Rare H (None) /hpf Disposition Clinical Impression: Pneumonia, Altered mental status Disposition: ADMITTED IP TO THIS HOSP Condition: Stable Referrals: Remington Mayfield DO [Primary Care Provider] - 1-2 days Time of Disposition: 21:52
--- NOTE | 2024-03-11 20:09 | XR ---
EXAMINATION TYPE: XR chest 2V DATE OF EXAM: 03/11/2024 COMPARISON: 02/02/2021 HISTORY: 83-year-old male confusion, altered mental status TECHNIQUE: AP and lateral views FINDINGS: Heart normal size. Aorta within normal limits. Suspected right-sided rotator cuff arthropathy partial ly visualized. There is patchy posterior basilar opacity on the lateral view. Remainder of the lungs appear clear. No pleural effusion. IMPRESSION: Lateral view shows patchy posterior basilar atelectasis versus infiltrate. Correlate with symptoms.
[2024-03-11 20:28] LABS: Basophils # (A) 0.1 k/uL (0-0.2); Basophils % (A) 1 %; Eosinophils # (A) 0.1 k/uL (0-0.7); Eosinophils % (A) 0 %; HCT 31.7 % (39.0-53.0); HGB 10.1 gm/dL (13.0-17.5); Hypochromasia Moderate; Lymphocytes # (A) 0.1 k/uL (1.0-4.8); Lymphocytes % (A) 1 %; MCH 28.1 pg (25.0-35.0); MCHC 31.9 g/dL (31.0-37.0); MCV 88.3 fL (80.0-100.0); Mean Platelet Volume 7.4; Monocytes # (A) 0.6 k/uL (0-1.0); Monocytes % (A) 5 %; Neutrophils # (A) 10.6 k/uL (1.3-7.7); Neutrophils % (A) 92 %; Platelet Count 242 k/uL (150-450); RBC 3.59 m/uL (4.30-5.90); RDW 15.9 % (11.5-15.5); WBC 11.5 k/uL (3.8-10.6)
--- NOTE | 2024-03-11 20:29 | CT ---
EXAMINATION TYPE: CT brain wo con CT DLP: 1184.4 mGycm, Automated exposure control for dose reduction was used. DATE OF EXAM: 03/11/2024 8:17 PM COMPARISON: None. CLINICAL INDICATION: Male, 83 years old with history of altered mental status, AMS. TECHNIQUE: Brain: Axial CT images of the brain were obtained with coronal and sagittal reformats created and rev iewed. Contrast used: None. Oral contrast used: None. FINDINGS: Brain: Extra-axial spaces: No abnormal extra-axial fluid collections. Ventricular system: Dilatation in proportion to cerebral atrophy. Cerebral parenchyma: No acute intraparenchymal hemorrhage or mass effect. The ramires-white junction is well differentiated. Cerebellum: Unremarkable. Mass effect: No evidence of midline shift. Intracranial vasculature: unremarkable Soft tissues: Normal. Calvarium/osseous structures: No depressed skull fracture. Paranasal sinuses and mastoid air cells: Chronic paranasal sinus disease with bony changes of the mert ateral maxillary sinuses. And complete opacification of the left maxillary sinus and the frontal sinu ses Visualized orbits: Orbital contents are intact. IMPRESSION: No acute intracranial process.
[2024-03-11 20:40] LABS: Partial Thromboplastin Time 24.5 sec (22.0-30.0)
[2024-03-11 21:01] LABS: Amorphous Sediment,Urine Rare /hpf; Appearance,Urine Clear (Clear); Bacteria,Urine Rare /hpf; Bilirubin,Urine Negative (Negative); Blood,Urine Negative (Negative); Budding Yeast,Urine Rare /hpf; Color,Urine Colorless; Glucose,Urine (UA) Negative (Negative); Ketones,Urine Negative (Negative); Leukocyte Esterase,Urine Trace (Negative); Nitrite,Urine Negative (Negative); PH, Urine 7.5 (5.0-8.0); Protein,Urine Trace (Negative); RBC,Urine 3 /hpf (0-5); Specific Gravity,Urine 1.013 (1.001-1.035); Triple Phosphate Crystal,Urine Rare /hpf; Urobilinogen,Urine <2.0 mg/dL (<2.0); WBC,Urine 1 /hpf (0-5)
[2024-03-11 21:19] LABS: ALT 15 U/L (4-49); AST 28 U/L (17-59); African American GFR (CKD) 53 (>60 ml/min/1.73 sqM); Albumin 3.3 g/dL (3.5-5.0); Alkaline Phosphatase 62 U/L (38-126); Anion Gap 8 mmol/L; Blood Urea Nitrogen 17 mg/dL (9-20); Calcium 8.9 mg/dL (8.4-10.2); Carbon Dioxide 30 mmol/L (22-30); Chloride 100 mmol/L (98-107); Glucose 170 mg/dL (74-99); Non-African American GFR(CKD) 46 (>60 ml/min/1.73 sqM); Potassium 3.8 mmol/L (3.5-5.1); Sodium 138 mmol/L (137-145); Total Bilirubin 0.5 mg/dL (0.2-1.3); Total Protein 6.1 g/dL (6.3-8.2)
[2024-03-11] MEDS ORDERED: NALOXONE 0.4 MG/ML 1 ML VIAL IV PRN (21:52)
[2024-03-12] MEDS: ACETAMINOPHEN TAB 325 MG TAB PO PRN (00:13)
[2024-03-12 10:23] LABS: Glucose,Whole Blood 115 mg/dL (70-110)
[2024-03-12] MEDS: ACETAMINOPHEN TAB 325 MG TAB ONE ×2 (11:26→11:27)
[2024-03-12] MEDS ORDERED: DEXTROSE 50% SYRINGE 50 ML IVP PRN ×2 (12:27)
[2024-03-12] MEDS ORDERED: IPRATROPIUM-ALBUTEROL 3 ML NEB INHALATION PRN (12:30)
[2024-03-12] MEDS: PANTOPRAZOLE 40 MG/10 ML VIAL IVP SCH (12:49)
[2024-03-12] MEDS: buPROPion XL 300 MG TAB.ER.24H PO SCH (12:49)
[2024-03-12] MEDS: INSULIN ASPART (NovoLOG) 100 UNIT/ML VIAL SQ SCH (13:04)
[2024-03-12] MEDS: METOPROLOL TARTRATE 12.5 MG TAB PO SCH (13:05)
--- NOTE | 2024-03-12 13:38 | P.HPIM ---
History of Present Illness H&P Date: 03/12/24 Chief Complaint: Increased weakness, pneumonia This is an 83-year-old gentleman with past medical history significant for diabetes mellitus, gastroesophageal reflux disease, hypothyroidism, prostate cancer with radiation treatment, recent colonoscopy, COPD, chronic respiratory failure, chronic pain syndrome, follows with and multiple other medical issues transported to the ER via EMS . Patient lives alone, his neighbor Maverick is his caregiver. Apparently patient had not responded for a few hours and PD was called for a wellness check. Patient was discovered lethargic, difficult to arouse. Recently admitted to [facility] for UTI, discharged from [facility] approximately 3 days ago. Cousin who is also patient's power of estate attorney present stating patient may not have been taking his outpatient antibiotics. Patient reports he took all the meds in his med box each day. Med box is arranged per caregiver. Patient uses a walker to ambulate and wears 2 L nasal cannula O2 at home. Currently requiring 3 L nasal cannula to maintain O2 sats in the 90s. Afebrile, WBC 11.5, hemoglobin 10.1, platelets 242, INR 1, electrolytes within normal limits, bicarb 30, BUN 17, creatinine 1.4-baseline 1.1-1.3. UA negative. Viral studies negative.Brain CT reported no acute intracranial process. Denies chest pain, palpitations. EKG reporting sinus. Troponin negative x 1. Blood sugars 115 to 170. Chest x-ray reported lateral views reporting patchy posterior basilar atelectasis versus infiltrate. Currently denies cough. Review of Systems ROS Statement: Those systems with pertinent positive or pertinent negative responses have been documented in the HPI. ROS Other: All systems not noted in ROS Statement are negative. Past Medical History Past Medical History: Cancer, Diabetes Mellitus, GERD/Reflux, Hearing Disorder / Deafness, Hypertension, Musculoskeletal Disorder, Osteoarthritis (OA), Rheumatoid Arthritis (RA), Thyroid Disorder Additional Past Medical History / Comment(s): HX MIGRAINES. HX OF SKIN CANCER. CHRONIC BACK PAIN, D.I.S.H.-DEGENERATIVE ARTHRITIS, ANKYLOSING SPONDYLITIS. GETS LIGHTHEADED EASILY-MOVES SLOWLY TO PREVENT LOSS OF BALANCE. Hx prostate [id number], had RADIATION TREATMENTS AT [facility] -28 tx's. Urinary incontinence. O2 PRN. Rectal bleeding 8 years ago. 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 Hard of hearing- has hearing enhancer device, intrathecal pain pump-located lt buttocks- Morphine sulfate 0.6991ml/day w-Bupivacaine 0.6991ml/day. History of Any Multi-Drug Resistant Organisms: None Reported Past Surgical History: Appendectomy, Back Surgery, Bowel Resection, Joint Replacement, Orthopedic Surgery, Tonsillectomy Additional Past Surgical History / Comment(s): Left knee replacement, back surgery X2, INTRATHECAL OPIOID PAIN PUMP placed and replaced, upper teeth pulled, prostate biopsy, bilateral cataract surgery. Past Anesthesia/Blood Transfusion Reactions: No Reported Reaction Past Psychological History: Anxiety, Depression Additional Psychological History / Comment(s): Lives alone, cousin, Maverick assists him. Smoking Status: Never smoker Past Alcohol Use History: None Reported Past Drug Use History: None Reported - Past Family History Father Family Medical History: Cancer, Deep Vein Thrombosis (DVT) Additional Family Medical History / Comment(s): Lung and bone cancer. Medications and Allergies Home Medications Medication Instructions Recorded Confirmed Type hydroCHLOROthiazide [Hydrodiuril] 50 mg PO DAILY 11/22/13 03/12/24 History Atorvastatin [Lipitor] 10 mg PO HS 02/17/17 03/12/24 History Citalopram Hydrobromide [CeleXA] 40 mg PO DAILY 04/09/17 03/12/24 History metFORMIN HCL [Glucophage] 500 mg PO AC-SUPPER 04/10/17 03/12/24 History Levothyroxine Sodium [Synthroid] 175 mcg PO DAILY 07/14/20 03/12/24 History metFORMIN HCL [Glucophage] 500 mg PO AC-BRKFST PRN 05/20/22 03/12/24 History Aspirin 81 mg PO HS 08/12/22 03/12/24 History Metoprolol Tartrate 12.5 mg PO DAILY 09/13/23 03/12/24 History Vit D3 (Unk) 1 tab PO DAILY 09/13/23 03/12/24 History Gabapentin [Neurontin] 300 mg PO TID 09/15/23 03/12/24 History Baclofen [Lioresal] 10 mg PO HS 30 Days #30 tab 01/03/24 03/12/24 Rx Patient Own Pump 0 bag 03/12/24 History Sulfamethox-Tmp 800-160Mg [Bactrim 1 tab PO DIRECTED 03/12/24 03/12/24 History DS 800-160 mg] buPROPion XL [Wellbutrin XL] 300 mg PO DAILY 03/12/24 03/12/24 History oxyCODONE HCL [OxyIR] 5 mg PO TID PRN 03/12/24 03/12/24 History Allergies Allergy/AdvReac Type Severity Reaction Status Date / Time No Known Allergies Allergy Verified 03/11/24 18:07 Physical Exam Vitals: Vital Signs Temp Pulse Pulse Resp BP BP Pulse Ox 03/12/24 07:45 61 17 03/12/24 07:25 97.5 F L 61 17 107/58 97 03/12/24 00:19 98.1 F 63 18 107/58 94 L 03/11/24 22:58 98.7 F 65 16 111/53 97 03/11/24 21:30 84 20 106/59 94 L 03/11/24 21:00 87 18 114/59 94 L 03/11/24 18:03 99.2 F 82 20 118/61 94 L Intake and Output 03/11/24 03/12/24 03/12/24 22:59 06:59 14:59 Other: Voiding Method External Catheter # Voids 1 1 Weight 81.647 kg GENERAL: This is an 80 year-old in no distress at the time of examination. Pleasant and cooperative.RUBY. HEENT: Head is atraumatic, normocephalic. Pupils are equal, round, and reactive to light. Sclerae anicteric. Conjunctivae are clear. Mucus membranes of the mouth are moist. Neck is supple. RESPIRATORY: Clear to auscultation. No wheezes, rales, or rhonchi. No use of accessory muscles. No chest wall tenderness is noted on palpation or with deep breathing. CARDIOVASCULAR: Regular rate and rhythm. S1 and S2 noted. No systolic or diastolic murmur auscultated. No JVD noted. No S3 or S4 noted. GASTROINTESTINAL: No distention noted. Abdomen soft and round. Normal active bowel sounds auscultated x 4 quadrants. No pain or tenderness noted upon palpation. INTEGUMENTARY: No cyanosis. No jaundice. No rashes noted. Coccyx reddened, blanchable. EXTREMITIES: 2+ peripheral pulses. No evidence of peripheral edema. No calf tenderness noted. Chronic lower extremity scratches. NEUROLOGIC: Cranial nerves II-XII intact. PSYCHIATRIC: Awake, alert, and oriented X 3. Appropriate affect. Intact judgement and insight. Results CBC & Chem 7: 03/11/24 19:50 03/11/24 19:50 Labs: Abnormal Lab Results - Last 24 Hours (Table) 03/11/24 03/11/24 03/11/24 Range/Units 19:50 19:50 20:24 WBC 11.5 H (3.8-10.6) k/uL RBC 3.59 L (4.30-5.90) m/uL Hgb 10.1 L (13.0-17.5) gm/dL Hct 31.7 L (39.0-53.0) % RDW 15.9 H (11.5-15.5) % Neutrophils # 10.6 H (1.3-7.7) k/uL Lymphocytes # 0.1 L (1.0-4.8) k/uL Creatinine 1.40 H (0.66-1.25) mg/dL Glucose 170 H (74-99) mg/dL POC Glucose (mg/dL) (70-110) mg/dL Total Protein 6.1 L (6.3-8.2) g/dL Albumin 3.3 L (3.5-5.0) g/dL Urine Protein Trace H (Negative) Ur Leukocyte Esterase Trace H (Negative) Triple Phos Crystals Rare H (None) /hpf Amorphous Sediment Rare H (None) /hpf Urine Bacteria Rare H (None) /hpf Urine Yeast (Budding) Rare H (None) /hpf 03/12/24 Range/Units 10:22 WBC (3.8-10.6) k/uL RBC (4.30-5.90) m/uL Hgb (13.0-17.5) gm/dL Hct (39.0-53.0) % RDW (11.5-15.5) % Neutrophils # (1.3-7.7) k/uL Lymphocytes # (1.0-4.8) k/uL Creatinine (0.66-1.25) mg/dL Glucose (74-99) mg/dL POC Glucose (mg/dL) 115 H (70-110) mg/dL Total Protein (6.3-8.2) g/dL Albumin (3.5-5.0) g/dL Urine Protein (Negative) Ur Leukocyte Esterase (Negative) Triple Phos Crystals (None) /hpf Amorphous Sediment (None) /hpf Urine Bacteria (None) /hpf Urine Yeast (Budding) (None) /hpf Assessment and Plan Assessment: Health acquired pneumonia in a patient recently treated for acute UTI at another institution and then discharged to a subacute rehab.-Discharged 3 days ago. Acute on chronic hypoxic respiratory failure, wears 2 L at home. Dehydration secondary to the above Acute metabolic encephalopathy secondary to all the above, improving. Increasing weakness secondary to the above COPD, chronic Hypothyroidism Gastroesophageal reflux disease Diabetes mellitus Hypertension Anxiety Depression Chronic pain OA RA History of Prostate cancer with radiation treatment Plan: Continue on current medication regimen, monitoring and symptomatic treatment. Blood cultures in progress. aggressive pulmonary toileting with Sym bicort, nebulized bronchodilators and incentive spirometer ordered .close monitoring of Accu-Cheks,NovoLog sliding scale. PT/OT consulted. The impression and plan of care has been dictated as directed. : I performed a history and examination of this patient, discussed the same with the dictator. I agree with the dictator's note ,documented as a scribe. Any additional findings or plans will be noted.
[2024-03-12] MEDS: AZITHROMYCIN 500 MG in SODIUM CHLORIDE 0.9% 250 ML IVPB SCH (14:23)
[2024-03-12] MEDS: LEVOTHYROXINE 88 MCG TAB PO SCH (14:23)
[2024-03-12] MEDS: SYMBICORT 80-4.5 MCG INHALER INHALATION SCH (15:50)
[2024-03-12] MEDS: IPRATROPIUM-ALBUTEROL 3 ML NEB INHALATION SCH (15:50)
[2024-03-12] MEDS: GABAPENTIN 300 MG CAP PO SCH (16:32)
[2024-03-12 16:35] LABS: Glucose,Whole Blood 128 mg/dL (70-110)
[2024-03-12] MEDS: ATORVASTATIN 10 MG TAB PO SCH (20:08)
[2024-03-12] MEDS: ASPIRIN 81 MG PO SCH (20:08)
[2024-03-12] MEDS: BACLOFEN 10 MG TAB PO SCH (20:08)
[2024-03-12 21:29] LABS: Glucose,Whole Blood 131 mg/dL (70-110)
[2024-03-13 05:59] LABS: Glucose,Whole Blood 133 mg/dL (70-110)
[2024-03-13 09:13] LABS: Basophils # (A) 0.02 X 10*3/uL (0.00-0.10); Basophils % (A) 0.4 %; Eosinophils # (A) 0.62 X 10*3/uL (0.04-0.35); Eosinophils % (A) 12.7 %; HCT 26.5 % (39.6-50.0); HGB 8.3 g/dL (13.0-17.0); Lymphocytes # (A) 0.79 X 10*3/uL (0.90-5.00); Lymphocytes % (A) 16.2 %; MCH 28.1 pg (27.0-32.0); MCHC 31.3 g/dL (32.0-37.0); MCV 89.8 FL (80.0-97.0); Mean Platelet Volume 10.8 FL (9.5-12.2); Monocytes # (A) 0.75 X 10*3/uL (0.20-1.00); Monocytes % (A) 15.3 %; NRBC Per 100 WBC 0 X 10*3/uL (0.00-0.01); Neutrophils % (A) 55.2 %; Platelet Count 172 X 10*3/uL (140-440); RBC 2.95 X 10*6/uL (4.40-5.60); RDW 15.9 % (11.5-14.5); WBC 4.89 X 10*3/uL (4.50-10.00)
[2024-03-13 09:43] LABS: BUN/Creat Ratio 16.15 Ratio (12.00-20.00); Calcium 8.6 mg/dL (8.7-10.3); Carbon Dioxide 27.1 mmol/L (21.6-31.8); Chloride 100 mmol/L (96-109); Glucose 98 mg/dL (70-110); Potassium 3.2 mmol/L (3.5-5.5); Sodium 138 mmol/L (135-145)
[2024-03-13 12:05] LABS: Glucose,Whole Blood 105 mg/dL (70-110)
--- NOTE | 2024-03-13 15:29 | P.PN ---
Subjective Progress Note Date: 03/13/24 H&P Date: 03/12/24 Chief Complaint: Increased weakness, pneumonia This is an 83-year-old gentleman with past medical history significant for diabetes mellitus, gastroesophageal reflux disease, hypothyroidism, prostate cancer with radiation treatment, recent colonoscopy, COPD, chronic respiratory failure, chronic pain syndrome, follows with and multiple other medical issues transported to the ER via EMS . Patient lives alone, his neighbor Maverick is his caregiver. Apparently patient had not responded for a few hours and PD was called for a wellness check. Patient was discovered lethargic, difficult to arouse. Recently admitted to [facility] for UTI, discharged from [facility] approximately 3 days ago. Cousin who is also patient's power of sales contracts analyst present stating patient may not have been taking his outpatient antibiotics. Patient reports he took all the meds in his med box each day. Med box is arranged per caregiver. Patient uses a walker to ambulate and wears 2 L nasal cannula O2 at home. Currently requiring 3 L nasal cannula to maintain O2 sats in the 90s. Afebrile, WBC 11.5, hemoglobin 10.1, platelets 242, INR 1, el ectrolytes within normal limits, bicarb 30, BUN 17, creatinine 1.4-baseline 1.1- 1.3. UA negative. Viral studies negative.Brain CT reported no acute intracranial process. Denies chest pain, palpitations. EKG reporting sinus. Troponin negative x 1. Blood sugars 115 to 170. Chest x-ray reported lateral views reporting patchy posterior basilar atelectasis versus infiltrate. Currently denies cough. 03/13/2024 maintained on azithromycin and ceftriaxone with significant clinical improvement, CBC has normalized, 4.89, afebrile.Denies cough, congestion or shortness of breath. Maintaining O2 sats in the high 90s on 2 L nasal cannula. Blood cultures pending. Blood sugars controlled, hemoglobin A1c 5.9. Bicarb 27.1, BUN 21, creatinine decreased to 1.3. Hemoglobin decreased to 8.3, platelets 172. No bleeding, no hemoptysis, no rectal bleeding. Denies nausea vomiting or diarrhea. Denies abdominal pain. Vital signs stable, no tachycardia. Denies chest pain, palpitations. Objective - Vital Signs Vital signs: Vital Signs Temp 97.3 F L 03/13/24 14:07 Pulse 55 L 03/13/24 14:07 Resp 17 03/13/24 14:07 BP 111/58 03/13/24 14:07 Pulse Ox 97 03/13/24 14:07 FiO2 Intake & Output 03/12/24 03/13/24 03/13/24 18:59 06:59 18:59 Output Total 600 1600 750 Balance -600 -1600 -750 Output: Urine 600 1600 750 Other: Voiding Method External Catheter External Catheter External Catheter # Voids 1 2 # Bowel Movements 1 - Exam GENERAL: Alert and oriented x 3, sitting up in bed, no acute distress. Pleasant and cooperative.[place]. HEENT: Head is atraumatic, normocephalic. Pupils are equal, round, and reactive to light. Sclerae anicteric. Conjunctivae are clear. Mucus membranes of the mouth are moist. Neck is supple. RESPIRATORY: Clear to auscultation. No wheezes, rales, or rhonchi. No use of accessory muscles. No chest wall tenderness is noted on palpation or with deep breathing. CARDIOVASCULAR: Regular rate and rhythm. S1 and S2 noted. No systolic or diastolic murmur auscultated. No JVD noted. No S3 or S4 noted. GASTROINTESTINAL: No distention noted. Abdomen soft and round. Normal active bowel sounds auscultated x 4 quadrants. No pain or tenderness noted upon palpation. INTEGUMENTARY: No cyanosis. No jaundice. No rashes noted. Coccyx reddened, blanchable. EXTREMITIES: 2+ peripheral pulses. No evidence of peripheral edema. No calf tenderness noted. Chronic lower extremity scratches. NEUROLOGIC: Cranial nerves II-XII intact. - Labs CBC & Chem 7: 03/13/24 05:03 03/13/24 05:03 Labs: Abnormal Lab Results - Last 24 Hours (Table) 03/12/24 03/12/24 03/13/24 Range/Units 16:33 21:26 05:03 RBC 2.95 L (4.40-5.60) X 10*6/uL Hgb 8.3 L (13.0-17.0) g/dL Hct 26.5 L (39.6-50.0) % MCHC 31.3 L (32.0-37.0) g/dL RDW 15.9 H (11.5-14.5) % Lymphocytes # 0.79 L (0.90-5.00) X 10*3/uL Eosinophils # 0.62 H (0.04-0.35) X 10*3/uL Potassium (3.5-5.5) mmol/L Est GFR (CKD-EPI) (>=60) POC Glucose (mg/dL) 128 H 131 H (70-110) mg/dL Calcium (8.7-10.3) mg/dL 03/13/24 03/13/24 Range/Units 05:03 05:57 RBC (4.40-5.60) X 10*6/uL Hgb (13.0-17.0) g/dL Hct (39.6-50.0) % MCHC (32.0-37.0) g/dL RDW (11.5-14.5) % Lymphocytes # (0.90-5.00) X 10*3/uL Eosinophils # (0.04-0.35) X 10*3/uL Potassium 3.2 L (3.5-5.5) mmol/L Est GFR (CKD-EPI) 54 L (>=60) POC Glucose (mg/dL) 133 H (70-110) mg/dL Calcium 8.6 L (8.7-10.3) mg/dL Assessment and Plan Assessment: Health acquired pneumonia in a patient recently treated for acute UTI at another institution and then discharged to a subacute rehab.-Discharged 3 days ago. Acute on chronic hypoxic respiratory failure, wears 2 L at home. Dehydration secondary to the above Acute metabolic encephalopathy secondary to all the above, improving. Increasing weakness secondary to the above COPD, chronic Hypothyroidism Gastroesophageal reflux disease Diabetes mellitus, hemoglobin A1c 5.9. Hypertension Anxiety Depression Chronic pain OA RA History of Prostate cancer with radiation treatment Hypokalemia Plan: Continue on current medication regimen, monitoring and symptomatic treatment.Repeat CBC ordered stat as labs today reflect a nearly 2 g drop in hemoglobin. Potassium supplement ordered. Maintain IV antibiotics. blood cultures in progress. Continue aggressive pulmonary toileting with Symbicort, nebulized bronchodilators and incentive spirometer ordered .close monitoring of Accu-Cheks,NovoLog sliding scale. PT/OT evaluation and recommendations pending. Discharge planning in progress for later today or in a.m. pending repeat CBC a nd PT recommendations. The impression and plan of care has been dictated as directed. : I performed a history and examination of this patient, discussed the same with the dictator. I agree with the dictator's note ,documented as a scribe. Any additional findings or plans will be noted.
[2024-03-13 16:06] LABS: HCT 28.9 % (39.0-53.0); Hypochromasia Slight; MCH 28.2 pg (25.0-35.0); Mean Platelet Volume 7.5; Platelet Count 205 k/uL (150-450); RBC 3.18 m/uL (4.30-5.90); RDW 15.9 % (11.5-15.5)
[2024-03-13 16:16] LABS: Eosinophils # (M) 0.44 k/uL (0-0.7); Lymphocytes # (M) 0.68 k/uL (1.0-4.8); Monocytes # (M) 0.24 k/uL (0-1.0); Neutrophils # (M) 2.64 k/uL (1.3-7.7); Neutrophils % (M) 66 %; Nucleated Red Blood Cells 0 /100 WBC (0-0); Total Cells Counted 100
[2024-03-13] MEDS: POTASSIUM CHLORIDE ER 10 MEQ TAB.ER.PRT PO STA (16:29)
[2024-03-13 16:38] LABS: Glucose,Whole Blood 117 mg/dL (70-110)
[2024-03-13 20:17] LABS: Glucose,Whole Blood 156 mg/dL (70-110)
[2024-03-14 06:16] LABS: Glucose,Whole Blood 121 mg/dL (70-110)
[2024-03-14 09:21] LABS: Blood Urea Nitrogen 18.6 mg/dL (9.0-27.0); Calcium 8.7 mg/dL (8.7-10.3); Carbon Dioxide 27.3 mmol/L (21.6-31.8); Chloride 105 mmol/L (96-109); Glucose 100 mg/dL (70-110); Magnesium 1.8 mg/dL (1.5-2.4); Potassium 4.1 mmol/L (3.5-5.5); Sodium 142 mmol/L (135-145)
[2024-03-14 09:41] LABS: Basophils # (A) 0.02 X 10*3/uL (0.00-0.10); Basophils % (A) 0.5 %; Eosinophils # (A) 0.36 X 10*3/uL (0.04-0.35); HCT 27.1 % (39.6-50.0); HGB 8.4 g/dL (13.0-17.0); Lymphocytes # (A) 0.88 X 10*3/uL (0.90-5.00); Lymphocytes % (A) 22.1 %; MCH 28.2 pg (27.0-32.0); MCV 90.9 FL (80.0-97.0); Mean Platelet Volume 10.9 FL (9.5-12.2); Monocytes # (A) 0.66 X 10*3/uL (0.20-1.00); Monocytes % (A) 16.5 %; NRBC Per 100 WBC 0 X 10*3/uL (0.00-0.01); Neutrophils # (A) 2.06 X 10*3/uL (1.80-7.70); Neutrophils % (A) 51.6 %; Platelet Count 178 X 10*3/uL (140-440); RBC 2.98 X 10*6/uL (4.40-5.60); RDW 15.8 % (11.5-14.5); WBC 3.99 X 10*3/uL (4.50-10.00)
[2024-03-14 11:18] LABS: Glucose,Whole Blood 105 mg/dL (70-110)
--- NOTE | 2024-03-14 14:09 | P.DS ---
Providers Date of admission: 03/11/24 21:52 Attending physician: Remington Mayfield Primary care physician: Remington Mayfield [facility] Course: Final Diagnoses: Health acquired pneumonia in a patient recently treated for acute UTI at another institution and then discharged to a subacute rehab.-Discharged 3 days ago. Acute on chronic hypoxic respiratory failure, wears 2 L at home. Dehydration secondary to the above Acute on chronic anemia of chronic disease. Suspect dilutional and dietary related. Denies blood in urine, stool or sputum/hemoptysis. Further review/workup outpatient in clinic with PCP Dr. Mayfield after discharge from [facility]. Acute metabolic encephalopathy secondary to all the above, improving. Increasing weakness secondary to the above COPD, chronic Hypothyroidism Gastroesophageal reflux disease Diabetes mellitus, hemoglobin A1c 5.9. Hypertension Anxiety Depression Chronic pain OA RA History of Prostate cancer with radiation treatment Hypokalemia Hospital course:This is an 83-year-old gentleman with past medical history significant for diabetes mellitus, gastroesophageal reflux disease, hypothyroidism, prostate cancer with radiation treatment, recent colonoscopy, COPD, chronic respiratory failure, chronic pain syndrome, follows with and multiple other medical issues transported to the ER via EMS . Patient lives alone, his neighbor Maverick is his caregiver. Apparently patient had not responded for a few hours and PD was called for a wellness check. Patient was discovered lethargic, difficult to arouse. Recently admitted to [facility] for UTI, discharged from [facility] approximately 3 days ago. Cousin who is also patient's power of estate attorney present stating patient may not have been taking his outpatient antibiotics. Patient reports he took all the meds in his med box each day. Med box is arranged per caregiver. Patient uses a walker to ambulate and wears 2 L nasal cannula O2 at home. Currently requiring 3 L nasal cannula to maintain O2 sats in the 90s. Afebrile, WBC 11.5, hemoglobin 10.1, platelets 242, INR 1, electrolytes within normal limits, bicarb 30, BUN 17, creatinine 1.4-baseline 1.1-1.3. UA negative. Viral studies negative.Brain CT reported no acute intracranial process. Denies chest pain, palpitations. EKG reporting sinus. Troponin negative x 1. Blood sugars 115 to 170. Chest x- ray reported lateral views reporting patchy posterior basilar atelectasis versus infiltrate. Currently denies cough. 03/13/2024 maintained on azithromycin and ceftriaxone with significant clinical improvement, CBC has normalized, 4.89, afebrile.Denies cough, congestion or miguel rtness of breath. Maintaining O2 sats in the high 90s on 2 L nasal cannula. Blood cultures pending. Blood sugars controlled, hemoglobin A1c 5.9. Bicarb 27.1, BUN 21, creatinine decreased to 1.3. Hemoglobin decreased to 8.3, platelets 172. No bleeding, no hemoptysis, no rectal bleeding. Denies nausea vomiting or diarrhea. Denies abdominal pain. Vital signs stable, no tachycardia. Denies chest pain, palpitations. Significant clinical improvement.Patient has a MS pain pump in addition to oral pain management meds as per auto painter helper,O.P. Reports pain contro lled. Hemoglobin 8.4,(10.1) on admission, currently asymptomatic-felt to be dilutional and dietary intake related. Hemoglobin 11.8-11 0.9 in 09/10-PCP, Dr. Mayfield discussed with patient, further review/workup outpatient in clinic. Vital signs stable, afebrile, normal WBC. Creatinine down to 1.2. Blood sugars controlled, hemoglobin A1c 5.9. Denies chest pain, palpitations or shortness of increased in shortness of breath. Patient will be discharged today to [facility] subacute rehab in stable condition with guarded prognosis. The impression and plan of care has been dictated as directed. : I performed a history and examination of this patient, discussed the same with the dictator. I agree with the dictator's note ,documented as a scribe. Any additional findings or plans will be noted. Patient Condition at Discharge: Stable Plan - Discharge Summary Discharge Rx Participant: No New Discharge Prescriptions: New cefUROXime axetiL [Ceftin] 500 mg PO BID 4 Days #8 tab Ipratropium-Albuterol Nebulize [Duoneb 0.5 mg-3 mg/3 ml Soln] 3 ml INHALATION Q4H PRN each PRN Reason: Shortness Of Breath Or Wheezing Budesonide/Formoterol Fumarate [Symbicort 80-4.5 Mcg Inhaler] 2 puff INHALATION BID #1 each INSULIN LISPRO (HumaLOG) [humaLOG] 0 unit SQ ACHS #10 ml Sennosides-Docusate Sodium [Senokot-S] 2 tab PO BID #60 tablet Docusate [Colace] 100 mg PO BID #60 capsule Ipratropium-Albuterol Nebulize [Duoneb 0.5 mg-3 mg/3 ml Soln] 3 ml INHALATION RT-QID each Ferrous Sulfate [Feosol] 325 mg PO DAILY #30 tab Continue Atorvastatin [Lipitor] 10 mg PO HS Citalopram Hydrobromide [CeleXA] 40 mg PO DAILY Levothyroxine Sodium [Synthroid] 175 mcg PO DAILY Aspirin 81 mg PO HS Baclofen [Lioresal] 10 mg PO HS 30 Days #30 tab Metoprolol Tartrate 12.5 mg PO DAILY buPROPion XL [Wellbutrin XL] 300 mg PO DAILY Gabapentin [Neurontin] 300 mg PO TID #9 cap oxyCODONE HCL [OxyIR] 5 mg PO TID PRN #9 tab PRN Reason: Pain Changed metFORMIN HCL [Glucophage] 500 mg PO BID #0 Discontinued hydroCHLOROthiazide [Hydrodiuril] 50 mg PO DAILY metFORMIN HCL [Glucophage] 500 mg PO AC-BRKFST PRN PRN Reason: Blood sugar >140 Sulfamethox-Tmp 800-160Mg [Bactrim DS 800-160 mg] 1 tab PO DIRECTED No Action Patient Own Pump 0 bag Vit D3 (Unk) 1 tab PO DAILY Discharge Medication List Atorvastatin [Lipitor] 10 mg PO HS 02/17/17 [History] Citalopram Hydrobromide [CeleXA] 40 mg PO DAILY 04/09/17 [History] Levothyroxine Sodium [Synthroid] 175 mcg PO DAILY 07/14/20 [History] Aspirin 81 mg PO HS 08/12/22 [History] Metoprolol Tartrate 12.5 mg PO DAILY 09/13/23 [History] Vit D3 (Unk) 1 tab PO DAILY 09/13/23 [History] Baclofen [Lioresal] 10 mg PO HS 30 Days #30 tab 01/03/24 [Rx] Patient Own Pump 0 bag 03/12/24 [History] buPROPion XL [Wellbutrin XL] 300 mg PO DAILY 03/12/24 [History] Budesonide/Formoterol Fumarate [Symbicort 80-4.5 Mcg Inhaler] 2 puff INHALATION BID #1 each 03/13/24 [Rx] Gabapentin [Neurontin] 300 mg PO TID #9 cap 03/13/24 [Rx] INSULIN LISPRO (HumaLOG) [humaLOG] 0 unit SQ ACHS #10 ml 03/13/24 [Rx] Ipratropium-Albuterol Nebulize [Duoneb 0.5 mg-3 mg/3 ml Soln] 3 ml INHALATION Q4H PRN each 03/13/24 [Rx] Ipratropium-Albuterol Nebulize [Duoneb 0.5 mg-3 mg/3 ml Soln] 3 ml INHALATION RT-QID each 03/13/24 [Rx] cefUROXime axetiL [Ceftin] 500 mg PO BID 4 Days #8 tab 03/13/24 [Rx] metFORMIN HCL [Glucophage] 500 mg PO BID #0 03/13/24 [Rx] oxyCODONE HCL [OxyIR] 5 mg PO TID PRN #9 tab 03/13/24 [Rx] Docusate [Colace] 100 mg PO BID #60 capsule 03/14/24 [Rx] Ferrous Sulfate [Feosol] 325 mg PO DAILY #30 tab 03/14/24 [Rx] Sennosides-Docusate Sodium [Senokot-S] 2 tab PO BID #60 tablet 03/14/24 [Rx] Follow up Appointment(s)/Referral(s): Remington Mayfield DO [Primary Care Provider] - 1 Week (Follow-up in 1 week after DC from subacute rehab) Al Chambers MD [STAFF PHYSICIAN] - 2 Weeks (Patient reports 2 weeks ago he had few drops of blood from penis, possibly passed a kidney stone. No further bleeding. Asymptomatic.) Activity/Diet/Wound Care/Special Instructions: [facility] phone #[phone] CBC, BMP in 3 days Patient has a MS pain pump in addition to oral pain management meds as per pain management DrGerardo Discharge Disposition: TRANSFER TO SNF/F
[2024-03-14 15:24] VITALS: BP 153/70; RESP 18; TEMP 98
[2024-03-14 16:29] LABS: Glucose,Whole Blood 124 mg/dL (70-110)
[2024-03-14 16:35] VITALS: PULSE 58
== END 2024-03-14 16:51 | disposition home health service (06) | DRG 193 ==
LOC: EC 18:02 → 4SSUR 21:52
PROVIDERS: ADMIT Family Medicine; ATTEND Family Medicine
DX: J18.9 Pneumonia, unspecified organism (principal); G93.41 Metabolic encephalopathy; J96.21 Acute and chronic respiratory failure with hypoxia; J44.0 Chronic obstructive pulmonary disease with (acute) lower respiratory infection; E11.9 Type 2 diabetes mellitus without complications; M45.9 Ankylosing spondylitis of unspecified sites in spine; M06.9 Rheumatoid arthritis, unspecified; D63.8 Anemia in other chronic diseases classified elsewhere; Z99.81 Dependence on supplemental oxygen; E86.0 Dehydration; E03.9 Hypothyroidism, unspecified; F32.A Depression, unspecified; I10 Essential (primary) hypertension; H91.90 Unspecified hearing loss, unspecified ear; F41.9 Anxiety disorder, unspecified; M19.90 Unspecified osteoarthritis, unspecified site; E87.6 Hypokalemia; G89.4 Chronic pain syndrome; K21.9 Gastro-esophageal reflux disease without esophagitis; Z96.89 Presence of other specified functional implants; Z96.652 Presence of left artificial knee joint; Z79.891 Long term (current) use of opiate analgesic; Z79.84 Long term (current) use of oral hypoglycemic drugs; Z79.82 Long term (current) use of aspirin; Z79.1 Long term (current) use of non-steroidal anti-inflammatories (NSAID); Z79.890 Hormone replacement therapy; Z85.828 Personal history of other malignant neoplasm of skin; Z92.3 Personal history of irradiation; Z97.8 Presence of other specified devices; Z79.899 Other long term (current) drug therapy; Z85.46 Personal history of malignant neoplasm of prostate; Z86.718 Personal history of other venous thrombosis and embolism
CPT/HCPCS: 36415; 70450; 71046; 80048; 80053; 81001; 83036; 83605; 83735; 84484; 85025; 85610; 85730; 87040; 87636; 93005; 94640; 94760; 99285

== ENCOUNTER → 2024-03-22 | Outpatient (CLI) | payer MEDICARE, BC ==
[2024-03-22 10:28] VITALS: BP 142/77; PULSE 79; RESP 16; TEMP 97.8
--- NOTE | 2024-03-22 14:12 | P.PAINPG ---
Objective - Vital Signs Vital signs: Vital Signs Temp 97.8 F 03/22/24 10:26 Pulse 79 03/22/24 10:26 Resp 16 03/22/24 10:26 BP 142/77 03/22/24 10:26 Pulse Ox 95 03/22/24 10:26 FiO2 Intake & Output 03/21/24 03/22/24 03/22/24 18:59 06:59 18:59 Weight 102.512 kg PQRS Measure Charge Sheet Mode of Arrival: Ambulatory Comment: A 83 yr old male with a history of severe and chronic LBP secondary to radicul opathy, spondylosis and facet arthropathy without myelopathy presents today for medication refills. Pain level is provoked at 6 /10 in intensity, constant, predominantly axial, localized in the lumbar spine, dull in character w occasional shooting towards the hips. Pain is provoked by lifting, bending. Pain is alleviated with medications, heat, use of a walker for ambulatory assistance, repositioning and rest. Interventional pain procedures completed include Pain Pump Placement Patient is currently on Oxycodone IR 5mg #90, Baclofen 10mg #30 Patient denies any side effects of the medication(s), denies excessive drowsiness or sleepiness, denies suicidal ideation and reports that the current pain medication is helping to control the pain and improve activities of daily living. Patient denies any motor or sensory deficits. Patient denies any fever or night sweats, denies any change in the bowel movements or urination. Physical Examination: -Constitutional: Cooperative. Not in acute distress . - Neurologic: Cranial nerve II to XII intact. No focal neurological deficits. - Psychatric: Alert & oriented x 3. Matching mood & appropriate affect. Judgment and insight intact. - Musculoskeletal: Cervical spine: Muscle bulk/ tone/ strength in the bilateral upper extremities normal Vertebral body tenderness to palpation over Spurling test positive Distraction test positive Facet loading test positive TTP Thoracic spine Muscle bulk / tone/ strength in the bilateral paraspinal muscles normal Vertebral body tender to palpation over Facet loading test positive TTP Lumbar spine: Motor bulk/ tone/ strength lower extremities , thigh and legs : 5/5 Deep tendon reflexes : Normal Knee Jerk. Normal Ankle Jerk . Vertebral body tenderness to palpation over Wong Test positive Lumbar Facet Loading Test positive Straight Leg Raise: positive at 30 degrees right side/ left side Gaenslen's Test positive Sacral spine : Severe tenderness over the Sacroiliac joint: right side / left side Range of motion: Flexion of the lumbar spine <60 degrees Range of motion: Extension of the lumbar spine <20 degrees Gaenslen's Test positive right side / left side Quirino test: positive right side / left side Thigh Thrust Test positive right side / left side Sacral Thrust Test positive right side / left side Assessment and plan: 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 The patient was counseled about risk of opioid use, psychological risk associated with opioids and was orally counseled to not overuse , divert or sell medications. Pt is to store medication in a safe location. The patient is counseled against driving while using narcotic medications and also not to use alcohol or any illicit recreational drugs. Patient verbalized understanding that the lack of compliance will result in failure to renew narcotic prescription(s) as well as possible discharge from the clinic Diagnoses, prognosis and treatment options including but not limited to physical therapy, surgical interventions, interventional therapies and me dication management including narcotics and adjuvant medication were discussed. All patient questions answered MAPS reviewed and it was appropriate. Renewed opiate/ narcotic agreement 03/22/24. Prescription refill for Oxycodone 5mg #90, Baclofen 5mg #30 w 2 RF. Use, side effects, adverse reactions, safe storage discussed. I have spent less than 30 minutes on patient care today. Dr Peres was available by phone for the evaluation of this patient. The time was used to review the medical records including relevant urine studies and Prescription history (MAPs), review of the available imaging, evaluation and examination of the patient, coordination of care with the medical staff and if applicable referring physicians, as well as creation of the medical record PQRS Narrative: Smoking Status Never smoker Narcotic Agreement Date Signed 01/30/20 Blood Pressure 142/77 Scale Used Numeric (1 - 10) Hx Alcohol Use (MH) No Home Medications: Ambulatory Orders Atorvastatin [Lipitor] 10 mg PO HS 02/17/17 Citalopram Hydrobromide [CeleXA] 40 mg PO DAILY 04/09/17 Levothyroxine Sodium [Synthroid] 175 mcg PO DAILY 07/14/20 Aspirin 81 mg PO HS 08/12/22 Metoprolol Tartrate 12.5 mg PO DAILY 09/13/23 Vit D3 (Unk) 1 tab PO DAILY 09/13/23 Patient Own Pump 0 bag 03/12/24 buPROPion XL [Wellbutrin XL] 300 mg PO DAILY 03/12/24 Budesonide/Formoterol Fumarate [Symbicort 80-4.5 Mcg Inhaler] 2 puff INHALATION BID #1 each 03/13/24 Gabapentin [Neurontin] 300 mg PO TID #9 cap 03/13/24 INSULIN LISPRO (HumaLOG) [humaLOG] 0 unit SQ ACHS #10 ml 03/13/24 Ipratropium-Albuterol Nebulize [Duoneb 0.5 mg-3 mg/3 ml Soln] 3 ml INHALATION Q4H PRN each 03/13/24 Ipratropium-Albuterol Nebulize [Duoneb 0.5 mg-3 mg/3 ml Soln] 3 ml INHALATION RT-QID each 03/13/24 cefUROXime axetiL [Ceftin] 500 mg PO BID 4 Days #8 tab 03/13/24 metFORMIN HCL [Glucophage] 500 mg PO BID #0 03/13/24 Docusate [Colace] 100 mg PO BID #60 capsule 03/14/24 Ferrous Sulfate [Feosol] 325 mg PO DAILY #30 tab 03/14/24 Sennosides-Docusate Sodium [Senokot-S] 2 tab PO BID #60 tablet 03/14/24 Baclofen [Lioresal] 10 mg PO HS 30 Days #30 tab 03/22/24 oxyCODONE HCL [OxyIR] 5 mg PO TID PRN 30 Days #90 tab 03/22/24 oxyCODONE HCL [oxyCODONE HCL (IR)] 5 mg PO TID PRN 30 Days #90 cap 03/22/24 oxyCODONE HCL [oxyCODONE HCL (IR)] 5 mg PO TID PRN 30 Days #90 cap 03/22/24 Controlled Substance Measures - Controlled Substance Measures Is patient prescribed a controlled substance at discharge?: Yes When asked, does pt state using other controlled substances?: Yes If prescribed controlled substance>3 days was MAPS reviewed?: Yes If Rx opioid, was Start Talking consent form obtained?: Yes Was information provided regarding opioid addiction?: Yes
== END ==
LOC: PNWHC3 10:04
PROVIDERS: ATTEND Specialist
DX: M47.26 Other spondylosis with radiculopathy, lumbar region (principal); Z79.891 Long term (current) use of opiate analgesic
CPT/HCPCS: 99211

== ENCOUNTER → 2024-03-29 | Day surgery (SDC) | payer MEDICARE, BC ==
[~2024-03-29] MED LIST changes: -BUPIVACAINE MC ONE
[2024-03-29 10:24] VITALS: BP 120/80; PULSE 78; RESP 18; TEMP 99.1
[2024-03-29 10:25] LABS: Glucose,Whole Blood 126 mg/dL (70-110)
--- NOTE | 2024-03-29 10:58 | P.PCN ---
Date of Procedure: 03/29/24 Procedure(s) Performed: PROCEDURE: Intrathecal pain pump analysis, programming and reprogramming, and intrathecal pain pump refill. PREOPERATIVE DIAGNOSES: 1. near empty intrathecal pain pump time for refill. 2. opioid tolerance 3. postlaminectomy syndrome POSTOPERATIVE DIAGNOSES: 1. near empty intrathecal pain pump time for refill. 2. opioid tolerance 3. postlaminectomy syndrome ANESTHESIA: None. CONDITION: Stable. INDICATION: This is a 82 year-old patient with a long history of chronic pain secondary to postlaminectomy syndrome. Patient previously had an intrathecal pump placed, which is now near empty, and patient presents for refill today. Patient denies any side effects of the intrathecal medication, including new weakness, new numbness, excessive drowsiness or sleepiness, nausea/vomiting, weight gain, or night sweats. Patient also denies suicidal ideation, and reports that the current pain medication is helping control the chronic pain and improve the patient's activities of daily living. DESCRIPTION: The intrathecal pain pump was analyzed and showed that the patient currently has reservoir volume of [8 ] mL. The patient is receiving intrathecal Morphine sulfate PF at concentration [5] mg/ ml and bupivacaine PF at concentration [5] mg/ml. Patient receiving daily dose of Morphine Sulfate [0.69] mg/day and bupivacaine [0.69] mg/day. The location of the pump (left buttock) was prepped with chlorhexidine x3. Then, the 22-gauge needle from the [employer] kit was advanced through the pump port. Total of 7 ml was removed from the pump, and it was refilled with the new medication total volume of [20] ml of a solution containing morphine sulfate at concentration [5] mg /ml and bupivacaine at concentration [5] mg/ml. The patient will continue with the same daily dose morphine [0.69] mg/day and bupivacaine [0.69] mg/day, no changes today. The patient is using some oral medications as well, specifically oxyIR 5 mg q6h #90 with 2 refills prn pain orally for breakthrough pain and baclofen 10 mg qhs for spasm. and patient will follow up with the pain clinic in 3 months for refile. Patient denies any side effects of the medication and he reported that he use the pain medication for breakthrough pain he denies any side effect of the medication, he denies any Since of drowsiness or sleepiness.
== END ==
LOC: ORPAIN 09:54
PROVIDERS: ATTEND Specialist
DX: Z51.81 Encounter for therapeutic drug level monitoring (principal); M96.1 Postlaminectomy syndrome, not elsewhere classified; G89.29 Other chronic pain
CPT/HCPCS: 62370

== ENCOUNTER 2024-04-16 23:51 | Inpatient (IN) | payer MEDICARE, BC ==
--- NOTE | 2024-04-17 00:46 | ED ---
General Adult HPI - General Chief complaint: Altered Mental Status Stated complaint: AMS Time Seen by Provider: 04/16/24 23:57 Source: EMS Mode of arrival: EMS - History of Present Illness Initial comments: History is limited by patient's altered mental status. He is an 83-year-old male past medical history of COPD on home 2 L oxygen nasal cannula, prostate cancer, chronic pain, thyroid disorder, diabetes, hypertension presenting today for altered mental status. EMS were called to the home when patient was on the phone with family numbers who did not feel he was acting right. On EMS arrival patient was not on his home oxygen and pulse ox was in the 80s. Patient is awake and able to answer some questions but unable to provide hx. Of note, patient is reported to be his own caregiver however on chart review it was perviously stated that his neighbor is his caregiver. EMS reports patient manages his own medications. - Related Data Home Medications Medication Instructions Recorded Confirmed Atorvastatin [Lipitor] 10 mg PO HS 02/17/17 03/27/24 Citalopram Hydrobromide [CeleXA] 40 mg PO DAILY 04/09/17 03/27/24 Levothyroxine Sodium [Synthroid] 175 mcg PO DAILY 07/14/20 03/27/24 Aspirin 81 mg PO HS 08/12/22 03/27/24 Metoprolol Tartrate 12.5 mg PO DAILY 09/13/23 03/27/24 Vit D3 (Unk) 1 tab PO DAILY 09/13/23 03/27/24 Patient Own Pump 1 bag INFILTRATI DIRECTED 03/12/24 03/27/24 buPROPion XL [Wellbutrin XL] 300 mg PO DAILY 03/12/24 03/27/24 Previous Rx's Medication Instructions Recorded Budesonide/Formoterol Fumarate 2 puff INHALATION BID #1 each 03/13/24 [Symbicort 80-4.5 Mcg Inhaler] Gabapentin [Neurontin] 300 mg PO TID #9 cap 03/13/24 INSULIN LISPRO (HumaLOG) [humaLOG] 0 unit SQ ACHS #10 ml 03/13/24 Ipratropium-Albuterol Nebulize 3 ml INHALATION Q4H PRN each 03/13/24 [Duoneb 0.5 mg-3 mg/3 ml Soln] Ipratropium-Albuterol Nebulize 3 ml INHALATION RT-QID each 03/13/24 [Duoneb 0.5 mg-3 mg/3 ml Soln] metFORMIN HCL [Glucophage] 500 mg PO BID #0 03/13/24 Docusate [Colace] 100 mg PO BID #60 capsule 03/14/24 Ferrous Sulfate [Feosol] 325 mg PO DAILY #30 tab 03/14/24 Sennosides-Docusate Sodium 2 tab PO BID #60 tablet 03/14/24 [Senokot-S] Baclofen [Lioresal] 10 mg PO HS 30 Days #30 tab 03/22/24 oxyCODONE HCL [oxyCODONE HCL (IR)] 5 mg PO TID PRN 30 Days #90 cap 03/22/24 Allergies Allergy/AdvReac Type Severity Reaction Status Date / Time No Known Allergies Allergy Verified 04/17/24 00:06 Review of Systems ROS Statement: Those systems with pertinent positive or pertinent negative responses have been documented in the HPI. ROS Other: All systems not noted in ROS Statement are negative. Limitations: ROS unobtainable due to patients medical condition Past Medical History Past Medical History: Cancer, Diabetes Mellitus, GERD/Reflux, Hearing Disorder / Deafness, Hypertension, Musculoskeletal Disorder, Osteoarthritis (OA), Rheumatoid Arthritis (RA), Thyroid Disorder Additional Past Medical History / Comment(s): HX MIGRAINES. HX OF SKIN CANCER. CHRONIC BACK PAIN, D.I.S.H.-DEGENERATIVE ARTHRITIS, ANKYLOSING SPONDYLITIS. GETS LIGHTHEADED EASILY-MOVES SLOWLY TO PREVENT LOSS OF BALANCE. Hx prostate [id number], had RADIATION TREATMENTS AT [place] [id number] tx's. Urinary incontinence. O2 PRN. Rectal bleeding 8 years ago. 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 Hard of hearing- has hearing enhancer device, intrathecal pain pump-located lt buttocks- Morphine sulfate 0.6991ml/day w-Bupivacaine 0.6991ml/day. History of Any Multi-Drug Resistant Organisms: None Reported Past Surgical History: Appendectomy, Back Surgery, Bowel Resection, Joint Replacement, Orthopedic Surgery, Tonsillectomy Additional Past Surgical History / Comment(s): Left knee replacement, back surgery X2, INTRATHECAL OPIOID PAIN PUMP placed and replaced, upper teeth pulled, prostate biopsy, bilateral cataract surgery. Past Anesthesia/Blood Transfusion Reactions: No Reported Reaction Past Psychological History: Anxiety, Depression Smoking Status: Never smoker - Past Family History Father Family Medical History: Cancer, Deep Vein Thrombosis (DVT) Additional Family Medical History / Comment(s): Lung and bone cancer. General Exam - General Exam Comments Initial Comments: PE: CONSTITUTIONAL: Chronically ill-appearing, awake, does smells strogly of urine SKIN: Warm, dry, no jaundice, hives or petechiae; mild erythema to distal right lower extremities EYES: Pupils are equally round, extraocular movements intact without nystagmus, clear conjunctiva, non-icteric sclera HENT: Normocephalic, atraumatic, dry mucus membranes, oropharynx clear without exudates NECK: , Full range of motion, normal appearance PULMONARY: Clear to auscultation without wheezes, rhonchi, or rales, normal excursion, no accessory muscle use and no stridor CARDIOVASCULAR: Regular rate, rhythm, normal S1 and S2. No appreciated murmurs, rubs or gallops. Strong radial pulses with intact distal perfusion. No lower extremity edema GASTROINTESTINAL: Soft, non-tender, non-distended, no palpable masses, no rebound or guarding. No hepatosplenomegaly MUSCULOSKELETAL: Extremities have no gross deformity, no edema, or swelling. No calf swelling. NEUROLOGIC:_a/o x 2, GCS 14, confused mentation and speech. Moves all extremities x 4 without motor or sensory deficit, follow commands PSYCHIATRIC: Unable to assess 2/2 altered mental status, cooperative, calm Course Vital Signs 04/16/24 04/17/24 04/17/24 23:54 02:00 03:10 Temperature 103.0 F H 101.8 F H 101.4 F H Pulse Rate 87 78 114 H Respiratory 18 16 18 Rate Blood Pressure 115/53 108/55 102/58 O2 Sat by Pulse 96 97 97 Oximetry 04/17/24 04/17/24 04:00 05:00 Temperature 100.6 F H 98.8 F Pulse Rate 76 78 Respiratory 18 17 Rate Blood Pressure 96/50 106/54 O2 Sat by Pulse 97 99 Oximetry EKG Findings - EKG Comments: EKG Findings:: Sinus rhythm, rate 85 bpm, OH interval 174 ms, QRS duration 114, QT/QTc 422/464 ms, borderline left axis deviation, no ST elevation or depression, no arrhythmia, compared to EKG performed on 03/10/2024, no significant changes from prior Medical Decision Making - Medical Decision Making Was pt. sent in by a medical professional or institution (, PA, VOICE PATHOLOGIST, urgent care, hospital, or penitentiary...) When possible be specific @ -No Did you speak to anyone other than the patient for history (EMS, parent, family, police, friend...)? What history was obtained from this source @ -No Did you review nursing and triage notes (agree or disagree)? Why? @ -I reviewed and agree with nursing and triage notes Were old charts reviewed (outside hosp., previous admission, EMS record, old EKG, old radiological studies, urgent care reports/EKG's, penitentiary records)? Report findings @Old charts reviewed- Patient recently admitted to the hospital 03/10/2024 at that time patient was admitted after being found home lethargic and difficult to arouse this does note that patient has a caregiver or had a caregiver at that time who is his neighbor, wears 2 L nasal cannula home oxygen, workup significant for chest x-ray showing patchy posterior basilar basilar atelectasis versus infiltrate otherwise essentially negative workup; upon reviewing this discharge summary patient was noted to be AO x 3 during that admission Differential Diagnosis (chest pain, altered mental status, abdominal pain women, abdominal pain men, vaginal bleeding, weakness, fever, dyspnea, syncope, headache, dizziness, GI bleed, back pain, seizure, CVA, palpatations, mental health, musculoskeletal)? @Differential Altered Mental Status: Hypoglycemia, DKA, hypercapnia, ETOH, overdose, trauma, myxedema coma, HTN encephalopathy, infection, intercranial hemorrhage, hepatic encephalopathy, meningitis, CVA, this is not meant to be an all-inclusive list EKG interpreted by me (3pts min.). @ -As above X-rays interpreted by me (1pt min.). @Reviewed chest x-ray no consolidations CT interpreted by me (1pt min.). @ -CT brain see no evidence of hemorrhage or mass effect U/S interpreted by me (1pt. min.). @ -None done What testing was considered but not performed or refused? (CT, X-rays, U/S, labs)? Why? @ -None What meds were considered but not given or refused? Why? @ -None Did you discuss the management of the patient with other professionals (professionals i.e. , PA, VOICE PATHOLOGIST, lab, RT, psych nurse, social work assistant, um specialist, teacher, chief development officer, case finishing machine adjuster)? Give summary @ -No Was smoking cessation discussed for >3mins.? @ -No Was critical care preformed (if so, how long)? @40 minutes Were there social determinants of health that impacted care today? How? (Homelessness, low income, unemployed, alcoholism, drug addiction, transportation, low edu. Level, literacy, decrease access to med. care, longterm, rehab)? @ -No Was there de-escalation of care discussed even if they declined (Discuss DNR or withdrawal of care, Hospice)? @ -No What co-morbidities impacted this encounter? (DM, HTN, Smoking, COPD, CAD, Cancer, CVA, ARF, Chemo, Hep., AIDS, mental health diagnosis, sleep apnea, morbid obesity)? @ -None COPD, diabetes, hypertension, thyroid disorder, chronic pain Was patient admitted / discharged? Hospital course, mention meds given and route, prescriptions, significant lab abnormalities, going to OR and other per tinent info. @ -Hospital course admission Patient is an 83-year-old gentleman past medical history of COPD, on 2 L nasal cannula at baseline, per recent discharge summary, diabetes hypertension thyroid disorder chronic pain with a pain pump presenting today for altered mental status. Report obtained via EMS. They state they were called the patient's home because patient was on the phone with family and "did not sound right". Patient does have history of frequent UTIs. He was also not wearing his home oxygen at the time of EMS arrival and was in the mid 80s SpO2. 4 L oxygen nasal cannula was applied prior to arrival in the ER. On assessment patient is ill- appearing, dry mucous membranes, he is awake, eyes are open, is oriented to self and place but not time thinking it is 2021. He is able to move all 4 extremities. No facial droop. Lungs are clear to auscultation bilaterally, tur obdulia down to home 2 L ox nasal cannula with pulse ox of 96%. No increased work of breathing. Abdomen is soft and nontender. Does smell strongly of urine. Mild erythema of the distal lower extremities. Patient is febrile on arrival, BP stable, no tachycardia, on home O2 with pulse ox 96%. Plan for altered mental status workup including CT brain, TSH, ammonia, salicylate, acetaminophen level, UDS, blood alcohol urinalysis, chest x-ray additional comprehensive labs.Ofirmev ordered for fever. Patient noted to be tachycardic now in addition to febrile. Will add blood cultures, lactic, broad spectrum abx, suspect urine as source of possible infection. Did order one time does toradol for fever control. Reviewed patient's labs and imaging. Significant for white blood count 16.2, creatinine 1.46, GFR 44, creatinine is slightly increased from prior, troponin less than 0.012, LFTs within normal notes, ammonia less than 9, acetaminophen and serum alcohol undetectable, negative viral panel, CT brain without acute process, chest x-ray shows no consolidations, straight cath urine obtained. Due to elevated white blood cell count and fever, blood cultures and lactic ordered. Additional third liter IV fluid ordered. Plan for admission for altered mental status secondary to sepsis of unknown source. Discussed case with Dr. Butler, [facility] physicians, currently accepts for admission. Patient admitted in stable condition. After time of admission, urinalysis had resolved and did show signs of infection, urine was noted to be dark red turbid, greater than 182 white cells and red blood cells, many bacteria. updated Dr. Butler, add CT a/p wo contrast to assess for obstructive uropathy. Undiagnosed new problem with uncertain prognosis? @ Yes, acute encephalopathy, suspected 2/2 sepsis Drug Therapy requiring intensive monitoring for toxicity (Heparin, Nitro, Insulin, Cardizem)? @ -No Were any procedures done? @ -No Diagnosis/symptom? @ -Acute encephalopathy, hematuria, urinary tract infection, sepsis Acute, or Chronic, or Acute on Chronic? @ acute Uncomplicated (without systemic symptoms) or Complicated (systemic symptoms)? @ -complicated Side effects of treatment? @ -No Exacerbation, Progression, or Severe Exacerbation? @ -No Poses a threat to life or bodily function? How? (Chest pain, USA, NV, pneumonia, PE, COPD, DKA, ARF, appy, cholecystitis, CVA, Diverticulitis, Homicidal, Suicidal, threat to staff... and all critical care pts) @ Yes, if sepsis continues untreated could progress to septic shock and - Lab Data Result diagrams: 04/17/24 00:13 04/17/24 00:13 Lab Results 04/17/24 04/17/24 04/17/24 Range/Units 00:13 00:13 00:13 WBC 16.2 H (3.8-10.6) k/uL RBC 3.94 L (4.30-5.90) m/uL Hgb 11.3 L (13.0-17.5) gm/dL Hct 34.3 L (39.0-53.0) % MCV 87.2 (80.0-100.0) fL MCH 28.8 (25.0-35.0) pg MCHC 33.1 (31.0-37.0) g/dL RDW 14.7 (11.5-15.5) % Plt Count 234 (150-450) k/uL MPV 7.3 Neutrophils % 95 % Lymphocytes % 1 % Monocytes % 3 % Eosinophils % 1 % Basophils % 0 % Neutrophils # 15.4 H (1.3-7.7) k/uL Lymphocytes # 0.2 L (1.0-4.8) k/uL Monocytes # 0.5 (0-1.0) k/uL Eosinophils # 0.1 (0-0.7) k/uL Basophils # 0.0 (0-0.2) k/uL PT 10.8 (10.0-12.5) sec INR 1.0 (<1.2) APTT 23.8 (22.0-30.0) sec Sodium 133 L (137-145) mmol/L Potassium 3.9 (3.5-5.1) mmol/L Chloride 101 (98-107) mmol/L Carbon Dioxide 22 (22-30) mmol/L Anion Gap 10 mmol/L BUN 33 H (9-20) mg/dL Creatinine 1.46 H (0.66-1.25) mg/dL Est GFR (CKD-EPI)AfAm 50 (>60 ml/min/1.73 sqM) Est GFR (CKD-EPI)NonAf 44 (>60 ml/min/1.73 sqM) Glucose 125 H (74-99) mg/dL Calcium 9.4 (8.4-10.2) mg/dL Total Bilirubin 0.4 (0.2-1.3) mg/dL AST 29 (17-59) U/L ALT 15 (4-49) U/L Alkaline Phosphatase 61 (38-126) U/L Ammonia (<30) umol/L Troponin I (0.000-0.034) ng/mL Total Protein 6.5 (6.3-8.2) g/dL Albumin 3.9 (3.5-5.0) g/dL Urine Color Urine Appearance (Clear) Urine RBC (0-5) /hpf Urine WBC (0-5) /hpf Urine Bacteria (None) /hpf Urine Opiates Screen (NotDetected) Ur Oxycodone Screen (NotDetected) Urine Methadone Screen (NotDetected) Acetaminophen <10.0 ug/mL Ur Barbiturates Screen (NotDetected) U Tricyclic Antidepress (NotDetected) Ur Phencyclidine Scrn (NotDetected) Ur Amphetamines Screen (NotDetected) U Methamphetamines Scrn (NotDetected) U Benzodiazepines Scrn (NotDetected) Urine Cocaine Screen (NotDetected) U Marijuana (THC) Screen (NotDetected) Serum Alcohol <10 mg/dL Influenza Type A (PCR) (Not Detectd) Influenza Type B (PCR) (Not Detectd) RSV (PCR) (Not Detectd) SARS-CoV-2 (PCR) (Not Detectd) 04/17/24 04/17/24 04/17/24 Range/Units 00:13 00:13 01:07 WBC (3.8-10.6) k/uL RBC (4.30-5.90) m/uL Hgb (13.0-17.5) gm/dL Hct (39.0-53.0) % MCV (80.0-100.0) fL MCH (25.0-35.0) pg MCHC (31.0-37.0) g/dL RDW (11.5-15.5) % Plt Count (150-450) k/uL MPV Neutrophils % % Lymphocytes % % Monocytes % % Eosinophils % % Basophils % % Neutrophils # (1.3-7.7) k/uL Lymphocytes # (1.0-4.8) k/uL Monocytes # (0-1.0) k/uL Eosinophils # (0-0.7) k/uL Basophils # (0-0.2) k/uL PT (10.0-12.5) sec INR (<1.2) APTT (22.0-30.0) sec Sodium (137-145) mmol/L Potassium (3.5-5.1) mmol/L Chloride (98-107) mmol/L Carbon Dioxide (22-30) mmol/L Anion Gap mmol/L BUN (9-20) mg/dL Creatinine (0.66-1.25) mg/dL Est GFR (CKD-EPI)AfAm (>60 ml/min/1.73 sqM) Est GFR (CKD-EPI)NonAf (>60 ml/min/1.73 sqM) Glucose (74-99) mg/dL Calcium (8.4-10.2) mg/dL Total Bilirubin (0.2-1.3) mg/dL AST (17-59) U/L ALT (4-49) U/L Alkaline Phosphatase (38-126) U/L Ammonia <9 (<30) umol/L Troponin I <0.012 (0.000-0.034) ng/mL Total Protein (6.3-8.2) g/dL Albumin (3.5-5.0) g/dL Urine Color Urine Appearance (Clear) Urine RBC (0-5) /hpf Urine WBC (0-5) /hpf Urine Bacteria (None) /hpf Urine Opiates Screen (NotDetected) Ur Oxycodone Screen (NotDetected) Urine Methadone Screen (NotDetected) Acetaminophen ug/mL Ur Barbiturates Screen (NotDetected) U Tricyclic Antidepress (NotDetected) Ur Phencyclidine Scrn (NotDetected) Ur Amphetamines Screen (NotDetected) U Methamphetamines Scrn (NotDetected) U Benzodiazepines Scrn (NotDetected) Urine Cocaine Screen (NotDetected) U Marijuana (THC) Screen (NotDetected) Serum Alcohol mg/dL Influenza Type A (PCR) Not Detected (Not Detectd) Influenza Type B (PCR) Not Detected (Not Detectd) RSV (PCR) Not Detected (Not Detectd) SARS-CoV-2 (PCR) Not Detected (Not Detectd) 04/17/24 Range/Units 03:52 WBC (3.8-10.6) k/uL RBC (4.30-5.90) m/uL Hgb (13.0-17.5) gm/dL Hct (39.0-53.0) % MCV (80.0-100.0) fL MCH (25.0-35.0) pg MCHC (31.0-37.0) g/dL RDW (11.5-15.5) % Plt Count (150-450) k/uL MPV Neutrophils % % Lymphocytes % % Monocytes % % Eosinophils % % Basophils % % Neutrophils # (1.3-7.7) k/uL Lymphocytes # (1.0-4.8) k/uL Monocytes # (0-1.0) k/uL Eosinophils # (0-0.7) k/uL Basophils # (0-0.2) k/uL PT (10.0-12.5) sec INR (<1.2) APTT (22.0-30.0) sec Sodium (137-145) mmol/L Potassium (3.5-5.1) mmol/L Chloride (98-107) mmol/L Carbon Dioxide (22-30) mmol/L Anion Gap mmol/L BUN (9-20) mg/dL Creatinine (0.66-1.25) mg/dL Est GFR (CKD-EPI)AfAm (>60 ml/min/1.73 sqM) Est GFR (CKD-EPI)NonAf (>60 ml/min/1.73 sqM) Glucose (74-99) mg/dL Calcium (8.4-10.2) mg/dL Total Bilirubin (0.2-1.3) mg/dL AST (17-59) U/L ALT (4-49) U/L Alkaline Phosphatase (38-126) U/L Ammonia (<30) umol/L Troponin I (0.000-0.034) ng/mL Total Protein (6.3-8.2) g/dL Albumin (3.5-5.0) g/dL Urine Color Dark Red Urine Appearance Turbid (Clear) Urine RBC >182 H (0-5) /hpf Urine WBC >182 H (0-5) /hpf Urine Bacteria Many H (None) /hpf Urine Opiates Screen Detected H (NotDetected) Ur Oxycodone Screen Detected H (NotDetected) Urine Methadone Screen Not Detected (NotDetected) Acetaminophen ug/mL Ur Barbiturates Screen Not Detected (NotDetected) U Tricyclic Antidepress Not Detected (NotDetected) Ur Phencyclidine Scrn Not Detected (NotDetected) Ur Amphetamines Screen Not Detected (NotDetected) U Methamphetamines Scrn Not Detected (NotDetected) U Benzodiazepines Scrn Not Detected (NotDetected) Urine Cocaine Screen Not Detected (NotDetected) U Marijuana (THC) Screen Not Detected (NotDetected) Serum Alcohol mg/dL Influenza Type A (PCR) (Not Detectd) Influenza Type B (PCR) (Not Detectd) RSV (PCR) (Not Detectd) SARS-CoV-2 (PCR) (Not Detectd) Disposition Clinical Impression: Acute encephalopathy, Sepsis Disposition: ADMITTED IP TO THIS HOSP Condition: Stable
[2024-04-17 00:49] LABS: HCT 34.3 % (39.0-53.0); HGB 11.3 gm/dL (13.0-17.5); MCH 28.8 pg (25.0-35.0); MCHC 33.1 g/dL (31.0-37.0); MCV 87.2 fL (80.0-100.0); Platelet Count 234 k/uL (150-450); RBC 3.94 m/uL (4.30-5.90); RDW 14.7 % (11.5-15.5); WBC 16.2 k/uL (3.8-10.6)
[2024-04-17 00:50] LABS: Basophils % (A) 0 %; Eosinophils # (A) 0.1 k/uL (0-0.7); Eosinophils % (A) 1 %; Lymphocytes # (A) 0.2 k/uL (1.0-4.8); Lymphocytes % (A) 1 %; Mean Platelet Volume 7.3; Monocytes # (A) 0.5 k/uL (0-1.0); Monocytes % (A) 3 %; Neutrophils # (A) 15.4 k/uL (1.3-7.7); Neutrophils % (A) 95 %
[2024-04-17 00:55] LABS: ALT 15 U/L (4-49); AST 29 U/L (17-59); Acetaminophen <10.0 ug/mL; African American GFR (CKD) 50 (>60 ml/min/1.73 sqM); Albumin 3.9 g/dL (3.5-5.0); Alcohol <10 mg/dL; Alkaline Phosphatase 61 U/L (38-126); Anion Gap 10 mmol/L; Blood Urea Nitrogen 33 mg/dL (9-20); Calcium 9.4 mg/dL (8.4-10.2); Carbon Dioxide 22 mmol/L (22-30); Chloride 101 mmol/L (98-107); Glucose 125 mg/dL (74-99); Non-African American GFR(CKD) 44 (>60 ml/min/1.73 sqM); Potassium 3.9 mmol/L (3.5-5.1); Sodium 133 mmol/L (137-145); Total Bilirubin 0.4 mg/dL (0.2-1.3); Total Protein 6.5 g/dL (6.3-8.2)
[2024-04-17 01:06] LABS: Partial Thromboplastin Time 23.8 sec (22.0-30.0); Prothrombin Time 10.8 sec (10.0-12.5)
[2024-04-17] MEDS: SODIUM CHLORIDE 0.9% 1,000 ML IV ONE (01:07)
[2024-04-17] MEDS: ACETAMINOPHEN IV (For NPO) 1,000 MG in EMPTY BAG 1 BAG IVPB STA (01:07)
--- NOTE | 2024-04-17 01:57 | CT ---
EXAM: CT Head Without Intravenous Contrast CLINICAL HISTORY: ITS.REASON CT Reason: altered mental status TECHNIQUE: Axial computed tomography images of the head/brain without intravenous contrast. CTDI is 49.2 mGy and DLP is 1168.8 mGy-cm. This CT exam was performed using one or more of the following dose reduction techniques: automated exposure control, adjustment of the mA and/or kV according to patient size, and/or use of iterative reconstruction technique. COMPARISON: No relevant prior studies available. FINDINGS: No acute intracranial hemorrhage. No midline shift or mass effect. The territorial ramires-white matter differentiation is maintained throughout. Age-related cerebral volume loss. Periventricular and subcortical white matter hypoattenuation, consistent with chronic microangiopathy. The visualized orbits appear grossly unremarkable. The calvarium is intact. The visualized paranasal sinuses and mastoid air cells are grossly clear. IMPRESSION: No acute intracranial hemorrhage, midline shift, or mass effect.
--- NOTE | 2024-04-17 02:25 | XR ---
EXAM: XR Chest, 2 Views CLINICAL HISTORY: ITS.REASON XR Reason: altered mental status TECHNIQUE: Frontal and lateral views of the chest. COMPARISON: No relevant prior studies available. FINDINGS: Lungs: Unremarkable. No consolidation. Pleural space: Unremarkable. No pneumothorax. Heart: Unremarkable. No cardiomegaly. Mediastinum: Unremarkable. Normal mediastinal contour. Bones/joints: Unremarkable. No acute fracture. IMPRESSION: No consolidation.
[2024-04-17] MEDS: MAGNESIUM SULFATE-D5W PMX 1 GM in DEXTROSE/WATER 1 100ML.BAG IVPB SCH (03:41)
[2024-04-17] MEDS: SODIUM CHLORIDE 0.9% 1,000 ML IV STA ×2 (03:42→04:46)
[2024-04-17] MEDS: KETOROLAC 15 MG/ML 1 ML VIAL IVP STA (03:43)
[2024-04-17 04:31] LABS: Bacteria,Urine Many /hpf
[2024-04-17] MEDS ORDERED: NALOXONE 0.4 MG/ML 1 ML VIAL IV PRN (04:31)
[2024-04-17 04:34] LABS: Appearance,Urine Turbid (Clear); Color,Urine Dark Red; RBC,Urine >182 /hpf (0-5); WBC,Urine >182 /hpf (0-5)
[2024-04-17 04:35] LABS: Cocaine Screen,Urine Not Detected (NotDetected); Phencyclidine Screen,Urine Not Detected (NotDetected); Urn Cannabinoid Scrn Not Detected (NotDetected)
[2024-04-17 04:36] LABS: Amphetamine Screen,Urine Not Detected (NotDetected); Barbiturate Screen,Urine Not Detected (NotDetected); Benzodiazepines Screen,Urine Not Detected (NotDetected); Methadone Screen, Urine Not Detected (NotDetected); Opiate Screen,Urine Detected (NotDetected); Oxycodone Screen, Urine Detected (NotDetected); Tricyclic Antidepressant,Urine Not Detected (NotDetected)
[2024-04-17] MEDS: CEFEPIME 2 GM in SODIUM CHLORIDE 0.9% 100 ML IVPB STA (05:28)
[2024-04-17] MEDS: DEXTROSE 5%-0.45% NACL 1,000 ML IV SCH (05:46)
[2024-04-17] MEDS ORDERED: VANCOMYCIN IV PER PHARMACY 1 EACH MISC MISCELLANE PRN (06:17)
--- NOTE | 2024-04-17 06:24 | P.HPIM ---
History of Present Illness H&P Date: 04/17/24 Chief Complaint: Altered mental status Patient is a 83-year-old male with past medical history of recurrent UTIs presented to the ED with altered mental status. The patient was on alcohol with his family earlier today when they noticed the patient was not acting right. EMS on arrival found that he was off his home oxygen. Patient complains of back pain as well as dysuria and blood in the urine that started yesterday. Patient lives alone and uses a walker to ambulate at home. Patient is drowsy and is unable to provide further history. ED workup revealed WBC 16.2, hemoglobin 11.3,dark red urine, urine RBC >182, urine WBC > 182 and many urine bacteria as well as opiates and oxycodone in the urine were detected. He was treated with acetaminophen, cefepime, Toradol, 0.9 normal saline in the ED. Vitals: T103 Fahrenheit, P87 bpm, RR 18, BP 115/53, O2 97% on room air Coag: PT 10.8, INR 1, APTT 23.8 Troponin <0.012 Chest x-ray: No consolidation Brain CT: No acute intracranial hemorrhage, midline shift or mass effect. EKG: Sinus rhythm, rate of 85 bpm, QTc 464 ms Respiratory panel: Negative ED documentation reviewed. Review of systems: Pertinent positives and negatives as discussed in HPI, a complete review of systems was performed and all other systems are negative. Social history: Unable to obtain Physical examination: Vital signs reviewed General: drowsy, non toxic, no distress, appears at stated age, normal weight Derm: Bruises on lower extremity bilaterally, warm Head: atraumatic, normocephalic, symmetric Eyes: EOMI, anicteric sclera ENT: Nose and ears atraumatic Mouth: no lip lesion, mucus membranes moist Cardiovascular: S1S2 reg, no murmur, no peripheral edema Lungs: Diminished lung sounds bilaterally, no accessory muscle use Abdominal: soft, nontender to palpation, no guarding Ext: muscle strength 5 out of 5 in all 4 extremities grossly, no gross muscle atrophy, no contractures, Neuro: CN II-XI grossly intact, no gross focal neuro deficits Psych: Alert oriented x 2 Assessment/Plan: Patient is an 83-year-old male with past medical history of recurrent UTIs presented to the ED with altered mental status. Case discussed with the ED provider and admission accepted for a UTI with sepsis #. UTI with sepsis Temperature 103 Fahrenheit, WBC 16.2, dark red urine, urine RBC>182, urine WBC > [address] abdomen pelvis without contrast ordered Blood culture, lactic acid, urine culture ordered Start Vancomycin and cefepime 2gm Consult ID #. COPD with home oxygen Continue DuoNeb and Symbicort Supplemental oxygen as required #. SHAKA on CKD BUN 33, creatinine 1.46, GFR 44 Continue to monitor BMP #.Hypovolemic Hyponatremia Na 133 Monitor BMP #. Insulin-dependent diabetes mellitus Glucose 125 Insulin sliding scale blood glucose monitoring Check A1c Hold home metformin #. History of CAD Continue aspirin 81 mg p.o. at bedtime, metoprolol 12.5 mg p.o. daily #. Hyperlipidemia Continue 10 mg atorvastatin p.o. at bedtime #. Hypothyroidism Continue levothyroxine 175 mcg p.o. daily #. Peripheral neuropathy Continue gabapentin 3 mg p.o. 3 times daily #. History of anxiety Continue citalopram 40 mg p.o. daily F: 0.9 normal saline at 120 mL/h E: Replete as required N: NPO diet A: Ambulatory DVT prophylaxis: Heparin 5000 units SQ daily The patient is admitted with an anticipated more than 2 midnight stay for evaluation of altered mental status CODE STATUS: Full code Discussed with: Patient Anticipated discharge place: Home Past Medical History Past Medical History: Cancer, Diabetes Mellitus, GERD/Reflux, Hearing Disorder / Deafness, Hypertension, Musculoskeletal Disorder, Osteoarthritis (OA), Rheumatoid Arthritis (RA), Thyroid Disorder Additional Past Medical History / Comment(s): HX MIGRAINES. HX OF SKIN CANCER. CHRONIC BACK PAIN, D.I.S.H.-DEGENERATIVE ARTHRITIS, ANKYLOSING SPONDYLITIS. GETS LIGHTHEADED EASILY-MOVES SLOWLY TO PREVENT LOSS OF BALANCE. Hx prostate [id number], had RADIATION TREATMENTS AT [place] [id number] tx's. Urinary incontinence. O2 PRN. Rectal bleeding 8 years ago. 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 Hard of hearing- has hearing enhancer device, intrathecal pain pump-located lt buttocks- Morphine sulfate 0.6991ml/day w-Bupivacaine 0.6991ml/day. History of Any Multi-Drug Resistant Organisms: None Reported Past Surgical History: Appendectomy, Back Surgery, Bowel Resection, Joint Replacement, Orthopedic Surgery, Tonsillectomy Additional Past Surgical History / Comment(s): Left knee replacement, back surgery X2, INTRATHECAL OPIOID PAIN PUMP placed and replaced, upper teeth pulled, prostate biopsy, bilateral cataract surgery. Past Anesthesia/Blood Transfusion Reactions: No Reported Reaction Past Psychological History: Anxiety, Depression Smoking Status: Never smoker - Past Family History Father Family Medical History: Cancer, Deep Vein Thrombosis (DVT) Additional Family Medical History / Comment(s): Lung and bone cancer. Medications and Allergies Home Medications Medication Instructions Recorded Confirmed Type Atorvastatin [Lipitor] 10 mg PO HS 02/17/17 03/27/24 History Citalopram Hydrobromide [CeleXA] 40 mg PO DAILY 04/09/17 03/27/24 History Levothyroxine Sodium [Synthroid] 175 mcg PO DAILY 07/14/20 03/27/24 History Aspirin 81 mg PO HS 08/12/22 03/27/24 History Metoprolol Tartrate 12.5 mg PO DAILY 09/13/23 03/27/24 History Vit D3 (Unk) 1 tab PO DAILY 09/13/23 03/27/24 History Patient Own Pump 1 bag INFILTRATI DIRECTED 03/12/24 03/27/24 History buPROPion XL [Wellbutrin XL] 300 mg PO DAILY 03/12/24 03/27/24 History Budesonide/Formoterol Fumarate 2 puff INHALATION BID #1 each 03/13/24 03/27/24 Rx [Symbicort 80-4.5 Mcg Inhaler] Gabapentin [Neurontin] 300 mg PO TID #9 cap 03/13/24 03/27/24 Rx INSULIN LISPRO (HumaLOG) [humaLOG] 0 unit SQ ACHS #10 ml 03/13/24 03/27/24 Rx Ipratropium-Albuterol Nebulize 3 ml INHALATION Q4H PRN each 03/13/24 03/27/24 Rx [Duoneb 0.5 mg-3 mg/3 ml Soln] Ipratropium-Albuterol Nebulize 3 ml INHALATION RT-QID each 03/13/24 03/27/24 Rx [Duoneb 0.5 mg-3 mg/3 ml Soln] metFORMIN HCL [Glucophage] 500 mg PO BID #0 03/13/24 03/27/24 Rx Docusate [Colace] 100 mg PO BID #60 capsule 03/14/24 03/27/24 Rx Ferrous Sulfate [Feosol] 325 mg PO DAILY #30 tab 03/14/24 03/27/24 Rx Sennosides-Docusate Sodium 2 tab PO BID #60 tablet 03/14/24 03/27/24 Rx [Senokot-S] Baclofen [Lioresal] 10 mg PO HS 30 Days #30 tab 03/22/24 03/27/24 Rx oxyCODONE HCL [oxyCODONE HCL (IR)] 5 mg PO TID PRN 30 Days #90 cap 03/22/24 03/27/24 Rx Allergies Allergy/AdvReac Type Severity Reaction Status Date / Time No Known Allergies Allergy Verified 04/17/24 00:06 Physical Exam Vitals: Vital Signs Temp Pulse Resp BP Pulse Ox 04/17/24 05:00 98.8 F 78 17 106/54 99 04/17/24 04:00 100.6 F H 76 18 96/50 97 04/17/24 03:10 101.4 F H 114 H 18 102/58 97 04/17/24 02:00 101.8 F H 78 16 108/55 97 04/16/24 23:54 103.0 F H 87 18 115/53 96 Intake and Output 04/16/24 04/16/24 04/17/24 14:59 22:59 06:59 Output Total 450 Balance -450 Output: Urine 450 Straight 450 Other: Weight 81.647 kg Results CBC & Chem 7: 04/17/24 00:13 04/17/24 00:13 Labs: Abnormal Lab Results - Last 24 Hours (Table) 04/17/24 04/17/24 04/17/24 Range/Units 00:13 00:13 03:52 WBC 16.2 H (3.8-10.6) k/uL RBC 3.94 L (4.30-5.90) m/uL Hgb 11.3 L (13.0-17.5) gm/dL Hct 34.3 L (39.0-53.0) % Neutrophils # 15.4 H (1.3-7.7) k/uL Lymphocytes # 0.2 L (1.0-4.8) k/uL Sodium 133 L (137-145) mmol/L BUN 33 H (9-20) mg/dL Creatinine 1.46 H (0.66-1.25) mg/dL Glucose 125 H (74-99) mg/dL Urine RBC >182 H (0-5) /hpf Urine WBC >182 H (0-5) /hpf Urine Bacteria Many H (None) /hpf Urine Opiates Screen Detected H (NotDetected) Ur Oxycodone Screen Detected H (NotDetected)
--- NOTE | 2024-04-17 06:36 | P.HPADDEND ---
H&P Addendum H&P Addendum Date: 04/17/24 This is an addendum to my resident note Dr. Johnson I have seen and evaluated the patient today. I Discussed the case with the resident and agree with the resident's findings . Assessment and plan 83-year-old male with COPD on home oxygen , diabetes, patient lives alone independently seems like his neighbor is her caregiver, today he did not sound right over the phone with family for which EMS was notified upon arrival he was found to be hypoxic while not using his oxygen with oxygen saturations down into the 80s percent. No further history obtainable at this time I discussed case with ED doctor and accepted the admission for sepsis with suspected underlying UTI with anticipated length of stay more than 2 midnights Sepsis secondary to suspected UTI CT of the brain no acute intracranial pathology Chest x-ray no acute cardiopulmonary process Acute respiratory viral panel negative for RSV COVID and influenza Follow-up blood cultures Follow-up urine cultures Patient received cefepime in the ED, will discontinue and start patient on Rocephin 1 g IV piggyback daily Patient known to have recurrent UTIs, most recent urine culture from July 2023 showed sensitive strain to Rocephin IV fluid hydration status post 3 L boluses continue with normal saline at 100 cc/h Leukocytosis white count 16.2 Lactic acidosis 3.8 Chronic hypoxic respiratory failure on home oxygen COPD Continue with DuoNebs scheduled and as needed Symbicort twice daily Supplemental oxygen as needed Chest x-ray no acute cardiopulmonary process Acute respiratory viral panel negative as above Diabetes mellitus Insulin sliding scale Hypothyroidism Resume levothyroxine Chronic kidney disease Stable Creatinine 1.46 BUN 33 Sodium 133 potassium 3.9 unremarkable Monitor urine output DVT prophylaxis heparin subcu 3 times daily 5000 units Full code
[2024-04-17] MEDS ORDERED: IPRATROPIUM-ALBUTEROL 3 ML NEB INHALATION PRN (06:40)
[2024-04-17] MEDS: SODIUM CHLORIDE 0.9% 1,000 ML IV SCH ×2 (07:00→09:12)
--- NOTE | 2024-04-17 07:46 | CT ---
EXAMINATION TYPE: CT abdomen pelvis wo con DATE OF EXAM: 04/17/2024 COMPARISON: 01/23/2021 HISTORY: hematuria Examination of the solid and hollow viscera is limited given the lack of contrast. FINDINGS: LUNG BASES: No evidence for nodule. No evidence for infiltrate. Small basilar effusions and linear at electasis identified granulomas. LIVER/GB: The gallbladder is hydropic and 9.7 cm with layering gallstones identified. No definitive w all thickening or pericholecystic fluid. No space-occupying hepatic lesion. PANCREAS: No pancreatic mass identified. No inflammatory process seen. SPLEEN: No evidence for splenomegaly. No intrasplenic lesions seen. ADRENALS: No adrenal nodules identified. No evidence for thickening. KIDNEYS: Mild atrophic change left kidney. Bilateral mild hydronephrosis. There is urinary bladder wa ll thickening with more focal component posteriorly. Correlate for cystitis. Underlying neoplasm is n ot excluded. No obstructing calculus seen with certainty. No evidence for renal mass. No nephrolithia sis. BOWEL: Appendix has a normal appearance. No evidence of bowel obstruction. No inflammatory process. Lymph nodes: No evidence for adenopathy greater than 1 cm. Abdominal aorta: Atheromatous changes seen. No evidence for aneurysm. Genital organs: No significant abnormality. Other: Right-sided gynecomastia. Postoperative fusion changes lumbar spine. Small fat-containing umbi lical hernia. IMPRESSION: 1.Bilateral mild hydronephrosis. There is urinary bladder wall thickening with more focal component p osteriorly. Correlate for cystitis. Underlying neoplasm is not excluded. No obstructing calculus seen with certainty. 2.The gallbladder is hydropic and 9.7 cm with layering gallstones identified. No definitive wall thic kening or pericholecystic fluid. [facility], , 04/17/2024 7:44 AM
[2024-04-17] MEDS ORDERED: CEFEPIME 2 GM in SODIUM CHLORIDE 0.9% 100 ML IVPB SCH (08:00)
[2024-04-17] MEDS: HEPARIN SODIUM,PORCINE 5,000 UNIT/ML 1 ML VIAL SQ SCH (09:12)
[2024-04-17] MEDS: PANTOPRAZOLE 40 MG/10 ML VIAL IV SCH (09:15)
[2024-04-17] MEDS: LEVOTHYROXINE 125 MCG TAB PO SCH (09:22)
[2024-04-17] MEDS: LEVOTHYROXINE 50 MCG TAB PO SCH (09:23)
[2024-04-17] MEDS: LEVOTHYROXINE 75 MCG TAB PO SCH (10:03)
[2024-04-17] MEDS: ACETAMINOPHEN TAB 325 MG TAB PO PRN (10:03)
[2024-04-17] MEDS: IPRATROPIUM-ALBUTEROL 3 ML NEB INHALATION SCH (10:28)
[2024-04-17] MEDS: SYMBICORT 160-4.5 MCG INHALER INHALATION SCH (10:29)
[2024-04-17] MEDS ORDERED: DEXTROSE 50% SYRINGE 50 ML IVP PRN ×2 (10:43)
--- NOTE | 2024-04-17 10:57 | P.PN ---
Subjective Progress Note Date: 04/17/24 Hospital course Patient is a 83-year-old male with a past medical history of recurrent UTIs who presents to the ED with altered mental status. Patient lives alone independently and his caregiver who is also his neighbor and cousin was talking to the patient over the phone and the patient did not sound right so EMS was called. When EMS found him he was hypoxic and patient was not wearing his oxygen. Patient is normally on 3 L nasal cannula. In the ED patient met septic criteria and was also having high-grade fevers. His UA was also positive for UTI. Patient's hypoxia resolved after he was placed on his home dose nasal cannula. Patient was started on IV Rocephin. The following day his mental status improved. Patient seen today as an ED hold patient. Patient mainly complaining of burning pain in his bilateral lower extremities and also has left upper extremity. Patient also complaining of dysuria. He is AO x 3. He is aware that he is in the hospital due to a urine infection. Patient also told me that he wears 3 L nasal cannula at home. Physical exam General examination - Alert and Oriented 3 in NAD, appears chronically debil itated Heart - + S1S2 no murmurs Lungs -diminished breath sounds bilaterally Abdomen soft NT ND +ve BS Extremities -trace bilateral pitting edema [employer] - Moving all 4 extremities spontaneously Psych - Calm and cooperative Assessment and plan Sepsis on admission Urinary tract infection Follow-up on blood culture Follow-up on urine culture Continue with IV Rocephin Repeat lactic acid is 3.3 Will continue with aggressive fluids normal saline 100 cc an hour Will need to monitor patient closely for volume overload as he does have bilateral pitting edema Trend CBC Chronic hypoxic respiratory failure on 3 L home O2 COPD Continue breathing treatments as needed and Symbicort twice daily Stable Diabetes mellitus Sliding scale insulin Hold all home meds Diabetic neuropathy Continue with his gabapentin CKD stage III Creatinine stable at his baseline Hypothyroidism Continue levothyroxine Chronic pain Osteoarthritis Continue with home dose oxycodone Anxiety and depression Continue home psych meds Hyperlipidemia Continue with statin Hypertension Hold hydrochlorothiazide as patient blood pressure on the lower side DVT prophylaxis: Subcu heparin Objective - Vital Signs Vital signs: Vital Signs Temp 98.8 F 04/17/24 05:00 Pulse 74 04/17/24 10:36 Resp 18 04/17/24 09:10 BP 103/68 04/17/24 09:10 Pulse Ox 98 04/17/24 09:10 FiO2 Intake & Output 04/16/24 04/17/24 04/17/24 18:59 06:59 18:59 Output Total 450 Balance -450 Weight 81.647 kg Output: Urine 450 Straight 450 - Labs CBC & Chem 7: 04/17/24 00:13 04/17/24 00:13 Labs: Abnormal Lab Results - Last 24 Hours (Table) 04/17/24 04/17/24 04/17/24 Range/Units 00:13 00:13 03:52 WBC 16.2 H (3.8-10.6) k/uL RBC 3.94 L (4.30-5.90) m/uL Hgb 11.3 L (13.0-17.5) gm/dL Hct 34.3 L (39.0-53.0) % Neutrophils # 15.4 H (1.3-7.7) k/uL Lymphocytes # 0.2 L (1.0-4.8) k/uL Sodium 133 L (137-145) mmol/L BUN 33 H (9-20) mg/dL Creatinine 1.46 H (0.66-1.25) mg/dL Glucose 125 H (74-99) mg/dL Plasma Lactic Acid Js (0.7-2.0) mmol/L Urine RBC >182 H (0-5) /hpf Urine WBC >182 H (0-5) /hpf Urine Bacteria Many H (None) /hpf Urine Opiates Screen Detected H (NotDetected) Ur Oxycodone Screen Detected H (NotDetected) 04/17/24 04/17/24 Range/Units 05:00 08:41 WBC (3.8-10.6) k/uL RBC (4.30-5.90) m/uL Hgb (13.0-17.5) gm/dL Hct (39.0-53.0) % Neutrophils # (1.3-7.7) k/uL Lymphocytes # (1.0-4.8) k/uL Sodium (137-145) mmol/L BUN (9-20) mg/dL Creatinine (0.66-1.25) mg/dL Glucose (74-99) mg/dL Plasma Lactic Acid Js 3.8 H* 3.3 H* (0.7-2.0) mmol/L Urine RBC (0-5) /hpf Urine WBC (0-5) /hpf Urine Bacteria (None) /hpf Urine Opiates Screen (NotDetected) Ur Oxycodone Screen (NotDetected)
[2024-04-17] MEDS: INSULIN ASPART (NovoLOG) 100 UNIT/ML VIAL SQ SCH (13:45)
[2024-04-17] MEDS: GABAPENTIN 300 MG CAP PO SCH (16:00)
[2024-04-17] MEDS: ASPIRIN 81 MG PO SCH (21:01)
[2024-04-17] MEDS: ATORVASTATIN 10 MG TAB PO SCH (21:01)
[2024-04-17] MEDS: LATANOPROST 0.005% OPHTH DROPS 2.5 ML BTL BOTH EYES SCH (21:45)
[2024-04-18 06:31] LABS: Basophils % (A) 0 %; Eosinophils # (A) 0.3 k/uL (0-0.7); Eosinophils % (A) 3 %; HCT 29.1 % (39.0-53.0); Lymphocytes # (A) 0.6 k/uL (1.0-4.8); Lymphocytes % (A) 7 %; MCH 28.6 pg (25.0-35.0); MCHC 32.5 g/dL (31.0-37.0); MCV 88.1 fL (80.0-100.0); Mean Platelet Volume 7.9; Monocytes # (A) 0.4 k/uL (0-1.0); Monocytes % (A) 6 %; Neutrophils # (A) 6.1 k/uL (1.3-7.7); Neutrophils % (A) 81 %; Platelet Count 168 k/uL (150-450); RDW 15.2 % (11.5-15.5); WBC 7.4 k/uL (3.8-10.6)
[2024-04-18 06:33] LABS: African American GFR (CKD) 49 (>60 ml/min/1.73 sqM); Anion Gap 3 mmol/L; Blood Urea Nitrogen 29 mg/dL (9-20); Calcium 8.2 mg/dL (8.4-10.2); Carbon Dioxide 27 mmol/L (22-30); Chloride 104 mmol/L (98-107); Glucose 97 mg/dL (74-99); Non-African American GFR(CKD) 43 (>60 ml/min/1.73 sqM); Potassium 3.5 mmol/L (3.5-5.1); Sodium 134 mmol/L (137-145)
[2024-04-18 06:52] LABS: HGB 9.4 gm/dL (13.0-17.5)
[2024-04-18] MEDS: VANCOMYCIN 1,500 MG in SODIUM CHLORIDE 0.9% 500 ML 500 ML IVPB SCH (06:53)
--- NOTE | 2024-04-18 07:13 | P.CONS ---
History of Present Illness - Reason for Consult Consult date: 04/17/24 UTI with sepsis Requesting physician: Alicia Johnson - Chief Complaint Weakness burning and difficulty urination x days - History of Present Illness Patient is a 83-year-old male with a past medical history significant for diabetes mellitus hypertension rheumatoid arthritis prostate cancer patient has been brought to the hospital for evaluation of mental status changes on arrival of the EMS patient was not on his home O2 and his pulse ox was 80% patient subsequently has been brought to the hospital for further evaluation patient on arrival to the ER did have a fever of 103 F, patient was tachycardic but not hypotensive he was hypoxic and currently on 3 L nasal cannula oxygen patient denies having any headache or URI symptoms complaining of some shortness of breath but no chest pain or cough no nausea no vomiting no abdominal pain or diarrhea has been complaining of difficulty urination as well as burning and some suprapubic discomfort symptom has been going on for more than a week patient did have a white count of 16.2 on admission BUN/creatinine has been mildly elevated liver enzymes are normal urine has been positive with more than 1-2 WBC and many bacteria urine testing was positive for opiates oxycodone influenza RSV COVID testing was negative patient did have a chest x-ray no consolidation did have abdominal pelvis CT lung bases were clear there was some mild bilateral hydronephrosis and bladder wall thickening correlate for cystitis there was a gallstone gallbladder was hydropic but no wall thickening or pericholecystic fluid patient is being treated with Rocephin infectious disease was consulted for further management of antibiotic therapy and also received a dose of cefepime in the ER Review of Systems Positive point and negatives has been mentioned in the HPI, complete review of systems was performed and all other systems are negative Past Medical History Past Medical History: Cancer, Diabetes Mellitus, GERD/Reflux, Hearing Disorder / Deafness, Hypertension, Musculoskeletal Disorder, Osteoarthritis (OA), Rheumatoid Arthritis (RA), Thyroid Disorder Additional Past Medical History / Comment(s): HX MIGRAINES. HX OF SKIN CANCER. CHRONIC BACK PAIN, D.I.S.H.-DEGENERATIVE ARTHRITIS, ANKYLOSING SPONDYLITIS. GETS LIGHTHEADED EASILY-MOVES SLOWLY TO PREVENT LOSS OF BALANCE. Hx prostate [id number], had RADIATION TREATMENTS AT [place] [id number] tx's. Urinary incontinence. O2 PRN. Rectal bleeding 8 years ago. 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 Hard of hearing- has hearing enhancer device, intrathecal pain pump-located lt buttocks- Morphine sulfate 0.6991ml/day w-Bupivacaine 0.6991ml/day. History of Any Multi-Drug Resistant Organisms: None Reported Past Surgical History: Appendectomy, Back Surgery, Bowel Resection, Joint Replacement, Orthopedic Surgery, Tonsillectomy Additional Past Surgical History / Comment(s): Left knee replacement, back surgery X2, INTRATHECAL OPIOID PAIN PUMP placed and replaced, upper teeth pulled, prostate biopsy, bilateral cataract surgery. Past Anesthesia/Blood Transfusion Reactions: No Reported Reaction Past Psychological History: Anxiety, Depression Smoking Status: Never smoker - Past Family History Father Family Medical History: Cancer, Deep Vein Thrombosis (DVT) Additional Family Medical History / Comment(s): Lung and bone cancer. Medications and Allergies Home Medications Medication Instructions Recorded Confirmed Type Citalopram Hydrobromide [CeleXA] 40 mg PO DAILY 04/09/17 04/17/24 History Aspirin 81 mg PO HS 08/12/22 04/17/24 History Metoprolol Tartrate 12.5 mg PO DAILY 09/13/23 04/17/24 History Vit D3 (Unk) 1 tab PO DAILY 09/13/23 04/17/24 History Patient Own Pump 1 bag INFILTRATI DIRECTED 03/12/24 04/17/24 History buPROPion XL [Wellbutrin XL] 300 mg PO DAILY 03/12/24 04/17/24 History Gabapentin [Neurontin] 300 mg PO TID #9 cap 03/13/24 04/17/24 Rx Baclofen [Lioresal] 10 mg PO HS 30 Days #30 tab 03/22/24 04/17/24 Rx oxyCODONE HCL [oxyCODONE HCL (IR)] 5 mg PO TID PRN 30 Days #90 cap 03/22/24 04/17/24 Rx Atorvastatin [Lipitor] 10 mg PO HS 04/17/24 04/17/24 History Latanoprost [Latanoprost 0.005%] 1 drop BOTH EYES HS 04/17/24 04/17/24 History Levothyroxine Sodium 150 mcg PO DAILY 04/17/24 04/17/24 History hydroCHLOROthiazide [Hydrodiuril] 50 mg PO DAILY 04/17/24 04/17/24 History metFORMIN HCL ER [Glucophage XR] 500 mg PO BID 04/17/24 04/17/24 History Allergies Allergy/AdvReac Type Severity Reaction Status Date / Time No Known Allergies Allergy Verified 04/17/24 09:07 Physical Exam Vitals: Vital Signs Temp Pulse Resp BP Pulse Ox 04/17/24 10:36 74 04/17/24 10:29 76 04/17/24 09:10 75 18 103/68 98 04/17/24 05:00 98.8 F 78 17 106/54 99 04/17/24 04:00 100.6 F H 76 18 96/50 97 04/17/24 03:10 101.4 F H 114 H 18 102/58 97 04/17/24 02:00 101.8 F H 78 16 108/55 97 04/16/24 23:54 103.0 F H 87 18 115/53 96 Intake and Output 04/16/24 04/17/24 04/17/24 22:59 06:59 14:59 Output Total 450 Balance -450 Output: Urine 450 Straight 450 Other: Weight 81.647 kg GENERAL DESCRIPTION: Elderly male lying in bed, no distress. No tachypnea or accessory muscle of respiration use. HEENT: Shows Pallor , no scleral icterus. Oral mucous membrane is dry. No pharyngeal erythema or thrush NECK: Trachea central, no thyromegaly. LUNGS: Unlabored breathing. Decreased breath sound the base HEART: S1, S2, regular rate and rhythm. No loud murmur ABDOMEN: Soft, no tenderness , guarding or rigidity, no organomegaly EXTREMITIES: Swelling to the leg but no redness SKIN: No rash, no masses palpable. NEUROLOGICAL: The patient is awake, alert, oriented x3, mood and affect normal. Results CBC & Chem 7: 04/18/24 05:48 04/18/24 05:48 Labs: Abnormal Lab Results - Last 24 Hours (Table) 04/17/24 04/17/24 04/17/24 Range/Units 00:13 00:13 03:52 WBC 16.2 H (3.8-10.6) k/uL RBC 3.94 L (4.30-5.90) m/uL Hgb 11.3 L (13.0-17.5) gm/dL Hct 34.3 L (39.0-53.0) % Neutrophils # 15.4 H (1.3-7.7) k/uL Lymphocytes # 0.2 L (1.0-4.8) k/uL Sodium 133 L (137-145) mmol/L BUN 33 H (9-20) mg/dL Creatinine 1.46 H (0.66-1.25) mg/dL Glucose 125 H (74-99) mg/dL Plasma Lactic Acid Js (0.7-2.0) mmol/L Urine RBC >182 H (0-5) /hpf Urine WBC >182 H (0-5) /hpf Urine Bacteria Many H (None) /hpf Urine Opiates Screen Detected H (NotDetected) Ur Oxycodone Screen Detected H (NotDetected) 04/17/24 04/17/24 Range/Units 05:00 08:41 WBC (3.8-10.6) k/uL RBC (4.30-5.90) m/uL Hgb (13.0-17.5) gm/dL Hct (39.0-53.0) % Neutrophils # (1.3-7.7) k/uL Lymphocytes # (1.0-4.8) k/uL Sodium (137-145) mmol/L BUN (9-20) mg/dL Creatinine (0.66-1.25) mg/dL Glucose (74-99) mg/dL Plasma Lactic Acid Js 3.8 H* 3.3 H* (0.7-2.0) mmol/L Urine RBC (0-5) /hpf Urine WBC (0-5) /hpf Urine Bacteria (None) /hpf Urine Opiates Screen (NotDetected) Ur Oxycodone Screen (NotDetected) Assessment and Plan (1) Sepsis Current Visit: Yes Status: Acute Code(s): A41.9 - SEPSIS, UNSPECIFIED ORGANISM SNOMED Code(s): 88186958 (2) Complicated UTI (urinary tract infection) Current Visit: Yes Status: Acute Code(s): N39.0 - URINARY TRACT INFECTION, SITE NOT SPECIFIED SNOMED Code(s): 47116093 (3) Urinary outflow obstruction Current Visit: Yes Status: Acute Code(s): N13.9 - OBSTRUCTIVE AND REFLUX UROPATHY, UNSPECIFIED SNOMED Code(s): 983063153 (4) Bilateral hydronephrosis Current Visit: Yes Status: Acute Code(s): N13.30 - UNSPECIFIED HYDRONE PHROSIS SNOMED Code(s): 35908941 Plan: 1patient presented to hospital with sepsis this patient who did have a fever tachycardia elevated white count urinary symptom positive UA abnormal CT likely concerning for complicated urinary tract infection in this patient who did have evidence of mild bilateral hydronephrosis more likely secondary to bladder outlet obstruction. 2we will increase the dose of Rocephin 2 g daily while waiting for the culture to finalize We will follow on clinical condition and cultures to further adjust medication if needed Thank you for this consultation we will follow the patient along with you Dictation was produced using [employer] dictation software. please excuse any grammatical, word or spelling errors. Time with Patient: Greater than 30
[2024-04-18] MEDS: buPROPion XL 300 MG TAB.ER.24H PO SCH (08:49)
[2024-04-18] MEDS: METOPROLOL TARTRATE 12.5 MG TAB PO SCH (08:49)
[2024-04-18] MEDS: CITALOPRAM HYDROBROMIDE 20 MG TAB PO SCH (08:49)
[2024-04-18] MEDS ORDERED: LEVOTHYROXINE SODIUM 150 MCG PO SCH (09:00)
--- NOTE | 2024-04-18 11:13 | P.PN ---
Subjective Progress Note Date: 04/18/24 Principal diagnosis: Reason for follow-up is sepsis UTI and positive blood culture Patient is a 83-year-old male with a past medical history significant for diabetes mellitus hypertension rheumatoid arthritis prostate cancer patient has been brought to the hospital for evaluation of mental status changes, patient did have a fever of 103 degrees for hide chest x-ray no consolidation did have a positive UA and also concerning for bladder wall thickness and mild hydronephrosis on the CT concerning for symptomatic UTI On today's evaluation that is 04/18/2024, the patient did have resolution of his fever he is breathing comfortably on 3 to nasal oxygen is more awake and alert denies any chest pain shortness of breath or cough no abdominal pain has been complaining of some numbness to the finger left hand but no neck pain or any weakness. Patient white count is down to 7.4, creatinine is 1.49 blood culture positive for gram-positive cocci in cluster//staph epi Objective - Vital Signs Vital signs: Vital Signs Temp 97.8 F 04/18/24 08:47 Pulse 72 04/18/24 08:47 Resp 16 04/18/24 08:47 BP 115/62 04/18/24 08:47 Pulse Ox 97 04/18/24 08:47 FiO2 Intake & Output 04/17/24 04/18/24 04/18/24 18:59 06:59 18:59 Intake Total 180 Output Total 520 Balance -520 180 Weight 106 kg Intake: Oral 180 Output: Urine 520 Other: Voiding Method External Catheter External Catheter - Exam GENERAL DESCRIPTION: An elderly male lying in bed in no distress RESPIRATORY SYSTEM: Unlabored breathing , decreased breath sounds at bases HEART: S1 S2 regular rate and rhythm , ABDOMEN: Soft , no tenderness EXTREMITIES: No edema feet - Labs CBC & Chem 7: 04/18/24 05:48 04/18/24 05:48 Labs: Abnormal Lab Results - Last 24 Hours (Table) 04/17/24 04/18/24 04/18/24 Range/Units 14:26 05:48 05:48 RBC 3.30 L (4.30-5.90) m/uL Hgb 9.4 L D (13.0-17.5) gm/dL Hct 29.1 L (39.0-53.0) % Lymphocytes # 0.6 L (1.0-4.8) k/uL Sodium 134 L (137-145) mmol/L BUN 29 H (9-20) mg/dL Creatinine 1.49 H (0.66-1.25) mg/dL Plasma Lactic Acid Js 2.4 H* (0.7-2.0) mmol/L Calcium 8.2 L (8.4-10.2) mg/dL Microbiology - Last 24 Hours (Table) 04/17/24 03:52 Urine Culture - Final Urine,Voided 04/17/24 05:00 Blood Culture Gram Stain - Preliminary Blood Blood Culture - Preliminary Molecular ID Assessment and Plan (1) Sepsis Current Visit: Yes Status: Acute Code(s): A41.9 - SEPSIS, UNSPECIFIED ORGANISM SNOMED Code(s): 57805769 (2) Complicated UTI (urinary tract infection) Current Visit: Yes Status: Acute Code(s): N39.0 - URINARY TRACT INFECTION, SITE NOT SPECIFIED SNOMED Code(s): 21144631 (3) Urinary outflow obstruction Current Visit: Yes Status: Acute Code(s): N13.9 - OBSTRUCTIVE AND REFLUX UROPATHY, UNSPECIFIED SNOMED Code(s): 759373749 (4) Bilateral hydronephrosis Current Visit: Yes Status: Acute Code(s): N13.30 - UNSPECIFIED HYDRONEPHROSIS SNOMED Code(s): 41588597 (5) Positive blood culture Current Visit: Yes Status: Acute Code(s): R78.81 - BACTEREMIA SNOMED Code(s): 321132214 Plan: 1patient presented to hospital with sepsis this patient who did have a fever tachycardia elevated white count urinary symptom positive UA abnormal CT likely concerning for complicated urinary tract infection in this patient who did have evidence of mild bilateral hydronephrosis more likely secondary to bladder outlet obstruction. 2patient did have a positive blood culture with staph epi possible skin contamination blood cultures were repeated document clearance 3with resolution of the fever on Rocephin to continue while waiting for the culture to finalize Dictation was produced using [employer] dictation software. please excuse any grammatical, word or spelling errors. Time with Patient: Less than 30
--- NOTE | 2024-04-18 11:46 | P.PN ---
Subjective Progress Note Date: 04/18/24 Hospital course Patient is a 83-year-old male with a past medical history of recurrent UTIs who presents to the ED with altered mental status. Patient lives alone independently and his caregiver who is also his neighbor and cousin was talking to the patient over the phone and the patient did not sound right so EMS was called. When EMS found him he was hypoxic and patient was not wearing his oxygen. Patient is normally on 3 L nasal cannula. In the ED patient met septic criteria and was also having high-grade fevers. His UA was also positive for UTI. Patient's hypoxia resolved after he was placed on his home dose nasal cannula. Patient was started on IV Rocephin. The following day his mental status improved. Patient states that overall he is feeling better. He states that he does have some pain in his left upper extremity but the pain in his bilateral lower ext remities has improved. 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 I have ordered repeat blood culture Follow-up on urine culture Continue with IV Rocephin 2 g every 24 hours Lactic acid has normalized and last level was 2.0. WBC normalized and is 7.4 today. Will discontinue the IV fluids Bilateral hydronephrosis Will consult urology as patient does have a history of prostate cancer Chronic hypoxic respiratory failure on 3 L home O2 COPD Continue breathing treatments as needed and Symbicort twice daily Stable Diabetes mellitus Sliding scale insulin Hold all home meds Diabetic neuropathy Continue with his gabapentin CKD stage III Creatinine stable at his baseline Hypothyroidism Continue levothyroxine Chronic pain Osteoarthritis Continue with home dose oxycodone Anxiety and depression Continue home psych meds Hyperlipidemia Continue with statin Hypertension Hold hydrochlorothiazide as patient blood pressure on the lower side DVT prophylaxis: Subcu heparin Objective - Vital Signs Vital signs: Vital Signs Temp 97.8 F 04/18/24 08:47 Pulse 72 04/18/24 08:47 Resp 16 04/18/24 08:47 BP 115/62 04/18/24 08:47 Pulse Ox 97 04/18/24 08:47 FiO2 Intake & Output 04/17/24 04/18/24 04/18/24 18:59 06:59 18:59 Intake Total 180 Output Total 520 Balance -520 180 Weight 106 kg Intake: Oral 180 Output: Urine 520 Other: Voiding Method External Catheter External Catheter - Labs CBC & Chem 7: 04/18/24 05:48 04/18/24 05:48 Labs: Abnormal Lab Results - Last 24 Hours (Table) 04/17/24 04/18/24 04/18/24 Range/Units 14:26 05:48 05:48 RBC 3.30 L (4.30-5.90) m/uL Hgb 9.4 L D (13.0-17.5) gm/dL Hct 29.1 L (39.0-53.0) % Lymphocytes # 0.6 L (1.0-4.8) k/uL Sodium 134 L (137-145) mmol/L BUN 29 H (9-20) mg/dL Creatinine 1.49 H (0.66-1.25) mg/dL Plasma Lactic Acid Js 2.4 H* (0.7-2.0) mmol/L Calcium 8.2 L (8.4-10.2) mg/dL Microbiology - Last 24 Hours (Table) 04/17/24 03:52 Urine Culture - Final Urine,Voided 04/17/24 05:00 Blood Culture Gram Stain - Preliminary Blood Blood Culture - Preliminary Molecular ID
[2024-04-18] MEDS ORDERED: Potassium Replacement Protocol 1 EACH MISC MISCELLANE PRN (19:52)
[2024-04-18] MEDS: POTASSIUM CHLORIDE ER 20 MEQ TAB.ER PO SCH (20:12)
--- NOTE | 2024-04-19 06:05 | P.GSCN ---
History of Present Illness Consult date: 04/18/24 History of present illness: 83-year-old gentleman known to our office for prostate cancer, status post radiation therapy incomplete bladder emptying, recurrent urine infections. The patient had a TURP for incomplete bladder emptying back in August but still has problems emptying his bladder. The patient was admitted with mental status changes. He is found to have a urine infection. His white count was normal. The urine is inflamed. The bladder is not emptying totally and there is some mild hydronephrosis. For this reason we're asked see the patient. His last office visit showed a pvr of 430. He wasnt too bothered by it. We discussed cic or an indwelling catheter which he wasnt in favor of. Review of Systems All systems: negative - Constitutional Denies fever, Denies weight loss - EENT Eyes: denies blurred vision Ears, nose, mouth and throat: Denies dysphagia - Cardiovascular Denies chest pain, Denies shortness of breath - Respiratory Denies cough, Denies 7 - Gastrointestinal Reports as per HPI - Genitourinary Denies dysuria, Denies hematuria - Integumentary Denies rash, Denies unusual bruising - Neurological Denies headaches, Denies syncope - Hematologic/Lymphatic Denies easy bleeding, Denies easy bruising Past Medical History Past Medical History: Cancer, Diabetes Mellitus, GERD/Reflux, Hearing Disorder / Deafness, Hypertension, Musculoskeletal Disorder, Osteoarthritis (OA), Rheumato id Arthritis (RA), Thyroid Disorder Additional Past Medical History / Comment(s): HX MIGRAINES. HX OF SKIN CANCER. CHRONIC BACK PAIN, D.I.S.H.-DEGENERATIVE ARTHRITIS, ANKYLOSING SPONDYLITIS. GETS LIGHTHEADED EASILY-MOVES SLOWLY TO PREVENT LOSS OF BALANCE. Hx prostate cancer2 021, had RADIATION TREATMENTS AT [place] [id number] tx's. Urinary incontinence. O2 PRN. Rectal bleeding 8 years ago. 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 Hard of hearing- has hearing enhancer device, intrathecal pain pump-located lt buttocks- Morphine sulfate 0.6991ml/day w-Bupivacaine 0.6991ml/day. History of Any Multi-Drug Resistant Organisms: None Reported Past Surgical History: Appendectomy, Back Surgery, Bowel Resection, Joint Replacement, Orthopedic Surgery, Tonsillectomy Additional Past Surgical History / Comment(s): Left knee replacement, back surgery X2, INTRATHECAL OPIOID PAIN PUMP placed and replaced, upper teeth pulled , prostate biopsy, bilateral cataract surgery. Past Anesthesia/Blood Transfusion Reactions: No Reported Reaction Past Psychological History: Anxiety, Depression Smoking Status: Never smoker - Past Family History Father Family Medical History: Cancer, Deep Vein Thrombosis (DVT) Additional Family Medical History / Comment(s): Lung and bone cancer. Medications and Allergies Home Medications Medication Instructions Recorded Confirmed Type Citalopram Hydrobromide [CeleXA] 40 mg PO DAILY 04/09/17 04/17/24 History Aspirin 81 mg PO HS 08/12/22 04/17/24 History Metoprolol Tartrate 12.5 mg PO DAILY 09/13/23 04/17/24 History Vit D3 (Unk) 1 tab PO DAILY 09/13/23 04/17/24 History Patient Own Pump 1 bag INFILTRATI DIRECTED 03/12/24 04/17/24 History buPROPion XL [Wellbutrin XL] 300 mg PO DAILY 03/12/24 04/17/24 History Gabapentin [Neurontin] 300 mg PO TID #9 cap 03/13/24 04/17/24 Rx Baclofen [Lioresal] 10 mg PO HS 30 Days #30 tab 03/22/24 04/17/24 Rx oxyCODONE HCL [oxyCODONE HCL (IR)] 5 mg PO TID PRN 30 Days #90 cap 03/22/24 04/17/24 Rx Atorvastatin [Lipitor] 10 mg PO HS 04/17/24 04/17/24 History Latanoprost [Latanoprost 0.005%] 1 drop BOTH EYES HS 04/17/24 04/17/24 History Levothyroxine Sodium 150 mcg PO DAILY 04/17/24 04/17/24 History hydroCHLOROthiazide [Hydrodiuril] 50 mg PO DAILY 04/17/24 04/17/24 History metFORMIN HCL ER [Glucophage XR] 500 mg PO BID 04/17/24 04/17/24 History Allergies Allergy/AdvReac Type Severity Reaction Status Date / Time No Known Allergies Allergy Verified 04/17/24 09:07 Surgical - Exam Vital Signs Temp Pulse Resp BP Pulse Ox 103.0 F H 87 18 115/53 96 04/16/24 23:54 04/16/24 23:54 04/16/24 23:54 04/16/24 23:54 04/16/24 23:54 - General well developed, well nourished, no distress - Eyes normal ocular movement, no icteric - ENT no hearing loss, no congestion - Neck no masses, trachea midline - Respiratory normal respiratory effort, clear to auscultation - Abdomen Abdomen: soft, non tender, no guarding, no rigid, no rebound - Integumentary no rash, no abnormal pigmentation - Neurologic no disoriented, no combative - Psychiatric oriented to time, oriented to person, oriented to place, speech is normal, memory intact Results - Labs 04/18/24 05:48 04/18/24 05:48 Abnormal Lab Results - Last 24 Hours (Table) 04/17/24 04/17/24 04/18/24 Range/Units 08:41 14:26 05:48 RBC 3.30 L (4.30-5.90) m/uL Hgb 9.4 L D (13.0-17.5) gm/dL Hct 29.1 L (39.0-53.0) % Lymphocytes # 0.6 L (1.0-4.8) k/uL Sodium (137-145) mmol/L BUN (9-20) mg/dL Creatinine (0.66-1.25) mg/dL Plasma Lactic Acid Js 3.3 H* 2.4 H* (0.7-2.0) mmol/L Calcium (8.4-10.2) mg/dL 04/18/24 Range/Units 05:48 RBC (4.30-5.90) m/uL Hgb (13.0-17.5) gm/dL Hct (39.0-53.0) % Lymphocytes # (1.0-4.8) k/uL Sodium 134 L (137-145) mmol/L BUN 29 H (9-20) mg/dL Creatinine 1.49 H (0.66-1.25) mg/dL Plasma Lactic Acid Js (0.7-2.0) mmol/L Calcium 8.2 L (8.4-10.2) mg/dL Microbiology - Last 24 Hours (Table) 04/17/24 03:52 Urine Culture - Final Urine,Voided 04/17/24 05:00 Blood Culture Gram Stain - Preliminary Blood Blood Culture - Preliminary Molecular ID Diabetes panel 04/17/24 04/18/24 Range/Units 08:41 05:48 Sodium 134 L (137-145) mmol/L Potassium 3.5 (3.5-5.1) mmol/L Chloride 104 (98-107) mmol/L Carbon Dioxide 27 (22-30) mmol/L BUN 29 H (9-20) mg/dL Creatinine 1.49 H (0.66-1.25) mg/dL Glucose 97 (74-99) mg/dL Hemoglobin A1c 5.3 (<=6.0) % Calcium 8.2 L (8.4-10.2) mg/dL Calcium panel 04/18/24 Range/Units 05:48 Calcium 8.2 L (8.4-10.2) mg/dL Pituitary panel 04/18/24 Range/Units 05:48 Sodium 134 L (137-145) mmol/L Potassium 3.5 (3.5-5.1) mmol/L Chloride 104 (98-107) mmol/L Carbon Dioxide 27 (22-30) mmol/L BUN 29 H (9-20) mg/dL Creatinine 1.49 H (0.66-1.25) mg/dL Glucose 97 (74-99) mg/dL Calcium 8.2 L (8.4-10.2) mg/dL Adrenal panel 04/18/24 Range/Units 05:48 Sodium 134 L (137-145) mmol/L Potassium 3.5 (3.5-5.1) mmol/L Chloride 104 (98-107) mmol/L Carbon Dioxide 27 (22-30) mmol/L BUN 29 H (9-20) mg/dL Creatinine 1.49 H (0.66-1.25) mg/dL Glucose 97 (74-99) mg/dL Calcium 8.2 L (8.4-10.2) mg/dL - Imaging CT scan - abdomen: report reviewed, image reviewed CT scan - pelvis: report reviewed, image reviewed Assessment and Plan Assessment: Impression: uti seondary to chronic incomplete emptying, hypotonic neurogenic bladder multiple medical illnesses Plan: Unfortunately since he already has had a turp that didnt aide in the emptying of his bladder there isnt much I can do to assist in this. I do see that he isnt on flomax as he told me he was. I will start that but realistically he may need cic or an indwelling if the infections become recurrent. this infection will have to be treated longer due to the incomplete emptying.
[2024-04-19 08:26] LABS: Basophils # (A) 0.01 X 10*3/uL (0.00-0.10); Basophils % (A) 0.2 %; Eosinophils # (A) 0.33 X 10*3/uL (0.04-0.35); Eosinophils % (A) 6.4 %; HCT 29.1 % (39.6-50.0); HGB 9.4 g/dL (13.0-17.0); Lymphocytes # (A) 0.86 X 10*3/uL (0.90-5.00); Lymphocytes % (A) 16.8 %; MCHC 32.3 g/dL (32.0-37.0); MCV 86.6 FL (80.0-97.0); Mean Platelet Volume 10.7 FL (9.5-12.2); Monocytes # (A) 0.65 X 10*3/uL (0.20-1.00); Monocytes % (A) 12.7 %; NRBC Per 100 WBC 0 X 10*3/uL (0.00-0.01); Neutrophils # (A) 3.27 X 10*3/uL (1.80-7.70); Neutrophils % (A) 63.7 %; Platelet Count 190 X 10*3/uL (140-440); RBC 3.36 X 10*6/uL (4.40-5.60); RDW 14.9 % (11.5-14.5); WBC 5.13 X 10*3/uL (4.50-10.00)
--- NOTE | 2024-04-19 08:35 | P.PN ---
Subjective Progress Note Date: 04/19/24 The patient is in the hospital with a uti and sepsis. He has a history of incomplete voiding which would lead to more frequent utis and more difficult treatment. His residual last night was "0ml" His vss and is afebrile He has an exdwelling catheter. He is feeling better this am He is wearing an external catheter. Objective - Vital Signs Vital signs: Vital Signs Temp 97.9 F 04/19/24 01:37 Pulse 64 04/19/24 01:37 Resp 16 04/19/24 01:37 BP 156/80 04/19/24 01:37 Pulse Ox 95 04/19/24 01:37 FiO2 Intake & Output 04/18/24 04/18/24 04/19/24 06:59 18:59 06:59 Intake Total 540 Output Total 520 1800 2700 Balance -520 -1260 -2700 Weight 106 kg Intake: Oral 540 Output: Urine 520 1800 2700 Other: Voiding Method External Catheter External Catheter External Catheter - Labs CBC & Chem 7: 04/19/24 06:13 04/18/24 05:48 Labs: Abnormal Lab Results - Last 24 Hours (Table) 04/18/24 04/18/24 Range/Units 05:48 05:48 RBC 3.30 L (4.30-5.90) m/uL Hgb 9.4 L D (13.0-17.5) gm/dL Hct 29.1 L (39.0-53.0) % Lymphocytes # 0.6 L (1.0-4.8) k/uL Sodium 134 L (137-145) mmol/L BUN 29 H (9-20) mg/dL Creatinine 1.49 H (0.66-1.25) mg/dL Calcium 8.2 L (8.4-10.2) mg/dL Microbiology - Last 24 Hours (Table) 04/17/24 03:52 Urine Culture - Final Urine,Voided 04/17/24 05:00 Blood Culture Gram Stain - Preliminary Blood Blood Culture - Preliminary Molecular ID Assessment and Plan Assessment: Impression: uti with sepsis. chronic incomplete emptying with incontinence. hypotonic ngb Plan I will repeat the bladder as the 0 ml residual is contrary to what we have been seeing in the office as of late. Pending that as to further recommendations
[2024-04-19 08:40] LABS: BUN/Creat Ratio 15.64 Ratio (12.00-20.00); Blood Urea Nitrogen 17.2 mg/dL (9.0-27.0); Calcium 8.7 mg/dL (8.7-10.3); Carbon Dioxide 25.3 mmol/L (21.6-31.8); Chloride 105 mmol/L (96-109); Glucose 110 mg/dL (70-110); Sodium 138 mmol/L (135-145)
--- NOTE | 2024-04-19 13:31 | P.PN ---
Subjective Progress Note Date: 04/19/24 Hospital course Patient is a 83-year-old male with a past medical history of recurrent UTIs who presents to the ED with altered mental status. Patient lives alone independently and his caregiver who is also his neighbor and cousin was talking to the patient over the phone and the patient did not sound right so EMS was called. When EMS found him he was hypoxic and patient was not wearing his oxygen. Patient is normally on 3 L nasal cannula. In the ED patient met septic criteria and was also having high-grade fevers. His UA was also positive for UTI. Patient's hypoxia resolved after he was placed on his home dose nasal cannula. Patient was started on IV Rocephin. The following day his mental status improved. Patient states that he feels well. He states that he has been voiding well 2. 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 I have ordered repeat blood culture. I reviewed note from infectious disease who also believes that the blood culture is a contaminant Surprisingly urine culture was negative. Continue with IV Rocephin 2 g every 24 hours Will discontinue the IV fluids I reviewed note from urology who is recommending prolonged antibiotic course due to history of urinary retention Bilateral hydronephrosis Patient's postvoid residual was 62 this morning. Urology on board Chronic hypoxic respiratory failure on 3 L home O2 COPD Continue breathing treatments as needed and Symbicort twice daily Stable Diabetes mellitus Sliding scale insulin Hold all home meds Diabetic neuropathy Continue with his gabapentin CKD stage III Creatinine stable at his baseline Creatinine this morning is 1.1 Hypothyroidism Continue levothyroxine Chronic pain Osteoarthritis Continue with home dose oxycodone Anxiety and depression Continue home psych meds Hyperlipidemia Continue with statin Hypertension Hold hydrochlorothiazide as patient blood pressure on the lower side DVT prophylaxis: Subcu heparin Cussed with family service caseworker who said that patient has a bed at [facility] Anticipate patient will be ready for discharge tomorrow on oral antibiotics recommended by infectious disease as long as the repeat blood culture is negative Objective - Vital Signs Vital signs: Vital Signs Temp 97.9 F 04/19/24 12:54 Pulse 60 04/19/24 12:54 Resp 16 04/19/24 12:54 BP 154/68 04/19/24 12:54 Pulse Ox 97 04/19/24 12:54 FiO2 Intake & Output 04/18/24 04/19/24 04/19/24 18:59 06:59 18:59 Intake Total 540 780 Output Total 1800 2700 1062 Balance -1948 -3110 282 Intake: Oral 540 780 Output: Urine 1800 2700 1000 Post Void Residual 62 Other: Voiding Method External Catheter External Catheter External Catheter - Labs CBC & Chem 7: 04/19/24 06:13 04/19/24 06:13 Labs: Abnormal Lab Results - Last 24 Hours (Table) 04/19/24 Range/Units 06:13 RBC 3.36 L (4.40-5.60) X 10*6/uL Hgb 9.4 L (13.0-17.0) g/dL Hct 29.1 L (39.6-50.0) % RDW 14.9 H (11.5-14.5) % Lymphocytes # 0.86 L (0.90-5.00) X 10*3/uL Microbiology - Last 24 Hours (Table) 04/17/24 05:00 Blood Culture Gram Stain - Final Blood Blood Culture - Final Staphylococcus hominis Staphylococcus epidermidis Molecular ID
--- NOTE | 2024-04-19 14:48 | CDI ---
Documentation Clarification Form Date: 04/19/2024 02:26:55 PM From: Yaneth Zavala RN CCDS Phone: [phone] Admit Date: 04/17/2024 04:31:00 AM Patient Name: Sergio Skaggs Visit Number: [id number] Discharge Date: ATTENTION: The Clinical Documentation Specialists (CDI) and [facility] Coding Staff appreciate your assistance in clarifying documentation. Please respond to the clarification below the line at the bottom and electronically sign. The CDI & [facility] Coding staff will review the response and follow-up if needed. Please note: Queries are made part of the Legal Health Record. If you have any questions, please contact the author of this message via ITS. Doctor: Branden Roman Encephalopathy is documented 04/17, ED note. Additional clarification regarding the type of encephalopathy is requested. History/Risk Factors: 83 year old male presents to the ED with altered mental status, patient was on alcohol earlier in the day and they noticed he wasnt acting right. Ems found patient to be off home oxygen and patient has back pain with dysuria and blood in the urine that started the day prior. Medical history: DM, GERD, Deafness, HTN, OA, RA, skin cancer and thyhorid disorder. 04/17,HP. Clinical Indicators: VSS 04/17: B/P 115/53; HR 87; Temp 103.0F Rectal; RR 18; SpO2 4L nc Labs 04/17: Wbc 16.2, Neutrophils 15.4, Lactic acid 3.8 Urine, 04/17: Color dark red, appearance turbid, RBC >182, Wbc >182, Urine Bacteria many Toxicology, 04/17: Opiates detected, Oxycodone detected. CT Brain, 04/17: No acute intracranial hemorrhage, midline shift or mass effect ED Note, 04/17: Unable to assess secondary to altered mental status, cooperative and calm. Treatment: 04/17: 0.9NS 1L IV Bolus; Tylenol 1,000mg IV x 1; Magnesium IVPB X 2; Toradol IV x 1; 0.9NS IVPB X 2L; Cefepime IVPB X 1; Neurontin po TID; Vancomycin IVPB Q24H; 04/18 Ceftriaxone IVPB Q24HR. No narcotics on MAR Please clarify the type of encephalopathy, if known: [ ] Metabolic Encephalopathy [ X ] Septic Encephalopathy [ ] Other, please specify [ ] Unable to determine (Template Last Revised: September 2020) MTDD
--- NOTE | 2024-04-19 14:52 | P.PN ---
Subjective Progress Note Date: 04/19/24 Principal diagnosis: Reason for follow-up is sepsis UTI and positive blood culture Patient is a 83-year-old male with a past medical history significant for diabetes mellitus hypertension rheumatoid arthritis prostate cancer patient has been brought to the hospital for evaluation of mental status changes, patient did have a fever of 103 degrees for hide chest x-ray no consolidation did have a positive UA and also concerning for bladder wall thickness and mild hydronephrosis on the CT concerning for symptomatic UTI On today's evaluation that is 04/19/2024, Patient is afebrile patient is currently on 3 L nasal cannula oxygen and denies having any shortness of br eath, the patient denies any chest pain or cough, the patient denies any nausea vomiting did not have any abdominal pain and no diarrhea. Patient white count is 5.13, creatinine is 1.1 blood culture with the Streptococcus hominis Objective - Vital Signs Vital signs: Vital Signs Temp 97.8 F 04/19/24 06:45 Pulse 77 04/19/24 08:19 Resp 15 04/19/24 06:45 BP 133/66 04/19/24 06:45 Pulse Ox 98 04/19/24 08:08 FiO2 Intake & Output 04/18/24 04/19/24 04/19/24 18:59 06:59 18:59 Intake Total 540 780 Output Total 1800 2700 1062 Balance -1260 -2700 -282 Intake: Oral 540 780 Output: Urine 1800 2700 1000 Post Void Residual 62 Other: Voiding Method External Catheter External Catheter External Catheter - Exam GENERAL DESCRIPTION: An elderly male lying in bed in no distress RESPIRATORY SYSTEM: Unlabored breathing , decreased breath sounds at bases HEART: S1 S2 regular rate and rhythm , ABDOMEN: Soft , no tenderness EXTREMITIES: No edema feet - Labs CBC & Chem 7: 04/19/24 06:13 04/19/24 06:13 Labs: Abnormal Lab Results - Last 24 Hours (Table) 04/19/24 Range/Units 06:13 RBC 3.36 L (4.40-5.60) X 10*6/uL Hgb 9.4 L (13.0-17.0) g/dL Hct 29.1 L (39.6-50.0) % RDW 14.9 H (11.5-14.5) % Lymphocytes # 0.86 L (0.90-5.00) X 10*3/uL Microbiology - Last 24 Hours (Table) 04/17/24 05:00 Blood Culture Gram Stain - Final Blood Blood Culture - Final Staphylococcus hominis Staphylococcus epidermidis Molecular ID 04/17/24 03:52 Urine Culture - Final Urine,Voided Assessment and Plan (1) Sepsis Current Visit: Yes Status: Acute Code(s): A41.9 - SEPSIS, UNSPECIFIED ORGANISM SNOMED Code(s): 99377248 (2) Complicated UTI (urinary tract infection) Current Visit: Yes Status: Acute Code(s): N39.0 - URINARY TRACT INFECTION, SITE NOT SPECIFIED SNOMED Code(s): 04267342 (3) Urinary outflow obstruction Current Visit: Yes Status: Acute Code(s): N13.9 - OBSTRUCTIVE AND REFLUX UROPATHY, UNSPECIFIED SNOMED Code(s): 261563228 (4) Bilateral hydronephrosis Current Visit: Yes Status: Acute Code(s): N13.30 - UNSPECIFIED HYDRONEPHROSIS SNOMED Code(s): 24471979 (5) Positive blood culture Current Visit: Yes Status: Acute Code(s): R78.81 - BACTEREMIA SNOMED Code(s): 320401457 Plan: 1patient presented to hospital with sepsis this patient who did have a fever tachycardia elevated white count urinary symptom positive UA abnormal CT likely concerning for complicated urinary tract infection in this patient who did have evidence of mild bilateral hydronephrosis more likely secondary to bladder outlet obstruction. 2patient did have a positive blood culture with staph epi possible skin contamination blood cultures has been repeated and so far pending 3patient did have resolution of his fever white count is normal continue with Rocephin will transition to oral antibiotics on discharge Dictation was produced using [employer] software. please excuse any grammatical, word or spelling errors.
[2024-04-19 17:26] LABS: Glucose,Whole Blood 110 mg/dL (70-110)
[2024-04-19 20:35] LABS: Glucose,Whole Blood 143 mg/dL (70-110)
[2024-04-20 05:53] LABS: African American GFR (CKD) 64 (>60 ml/min/1.73 sqM); Anion Gap 1 mmol/L; Blood Urea Nitrogen 19 mg/dL (9-20); Calcium 9.1 mg/dL (8.4-10.2); Carbon Dioxide 28 mmol/L (22-30); Chloride 107 mmol/L (98-107); Glucose 94 mg/dL (74-99); Non-African American GFR(CKD) 55 (>60 ml/min/1.73 sqM); Potassium 4.3 mmol/L (3.5-5.1); Sodium 136 mmol/L (137-145)
[2024-04-20 06:58] LABS: Glucose,Whole Blood 114 mg/dL (70-110)
[2024-04-20 06:59] LABS: Glucose,Whole Blood 150 mg/dL (70-110)
[2024-04-20 07:01] LABS: Glucose,Whole Blood 124 mg/dL (70-110)
[2024-04-20 07:01] LABS: Glucose,Whole Blood 130 mg/dL (70-110)
[2024-04-20 07:01] LABS: Glucose,Whole Blood 115 mg/dL (70-110)
[2024-04-20 07:18] LABS: Glucose,Whole Blood 115 mg/dL (70-110)
[2024-04-20 07:22] LABS: Glucose,Whole Blood 108 mg/dL (70-110)
[2024-04-20 07:35] LABS: Glucose,Whole Blood 105 mg/dL (70-110)
--- NOTE | 2024-04-20 08:14 | P.PN ---
Subjective Progress Note Date: 04/20/24 The patient is in the hospital with a urinary tract infection with sepsis. He has had problems with incomplete bladder emptying but seems to be emptying better. He had some blood in the urine today which is common with an infection. He should continue with antibiotics. I will see him in the office in a couple weeks in follow-up. Objective - Vital Signs Vital signs: Vital Signs Temp 98 F 04/20/24 02:00 Pulse 63 04/20/24 02:00 Resp 16 04/20/24 02:00 BP 147/79 04/20/24 02:00 Pulse Ox 96 04/20/24 02:00 FiO2 Intake & Output 04/19/24 04/20/24 04/20/24 18:59 06:59 18:59 Intake Total 3360 Output Total 3062 2850 Balance 298 -2850 Intake: Oral 3360 Output: Urine 3000 2850 Post Void Residual 62 Other: Voiding Method External Catheter External Catheter # Bowel Movements 1 - Labs CBC & Chem 7: 04/19/24 06:13 04/20/24 05:17 Labs: Abnormal Lab Results - Last 24 Hours (Table) 04/18/24 04/18/24 04/18/24 Range/Units 11:21 16:20 20:19 RBC (4.40-5.60) X 10*6/uL Hgb (13.0-17.0) g/dL Hct (39.6-50.0) % RDW (11.5-14.5) % Lymphocytes # (0.90-5.00) X 10*3/uL Sodium (137-145) mmol/L POC Glucose (mg/dL) 115 H 124 H 115 H (70-110) mg/dL 04/18/24 04/19/24 04/19/24 Range/Units 20:52 06:13 06:45 RBC 3.36 L (4.40-5.60) X 10*6/uL Hgb 9.4 L (13.0-17.0) g/dL Hct 29.1 L (39.6-50.0) % RDW 14.9 H (11.5-14.5) % Lymphocytes # 0.86 L (0.90-5.00) X 10*3/uL Sodium (137-145) mmol/L POC Glucose (mg/dL) 130 H 114 H (70-110) mg/dL 04/19/24 04/19/24 04/20/24 Range/Units 12:00 20:31 05:17 RBC (4.40-5.60) X 10*6/uL Hgb (13.0-17.0) g/dL Hct (39.6-50.0) % RDW (11.5-14.5) % Lymphocytes # (0.90-5.00) X 10*3/uL Sodium 136 L (137-145) mmol/L POC Glucose (mg/dL) 150 H 143 H (70-110) mg/dL Microbiology - Last 24 Hours (Table) 04/18/24 11:28 Blood Culture - Preliminary Blood 04/17/24 05:00 Blood Culture Gram Stain - Final Blood Blood Culture - Final Staphylococcus hominis Staphylococcus epidermidis Molecular ID
[2024-04-20 08:24] LABS: Glucose,Whole Blood 107 mg/dL (70-110)
[2024-04-20 11:49] LABS: Glucose,Whole Blood 119 mg/dL (70-110)
[2024-04-20 12:12] LABS: Glucose,Whole Blood 112 mg/dL (70-110)
--- NOTE | 2024-04-20 12:40 | P.DS ---
Providers Date of admission: 04/17/24 04:31 Attending physician: Presley Butler MD Consults: 04/17/24 06:18 Consult Physician Routine Consulting Provider: Sofia Cheng Consult Reason/Comments: UTI with sepsis Do you want consulting provider notified?: Yes, Notify in am 04/18/24 07:51 Consult Physician Routine Consulting Provider: Raul Cummings Consult Reason/Comments: bilateral hydronephrosis and recurrent UTI Do you want consulting provider notified?: Yes Primary care physician: Stated None Hospital Course: Discharge Diagnosis: Sepsis on admission Urinary tract infection Bilateral hydronephrosis Chronic hypoxic respiratory failure on 3 L home O2 COPD Diabetes mellitus Diabetic neuropathy CKD stage III Hypothyroidism Chronic pain Osteoarthritis Anxiety and depression Hyperlipidemia Hypertension Hospital Course: Patient is a 83-year-old male with a past medical history of recurrent UTIs who presents to the ED with altered mental status. Patient lives alone independently and his caregiver who is also his neighbor and cousin was talking to the patient over the phone and the patient did not sound right so EMS was called. When EMS found him he was hypoxic and patient was not wearing his oxygen. Patient is normally on 3 L nasal cannula. In the ED patient met septic criteria and was also having high-grade fevers. His UA was also positive for UTI. Patient's hypoxia resolved after he was placed on his home O2 concentration of 3L. Patient was started on IV Rocephin. The following day his mental status improved and his fevers resolved. Surprisingly patient's urine culture came back negative. Patient was seen by urology for mild bilateral hydronephrosis seen on CT scan. Patient is known to urology and per urology liya davis does have a history of urinary retention. Urology recommended to check for postvoid residual and to insert Bob catheter if patient retaining. During this hospitalization patient had less than 100 cc on his postvoid residual multiple times so Urology recommended patient to follow-up outpatient. Patient was also being followed by infectious disease. Infectious disease recommended to discharge the patient on seven more days of Ceftin. Patient did have 1 positive blood culture for staph epi and Staph hominis which is likely a contaminant. Repeat blood cultures were negative. Patient will be [facility]. Patient seen and examined at bedside.[] Vital signs reviewed and stable. General examination - Alert and Oriented 3 in NAD, appears chronically de bilitated Heart - + S1S2 no murmurs Lungs -diminished breath sounds bilaterally Abdomen soft NT ND +ve BS Extremities -trace bilateral pitting edema BACK MAKER - Moving all 4 extremities spontaneously Psych - Calm and cooperative A total of [33] minutes of time were spent preparing this complex discharge summary . Patient discharged on 04/20/2024. Patient Condition at Discharge: Stable Plan - Discharge Summary Discharge Rx Participant: No New Discharge Prescriptions: New cefUROXime axetiL [Ceftin] 500 mg PO BID 7 Days #14 tab Continue Citalopram Hydrobromide [CeleXA] 40 mg PO DAILY Aspirin 81 mg PO HS Patient Own Pump 1 bag INFILTRATI DIRECTED Levothyroxine Sodium 150 mcg PO DAILY hydroCHLOROthiazide [Hydrodiuril] 50 mg PO DAILY Gabapentin [Neurontin] 300 mg PO TID #9 cap oxyCODONE HCL [oxyCODONE HCL (IR)] 5 mg PO TID PRN 3 Days #9 cap PRN Reason: Pain Metoprolol Tartrate 12.5 mg PO DAILY Vit D3 (Unk) 1 tab PO DAILY buPROPion XL [Wellbutrin XL] 300 mg PO DAILY Baclofen [Lioresal] 10 mg PO HS 30 Days #30 tab metFORMIN HCL ER [Glucophage XR] 500 mg PO BID Atorvastatin [Lipitor] 10 mg PO HS Latanoprost [Latanoprost 0.005%] 1 drop BOTH EYES HS Discharge Medication List Citalopram Hydrobromide [CeleXA] 40 mg PO DAILY 04/09/17 [History] Aspirin 81 mg PO HS 08/12/22 [History] Metoprolol Tartrate 12.5 mg PO DAILY 09/13/23 [History] Vit D3 (Unk) 1 tab PO DAILY 09/13/23 [History] Patient Own Pump 1 bag INFILTRATI DIRECTED 03/12/24 [History] buPROPion XL [Wellbutrin XL] 300 mg PO DAILY 03/12/24 [History] Baclofen [Lioresal] 10 mg PO HS 30 Days #30 tab 03/22/24 [Rx] Atorvastatin [Lipitor] 10 mg PO HS 04/17/24 [History] Latanoprost [Latanoprost 0.005%] 1 drop BOTH EYES HS 04/17/24 [History] Levothyroxine Sodium 150 mcg PO DAILY 04/17/24 [History] hydroCHLOROthiazide [Hydrodiuril] 50 mg PO DAILY 04/17/24 [History] metFORMIN HCL ER [Glucophage XR] 500 mg PO BID 04/17/24 [History] Gabapentin [Neurontin] 300 mg PO TID #9 cap 04/20/24 [Rx] cefUROXime axetiL [Ceftin] 500 mg PO BID 7 Days #14 tab 04/20/24 [Rx] oxyCODONE HCL [oxyCODONE HCL (IR)] 5 mg PO TID PRN 3 Days #9 cap 04/20/24 [Rx] Follow up Appointment(s)/Referral(s): None,Stated [Primary Care Provider] - 1-2 days Al Chambers MD [STAFF PHYSICIAN] - 2 Weeks
[2024-04-20 13:29] VITALS: BP 126/65; PULSE 53; RESP 16; TEMP 97.4
--- NOTE | 2024-04-20 15:12 | P.PN ---
Subjective Progress Note Date: 04/20/24 Principal diagnosis: Reason for follow-up is sepsis UTI and positive blood culture Patient is a 83-year-old male with a past medical history significant for diabetes mellitus hypertension rheumatoid arthritis prostate cancer patient has been brought to the hospital for evaluation of mental status changes, patient did have a fever of 103 degrees for hide chest x-ray no consolidation did have a positive UA and also concerning for bladder wall thickness and mild hydronephrosis on the CT concerning for symptomatic UTI On today's evaluation that is 04/20/2024, patient has been afebrile, patient is breathing comfortably and is currently on 3 L nasal current oxygen ir, patient denies having any significant cough no chest pain, patient denies nausea vomiting or diarrhea and no abdominal pain, patient developed significant hematuria last night. Patient did have a creatinine 1.2 0 repeat blood culture negative initially urine culture came back negative as well Objective - Vital Signs Vital signs: Vital Signs Temp 98.3 F 04/20/24 08:00 Pulse 76 04/20/24 09:03 Resp 17 04/20/24 08:00 BP 144/66 04/20/24 08:00 Pulse Ox 97 04/20/24 08:57 FiO2 Intake & Output 04/19/24 04/20/24 04/20/24 18:59 06:59 18:59 Intake Total 3360 Output Total 3062 2850 700 Balance 298 -2850 -700 Intake: Oral 3360 Output: Urine 3000 2850 700 Post Void Residual 62 Other: Voiding Method External Catheter External Catheter External Catheter # Bowel Movements 1 - Exam GENERAL DESCRIPTION: An elderly male lying in bed in no distress RESPIRATORY SYSTEM: Unlabored breathing , decreased breath sounds at bases HEART: S1 S2 regular rate and rhythm , ABDOMEN: Soft , no tenderness EXTREMITIES: No edema feet - Labs CBC & Chem 7: 04/19/24 06:13 04/20/24 05:17 Labs: Abnormal Lab Results - Last 24 Hours (Table) 04/18/24 04/18/24 04/18/24 Range/Units 11:21 16:20 20:19 Sodium (137-145) mmol/L POC Glucose (mg/dL) 115 H 124 H 115 H (70-110) mg/dL 04/18/24 04/19/24 04/19/24 Range/Units 20:52 06:45 12:00 Sodium (137-145) mmol/L POC Glucose (mg/dL) 130 H 114 H 150 H (70-110) mg/dL 04/19/24 04/20/24 Range/Units 20:31 05:17 Sodium 136 L (137-145) mmol/L POC Glucose (mg/dL) 143 H (70-110) mg/dL Microbiology - Last 24 Hours (Table) 04/18/24 11:28 Blood Culture - Preliminary Blood 04/17/24 05:00 Blood Culture Gram Stain - Final Blood Blood Culture - Final Staphylococcus hominis Staphylococcus epidermidis Molecular ID Assessment and Plan (1) Sepsis Current Visit: Yes Status: Acute Code(s): A41.9 - SEPSIS, UNSPECIFIED ORGANISM SNOMED Code(s): 72010713 (2) Complicated UTI (urinary tract infection) Current Visit: Yes Status: Acute Code(s): N39.0 - URINARY TRACT INFECTION, SITE NOT SPECIFIED SNOMED Code(s): 45271473 (3) Urinary outflow obstruction Current Visit: Yes Status: Acute Code(s): N13.9 - OBSTRUCTIVE AND REFLUX UROPATHY, UNSPECIFIED SNOMED Code(s): 087830736 (4) Bilateral hydronephrosis Current Visit: Yes Status: Acute Code(s): N13.30 - UNSPECIFIED HYDRONEPHROSIS SNOMED Code(s): 77673003 (5) Positive blood culture Current Visit: Yes Status: Acute Code(s): R78.81 - BACTEREMIA SNOMED Code(s): 088074184 Plan: 1patient presented to hospital with sepsis this patient who did have a fever tachycardia elevated white count urinary symptom positive UA abnormal CT likely concerning for complicated urinary tract infection in this patient who did have evidence of mild bilateral hydronephrosis more likely secondary to bladder outlet obstruction. 2patient did have a positive blood culture with staph epi possible skin contamination blood cultures has been repeated and has been negative so far 3patient did have resolution of his fever white count is normal blood and urine culture have been negative with resistant pathogen we will consider 7-day course of oral Ceftin on discharge Dictation was produced using [employer] software. please excuse any grammatical, word or spelling errors. Time with Patient: Less than 30
== END 2024-04-20 14:45 | DRG 871 ==
LOC: EC 23:51 → 3SCARD 04-17 04:31 → 5NMEDONC 04-18 20:31
PROVIDERS: ADMIT Internal Medicine; ATTEND Internal Medicine
DX: A41.9 Sepsis, unspecified organism (principal); G93.41 Metabolic encephalopathy; J96.11 Chronic respiratory failure with hypoxia; N13.6 Pyonephrosis; E87.20 Acidosis, unspecified; R65.20 Severe sepsis without septic shock; E03.9 Hypothyroidism, unspecified; E11.22 Type 2 diabetes mellitus with diabetic chronic kidney disease; F32.A Depression, unspecified; F41.9 Anxiety disorder, unspecified; G89.29 Other chronic pain; E11.40 Type 2 diabetes mellitus with diabetic neuropathy, unspecified; I12.9 Hypertensive chronic kidney disease with stage 1 through stage 4 chronic kidney disease, or unspecified chronic kidney disease; J44.9 Chronic obstructive pulmonary disease, unspecified; Z60.2 Problems related to living alone; Z96.652 Presence of left artificial knee joint; E78.5 Hyperlipidemia, unspecified; M19.90 Unspecified osteoarthritis, unspecified site; N31.9 Neuromuscular dysfunction of bladder, unspecified; M45.9 Ankylosing spondylitis of unspecified sites in spine; H91.90 Unspecified hearing loss, unspecified ear; K21.9 Gastro-esophageal reflux disease without esophagitis; M06.9 Rheumatoid arthritis, unspecified; Z99.81 Dependence on supplemental oxygen; N18.30 Chronic kidney disease, stage 3 unspecified; Z79.4 Long term (current) use of insulin; Z79.51 Long term (current) use of inhaled steroids; Z79.82 Long term (current) use of aspirin; Z79.84 Long term (current) use of oral hypoglycemic drugs; Z79.890 Hormone replacement therapy; Z79.899 Other long term (current) drug therapy; Z85.46 Personal history of malignant neoplasm of prostate; Z85.828 Personal history of other malignant neoplasm of skin; Z86.73 Personal history of transient ischemic attack (TIA), and cerebral infarction without residual deficits; Z87.440 Personal history of urinary (tract) infections; Z92.3 Personal history of irradiation
CPT/HCPCS: 36415; 70450; 71046; 74176; 80048; 80053; 80143; 80306; 80320; 81001; 82140; 83036; 83605; 84484; 85025; 85610; 85730; 87040; 87086; 87636; 93005; 94640; 94760; 96365; 96366; 96367; 96375; 99291

== ENCOUNTER → 2024-06-11 | Outpatient (CLI) | payer MEDICARE, BC ==
[2024-06-12 11:08] LABS: Serum Amphetamine Negative; Serum Barbiturates Negative; Serum Benzodiazepine Negative; Serum Cocaine Negative; Serum Methadone Negative; Serum Opiates Negative; Serum Phencyclidine Negative; Serum Propoxyphene Negative; Serum THC (Cannabis) Negative
== END | disposition home or self-care (01) ==
LOC: LABWHC1 11:13
PROVIDERS: ATTEND Specialist
DX: Z02.83 Encounter for blood-alcohol and blood-drug test (principal)
CPT/HCPCS: 36415; 80307

== ENCOUNTER → 2024-06-11 | Outpatient (CLI) | payer MEDICARE, BC ==
[2024-06-11 10:57] VITALS: BP 120/71; PULSE 76; RESP 16; TEMP 97.1
--- NOTE | 2024-06-11 16:48 | P.PAINPG ---
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 Pain level is provoked at 6 /10 in intensity, constant, predominantly axial, localized in the lumbar spine, dull in character w occasional shooting towards the hips. Pain is provoked by lifting, bending. Pain is alleviated with medications, heat, use of a walker for ambulatory assistance, repositioning and rest. Interventional pain procedures completed include Pain Pump Placement Patient is currently on Oxycodone IR 5mg #90, Baclofen 10mg #30 Patient denies any side effects of the medication(s), denies excessive drowsiness or sleepiness, denies suicidal ideation and reports that the current pain medication is helping to control the pain and improve activities of daily living. Patient denies any motor or sensory deficits. Patient denies any fever or night sweats, denies any change in the bowel movements or urination. Physical Examination: -Constitutional: Cooperative. Not in acute distress . - Neurologic: Cranial nerve II to XII intact. No focal neurological deficits. - Psychatric: Alert & oriented x 3. Matching mood & appropriate affect. Judgment and insight intact. - Musculoskeletal: Cervical spine: Muscle bulk/ tone/ strength in the bilateral upper extremities normal Vertebral body tenderness to palpation over Spurling test positive Distraction test positive Facet loading test positive TTP Thoracic spine Muscle bulk / tone/ strength in the bilateral paraspinal muscles normal Vertebral body tender to palpation over Facet loading test positive TTP Lumbar spine: Motor bulk/ tone/ strength lower extremities , thigh and legs : 5/5 Deep tendon reflexes : Normal Knee Jerk. Normal Ankle Jerk . Vertebral body tenderness to palpation over Wong Test positive Lumbar Facet Loading Test positive Straight Leg Raise: positive at 30 degrees right side/ left side Gaenslen's Test positive Sacral spine : Severe tenderness over the Sacroiliac joint: right side / left side Range of motion: Flexion of the lumbar spine <60 degrees Range of motion: Extension of the lumbar spine <20 degrees Gaenslen's Test positive right side / left side Quirino test: positive right side / left side Thigh Thrust Test positive right side / left side Sacral Thrust Test positive right side / left side Assessment and plan: 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 The patient was counseled about risk of opioid use, psychological risk associated with opioids and was orally counseled to not overuse , divert or sell medications. Pt is to store medication in a safe location. The patient is counseled against driving while using narcotic medications and also not to use alcohol or any illicit recreational drugs. Patient verbalized understanding that the lack of compliance will result in failure to renew narcotic prescription(s) as well as possible discharge from the clinic Diagnoses, prognosis and treatment options including but not limited to physical therapy, surgical interventions, interventional therapies and medication management including narcotics and adjuvant medication were discussed. All patient questions answered MAPS reviewed and it was appropriate. Opiate/ narcotic agreement renewed 03/22/24. Blood tox screen 06/11/24 . Prescription refill for Oxycodone 5mg #90, Baclofen 5mg #30 w 2 RF. Use, side effects, adverse reactions, safe storage discussed. I have spent less than 30 minutes on patient care today. Dr Peres was available by phone for the evaluation of this patient. The time was used to review the medical records including relevant urine studies and Prescription history (MAPs), review of the available imaging, evaluation and examination of the patient, coordination of care with the medical staff and if applicable referring physicians, as well as creation of the medical record - Pain Location Right Shoulder Non-Pharmacological Interventions: Heat, Physical Therapy, Position/Reposition, Sitting Pharmacological Interventions: Pain Pump, PRN Medication, Scheduled Medication, Topical Medication PQRS Narrative: Smoking Status Never smoker Narcotic Agreement Date Signed 01/30/20 Hx Alcohol Use (MH) No Home Medications: Ambulatory Orders Citalopram Hydrobromide [CeleXA] 40 mg PO DAILY 04/09/17 Aspirin 81 mg PO HS 08/12/22 Metoprolol Tartrate 12.5 mg PO DAILY 09/13/23 Vit D3 (Unk) 1 tab PO DAILY 09/13/23 Patient Own Pump 1 bag INFILTRATI DIRECTED 03/12/24 buPROPion XL [Wellbutrin XL] 300 mg PO DAILY 03/12/24 Baclofen [Lioresal] 10 mg PO HS 30 Days #30 tab 03/22/24 Atorvastatin [Lipitor] 10 mg PO HS 04/17/24 Latanoprost [Latanoprost 0.005%] 1 drop BOTH EYES HS 10/01/24 Levothyroxine Sodium 150 mcg PO DAILY 04/17/24 hydroCHLOROthiazide [Hydrodiuril] 50 mg PO DAILY 04/17/24 metFORMIN HCL ER [Glucophage XR] 500 mg PO BID 04/17/24 Gabapentin [Neurontin] 300 mg PO TID #9 cap 04/20/24 cefuroxime axetiL [Ceftin] 500 mg PO BID 7 Days #14 tab 04/20/24 oxyCODONE HCL [oxyCODONE HCL (IR)] 5 mg PO TID PRN 30 Days #90 cap 06/11/24 oxyCODONE HCL [oxyCODONE HCL (IR)] 5 mg PO TID PRN 30 Days #90 cap 06/11/24 oxyCODONE HCL [oxyCODONE HCL (IR)] 5 mg PO TID PRN 30 Days #90 cap 06/11/24 Controlled Substance Measures - Controlled Substance Measures Is patient prescribed a controlled substance at discharge?: Yes When asked, does pt state using other controlled substances?: No If prescribed controlled substance>3 days was MAPS reviewed?: Yes
== END ==
LOC: PNWHC3 10:33
PROVIDERS: ATTEND Specialist
DX: M47.25 Other spondylosis with radiculopathy, thoracolumbar region (principal); M50.30 Other cervical disc degeneration, unspecified cervical region; Z79.891 Long term (current) use of opiate analgesic
CPT/HCPCS: 99211

== ENCOUNTER → 2024-06-21 | Day surgery (SDC) | payer MEDICARE, BC ==
[~2024-06-21] MED LIST changes: +BUPIVACAINE MC ONE; +LACTATED RINGERS 1,000 ML IV SCH
[2024-06-21 10:09] VITALS: BP 125/62; PULSE 65; RESP 16; TEMP 97.9
[2024-06-21 10:13] LABS: Glucose,Whole Blood 156 mg/dL (70-110)
--- NOTE | 2024-06-21 10:51 | P.PCN ---
Date of Procedure: 06/21/24 Procedure(s) Performed: PROCEDURE: Intrathecal pain pump analysis, programming and reprogramming, and intrathecal pain pump refill. PREOPERATIVE DIAGNOSES: 1. near empty intrathecal pain pump time for refill. 2. opioid tolerance 3. postlaminectomy syndrome POSTOPERATIVE DIAGNOSES: 1. near empty intrathecal pain pump time for refill. 2. opioid tolerance 3. postlaminectomy syndrome ANESTHESIA: None. CONDITION: Stable. INDICATION: This is a 82 year-old patient with a long history of chronic pain secondary to postlaminectomy syndrome. Patient previously had an intrathecal pump placed, which is now near empty, and patient presents for refill today. Patient denies any side effects of the intrathecal medication, including new weakness, new numbness, excessive drowsiness or sleepiness, nausea/vomiting, weight gain, or night sweats. Patient also denies suicidal ideation, and reports that the current pain medication is helping control the chronic pain and improve the patient's activities of daily living. DESCRIPTION: The intrathecal pain pump was analyzed and showed that the patient currently has reservoir volume of [8.3 ] mL. The patient is receiving intrathecal Morphine sulfate PF at concentration [5] mg/ ml and bupivacaine PF at concentration [5] mg/ml. Patient receiving daily dose of Morphine Sulfate [0.69] mg/day and bupivacaine [0.69] mg/day. The location of the pump (left buttock) was prepped with chlorhexidine x3. Then, the 22-gauge needle from the [employer] kit was advanced through the pump port. Total of 7 ml was removed from the pump, and it was refilled with the new medication total volume of [20] ml of a solution containing morphine sulfate at concentration [5] mg /ml and bupivacaine at concentration [5] mg/ml. The patient will continue with the same daily dose morphine [0.69] mg/day and bupivacaine [0.69] mg/day, no changes today. The patient is using some oral medications as well, specifically oxyIR 5 mg q6h prn pain orally for breakthrough pain and baclofen 10 mg qhs for spasm. and patient will follow up with the pain clinic for the medications for refile. Patient denies any side effects of the medication and he reported that he use the pain medication for breakthrough pain he denies any side effect of the medication, he denies any Since of drowsiness or sleepiness.
== END ==
LOC: ORPAIN 09:43
PROVIDERS: ATTEND Specialist
DX: Z45.1 Encounter for adjustment and management of infusion pump (principal); M96.1 Postlaminectomy syndrome, not elsewhere classified; G89.4 Chronic pain syndrome

== ENCOUNTER → 2024-09-14 | Day surgery (SDC) | payer MEDICARE, BC ==
[2024-09-14 10:40] VITALS: BP 116/59; PULSE 63; RESP 18; TEMP 97.5
[2024-09-14 10:44] LABS: Glucose,Whole Blood 134 mg/dL (70-110)
--- NOTE | 2024-09-14 10:59 | P.PCN ---
Date of Procedure: 09/14/24 Procedure(s) Performed: PROCEDURE: Intrathecal pain pump analysis, programming and reprogramming, and intrathecal pain pump refill. PREOPERATIVE DIAGNOSES: 1. near empty intrathecal pain pump time for refill. 2. opioid tolerance 3. postlaminectomy syndrome POSTOPERATIVE DIAGNOSES: 1. near empty intrathecal pain pump time for refill. 2. opioid tolerance 3. postlaminectomy syndrome ANESTHESIA: None. CONDITION: Stable. INDICATION: This is a 82 year-old patient with a long history of chronic pain secondary to postlaminectomy syndrome. Patient previously had an intrathecal pump placed, which is now near empty, and patient presents for refill today. Patient denies any side effects of the intrathecal medication, including new weakness, new numbness, excessive drowsiness or sleepiness, nausea/vomiting, weight gain, or night sweats. Patient also denies suicidal ideation, and reports that the current pain medication is helping control the chronic pain and improve the patient's activities of daily living. DESCRIPTION: The intrathecal pain pump was analyzed and showed that the patient currently has reservoir volume of [8.1 ] mL. The patient is receiving intrathecal Morphine sulfate PF at concentration [5] mg/ ml and bupivacaine PF at concentration [5] mg/ml. Patient receiving daily dose of Morphine Sulfate [0.69] mg/day and bupivacaine [0.69] mg/day. The location of the pump (left buttock) was prepped with chlorhexidine x3. Then, the 22-gauge needle from the [employer] kit was advanced through the pump port. Total of 8 ml was removed from the pump, and it was refilled with the new medication total volume of [20] ml of a solution containing morphine sulfate at concentration [5] mg /ml and bupivacaine at concentration [5] mg/ml. The patient will continue with the same daily dose morphine [0.69] mg/day and bupivacaine [0.69] mg/day, no changes today. The patient is using some oral medications as well, specifically oxyIR 5 mg q6h prn pain orally for breakthrough pain and baclofen 10 mg qhs for spasm. and patient will follow up with the pain clinic for the medications for refile. Patient denies any side effects of the medication and he reported that he use the pain medication for breakthrough pain he denies any side effect of the medication, he denies any Since of drowsiness or sleepiness.
== END ==
LOC: ORPAIN 10:10 → EEVIPCON 10:10
PROVIDERS: ATTEND Specialist
DX: Z45.1 Encounter for adjustment and management of infusion pump (principal); M96.1 Postlaminectomy syndrome, not elsewhere classified; G89.29 Other chronic pain
CPT/HCPCS: 62370

== ENCOUNTER → 2024-12-20 | Outpatient (CLI) | payer MEDICARE, BC ==
[2024-12-20 13:01] VITALS: BP 118/64; PULSE 57; RESP 16; TEMP 98.9
--- NOTE | 2024-12-24 14:24 | P.PAINPG ---
PQRS Measure Charge Sheet Comment: A 84 yr old wheelchair bound male with a history of severe and chronic R shoulder and LBP secondary to post laminectomy syndrome, DJD presents today for medication refills. Pain level is provoked at 6 /10 in intensity, constant, predominantly axial, localized in the lumbar spine, dull in character w occasio nal shooting towards the hips. Pain is provoked by lifting, bending. Pain is alleviated with medications, heat, use of a walker for ambulatory assistance, repositioning and rest. Interventional pain procedures completed include Pain Pump Placement Patient is currently on Oxycodone IR 5mg #90, Baclofen 10mg #30 Patient denies any side effects of the medication(s), denies excessive drowsiness or sleepiness, denies suicidal ideation and reports that the current pain medication is helping to control the pain and improve activities of daily living. Patient denies any motor or sensory deficits. Patient denies any fever or night sweats, denies any change in the bowel movements or urination. Physical Examination: -Constitutional: Cooperative. Not in acute distress . - Neurologic: Cranial nerve II to XII intact. No focal neurological deficits. - Psychatric: Alert & oriented x 3. Matching mood & appropriate affect. Judgment and insight intact. - Musculoskeletal: Cervical spine: Muscle bulk/ tone/ strength in the bilateral upper extremities normal Vertebral body tenderness to palpation over Spurling test positive Distraction test positive Facet loading test positive TTP Thoracic spine Muscle bulk / tone/ strength in the bilateral paraspinal muscles normal Vertebral body tender to palpation over Facet loading test positive TTP Lumbar spine: Motor bulk/ tone/ strength lower extremities , thigh and legs : 5/5 Deep tendon reflexes : Normal Knee Jerk. Normal Ankle Jerk . Vertebral body tenderness to palpation over Wong Test positive Lumbar Facet Loading Test positive Straight Leg Raise: positive at 30 degrees right side/ left side Gaenslen's Test positive Sacral spine : Severe tenderness over the Sacroiliac joint: right side / left side Range of motion: Flexion of the lumbar spine <60 degrees Range of motion: Extension of the lumbar spine <20 degrees Gaenslen's Test positive right side / left side Quirino test: positive right side / left side Thigh Thrust Test positive right side / left side Sacral Thrust Test positive right side / left side Assessment and plan: Chronic LBP secondary to post laminectomy syndrome, R shoulder DJD Chronic and current use of high-risk medication (Opioids). The patient was counseled about risk of opioid use, psychological risk associated with opioids and was orally counseled to not overuse , divert or sell medications. Pt is to store medication in a safe location. The patient is counseled against driving while using narcotic medications and also not to use alcohol or any illicit recreational drugs. Patient verbalized understanding that the lack of compliance will result in failure to renew narcotic prescription(s) as well as possible discharge from the clinic Diagnoses, prognosis and treatment options including but not limited to physical therapy, surgical interventions, interventional therapies and medication management including narcotics and adjuvant medication were discussed. All patient questions answered MAPS reviewed and it was appropriate. Opiate/ narcotic agreement renewed 03/22/24. UDS to be collected at next visit. Prescription refill for Oxycodone 5mg #90, Baclofen 5mg #30 w 2 RF. Use, side effects, adverse reactions, safe storage discussed. I have spent less than 30 minutes on patient care today. Dr Peres was available by phone for the evaluation of this patient. The time was used to review the medical records including relevant urine studies and Prescription history (MAPs), review of the available imaging, evaluation and examination of the patient, coordination of care with the medical staff and if applicable referring physicians, as well as creation of the medical record PQRS Narrative: Smoking Status Never smoker Narcotic Agreement Date Signed 01/30/20 Hx Alcohol Use (MH) No Home Medications: Ambulatory Orders Metoprolol Tartrate 12.5 mg PO DAILY 09/13/23 Vit D3 (Unk) 1 tab PO DAILY 09/13/23 Patient Own Pump 1 bag INFILTRATI DIRECTED 03/12/24 buPROPion XL [Wellbutrin XL] 300 mg PO DAILY 03/12/24 Atorvastatin [Lipitor] 10 mg PO HS 04/17/24 Latanoprost [Latanoprost 0.005%] 1 drop BOTH EYES HS 04/17/24 Levothyroxine Sodium 175 mcg PO DAILY 04/17/24 metFORMIN HCL ER [Glucophage XR] 500 mg PO BID 04/17/24 Gabapentin [Neurontin] 300 mg PO TID #9 cap 04/20/24 Nitrofurantoin Monohyd/M-Cryst [Nitrofurantoin Monohyd/M-Cryst 100 mg] 100 mg PO DIRECTED 06/18/24 Unk Coq10 1 tab PO DAILY 06/18/24 [id number] [Excedrin] 1 each PO QID 09/13/24 Citalopram Hydrobromide [CeleXA] 40 mg PO DAILY 09/13/24 Baclofen [Lioresal] 10 mg PO HS 30 Days #30 tab 12/20/24 oxyCODONE HCL [OxyIR] 5 mg PO TID PRN 30 Days #90 tab 12/20/24 oxyCODONE HCL [OxyIR] 5 mg PO TID PRN 30 Days #90 tab 12/20/24 Controlled Substance Measures - Controlled Substance Measures Is patient prescribed a controlled substance at discharge?: Yes When asked, does pt state using other controlled substances?: Yes If prescribed controlled substance>3 days was MAPS reviewed?: Yes
== END ==
LOC: PNWHC3 10:13
PROVIDERS: ATTEND Specialist
DX: M96.1 Postlaminectomy syndrome, not elsewhere classified (principal); G89.29 Other chronic pain; M54.50 Low back pain, unspecified; M19.011 Primary osteoarthritis, right shoulder; Z87.891 Personal history of nicotine dependence
CPT/HCPCS: 99211